=== PATIENT | male | born 2000 | race African-American/Black ===

== ENCOUNTER 2024-01-29 03:30 | Emergency (ER) | payer SELFPAY ==
[2024-01-29 03:33] VITALS: BP 151/92; PULSE 66; TEMP 36.8; O2SAT 98; BMI 27.0
--- NOTE | 2024-01-29 03:37 | XR_ITS ---
The [address] [address] Patient Name: TANA FIGUEROA MRN: [id number] date: 2000 Sex: M Assigned Patient Location: ER Current Patient Location: Accession/Order Number: [id number] Exam Date: 01/29/2024 03:45 Report Date: 01/29/2024 04:29 At the request of: JANAE SHELLEY Procedure: XR foot LT min 3V EXAM: XR ankle LT min 3V, XR foot LT min 3V HISTORY: twisted COMPARISON: None. TECHNIQUE: 3 views of the left ankle and 3 views of the left foot were obtained. FINDINGS: No acute fracture or dislocation is seen. The ankle mortise appears to be congruent. The joint spaces are preserved. There is no significant left ankle joint effusion. There is soft tissue edema about the ankle. There is a tiny radiopaque density between the fourth and fifth toes. XR/XR foot LT min 3V IMPRESSION: 1. Soft tissue edema about the left ankle with no acute fracture or dislocation of the ankle or foot seen. If pain persists, repeat radiographs are recommended in 7-10 days. 2. Tiny radiopaque density between the left fourth and fifth toes which could be external to the patient. Electronically authenticated by: Nikolay PEREA Date: 01/29/2024 04:29
--- NOTE | 2024-01-29 03:37 | XR_ITS ---
The [address] [address] Patient Name: TANA FIGUREOA MRN: [id number] date: 2000 Sex: M Assigned Patient Location: ER Current Patient Location: Accession/Order Number: [id number] Exam Date: 01/29/2024 03:45 Report Date: 01/29/2024 04:29 At the request of: JANAE SHELLEY Procedure: XR ankle LT min 3V EXAM: XR ankle LT min 3V, XR foot LT min 3V HISTORY: twisted COMPARISON: None. TECHNIQUE: 3 views of the left ankle and 3 views of the left foot were obtained. FINDINGS: No acute fracture or dislocation is seen. The ankle mortise appears to be congruent. The joint spaces are preserved. There is no significant left ankle joint effusion. There is soft tissue edema about the ankle. There is a tiny radiopaque density between the fourth and fifth toes. XR/XR ankle LT min 3V IMPRESSION: 1. Soft tissue edema about the left ankle with no acute fracture or dislocation of the ankle or foot seen. If pain persists, repeat radiographs are recommended in 7-10 days. 2. Tiny radiopaque density between the left fourth and fifth toes which could be external to the patient. Electronically authenticated by: Nikolay PEREA Date: 01/29/2024 04:29
--- NOTE | 2024-01-29 03:54 | ED.LOWEXI1 ---
HPI HPI - Extremity Injury (Lower) General Chief Complaint: Extremity Injury, Lower Stated Complaint: LE INJURY Time Seen by Provider: 01/29/24 03:52 Source: patient Mode of arrival: walk-in Limitations: no limitations History of Present Illness HPI Narrative: 23-year-old male presents for left foot and ankle pain. He twisted it on his dog yesterday morning. He points to the anterior portion of the ankle extending onto the anterior/proximal portion of the foot. He has been able to walk and he did not fall. Pain is moderate. Related Data Allergies Allergy/AdvReac Type Severity Reaction Status Date / Time No Known Drug Allergies Allergy Verified 01/29/24 03:33 Opioid HPI Opioid Management Most Recent Pain and Opioid Data: Last Pain Scale 9 01/29/24 03:42 Last ED Pain Assessment 01/29/24 03:42 Review of Systems ROS Narrative A ten point review of systems is negative except as noted above. Exam Narrative Exam Narrative: Nurses note and vital signs reviewed and patient is not hypoxic. General: The patient appears well and in no apparent distress. Patient is resting comfortably on cart. Skin: Warm, dry, no pallor noted. There is no rash noted. Head: Normocephalic, atraumatic Eye: Normal conjunctiva, no drainage Ears, Nose, Mouth, and Throat: oral mucosa is moist. Nares patent. Cardiovascular: Regular Rate and Rhythm Respiratory: Patient is in no distress, no accessory muscle use, lungs are clear to auscultation, no wheezing, rales or rhonchi GI: N soft and nontender Musculoskeletal: The left foot and ankle are examined. There is no obvious deformity. There is no apparent swelling. Skin intact. He has some tenderness anteriorly in the left ankle and proximal foot portion. Neurological: A&O, normal speech Psychiatric: Cooperative Constitutional Vital Signs, click to edit/add: Last Vital Signs Temp 98.3 F 01/29/24 03:33 Pulse 66 01/29/24 03:33 Resp 18 01/29/24 03:33 BP 151/92 H 01/29/24 03:33 Pulse Ox 98 01/29/24 03:33 O2 Del Method Room Air 01/29/24 03:33 Course Vital Signs Vital signs: Vital Signs Temperature 98.3 F 01/29/24 03:33 Pulse Rate 66 01/29/24 03:33 Respiratory Rate 18 01/29/24 03:33 Blood Pressure 151/92 H 01/29/24 03:33 Pulse Oximetry 98 01/29/24 03:33 Oxygen Delivery Method Room Air 01/29/24 03:33 Temperature 98.3 F 01/29/24 03:33 Pulse Rate 66 01/29/24 03:33 Respiratory Rate 18 01/29/24 03:33 Blood Pressure 151/92 H 01/29/24 03:33 Pulse Oximetry 98 01/29/24 03:33 Oxygen Delivery Method Room Air 01/29/24 03:33 MDM - Extremity Injury (Lower) MDM Narrative Medical decision making narrative: X-rays of his foot and ankle on my interpretation showed no acute findings. González wrap applied, application checked by me and found to be appropriate, he is neurovascularly intact. My clinical impression is that he has a sprained foot. Treatment diagnosis and follow-up were discussed with the patient. Differential Diagnosis Differential diagnosis: Likely other (Foot sprain, ankle sprain, foot fracture, ankle fracture) Imaging Data Left foot and ankle: My impression: No acute findings Discharge Plan Discharge Stand Alone Forms: Portal Instructions Chief Complaint: Extremity Injury, Lower Clinical Impression: Sprain of foot, left Patient Disposition: Home, Self-Care Time of Disposition Decision: 03:59 Condition: Good Mode of Transportation: Private Vehicle Print Language: Hungarian Instructions: Foot Sprain (ED) Referrals: Physician,Non-Staff, MD [Primary Care Provider] - 1 week
== END 2024-01-29 04:08 | disposition home or self-care (01) ==
PROVIDERS: Emergency Provider Emergency Medicine
DX: S93.602A Unspecified sprain of left foot, initial encounter (principal); X50.1XXA Overexertion from prolonged static or awkward postures, initial encounter
CPT/HCPCS: 73610; 73630; 99284

== ENCOUNTER 2024-02-05 17:52 | Emergency (ER) | payer OTHER, SELFPAY ==
[2024-02-05 17:59] VITALS: BP 171/87; PULSE 70; TEMP 36.7; O2SAT 100; BMI 35.9
--- NOTE | 2024-02-05 18:35 | CT_ITS ---
The [address] [address] Patient Name: TANA FIGUEROA MRN: [id number] date: 2000 Sex: M Assigned Patient Location: ER Current Patient Location: Accession/Order Number: [id number] Exam Date: 02/05/2024 19:58 Report Date: 02/05/2024 21:07 At the request of: NAEEM HERNANDEZ Procedure: CT abdomen pelvis w con EXAM: CT abdomen pelvis w con TECHNIQUE: Axial CT images were obtained of the abdomen and pelvis with intravenous contrast. Sagittal and coronal reformatted images were also obtained. Dose reduction techniques were achieved by using automated exposure control and/or adjustment of mA and/or kV according to patient size and/or use of iterative reconstruction technique. HISTORY: abdominal pain COMPARISON: None. FINDINGS: Lower chest: The lower lungs are clear. Liver: The liver is homogeneous with normal contours and normal size. Gallbladder: The gallbladder is unremarkable. There is no intra or extrahepatic biliary dilatation. Pancreas: The pancreas is homogeneous without evidence for mass lesion or inflammation. Spleen: The spleen is unremarkable without evidence for mass lesion. Adrenal glands: The adrenal glands are unremarkable Kidneys and bladder: The kidneys are unremarkable with no evidence for mass lesion, hydronephrosis or inflammation. The ureters demonstrate normal caliber. There are bladder is not well-distended but appears to be thickened wall. GI Tract: Stomach is unremarkable. Visualized small bowel is unremarkable without evidence for obstruction or active inflammation. The appendix is unremarkable.The visualized portion of the large bowel is unremarkable. Reproductive: Unremarkable Lymph nodes: No retroperitoneal or abdominal lymphadenopathy. Vascular: The aorta is not dilated. Mesenteric, renal and iliac arteries are patent. Peritoneum: No free intraperitoneal air or fluid. No acute inflammation. Abdominal wall: Unremarkable without acute abnormality. CT/CT abdomen pelvis w con IMPRESSION: Apparent thickened wall of the urinary bladder which may suggest cystitis. Evaluation is limited as the urinary bladder is not well distended. No additional acute abdominal pathology. No obstructing urinary tract stone. No evidence for bowel obstruction. Electronically authenticated by: TERESITA HUNTLEY Date: 02/05/2024 21:07
--- OUTSIDE RECORDS SUMMARY | 2024-02-05 18:50 | XMS_ITS | CCD ---
Author Organization [facility] Care Team Providers Care Wax Ball Knock Out Worker Name Role Phone Cheri Quinteros Unavailable Unavailable Rish, Román Unavailable Unavailable Rish, Román Unavailable Unavailable Rish, Román Unavailable Unavailable No Family Physician Unavailable Unavailable No Family Physician Unavailable Unavailable AldairCheri hall Unavailable Unavailable Rish, Román Unavailable Unavailable Rish, Román Unavailable Unavailable Hill, Tamanna Unavailable Unavailable Rish, Román Unavailable Unavailable Rish, Román Unavailable Unavailable Hill, Tamanna Unavailable Unavailable Rish, Román Unavailable Unavailable Rish, Román Unavailable Unavailable Hill, Tamanna Unavailable Unavailable No Family Physician Unavailable Unavailable No Family Physician Unavailable Unavailable Hill, Tamanna Unavailable Unavailable Rish, Román Unavailable Unavailable Rish, Román Unavailable Unavailable Rish, Román Unavailable Unavailable Rish, Román Unavailable Unavailable Bejko, Etleva Unavailable Unavailable Rish, Román Unavailable Unavailable Rish, Roámn Unavailable Unavailable Unavailable Rischristopher Mima Unavailable Chuck Chopra I Unavailable Unavailable Unavailable Unavailable Luz Beasley Unavailable Unavailable Mmia Rodriguez MD Primary Care Provider [phone] FARRUKH SCHULZ Attending Unavailable RISMIMA Garduno Primary Care Unavailable Jennifer, Dr. Mima Klein Primary Care Unavail able Jennifer, Dr. Mima Klein Attending Unavail able Jennifer, Dr. Mima Klein Referring Unavail able Jennifer, Dr. Mima Klein Primary Care Unavail able MD BRANDON BENITEZ Attending Unavailable Jennifer, Dr. Mima Klein Primary Care Unavail able DULCE MCHUGH Attending Stephy vailable DULCE MCHUGH Attending Stephy vailable Jennifer, Dr. Mima Klein Primary Care Unavail able MD BRANDON BENITEZ Referring Unavailable Min, Ms. Isaac Attending Unavailable Rish, Dr. Mima Klein Primary Care Unavail able Rish, Dr. Mima Klein Primary Care Unavail able Rish, Dr. Mima Klein Attending Unavail able Rish, Dr. Mima Klein Referring Unavail able Rish, Dr. Mima Klein Primary Care Unavail able Rish, Dr. Mima Klein Attending Unavail able Rish, Dr. Mima Klein Referring Unavail able Rish, Dr. Mima Klein Referring Unavail able Rish, Dr. Mima Klein Attending Unavail able Rish, Dr. Mima Klein Primary Care Unavail able Gianluca Rg Attending Unavailable Rish, Dr. Mima Klein Primary Care Unavail able Hud[place], Dr. Luz Fuller Attending Unavailabl e Rish, Dr. Mima Klein Primary Care Unavail able Brandon Benitez Attending Unavailable Rish, Dr. Mima Klein Primary Care Unavail able Brandon Benitez Attending Unavailable Brandon Benitez Referring Unavailable Rish, Dr. Mima Klein Primary Care Unavail able Lori Mchugh Attending Unavailable Lori Mchugh Referring Unavailable Jennifer, Dr. Mima Klein Primary Care Unavail able Mima Rodriguez MD Primary Care Provider Mima Rodriguez MD Unavailable Mima Rodriguez MD Unavailable [phone] MIMA RODRIGUEZ Primary Care Unavailable Linda Gaviria MD Unavailable MIMA RODRIGUEZ Attending Unavailable MIMA RODRIGUEZ Primary Care Unavailable LINDA GAVIRIA Attending Unavailable MIMA RODRIGUEZ Referring Unavailable MIMA RODRIGUEZ Primary Care Unavailable MIMA RODRIGUEZ Attending Unavailable MIMA RODRIGUEZ Primary Care Unavailable LORI MCHUGH Attending Unavailable MIMA RODRIGUEZ Primary Care Unavailable MIMA RODRIGUEZ Primary Care Unavailable MIMA RODRIGUEZ Referring Unavailable MIMA RODRIGUEZ Primary Care Unavailable Medications Current Medications Medication Drug Class(es) Dates Sig (Normalized) Sig (Original) acetaminophen 325 mg oral tablet (1 source) Start: 07-09-2022 take 2 tablets by mouth every four hours as needed acetaminophen 325 mg oral tablet ; 2 tab(s) orally every 4 hours, As needed, Pain - Mild (1-3) Quantity: 0 Refills: 0 Ordered: 09-Jul-2022 Dee Avitia Start: 09-Jul-2022 Generic Substitution Allowed acetaminophen 325 mg / traMADol hydrochloride 37.5 mg oral tablet (1 source) Opioid Agonist Start: 11-05-2022 take 1 tablet by mouth three times daily Ultracet 37.5 mg-325 mg oral tablet ; 1 tab(s) orally 3 times a day Quantity: 12 Refills: 0 Ordered: 04-Nov-2022 Luz Beasley Start: 04-Nov-2022 Generic Substitution Allowed Comments: May cause drowsiness. Alcohol may intensify this effect. Use care when operating dangerous machinery.Obtain medical advice before taking any non-prescription drugs as some may affect the action of this medication.This product contains acetaminophen. Do not use with any other product containing acetaminophen to prevent possible liver damage. Comment on above: May cause drowsiness . Alcohol may intensify this effect. Use care when operating dangerous machinery.Obtain medical advice before taking any non-prescription drugs as some may affect the action of this medication.This product contains acetaminophen. Do not use with any other product containing acetaminophen to prevent possible liver damage. ALPRAZolam 0.25 mg oral tablet (11 sources) Benzodiazepine Start: 11-27-2022 take 1 tablet by mouth every six hours as needed ALPRAZolam (Xanax) 0.25 mg tablet Take 1 tablet (0.25 mg) by mouth every 6 hours if needed. 0 11/27/2022 Active Comment on above: Take 0.25 mg by mout h every 6 hours as needed. amphetamine aspartate 2.5 mg / amphetamine sulfate 2.5 mg / dextroamphetamine saccharate 2.5 mg / dextroamphetamine sulfate 2.5 mg oral tablet (6 sources) Central Nervous System Stimulant Start: 11-15-2023 take 1 tablet by mouth once daily amphetamine-dextr oamphetamine (Adderall) 10 mg tablet Indications: Attention disturbance Take 1 tablet (10 mg) by mouth once daily. Do not start before November 15, 2023. 30 tablet 0 11/15/2023 Active Start: 11-15-2023 take 1 tablet by prakash th once daily amphetamine-dextroamphetamine (Adderall) 10 mg tablet Indications: Attention disturbance Take 1 tablet (10 mg) by mouth once daily. Do not start before November 15, 2023. 30 tablet 0 11/15/2023 Active Start: 09-16-2023 End: 11-15-2023 take 1 tablet by mouth twice daily amphetamine-dextroamphetamine (Adderall) 10 mg tablet Indications: Attention disturbance Take 1 tablet (10 mg) by mouth 2 times a day. Do not start before October 16, 2023. 60 tablet 0 10/16/2023 11/15/2023 Active multivitamin with iron (Daily Vites/Iron) tablet (3 sources) Start: 01-07-2016 multivitamin with iron (Daily Vites/Iron) tablet multivitamin with iron Multiple Vitamins with Iron oral tablet (1 source) take 1 tablet by mouth once daily multivitamin with iron Multiple Vitamins with Iron oral tablet ; 1 tab(s) oral once a day Quantity: 0 Refills: 0 Ordered: 07-May-2022 Teri Church Generic Substitution Allowed proparacaine hydrochloride 5 mg/ml ophthalmic solution (1 source) Local Anesthetic Start: 12-25-2022 End: 12-26-2022 proparacaine 0.5 % 1 Drop (ALCAINE) QUEtiapine 25 mg oral tablet (20 sources) Atypical Antipsychotic Start: 02-20-2022 QUEtiapine (SEROquel) 25 mg tablet Take by mouth. 0 02/20/2022 Active Start: 02-20-2022 QUEtiapine Fum arate 25 MG Oral Tablet Quantity: 30 Refills: 0 Ordered: 20-Feb-2022 DO Start : 20-Feb-2022 Active Comment on above: Take 25 mg by mouth daily at bedtime. tropicamide 10 mg/ml ophthalmic solution (1 source) Anticholinergic Start: 12-26-19 End: 12-27-19 tropicamide 1 % 1 Drop (MYDRIACYL) ursodiol 250 mg oral tablet (14 sources) Bile Acid Start: 11-17-19 End: 06-24-20 take 1 tablet by mouth twice daily ursodiol (Actigall) 250 mg tablet Take 1 tablet (250 mg) by mouth twice a day. 0 11/17/2022 06/24/2023 Discontinued (Therapy completed) Start: 08-05-2022 End: 07-26-2023 take 1 tablet by mouth once daily Ursodiol 250 MG Oral Tablet TAKE 1 TABLET DAILY. Quantity: 30 Refills: 5 Ordered: 27-Jan-2023 Lori Prasad Start : 27-Jan-2023 End : 26-Jul-2023 Active Start: 08-05-2022 take 1 tablet by prakash th twice daily Ursodiol 250 MG Oral Tablet TAKE 1 TABLET TWICE DAILY. Quantity: 60 Refills: 3 Ordered: 05-Aug-2022 Lori Prasad Start : 05-Aug-2022 Active Comment on above: Take 250 mg by mouth twice daily. vitamin b12 1 mg sublingual tablet (15 sources) Vitamin B12 Start: 06-17-2022 End: 06-24-2023 cyanocobalamin, vitamin B-12, 1,000 mcg tablet, sublingual Place under the tongue. 0 06/17/2022 06/24/2023 Discontinued (Therapy completed) Comment on above: Dissolve under the t ongue. Completed/Discontinued Medications Medication Drug Class(es) Dates Sig (Normalized) Sig (Original) acetaminophen 325 mg / HYDROcodone bitartrate 5 mg oral tablet (1 source) Opioid Agonist Start: 07-09-2022 End: 07-11-2022 take 1 tablet by mouth every six hours hydrocodone-acetam inophen 5 mg-325 mg oral tablet ; 1 tab(s) orally every 6 hours Quantity: 12 Refills: 0 Ordered: 09-Jul-2022 Dee Avitia Start: 09-Jul-2022 End: 11-Jul-2022 Generic Substitution Allowed Comments: Caution federal law prohibits the transfer of this drug to any person other than the person for whom it was prescribed.May cause drowsiness. Alcohol may intensify this effect. Use care when operating dangerous machinery.This product contains acetaminophen. Do not use with any other product containing acetaminophen to prevent possible liver damage.Using more of this medication than prescribed may cause serious breathing problems. Comment on above: Caution federal law prohibits the transfer of this drug to any person other than the person for whom it was prescribed.May cause drowsiness. Alcohol may intensify this effect. Use care when operating dangerous machinery.This product contains acetaminophen. Do not use with any other product containing acetaminophen to prevent possible liver damage.Using more of this medication than prescribed may cause serious breathing problems. Bariatric Multivitamins/Iron Oral Capsule (13 sources) Start: 06-17-2022 Bariatric Multivitamins/Iron Oral Capsule TAKE DIRECTED. Quantity: 0 Refills: 0 Ordered: 17-Jun-2022 DO Start : 17-Jun-2022 Active biotin 1 mg oral capsule (20 sources) Start: 02-18-2018 biotin 1 mg cap Take by mouth. 0 02/18/2018 Active biotin ; orally once a day Quantity: 0 Refills: 0 Ordered: 29-Jan-2022 Annel Guerin Generic Substitution Allowed Comment on above: Take by mouth. 24 hr buPROPion hydrochloride 150 mg extended release oral tablet (11 sources) Aminoketone Start: 10-07-2021 take 1 tablet by mouth once daily in the morning buPROPion HCl ER (XL) 150 MG Oral Tablet Extended Release 24 Hour TAKE 1 TABLET EVERY MORNING Quantity: 30 Refills: 2 Ordered: 07-Oct-2021 Gerry Blum Start : 07-Oct-2021 Active Calcium Citrate (13 sources) Start: 06-17-2022 take 1 tablet by mouth three times daily Calcium Citrate + Oral Tablet TAKE 1 TABLET 3 times daily Quantity: 0 Refills: 0 Ordered: 17-Jun-2022 DO Start : 17-Jun-2022 Active cholecalciferol 1.25 mg oral tablet (20 sources) Vitamin D Start: 11-10-2017 Dialyvite Vitamin D3 Max 1.25 MG (79435 UT) Oral Tablet TK 1 T PO WEEKLY Quantity: 4 Refills: 0 Ordered: 10-Nov-2017 DO Start : 10-Nov-2017 Active Start: 01-07-2016 cholecalcifero l, Vitamin D3, (VITAMIN D3) 1,250 mcg (50,000 unit) cap capsule DAILY VITES/IRON tab (1 source) Start: 01-07-2016 DAILY VITES/IR ON tab DULoxetine 60 mg delayed release oral capsule (20 sources) Serotonin and Norepinephrine Reuptake Inhibitor Start: 08-29-2021 take 1 capsule by mouth twice daily DULoxetine (CYMBALTA) 60 mg capsule Take 60 mg by mouth twice daily. 0 08/29/2021 Active Start: 12-12-2020 take 1 capsule by mo [facility] once daily DULoxetine HCl - 60 MG Oral Capsule Delayed Release Particles TAKE 1 CAPSULE Daily Quantity: 30 Refills: 6 Ordered: 27-Feb-2022 Mima Rodriguez MD Start : 12-Dec-2020 Active Start: 12-12-2020 take 1 capsule by mo [facility] twice daily DULoxetine HCl - 60 MG Oral Capsule Delayed Release Particles TAKE 1 CAPSULE TWICE DAILY. Quantity: 60 Refills: 2 Ordered: 27-Jun-2021 Mima Rodriguez MD Start : 12-Dec-2020 Active Comment on above: Take 60 mg by mouth twice daily. 0.6 ml enoxaparin sodium 100 mg/ml prefilled syringe (2 sources) Low Molecular Weight Heparin Start: 04-28-2022 End: 05-21-2022 Enoxaparin Sodium 60 MG/0.6ML Injection Solution Prefilled Syringe INJECT 0.6 ML Daily Inject one syringe subQ daily for 28 days post op. Rotate injection sites. Quantity: 28 Refills: 0 Ordered: 28-Apr-2022 Ami AVELAR, Brandon Start : 28-Apr-2022 End : 21-May-2022 Complete escitalopram 10 mg oral tablet (1 source) Serotonin Reuptake Inhibitor Start: 01-15-2016 End: 12-25-2022 escitalopram oxalate (LEXAPRO) 10 mg tablet ferrous sulfate 325 mg oral tablet (20 sources) Start: 02-18-2018 ferrous sulfate 325 mg (65 mg iron) tablet Take by mouth. 0 02/18/2018 Active Start: 02-18-2018 take 1 tablet by [facility] once daily Iron 325 (65 Fe) MG Oral Tablet TAKE 1 TABLET DAILY DIRECTED. Quantity: 0 Refills: 0 Ordered: 18-Feb-2018 DO Start : 18-Feb-2018 Active Comment on above: Take by mouth. loratadine 10 mg oral tablet (1 source) Start: 01-06-2016 loratadine (CLARITIN) 10 mg tablet magnesium gluconate 500 mg oral tablet (1 source) magnesium glucon ate (MAGONATE) 27 mg (500 mg) tab Take 500 mg by mouth. 0 Active Comment on above: Take 500 mg by mouth . melatonin 1 mg oral tablet (20 sources) Start: 02-18-2018 Melatonin 1 MG Oral Tablet TAKE DIRECTED. Quantity: 0 Refills: 0 Ordered: 27-Nov-2019 DO Start : 18-Feb-2018 Active Start: 02-18-2018 melatonin 1 mg tablet Take by mouth. 0 02/18/2018 Active Comment on above: Take by mouth. mv,Ca,min/iron/FA/guara na/caff (ONE-A-DAY WOMEN'S ACTIVE ORAL) (1 source) Start: 05-12-2022 mv,Ca,min/iron/FA/guar zoë/caff (ONE-A-DAY WOMEN'S ACTIVE ORAL) NAPHAZOLINE HCL/PHENIRAMINE (OPCON-A OPHTHALMIC) (1 source) NAPHAZOLINE HCL/PHENIRAMINE (OPCON-A OPHTHALMIC) Use in eyes. 0 Active Comment on above: Use in eyes. NIFEdipine (1 source) Dihydropyridine Calcium Channel Phil Start: 03-30-2023 NIFEdipine Powder Quantity: 1 Refills: 0 Ordered: 30-Mar-2023 DO Start : 30-Mar-2023 Complete NIFEdipine, bulk, powder (2 sources) Start: 03-30-2023 End: 10-27-2023 NIFEdipine, bulk, powder Start: 03-30-2023 NIFEdipine, bu lk, powder omeprazole 20 mg delayed release oral capsule (20 sources) Proton Pump Inhibitor Start: 06-12-2023 End: 10-27-2023 omeprazole (PriLOSEC) [address] capsule Start: 01-27-2023 Omeprazole 20 MG Oral Capsule Delayed Release Quantity: 0 Refills: 0 Ordered: 27-Jan-2023 Lolita OR[employer]LE APPLICATIONS ANALYST-STITCHER TAPE CONTROLLED MACHINE, Lori Start : 27-Jan-2023 Active Start: 04-28-2022 End: 05-03-2023 take 1 capsule by mouth once daily before breakfast Omeprazole 20 MG Oral Capsule Delayed Release TAKE 1 CAPSULE DAILY EVERY MORNING BEFORE BREAKFAST. Quantity: 30 Refills: 5 Ordered: 04-Nov-2022 Lolita ORACLE APPLICATIONS ANALYST-DULCE, Lori Start : 28-Apr-2022 End : 03-May-2023 Active Start: 04-28-2022 End: 10-27-2023 take 1 capsule by mouth once daily omeprazole (PriLOSEC) [address] capsule TAKE 1 CAPSULE BY MOUTH ONCE DAILY OPEN CAPSULE, SPRINKLE IN SUGAR FREE APPLESAUCE OR PUDDING AND SWALLOW DO NOT CHEW 0 04/28/2022 10/27/2023 Discontinued (Therapy completed) Start: 04-28-2022 Omeprazole 40 MG Oral Capsule Delayed Release Quantity: 30 Refills: 0 Ordered: 28-Apr-2022 DO Start : 28-Apr-2022 Complete Comment on above: TAKE 1 CAPSULE BY [facility] ONCE DAILY OPEN CAPSULE, SPRINKLE IN SUGAR FREE APPLESAUCE OR PUDDING AND SWALLOW DO NOT CHEW ondansetron 4 mg disintegrating oral tablet (9 sources) Serotonin-3 Receptor Antagonist Start: 04-21-2023 End: 10-27-2023 ondansetron ODT (Zofran-ODT) 4 mg disintegrating tablet Take by mouth. 0 04/21/2023 10/27/2023 Discontinued (Therapy completed) Start: 11-05-2022 take 1 tablet by prakash th three times daily ondansetron 4 mg oral tablet ; 1 tab(s) orally 3 times a day Quantity: 12 Refills: 0 Ordered: 04-Nov-2022 Luz Beasley Start: 04-Nov-2022 Generic Substitution Allowed Start: 07-09-2022 Ondansetron HC l - 4 MG Oral Tablet Quantity: 12 Refills: 0 Ordered: 09-Jul-2022 DO Start : 09-Jul-2022 Complete Start: 07-09-2022 End: 07-11-2022 take 1 tablet by mouth every six hours ondansetron 4 mg oral tablet ; 1 tab(s) orally every 6 hours Quantity: 12 Refills: 0 Ordered: 09-Jul-2022 Dee Avitia Start: 09-Jul-2022 End: 11-Jul-2022 Generic Substitution Allowed Start: 05-14-2022 take 1 tablet by prakash th every eight hours ondansetron 4 mg oral tablet ; 1 tab(s) orally every 8 hours Quantity: 0 Refills: 0 Ordered: 14-May-2022 Prince Bush Start: 14-May-2022 Generic Substitution Allowed Start: 04-28-2022 Ondansetron 4 MG Oral Tablet Disintegrating 1-2 tablets every 6-8 hours as needed for nausea Quantity: 60 Refills: 0 Ordered: 28-Apr-2022 Brandon Benitez MD Start : 28-Apr-2022 Active oxyCODONE hydrochloride 1 mg/ml oral solution (2 sources) Opioid Agonist Start: 05-07-2022 End: 05-21-2022 take 5 mL by mouth every four hours oxyCODONE HCl - 5 MG/5ML Oral Solution TAKE 5 ML Every 4 hours PRN pain alternate with tylenol and heating pad Quantity: 180 Refills: 0 Ordered: 07-May-2022 Brandon Benitez MD Start : 07-May-2022 End : 21-May-2022 Complete pantoprazole 40 mg delayed release oral tablet (1 source) Proton Pump Inhibitor Start: 01-15-2016 End: 12-25-[address] (PROTONIX) 40 mg tablet rivaroxaban 10 mg oral tablet (1 source) Factor Xa Inhibitor Start: 05-14-2022 Xarelto 10 MG Oral Tablet Quantity: 7 Refills: 0 Ordered: 14-May-2022 DO Start : 14-May-2022 Complete sod picosulf-mag ox-citric ac (Clenpiq) 10 mg-3.5 gram- 12 gram/175 mL solution (2 sources) Start: 04-26-2023 End: 10-27-2023 sod picosulf-mag ox-citric ac (Clenpiq) 10 mg-3.5 gram- 12 gram/175 mL solution Take by mouth. 0 04/26/2023 10/27/2023 Discontinued (Therapy completed) Start: 04-26-2023 sod picosulf-m ag ox-citric ac (Clenpiq) 10 mg-3.5 gram- 12 gram/175 mL solution Take by mouth. 0 04/26/2023 Active NEGATED: Highlighted row has not occurred!No Current Medications (1 source) No Current Medic ations Problems Active Problems Problem Classification Problem Date Documented Da te Episodic/Chronic Anxiety disorders (20 sources) Anxiety disorder; Translations: [Anxiety state, unspecified] Onset: 07-09-2022 06-23-2023 Chronic Comment on above: Manifesting with eas y anger and irritability. 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] Onset: 06-23-2023 06-23-2023 Chronic Endometriosis (2 sources) Endometriosis (clinical); Translations: [Endometriosis, unspecified] Onset: 12-16-2017 09-09-2023 Chronic Esophageal disorders (1 source) Gastro-esophageal reflux disease without esophagitis; Translations: [Gastro-esophageal reflux disease without esophagitis] Onset: 07-09-2022 Chronic Gastroduodenal ulcer (except hemorrhage) (20 sources) H/O: gastric ulcer; Translations: [Personal history of other diseases of digestive system] Episodic Immunizations and screening for infectious disease (20 sources) Patient encounter status; Translations: [Other specified vaccination] Onset: 07-09-2022 Resolved: 10-27-2023 10-27-2023 Episodic Mood disorders (20 sources) Depressive disorder; Translations: [Depressive disorder, not elsewhere classified] Onset: 06-23-2023 06-23-2023 Chronic Mood disorders (1 source) Mood disorders; Translations: [Depression, unspecified] Onset: 07-09-2022 Nonmalignant breast conditions (11 sources) Breast lump; Translations: [Lump or mass in breast] Onset: 10-27-2023 10-27-2023 Episodic Nonspecific chest pain (4 sources) Chest pain; Translations: [Chest wall pain] Onset: 10-27-2023 05-14-2021 Episodic Comment on above: CHEST PAIN Other and unspecified benign neoplasm (20 sources) Fibroadenoma of breast; Translations: [Benign neoplasm of breast] Episodic Other circulatory disease (20 sources) Raynaud's phenomenon ; Translations: [Raynaud's syndrome] Onset: 06-23-2023 06-23-2023 Chronic Other gastrointestinal disorders (20 sources) History of bariatric surgical procedure; Translations: [Bariatric surgery status] Onset: 06-23-2023 06-24-2023 Episodic Other lower respiratory disease (1 source) Chest wall pain; Translations: [Painful respiration] 05-14-2021 Episodic Other nervous system disorders (5 sources) Disturbance of attention; Translations: [Attention and concentration deficit] Onset: 06-24-2023 06-24-2023 Chronic Other nervous system disorders (2 sources) Disorder of brain; Translations: [Encephalopathy, unspecified] Onset: 10-27-2023 09-16-2023 Chronic Other nervous system disorders (2 sources) Attention and concentration deficit; Translations: [Attention and concentration deficit] Onset: 06-24-2023 Chronic Other nutritional; endocrine; and metabolic disorders (20 sources) Body mass index 40+ - severely obese; Translations: [Morbid obesity] Chronic Other nutritional; endocrine; and metabolic disorders (1 source) Morbid (severe) obesity due to excess calories; Translations: [Morbid (severe) obesity due to excess calories] Onset: 07-09-2022 Chronic Other nutritional; endocrine; and metabolic disorders (1 source) Body mass index (BMI) 40.0-44.9, adult; Translations: [Body mass index [BMI] 40.0-44.9, adult] Onset: 07-09-2022 Chronic Other screening for suspected conditions (not mental disorders or infectious disease) (4 sources) Encounter for screening mammogram for malignant neoplasm of breast; Translations: [Encounter for screening mammogram for malignant neoplasm of breast] Onset: 10-27-2023 Episodic Residual codes; unclassified (2 sources) Insomnia co-occurrent and due to medical condition; Translations: [Insomnia due to medical condition] Onset: 10-27-2023 09-16-2023 Chronic Residual codes; unclassified (2 sources) History of total hysterectomy with bilateral salpingo-oophorecto my; Translations: [Acquired absence of both cervix and uterus] Onset: 10-27-2023 10-27-2023 Episodic Unclassified (1 source) Unknown / UNK(Unknown) Onset: 07-08-2018 Unclassified (2 sources) LOWER ABD PAIN 11-04-2022 Comment on above: LOWER ABD PAIN Unclassified (1 source) Lower abdominal pain of unknown etiology 11-05-2022 Unclassified (1 source) Contact with and (suspected) exposure to COVID-19; Translations: [Contact with and (suspected) exposure to COVID-19] Onset: 07-09-2022 Past or Other Problems Problem Classification Problem Date Documented Da te Episodic/Chronic Abdominal pain (20 sources) Abdominal pain; Translations: [Abdominal pain, unspecified site] Onset: 07-09-2022 Resolved: 10-27-2023 11-05-2022 Episodic Allergic reactions (1 source) Allergy status to other drugs, medicaments and biological substances status; Translations: [Allergy status to other drug/meds/biol subst] Onset: 07-09-2022 Episodic Biliary tract disease (16 sources) Cholelithiasis without obstruction; Translations: [Calculus of gallbladder without mention of cholecystitis, without mention of obstruction] Onset: 07-09-2022 06-23-2023 Episodic Disorders of lipid metabolism (20 sources) Hyperlipidemia; Translations: [Other and unspecified hyperlipidemia] Onset: 02-06-2022 Resolved: 10-27-2023 06-23-2023 Chronic Nausea and vomiting (20 sources) Nausea and vomiting; Translations: [Nausea with vomiting] Onset: 11-05-2022 06-23-2023 Episodic Other and unspecified benign neoplasm (4 sources) Benign neoplasm of right breast; Translations: [Benign neoplasm of right breast] Onset: 10-30-2022 Episodic Other and unspecified benign neoplasm (3 sources) Fibroadenoma of right breast; Translations: [Benign neoplasm of right breast] Onset: 06-23-2023 06-23-2023 Episodic Other connective tissue disease (20 sources) Disease suspected; Translations: [Other symptoms involving nervous and musculoskeletal systems] Onset: 06-23-2023 Resolved: 06-24-2023 06-24-2023 Episodic Other gastrointestinal disorders (18 sources) History of sleeve gastrectomy; Translations: [Bariatric surgery status] Onset: 06-23-2023 06-23-2023 Episodic Comment on above: 05/13/2022 at ; Other gastrointestinal disorders (11 sources) Heartburn; Translations: [Heartburn] Onset: 06-23-2023 06-23-2023 Episodic Other gastrointestinal disorders (5 sources) Bariatric surgery status; Translations: [Bariatric surgery status] Onset: 02-06-2022 Episodic Other gastrointestinal disorders (1 source) Constipation, unspecified; Translations: [Constipation, unspecified] Onset: 07-09-2022 Episodic Other lower respiratory disease (20 sources) Snoring; Translations: [Other respiratory abnormalities] Onset: 06-23-2023 Resolved: 06-24-2023 06-24-2023 Episodic Other nervous system disorders (19 sources) Postoperative pain ; Translations: [Other acute postoperative pain] Onset: 06-23-2023 06-23-2023 Episodic Other nutritional; endocrine; and metabolic disorders (13 sources) Body mass index 30+ - obesity; Translations: [Obesity, unspecified] Onset: 06-23-2023 Resolved: 10-27-2023 06-23-2023 Chronic Other skin disorders (10 sources) Pilar cyst of scalp; Translations: [Pilar cyst] Onset: 06-23-2023 06-23-2023 Episodic Residual codes; unclassified (20 sources) Disturbance in sleep behavior; Translations: [Sleep disturbance, unspecified] Onset: 06-23-2023 Resolved: 06-24-2023 06-24-2023 Episodic Residual codes; unclassified (1 source) Acquired absence of both cervix and uterus; Translations: [Acquired absence of both cervix and uterus] Onset: 11-05-2022 Episodic Residual codes; unclassified (1 source) Insomnia, unspecified; Translations: [Insomnia, unspecified] Onset: 07-09-2022 Episodic Screening and history of mental health and substance abuse codes (1 source) Personal history of nicotine dependence; Translations: [Personal history of nicotine dependence] Onset: 11-05-2022 Episodic Unclassified (1 source) ABD PAIN/NAUSEA/VOMITING 66329 R10.9 R11.2 Onset: 07-08-2018 Unclassified (2 sources) Onset: 09-16-2023 09-16-2023 NEGATED: Highlighted row has not occurred!Residual codes; unclassified (6 sources) Disease Episodic Results Test Name Value Interpretation Reference Range Facility BI MAMMO BILATERAL SCREENING TOMOSYNTHESISon 11-12-2023 BI MAMMO BILATERAL SCREENING TOMOSYNTHESIS Interpreted By: Clemente Scherer, STUDY: BI MAMMO BILATERAL SCREENING TOMOSYNTHESIS; 11/12/2023 2:48 pm ACCESSION NUMBER(S): [id number] ORDERING CLINICIAN: MIMA RODRIGUEZ INDICATION: Screening. COMPARISON: Digital mammogram dated 10/30/2022 FINDINGS: CC and MLO 2D digital mammograms and digital breast tomosynthesis images were obtained of the bilateral breasts. 3-D volume images were reconstructed in 4 views at an independent workstation as 1 mm slices through the breasts in both the CC and MLO projections. Density: There are areas of scattered fibroglandular tissue. No discrete mass or focal asymmetry is identified. No suspicious microcalcifications or foci of architectural distortion are seen. There has been no significant change. This study was interpreted with CAD. IMPRESSION: No mammographic evidence of malignancy. BI-RADS CATEGORY: BI-RADS Category: 1 Negative. Recommendation: Routine Screening Mammogram in 1 Year. Recommended Date: 1 Year. Laterality: Bilateral. MACRO: None Signed by: Clemente Scherer 11/15/2023 9:47 AM Dictation workstation: [id number] [facility] Drugs of abuse screen W Refl ex confirm panel (U)on 09-16-2023 Amphetamines Screen Ql (U) Negative Normal Presumptive Negative [facility] Comment on above: Order Comment: Drug screen results are presumptive and should not be used to assess compliance with prescribed medication. Definitive confirmatory drug testing has been added to this sample for any positive screen result and will be reported separately. Toxicology screening results are reported qualitatively. The concentration must be greater than or equal to the cutoff to be reported as positive. The concentration at which the screening test can detect an individual drug or metabolite varies. The absence of expected drug(s) and/or drug metabolite(s) may indicate non-compliance, inappropriate timing of specimen collection relative to drug administration, poor drug absorption, diluted/adulterated urine, or limitations of testing. For medical purposes only; not valid for forensic use. Interpretive questions should be directed to the laboratory medical directors. Result Comment: CUTO FF LEVEL: 500 NG/ML Cross-reactivity has been reported with high concentrations of the following drugs: buproprion, chloroquine, chlorpromazine, ephedrine, mephentermine, fenfluramine, phentermine, phenylpropanolamine, pseudoephedrine, and propranolol. Performed By: #### 8 7428-9 #### RAJ TOVAR ([id number]) [facility] ([facility]) [address] [place] [phone] Barbiturates Screen Ql (U) Negative Normal Presumptive Negative [facility] Comment on above: Order Comment: Drug screen results are presumptive and should not be used to assess compliance with prescribed medication. Definitive confirmatory drug testing has been added to this sample for any positive screen result and will be reported separately. Toxicology screening results are reported qualitatively. The concentration must be greater than or equal to the cutoff to be reported as positive. The concentration at which the screening test can detect an individual drug or metabolite varies. The absence of expected drug(s) and/or drug metabolite(s) may indicate non-compliance, inappropriate timing of specimen collection relative to drug administration, poor drug absorption, diluted/adulterated urine, or limitations of testing. For medical purposes only; not valid for forensic use. Interpretive questions should be directed to the laboratory medical directors. Result Comment: CUTO FF LEVEL: 200 NG/ML Performed By: #### 8 7428-9 #### RAJ TOVAR ([id number]) [facility] ([facility]) [address] [place] [address] Benzodiazepines Ql (U) Negative Normal Presumptive Negative [facility] Comment on above: Order Comment: Drug screen results are presumptive and should not be used to assess compliance with prescribed medication. Definitive confirmatory drug testing has been added to this sample for any positive screen result and will be reported separately. Toxicology screening results are reported qualitatively. The concentration must be greater than or equal to the cutoff to be reported as positive. The concentration at which the screening test can detect an individual drug or metabolite varies. The absence of expected drug(s) and/or drug metabolite(s) may indicate non-compliance, inappropriate timing of specimen collection relative to drug administration, poor drug absorption, diluted/adulterated urine, or limitations of testing. For medical purposes only; not valid for forensic use. Interpretive questions should be directed to the laboratory medical directors. Result Comment: CUTO FF LEVEL: 200 NG/ML Performed By: #### 8 7428-9 #### RAJ TOVAR ([id number]) [facility] ([facility]) [address] [place] [phone] Benzoylecgonine Screen Ql (U) Negative Normal Presumptive Negative [facility] Comment on above: Order Comment: Drug screen results are presumptive and should not be used to assess compliance with prescribed medication. Definitive confirmatory drug testing has been added to this sample for any positive screen result and will be reported separately. Toxicology screening results are reported qualitatively. The concentration must be greater than or equal to the cutoff to be reported as positive. The concentration at which the screening test can detect an individual drug or metabolite varies. The absence of expected drug(s) and/or drug metabolite(s) may indicate non-compliance, inappropriate timing of specimen collection relative to drug administration, poor drug absorption, diluted/adulterated urine, or limitations of testing. For medical purposes only; not valid for forensic use. Interpretive questions should be directed to the laboratory medical directors. Result Comment: CUTO FF LEVEL: 150 NG/ML Performed By: #### 8 7428-9 #### RAJ TOVAR ([id number]) [facility] ([facility]) [address] [place] [phone] Cannabinoids Screen Ql (U) Negative Normal Presumptive Negative [facility] Comment on above: Order Comment: Drug screen results are presumptive and should not be used to assess compliance with prescribed medication. Definitive confirmatory drug testing has been added to this sample for any positive screen result and will be reported separately. Toxicology screening results are reported qualitatively. The concentration must be greater than or equal to the cutoff to be reported as positive. The concentration at which the screening test can detect an individual drug or metabolite varies. The absence of expected drug(s) and/or drug metabolite(s) may indicate non-compliance, inappropriate timing of specimen collection relative to drug administration, poor drug absorption, diluted/adulterated urine, or limitations of testing. For medical purposes only; not valid for forensic use. Interpretive questions should be directed to the laboratory medical directors. Result Comment: CUTO FF LEVEL: 50 NG/ML Performed By: #### 8 7428-9 #### RAJ TOVAR ([id number]) [facility] ([facility]) [address] [place] [address] fentaNYL+Norfentan yl Screen Ql (U) Negative Normal Presumptive Negative [facility] Comment on above: Order Comment: Drug screen results are presumptive and should not be used to assess compliance with prescribed medication. Definitive confirmatory drug testing has been added to this sample for any positive screen result and will be reported separately. Toxicology screening results are reported qualitatively. The concentration must be greater than or equal to the cutoff to be reported as positive. The concentration at which the screening test can detect an individual drug or metabolite varies. The absence of expected drug(s) and/or drug metabolite(s) may indicate non-compliance, inappropriate timing of specimen collection relative to drug administration, poor drug absorption, diluted/adulterated urine, or limitations of testing. For medical purposes only; not valid for forensic use. Interpretive questions should be directed to the laboratory medical directors. Result Comment: CUTO FF LEVEL: 5 NG/ML Performed By: #### 8 7428-9 #### RAJ TOVAR ([id number]) [facility] ([facility]) [address] [place] [address]50 Opiates Screen Ql (U) Negative Normal Presumptive Negative [facility] Comment on above: Order Comment: Drug screen results are presumptive and should not be used to assess compliance with prescribed medication. Definitive confirmatory drug testing has been added to this sample for any positive screen result and will be reported separately. Toxicology screening results are reported qualitatively. The concentration must be greater than or equal to the cutoff to be reported as positive. The concentration at which the screening test can detect an individual drug or metabolite varies. The absence of expected drug(s) and/or drug metabolite(s) may indicate non-compliance, inappropriate timing of specimen collection relative to drug administration, poor drug absorption, diluted/adulterated urine, or limitations of testing. For medical purposes only; not valid for forensic use. Interpretive questions should be directed to the laboratory medical directors. Result Comment: CUTO FF LEVEL: 300 NG/ML The opiate screen does not detect fentanyl, meperidine, or tramadol. Oxycodone is not consistently detected (refer to Oxycodone Screen, Urine result). Performed By: #### 8 7428-9 #### RAJ TOVAR ([id number]) [facility] ([facility]) [address] [place] [address]151 oxyCODONE+oxyMORph one Screen Ql (U) Negative Normal Presumptive Negative [facility] Comment on above: Order Comment: Drug screen results are presumptive and should not be used to assess compliance with prescribed medication. Definitive confirmatory drug testing has been added to this sample for any positive screen result and will be reported separately. Toxicology screening results are reported qualitatively. The concentration must be greater than or equal to the cutoff to be reported as positive. The concentration at which the screening test can detect an individual drug or metabolite varies. The absence of expected drug(s) and/or drug metabolite(s) may indicate non-compliance, inappropriate timing of specimen collection relative to drug administration, poor drug absorption, diluted/adulterated urine, or limitations of testing. For medical purposes only; not valid for forensic use. Interpretive questions should be directed to the laboratory medical directors. Result Comment: CUTO FF LEVEL: 100 NG/ML This test will accurately detect both oxycodone and oxymorphone. Performed By: #### 8 7428-9 #### RAJ TOVAR ([id number]) [facility] ([facility]) [address] [place] [address] 22383 Phencyclidine Ql (U) Negative Normal Presumptive Negative [facility] Comment on above: Order Comment: Drug screen results are presumptive and should not be used to assess compliance with prescribed medication. Definitive confirmatory drug testing has been added to this sample for any positive screen result and will be reported separately. Toxicology screening results are reported qualitatively. The concentration must be greater than or equal to the cutoff to be reported as positive. The concentration at which the screening test can detect an individual drug or metabolite varies. The absence of expected drug(s) and/or drug metabolite(s) may indicate non-compliance, inappropriate timing of specimen collection relative to drug administration, poor drug absorption, diluted/adulterated urine, or limitations of testing. For medical purposes only; not valid for forensic use. Interpretive questions should be directed to the laboratory medical directors. Result Comment: CUTO FF LEVEL: 25 NG/ML Cross-reactivity has been reported with dextromethorphan. Performed By: #### 8 7428-9 #### RAJ TOVAR ([id number]) [facility] ([facility]) [address] [place] [address] 62815 CBC W Auto Differential pane l (Bld)on 07-09-2023 Basophils (Bld) [#/Vol] 0.03 x10*3/uL Normal 0.00-0.10 [facility] Comment on above: Performed By: #### 5 7021-8 #### JEANE HOOVER ([id number]) [facility] ([facility]) [address] [place] [address]383 Basophils/100 WBC (Bld) 1.1 % Normal 0.0-2.0 [facility] Comment on above: Performed By: #### 5 7021-8 #### JEANE HOOVER ([id number]) [facility] ([facility]) [address] [place] [address] Eosinophils (Bld) [#/Vol] 0.06 x10*3/uL Normal 0.00-0.70 [facility] Comment on above: Performed By: #### 5 7021-8 #### JEANE HOOVER ([id number]) [facility] ([facility]) [address] [place] [address] Eosinophils/100 WBC (Bld) 2.1 % Normal 0.0-6.0 [facility] Comment on above: Performed By: #### 5 7021-8 #### JEANE HOOVER ([id number]) [facility] ([facility]) [address] [place] [address] Erythrocyte distribution width (RBC) [Ratio] 13.0 % Normal 11.5-14.5 [facility] Comment on above: Performed By: #### 5 7021-8 #### JEANE HOOVER ([id number]) [facility] ([facility]) [address] [place] [address] Hematocrit (Bld) [Volume fraction] 39.6 % Normal 36.0-46.0 [facility] Comment on above: Performed By: #### 5 7021-8 #### JEANE HOOVER ([id number]) [facility] ([facility]) [address] [place] [address] Hemoglobin (Bld) [Mass/Vol] 12.9 g/dL Normal 12.0-16.0 [facility] Comment on above: Performed By: #### 5 7021-8 #### JEANE HOOVER ([id number]) [facility] ([facility]) [address] [place] [address]150 Immature granulocytes (Bld) [#/Vol] 0.00 x10*3/uL Normal 0.00-0.70 [facility] Comment on above: Performed By: #### 5 7021-8 #### JEANE HOOVER ([id number]) [facility] ([facility]) [address] [place], [place] [id number] Immature granulocytes/100 WBC (Bld) 0.0 % Normal 0.0-0.9 [facility] Comment on above: Result Comment: Loree ture Granulocyte Count (IG) includes promyelocytes, myelocytes and metamyelocytes but does not include bands. Percent differential counts (%) should be interpreted in the context of the absolute cell counts (cells/UL). Performed By: #### 5 7021-8 #### JEANE HOOVER ([id number]) [facility] ([facility]) [address] [place] [address] 88983 Lymphocytes (Bld) [#/Vol] 1.40 x10*3/uL Normal 1.20-4.80 [facility] Comment on above: Performed By: #### 5 7021-8 #### JEANE HOOVER ([id number]) [facility] ([facility]) [address] [place] [address] 20417 Lymphocytes/100 WBC (Bld) 50.0 % Normal 13.0-44.0 [facility] Comment on above: Performed By: #### 5 70-8 #### JEANE HOOVER ([id number]) [facility] ([facility]) [address] [place] [address] 68869 MCH (RBC) [Entitic mass] 29.5 pg Normal 26.0-34.0 [facility] Comment on above: Performed By: #### 5 7021-8 #### JEANE HOOVER ([id number]) [facility] ([facility]) [address] [place] [address] 93013 MCHC (RBC) [Mass/Vol] 32.6 g/dL Normal 32.0-36.0 [facility] Comment on above: Performed By: #### 5 7021-8 #### JEANE HOOVER ([id number]) [facility] ([facility]) [address] [place] [address] 75842 MCV (RBC) [Entitic vol] 91 fL Normal 80-100 [facility] Comment on above: Performed By: #### 5 7021-8 #### JEANE HOOVER ([id number]) [facility] ([facility]) [address] [place] [address] 55465 Monocytes (Bld) [#/Vol] 0.23 x10*3/uL Normal 0.10-1.00 [facility] Comment on above: Performed By: #### 5 7021-8 #### JEANE HOOVER ([id number]) [facility] ([facility]) [address] [place] [address] 41404 Monocytes/100 WBC (Bld) 8.2 % Normal 2.0-10.0 [facility] Comment on above: Performed By: #### 7021-8 #### JEANE HOOVER ([id number]) [facility] ([facility]) [address] [place] [address] 25919 Neutrophils (Bld) [#/Vol] 1.08 x10*3/uL Low 1.20-7.70 [facility] Comment on above: Result Comment: Perc ent differential counts (%) should be interpreted in the context of the absolute cell counts (cells/uL). Performed By: #### 5 7021-8 #### JEANE HOOVER ([id number]) [facility] ([facility]) [address] [place] [address] 63606 Neutrophils/100 WBC (Bld) 38.6 % Normal 40.0-80.0 [facility] Comment on above: Performed By: #### 5 7021-8 #### JEANE HOOVER ([id number]) [facility] ([facility]) [address] [place] [address] 91560 Nucleated RBC/100 WBC (Bld) [Ratio] 0.0 /100 WBCs Normal 0.0-0.0 [facility] Comment on above: Performed By: #### 5 7021-8 #### JEANE HOOVER ([id number]) [facility] ([facility]) [address] [place] [address] 08404 Platelet mean volume (Bld) [Entitic vol] 12.4 fL High 7.5-11.5 [facility] Comment on above: Performed By: #### 5 7021-8 #### JEANE HOOVER ([id number]) [facility] ([facility]) [address] [place] [address] 62998 Platelets (Bld) [#/Vol] 161 x10*3/uL Normal 150-450 [facility] Comment on above: Performed By: #### 5 7021-8 #### JEANE HOOVER ([id number]) [facility] ([facility]) [address] [place] [address] 04787 RBC (Bld) [#/Vol] 4.37 x10*6/uL Normal 4.00-5.20 [facility] Comment on above: Performed By: #### 5 7021-8 #### JEANE HOOVER ([id number]) [facility] ([facility]) [address] [place] [address] 80393 WBC (Bld) [#/Vol] 2.8 x10*3/uL Low 4.4-11.3 [facility] Comment on above: Performed By: #### 5 7021-8 #### JEANE HOOVER ([id number]) [facility] ([facility]) [address] [place] [address] Calcidiolon 07-09-2023 25-hydroxyvitamin D3 [Mass/Vol] 98 ng/mL Normal 30-100 [facility] Comment on above: Order Comment: Defic iency: < 20 ng/ml Insufficiency: 20-29 ng/ml Sufficiency: 30-100 ng/ml This assay accurately quantifies the sum of Vitamin D3, 25-Hydroxy and Vitamin D2,25-Hydroxy. Performed By: #### 1 989-3 #### JEANE HOOVER ([id number]) [facility] ([facility]) [address] [place], [place] [phone] Cobalaminson 07-09-2023 Cobalamin (Vitamin B12) [Mass/Vol] 503 pg/mL Normal 211-911 [facility] Comment on above: Performed By: #### 2 132-9 #### JEANE HOOVER ([id number]) [facility] ([facility]) [address] [place], [place] [address] Comprehensive metabolic 2000 panelon 07-09-2023 Albumin BCP dye [Mass/Vol] 4.0 g/dL Normal 3.4-5.0 [facility] Comment on above: Performed By: #### 2 4323-8 #### JEANE HOOVER ([id number]) [facility] ([facility]) [address] [place] [address] 65764 ALP [Catalytic activity/Vol] 59 U/L Normal 33-110 [facility] Comment on above: Performed By: #### 2 4323-8 #### JEANE HOOVER ([id number]) [facility] ([facility]) [address] [place] [address] 33558 ALT With P-5'-P [Catalytic activity/Vol] 16 U/L Normal 7-45 [facility] Comment on above: Result Comment: Sayda ents treated with Sulfasalazine may generate falsely decreased results for ALT. Performed By: #### 2 4323-8 #### JEANE HOOVER ([id number]) [facility] ([facility]) [address] [place] [address] Anion gap [Moles/Vol] 12 mmol/L Normal 10-20 [facility] Comment on above: Performed By: #### 2 4323-8 #### JEANE HOOVER ([id number]) [facility] ([facility]) [address] [place] [address] AST With P-5'-P [Catalytic activity/Vol] 16 U/L Normal 9-39 [facility] Comment on above: Performed By: #### 2 4323-8 #### JEANE HOOVER ([id number]) [facility] ([facility]) [address] [place] [address] 18545 Bilirubin [Mass/Vol] 0.5 mg/dL Normal 0.0-1.2 [facility] Comment on above: Performed By: #### 2 4323-8 #### JEANE HOOVER ([id number]) [facility] ([facility]) [address] [place] [address] 27017 Calcium [Mass/Vol] 9.1 mg/dL Normal 8.6-10.3 [facility] Comment on above: Performed By: #### 2 4323-8 #### JEANE HOOVER ([id number]) [facility] ([facility]) [address] [place] [address] 27859 Chloride [Moles/Vol] 106 mmol/L Normal 98-107 [facility] Comment on above: Performed By: #### 2 4323-8 #### JEANE HOOVER ([id number]) [facility] ([facility]) [address] [place] [address] 98887 CO2 [Moles/Vol] 29 mmol/L Normal 21-32 [facility] Comment on above: Performed By: #### 2 4323-8 #### JEANE HOOVER ([id number]) [facility] ([facility]) [address] [place] [address] 99664 Creatinine [Mass/Vol] 0.61 mg/dL Normal 0.50-1.05 [facility] Comment on above: Performed By: #### 2 4323-8 #### JEANE HOOVER ([id number]) [facility] ([facility]) [address] [place] [address] 64339 GFR/1.73 sq M.predicted MDRD (S/P/Bld) [Vol rate/Area] mL/min/{1.73_m2} Normal >60 [facility] Comment on above: Result Comment: Calc ulations of estimated GFR are performed using the 2020 CKD-EPI Study Refit equation without the race variable for the IDMS-Traceable creatinine methods. https://jasn.asnjournals.org/content/early//ASN.747987582 8 Performed By: #### 2 4323-8 #### JEANE HOOVER ([id number]) [facility] ([facility]) [address] [place] [address] 60290 Glucose [Mass/Vol] 81 mg/dL Normal 74-99 [facility] Comment on above: Performed By: #### 2 4323-8 #### JEANE HOOVER ([id number]) [facility] ([facility]) [address] [place] [address] 12573 Potassium [Moles/Vol] 3.9 mmol/L Normal 3.5-5.3 [facility] Comment on above: Performed By: #### 2 4323-8 #### JEANE HOOVER ([id number]) [facility] ([facility]) [address] [place] [address] 98596 Protein [Mass/Vol] 6.0 g/dL Low 6.4-8.2 [facility] Comment on above: Performed By: #### 2 4323-8 #### JEANE HOOVER ([id number]) [facility] ([facility]) [address] [place] [address] 22832 Sodium [Moles/Vol] 143 mmol/L Normal 136-145 [facility] Comment on above: Performed By: #### 2 4323-8 #### JEANE HOOVER ([id number]) [facility] ([facility]) [address] [place] [address] Urea nitrogen [Mass/Vol] 16 mg/dL Normal 6-23 [facility] Comment on above: Performed By: #### 2 4323-8 #### JEANE HOOVER ([id number]) [facility] ([facility]) [address] [place] [address] 23786 Ferritinon 07-09-2023 Ferritin [Mass/Vol] 244 ng/mL High 8-150 [facility] Comment on above: Performed By: #### 2 276-4 #### JEANE HOOVER ([id number]) [facility] ([facility]) [address] [place] [address] Folateon 07-09-2023 Folate [Mass/Vol] ng/mL Normal >5.0 [facility] Comment on above: Order Comment: Low < 3.4 Borderline 3.4-5.0 Normal >5.0 Patients receiving more than 5 mg/day of biotin may have interference in test results. A sample should be taken no sooner than eight hours after previous dose. Contact the testing laboratory for additional information. Performed By: #### 2 284-8 #### JEANE HOOVER ([id number]) [facility] ([facility]) [address] [place] [address] HbA1c (Bld) [Mass fraction]o n 07-09-2023 Average glucose Estimated from glycated hemoglobin (Bld) [Mass/Vol] 100 mg/dL Normal Not Established [facility] Comment on above: Performed By: #### 4 548-4 #### JEANE HOOVER ([id number]) [facility] ([facility]) [address] [place], [place] [address] Hemoglobin A1c/Hemoglobin.to regina 07-09-2023 HbA1c (Bld) [Mass fraction] 5.1 % Normal see below [facility] Comment on above: Performed By: #### 4 548-4 #### JEANE HOOVER ([id number]) [facility] ([facility]) [address] [place] [address] Iron and Iron binding capaci ty panelon 07-09-2023 Iron [Mass/Vol] 45 ug/dL Normal 35-150 [facility] Comment on above: Performed By: #### 5 0190-8 #### JEANE HOOVER ([id number]) [facility] ([facility]) [facility] [place] [address] Iron binding capacity [Mass/Vol] 277 ug/dL Normal 240-445 [facility] Comment on above: Performed By: #### 5 0190-8 #### JEANE HOOVER ([id number]) [facility] ([facility]) [address] [place] [address] 38705 Iron binding capacity.unsaturat ed [Mass/Vol] 232 ug/dL Normal 110-370 [facility] Comment on above: Performed By: #### 5 0190-8 #### JEANE HOOVER ([id number]) [facility] ([facility]) [address] [place] [address] 16613 Iron saturation [Mass fraction] 16 % Low 25-45 [facility] Comment on above: Performed By: #### 5 0190-8 #### JEANE HOOVER ([id number]) [facility] ([facility]) [address] [place] [address] 22536 Parathyrin.intacton 07-09-20 Parathyrin.intact [Mass/Vol] 20.7 pg/mL Normal 18.5-88.0 [facility] Comment on above: Performed By: #### 2 731-8 #### CALVIN Rodney ([id number]) [facility] ([facility]) [id number] [place] [address] 11728 Pyridoxal phosphateon 2022 Pyridoxal phosphate [Moles/Vol] 54.3 nmol/L Normal 20.0-125.0 [facility] Comment on above: Result Comment: INTE RPRETIVE INFORMATION: Vitamin B6 (Pyridoxal 5-Phosphate) Pyridoxal 5'-phosphate measured in a specimen collected following an 8-hour or overnight fast accurately indicates vitamin B6 nutritional status. Non-fasting specimen concentration reflects recent vitamin intake. This test was developed and its performance characteristics determined by [employer]. It has not been cleared or approved by the US Food and Drug Administration. This test was performed in a CLIA certified laboratory and is intended for clinical purposes. Performed By: [employer] [address] [place] [address] Health Education Aide: Enrique Kline MD, PhD CLIA Number: [id number] Performed By: #### 2 4323-8 #### JEANE HOOVER ([id number]) [facility] ([facility]) [address] [place], [place] [address] TSH WITH REFLEX TO FREE T4 I F ABNORMALon 07-09-2023 TSH Qn 2.25 m[IU]/L Normal 0.44-3.98 [facility] Comment on above: Order Comment: TSH t esting is performed using different testing methodology at [facility] than at other [facility]. Direct result comparisons should only be made within the same method. Performed By: #### T HYDS #### JEANE HOOVER ([id number]) [facility] ([facility]) [address] [place], [place] [address] Thiamine pyrophosphateon Thiamine pyrophosphate (Bld) [Moles/Vol] 98 nmol/L Normal 70-180 [facility] Comment on above: Result Comment: INTE RPRETIVE INFORMATION: Vitamin B1, Whole Blood This assay measures the concentration of thiamine diphosphate (TDP), the primary active form of vitamin B1. Approximately 90 percent of vitamin B1 present in whole blood is TDP. Thiamine and thiamine monophosphate, which comprise the remaining 10 percent, are not measured. This test was developed and its performance characteristics determined by [employer]. It has not been cleared or approved by the US Food and Drug Administration. This test was performed in a CLIA certified laboratory and is intended for clinical purposes. 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) Orders Postoperative malabsorption, S/P laparoscopic sleeve gastrectomy Complete Blood Count + Differential; Status:Active; Requested for:[id number]; Comprehensive Metabolic Panel; Status:Active; Requested for:[id number]; Ferritin, Serum; Status:Active; Requested for:[id number]; Folate, Serum; Status:Active; Requested for:[id number]; Iron + TIBC, Serum; Status:Active; Requested for:[id number]; Parathormone Intact, Serum; Status:Active; Requested for:15Vyg0806; TSH WITH REFLEX TO FREE T4 IF ABNORMAL; Status:Active; Requested for:53Sbi5622; Vitamin B1 - Thiamine, Whole Blood; Status:Active; Requested for:[id number]; Vitamin B12, Serum; Status:Active; Requested for:[id number]; Vitamin B6, Serum; Status:Active; Requested for:[id number]; Vitamin D 25-Hydroxy; Status:Active; Requested for:[id number]; S/P laparoscopic sleeve gastrectomy Stop: Ursodiol 250 MG Oral Tablet Patient Discussion/Summary The following are the recommendations we discussed at your appointment today: 1. Nutrition - Please make sure you are seeing the bariatric dietitian regularly. * Dietitian Information: *Caitlin Sanches: [phone] [facility] - [place] [phone] Your Protein Goals will gradually increase as you get further out from surgery: 80-90 GRAMS PER DAY - Follow Pouch Rules;. Stop drinking 30 minutes before your meals, Take 30 minutes to eat your meal - NO DRINKING DURING MEALS, Wait for 30 minutes after your meal to drink - Eat 5 servings of fruits and veggies daily. A serving is 1 small (tennis ball size) piece of whole fruit, 1/2 cup fresh fruit, 1 cup vegetables - Eat 3 small meals and 1-2 healthy, protein rich, snacks per day. EAT PROTEIN FIRST AT MEALS, 2nd non starchy vegetable or fruit serving, consume starches last and aim for whole grains of moderate portion (1/2 CUP). This pattern of eating ensure you are getting full on high quality protein and higher fiber foods with many vitamins and minerals to support adequate nutrition first. 2. Exercise Recommendations: Regular physical activity is CRITICAL for [facility] successful weight management. Strive for a minimum weekly exercise goal of at least 200 minutes per week of aerobic exercise. 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 Having higher muscle mass is associated with better health outcomes and can help to maintain higher calorie expenditure. Designing a Strength Program: Select 3-4 exercises that target different major muscle groups. - Emphasize the following movements pull, push, squat, hip hinge Pull examples - pull up, bent over row or dumbbell row, pull down with weight bar or resistance band Push examples - push up, bench press, chest flys, dips, overhead press, dumbbell bench press Squat examples - air squat, chair squat, lunge steps, goblet squat, front squat, etc Hip hinge examples - kettle macdonald swing, good morning, glute bridge, deadlift, suitcase pick ups, hip thrust Perform two to three sets of eight to 15 repetitions of each exercise. Try to use a resistance that feels like an ?8 out of 10? effort, with 10 being the highest effort you can give. To get stronger, try increasing either the weight, number of repetitions, number of sets or number of exercises every 4-8 weeks as you feel more comfortable with your current program. Resources - HAS[employer] online workout videos on resistance training 3. Fluids - Drink at least 60 oz of water every day. - Wait 30 minutes before or after meals to drink fluids. - Avoid carbonated beverages. 4. Vitamins - Remember to take your multivitamins 2 times daily, once in the morning and once in the evening - Take your calcium 2-3 times daily, at least 2 hours apart from the multivitamin 5. Labs - We will check labs today and results will be communicated via the Portal - A copy of the results can be viewed on Portal. You can set up a Portal Follow My Health account here: [email or web address] Please be aware that Bariatric Surgery will be transition to [facility]/ My Chart in Fall 2022 (anticipated July 2023) Follow-up with Dietitian for bariatric diet optimization Follow-up with PCP for general health questions and ongoing management of routine health concerns Follow up 6 mo Provider Impressions Patient presenting for 1 year follow up s/p LSG 05/13/2022 Doing well Tolerating diet, meeting protein and fluid goals Taking supplements Taking PPI Occ mild heartburn. Did have gallstones noted in fall 2021, has been on ursodiol 250mg daily, tolerating well, no RUQ or abdominal pain Exercise: walking daily AND gym 2-3x/week Initial 295 --> 151 = 48.8% TBWL Plan: Continue diet, follow up with dietitian, encour (more content not included)... Normal [facility] Bariatric Surgery - Follow-U johnnie 01-27-2023 Bariatric Surgery - Follow-Up Diagnoses/Problems Assessed 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) 05/13/2022 at Orders Bariatric surgery status, Heartburn Stop: Omeprazole 20 MG Oral Capsule Delayed Release Calculus of gallbladder without cholecystitis without obstruction, S/P laparoscopic sleeve gastrectomy Stop: Ursodiol 250 MG Oral Tablet S/P laparoscopic sleeve gastrectomy Start: Ursodiol 250 MG Oral Tablet; TAKE 1 TABLET DAILY Provider Impressions Patient presenting for 9 mo follow up s/p LSG Doing well Tolerating diet, meeting protein and fluid goals Taking supplements Taking PPI Occ mild heartburn. Did have gallstones noted in fall 2021, has been on ursodiol 250mg daily, tolerating well, no RUQ or abdominal pain Exercise: walking daily AND gym 2-3x/week Initial 295 --> 173.5 = 41.2% TBWL Plan: Continue diet, follow up with dietitian, encourage lean protein, low fat diet, increase dietary fiber from fruit/veg Continue supplements Discontinued PPI daily AND can use PRN Given s/p LSG and gallstone hx, with continued weight loss, but no sx GB dx in last 3 mo will continue ursodiol 250mg daily for next 3 mo then plan to d/c. If developing RUQ pain, n/v, fever, chills to ER for evaluation or contact PCP/bariatrics if sx mildly progressing for evaluation. Join support groups Continue exercise Labs: annual reviewed, no concerns Follow up: 3-4m Chief Complaint The patient is being seen for follow up. The patient is having the following problems: 9 mo routine FUV. Type of surgery: Sleeve Gastrectomy . Surgery date: 05/13/2022. An interactive audio and video telecommunication system which permits real time communications between the patient (at the originating site) and provider (at the distant site) was utilized to provide this telehealth service. Verbal consent was requested and obtained from BELEM LAWLER on this date, 01/27/2023 01:00 PM , for a telehealth visit. History of Present Illness Type of Surgery: lap sleeve gastrectomy, surgery Date: 05/13/2022. Weight:. Initial weight: 295 lbs. Last visit weight: 201 lbs. Current weight: 173.5 lbs. Total weight lost: 45 lbs. Trinity weight 124 lbs. Target body weight 167 lbs. Severity of obesity is Class 1 which is a BMI of 30-34.9. 41y F for 9m FUV s/p LSG. Diet: on regular diet, meeting fluid AND protein goals. Cannot tolerate starches due to getting full very quickly Exercise - walking 45-60 min/day, 2-3x/week weights/cardio 60 min cardio AND 60 min weights Supplements - Belt 23 Bariatric MVI AND multimineral, 1000mcg B12, 1500mg calcium Any symptoms of reflux, nausea, vomiting, dysphagia - denies unless she eats something tomato based Any symptoms of bowel irregularity, diarrhea, constipation - denies No cp, palpitations, sob, LE edema All labs looked good on her annual Review of Systems Negative except for pertinent positives noted in HPI Active Problems Problems Abdominal pain (789.00) (R10.9) Anxiety (300.00) (F41.9) Manifesting with easy anger and irritability. Medications restarted 12/12/20 duloxetine. 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) Heartburn (787.1) (R12) HLD (hyperlipidemia) (272.4) (E78.5) Nausea and vomiting (787.01) (R11.2) Obesity (BMI 30-39.9) (278.00) (E66.9) Pilar cyst of scalp (704.41) (L72.11) Post-op pain (338.18) (G89.18) Post-operative nausea and vomiting (787.01) (R11.2,Z98.890) Pre-bariatric surgery nutrition evaluation (V65.3) (Z71.3) Preoperative clearance (V72.84) (Z01.818) Raynaud phenomenon (443.0) (I73.00) 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) 05/13/2022 at Sleep disturbances (780.50) (G47.9) Snoring (786.09) (R06.83) Suspected sleep apnea (781.99) (R29.818) Past Medical History Problems History of gastric ulcer (V12.79) (Z87.11) Surgical History Problems History of Ankle Surgery History of Colonoscopy History of Diagnostic Esophagogastroduodenoscopy History of Laparoscopic Excision Endometriotic Tissue [place] Family History Mother Family history of Family history of Endometrial carcinoma Father Family history of coronary artery disease (V17.3) (Z82.49) Social History Problems Never used tobacco (V49.89) (Z78.9) Allergies Medication No Known Drug Allergies Recorded By: Marcia Ahumada; 02/18/2018 3:05:11 PM Current Meds Medication NameInstruction ALPRAZolam 0.25 MG Oral TabletTAKE 1 TABLET EVERY 6 HOURS NEEDED FOR ANXIETY. B-12 1000 MCG Sublingual Tablet Sublingual Bariatric Multivitamins/Iron Oral CapsuleTAKE DIRECTED. Calcium Citrate + Oral Table (more content not included)... Normal [facility] CBCon 01-22-2023 Erythrocyte distribution width (RBC) [Ratio] 13.0 % Normal 11.5 - 14.5 [facility] Comment on above: Performed By: #### D RUGR #### [facility] [address] [place] [address] Hematocrit (Bld) [Volume fraction] 40.9 % Normal 36.0 - 46.0 [facility] Comment on above: Performed By: #### D RUGR #### [address] [address] Hemoglobin (Bld) [Mass/Vol] 13.1 g/dL Normal 12.0 - 16.0 [facility] Comment on above: Performed By: #### D RUGR #### [address] [address] MCHC (RBC) [Mass/Vol] 32.0 g/dL Normal 32.0 - 36.0 [facility] Comment on above: Performed By: #### D RUGR #### [address] [address] MCV (RBC) [Entitic vol] 90 fL Normal 80 - 100 [facility] Comment on above: Performed By: #### D RUGR #### [address] [address] Platelets (Bld) [#/Vol] 226 10*3/uL Normal 150 - 450 [facility] Comment on above: Performed By: #### D RUGR #### [address] [address] RBC 4.55 x10E12/L Normal 4.00 - 5.20 [facility] Comment on above: Performed By: #### D RUGR #### [address] [address] WBC (Bld) [#/Vol] 4.7 10*3/uL Normal 4.4 - 11.3 [facility] Comment on above: Performed By: #### D RUGR #### [address] [address] COMPREHENSIVE PANELon 2022 Albumin [Mass/Vol] 4.0 g/dL Normal 3.4 - 5.0 [facility] Comment on above: Performed By: #### P TH #### [facility] [address] [place] [address] ALP [Catalytic activity/Vol] 73 U/L Normal 33 - 110 [facility] Comment on above: Performed By: #### P TH #### [facility] [address] [place] [address] ALT [Catalytic activity/Vol] 16 U/L Normal 7 - 45 [facility] Comment on above: Result Comment: Sayda ents treated with Sulfasalazine may generate falsely decreased results for ALT. Performed By: #### P TH #### [facility] [address] [place] [address] Anion gap [Moles/Vol] 10 mmol/L Normal 10 - 20 [facility] Comment on above: Performed By: #### P TH #### [facility] [address] [place] [address] AST [Catalytic activity/Vol] 17 U/L Normal 9 - 39 [facility] Comment on above: Performed By: #### P TH #### [facility] [address] [place] [address] Bilirubin [Mass/Vol] 0.5 mg/dL Normal 0.0 - 1.2 [facility] Comment on above: Performed By: #### P TH #### [facility] [address] [place] [address] Calcium [Mass/Vol] 9.4 mg/dL Normal 8.6 - 10.3 [facility] Comment on above: Performed By: #### P TH #### [facility] [address] [place] [address] Chloride [Moles/Vol] 107 mmol/L Normal 98 - 107 [facility] Comment on above: Performed By: #### P TH #### [facility] [address] [place] [address] Creatinine [Mass/Vol] 0.64 mg/dL Normal 0.50 - 1.05 [facility] Comment on above: Performed By: #### P TH #### [facility] [address] [place] [address] eGFR FEMALE >90 Normal >90 [facility] Comment on above: Result Comment: CALC ULATIONS OF ESTIMATED GFR ARE PERFORMED USING THE 2020 CKD-EPI STUDY REFIT EQUATION WITHOUT THE RACE VARIABLE FOR THE IDMS-TRACEABLE CREATININE METHODS. https://jasn.asnjournals.org/content//ASN.588235610 8 Performed By: #### P TH #### [facility] [address] [place] [address] Glucose [Mass/Vol] 77 mg/dL Normal 74 - 99 [facility] Comment on above: Performed By: #### P TH #### [facility] [address] [place] [address] HCO3 (Bld) [Moles/Vol] 30 mmol/L Normal 21 - 32 [facility] Comment on above: Performed By: #### P TH #### [facility] [address] [place] [address] Potassium [Moles/Vol] 3.6 mmol/L Normal 3.5 - 5.3 [facility] Comment on above: Performed By: #### P TH #### [facility] [address] [place] [address] Protein [Mass/Vol] 6.4 g/dL Normal 6.4 - 8.2 [facility] Comment on above: Performed By: #### P TH #### [facility] [address] [place] [address] Sodium [Moles/Vol] 143 mmol/L Normal 136 - 145 [facility] Comment on above: Performed By: #### P TH #### [facility] [address] [place] [address] Urea nitrogen [Mass/Vol] 10 mg/dL Normal 6 - 23 [facility] Comment on above: Performed By: #### P TH #### [facility] [address] [place] [address] FERRITINon 01-22-2023 FERRITIN 157 ug/L High 8 - 150 [facility] Comment on above: Performed By: #### D RUGR #### [address] [place] [address] FOLATE, SERUMon 01-22-2023 Folate [Mass/Vol] 12.9 ng/mL Normal >5.0 [facility] Comment on above: Result Comment: Low <3.4 Borderline 3.4-5.0 Normal >5.0 . Patients receiving more than 5 mg/day of biotin may have interference in test results. A sample should be taken no sooner than eight hours after previous dose. Contact the testing laboratory for additional information. Performed By: #### F ERRI #### [address] [address] Ferritin, Serumon 01-22-2023 Ferritin [Mass/Vol] 157 ug/L above high threshold 8 - 150 [id number] Work Phone: Folate, Serumon 01-22-2023 Folate [Mass/Vol] 12.9 ng/mL >5.0 [facility]-Surg any-Pa rma [id number] Work Phone: Comment on above: Low <3.4Borderline 3 .4-5.0Normal >5.0. Patients receiving more than 5 mg/day of biotin may have interference in test results. A sample should be taken no sooner than eight hours after previous dose. Contact the testing laboratory for additional information. IRON + TIBCon 01-22-2023 % SATURATION 26 % Normal 25 - 45 [facility] Comment on above: Performed By: #### D RUGR #### [address] [address] Iron [Mass/Vol] 74 ug/dL Normal 35 - 150 [facility] Comment on above: Performed By: #### D RUGR #### [address] [address] TIBC 290 ug/dL Normal 240 - 445 [facility] Comment on above: Performed By: #### D RUGR #### [address] [address] LIPID PANEL (CORONARY RISK 2 )on 01-22-2023 Cholesterol [Mass/Vol] 163 mg/dL Normal 0 - 199 [facility] Comment on above: Result Comment: . AGE DESIRABLE BORDERLINE HIGH HIGH 0-19 Y 0 - 169 170 - 199 >/= 200 20-24 Y 0 - 189 190 - 224 >/= 225 >24 Y 0 - 199 200 - 239 >/= 240 All ranges are based on fasting samples. Specific therapeutic targets will vary based on patient-specific cardiac risk. . Pediatric guidelines reference:Pediatrics 2011, 128(S5). Adult guidelines reference: NCEP ATPIII Guidelines, FREDDIE 2001, 258:2486-97 . Venipuncture immediately after or during the administration of Metamizole may lead to falsely low results. Testing should be performed immediately prior to Metamizole dosing. Performed By: #### D RUGR #### [address] [address] Cholesterol in HDL [Mass/Vol] 40.0 mg/dL Normal [facility] Comment on above: Result Comment: . AGE VERY LOW LOW NORMAL HIGH 0-19 Y < 35 < 40 40-45 ---- 20-24 Y ---- < 40 >45 ---- >24 Y ---- < 40 40-60 >60 . Performed By: #### D RUGR #### [address] [address] Cholesterol in LDL [Mass/Vol] 104 mg/dL High 0 - 99 [facility] Comment on above: Result Comment: . NEAR BORD AGE DESIRABLE OPTIMAL HIGH HIGH VERY HIGH 0-19 Y 0 - 109 --- 110-129 >/= 130 ---- 20-24 Y 0 - 119 --- 120-159 >/= 160 ---- >24 Y 0 - 99 100-129 130-159 160-189 >/=190 . Performed By: #### D RUGR #### [address] [address] Cholesterol in VLDL [Mass/Vol] 19 mg/dL Normal 0 - 40 [facility] Comment on above: Performed By: #### D RUGR #### [address] [address] Cholesterol.total/ Cholesterol in HDL [Mass ratio] 4.1 {ratio} Normal [facility] Comment on above: Result Comment: REF VALUES DESIRABLE < 3.4 HIGH RISK > 5.0 Performed By: #### D RUGR #### [address] [address] Triglyceride [Mass/Vol] 95 mg/dL Normal 0 - 149 [facility] Comment on above: Result Comment: . AGE DESIRABLE BORDERLINE HIGH HIGH VERY HIGH 0 D-90 D 19 - 174 ---- ---- ---- 91 D- 9 Y 0 - 74 75 - 99 >/= 100 ---- 10-19 Y 0 - 89 90 - 129 >/= 130 ---- 20-24 Y 0 - 114 115 - 149 >/= 150 ---- >24 Y 0 - 149 150 - 199 200- 499 >/= 500 . Venipuncture immediately after or during the administration of Metamizole may lead to falsely low results. Testing should be performed immediately prior to Metamizole dosing. Performed By: #### D RUGR #### [address] [place] [address] Laboratory - Chemistry and C hemistry - challengeon 01-22-2023 Albumin BCP dye [Mass/Vol] 4.0 g/dL 3.4 - 5.0 SN-Czmsrmj-Cn rma MAC2 303 Work Phone: ALP [Catalytic activity/Vol] 73 U/L 33 - 110 JA-Fxvosre-Xy rma [facility]2 303 Work Phone: ALT With P-5'-P [Catalytic activity/Vol] 16 U/L 7 - 45 NT-Nqzobib-Uc rma [facility] [place]2 303 Work Phone: Comment on above: Patients treated wit h Sulfasalazine may generate falsely decreased results for ALT. Anion gap [Moles/Vol] 10 mmol/L 10 - 20 KK-Aemxjvg-Im rma MAC2 303 Work Phone: AST With P-5'-P [Catalytic activity/Vol] 17 U/L 9 - 39 MY-Yokpaau-Qq rma MAC2 303 Work Phone: Bilirubin [Mass/Vol] 0.5 mg/dL 0.0 - 1.2 EB-Ffmgrlt-It rma MAC2 303 Work Phone: Calcium [Mass/Vol] 9.4 mg/dL 8.6 - 10.3 MG-Kisha evon-Pa rma MAC2 303 Work Phone: Chloride [Moles/Vol] 107 mmol/L 98 - 107 PF-Bcxxxes-Nj rma MAC2 303 Work Phone: CO2 [Moles/Vol] 30 mmol/L 21 - 32 MG-Surger y-Pa rma MAC2 303 Work Phone: Creatinine [Mass/Vol] 0.64 mg/dL See Below AI-Mcnuwxm-Ba rma MAC2 303 Work Phone: Comment on above: Reference Range: 0.5 0 - 1.05 Glucose [Mass/Vol] 77 mg/dL 74 - 99 MG-Kisha evon-Pa rma MAC2 303 Work Phone: Iron [Mass/Vol] 74 ug/dL 35 - 150 MG-Surger y-Pa rma [facility] [place]2 303 Work Phone: Iron binding capacity [Mass/Vol] 290 ug/dL 240 - 445 BK-Uzcsyyy-Rw rma [facility] [place]2 303 Work Phone: Potassium [Moles/Vol] 3.6 mmol/L 3.5 - 5.3 KF-Rntdmnj-Mv rma [facility] [place]2 303 Work Phone: Protein [Mass/Vol] 6.4 g/dL 6.4 - 8.2 MG-Kisha evon-Pa rma [facility] [place]2 303 Work Phone: Sodium [Moles/Vol] 143 mmol/L 136 - 145 MG-Kisha evon-Pa rma [facility] [place]2 303 Work Phone: Thiamine (Bld) [Mass/Vol] 106 nmol/L 70-180 EO-Phoxuqw-Mt rma [facility] [place]2 303 Work Phone: Comment on above: INTERPRETIVE INFORMA TION: Vitamin B1, Whole BloodThis assay measures the concentration of thiamine diphosphate (TDP), the primary active form of vitamin B1. Approximately 90 percent of vitamin B1 present in whole blood is TDP. Thiamine and thiamine monophosphate, which comprise the remaining 10 percent, are not measured.This test was developed and its performance characteristics determined by [employer]. It has not been cleared or approved by the [place] Food and Drug Administration. This test was performed in a CLIA certified laboratory and is intended for clinical purposes.Performed By: [employer] [place] [id number] Director: Enrique Kline MD, PhD Urea nitrogen [Mass/Vol] 10 mg/dL 6 - 23 LN-Ynkniht-Mu rma MAC2 303 Work Phone: Laboratory - Hematology and Cell countson 01-22-2023 Erythrocyte distribution width (RBC) [Ratio] 13.0 % See Below OM-Morbmmt-Lc rma MAC2 303 Work Phone: Comment on above: Reference Range: 11. 5 - 14.5 Hematocrit (Bld) [Volume fraction] 40.9 % See Below CN-Cajqtod-Mu rma MAC2 303 Work Phone: Comment on above: Reference Range: 36. 0 - 46.0 Hemoglobin (Bld) [Mass/Vol] 13.1 g/dL See Below MF-Wftfcys-Tv rma MAC2 303 Work Phone: Comment on above: Reference Range: 12. 0 - 16.0 MCHC (RBC) [Mass/Vol] 32.0 g/dL See Below SU-Gvagdek-Ze rma MAC2 303 Work Phone: Comment on above: Reference Range: 32. 0 - 36.0 MCV (RBC) [Entitic vol] 90 fL 80 - 100 QV-Rliouho-Kw rma MAC2 303 Work Phone: Platelets (Bld) [#/Vol] 226 10*3/uL 150 - 450 GH-Jafygqa-Tf rma MAC2 303 Work Phone: RBC (Bld) [#/Vol] 4.55 {x10E12/L} See Below MG -Surgery-Pa rma MAC2 303 Work Phone: Comment on above: Reference Range: 4.0 0 - 5.20 WBC (Bld) [#/Vol] 4.7 10*3/uL 4.4 - 11.3 MG-Kisha evon-Pa rma MAC2 303 Work Phone: Lipid Panelon 01-22-2023 Cholesterol [Mass/Vol] 163 mg/dL 0 - 199 HA-Ejgufxu-Af rma MAC2 303 Work Phone: Comment on above: . AGE DESIRABLE BORD CRISS HIGH HIGH 0-19 Y 0 - 169 170 - 199 >/= 200 20-24 Y 0 - 189 190 - 224 >/= 225 >24 Y 0 - 199 200 - 239 >/= 240 All ranges are based on fasting samples. Specific therapeutic targets will vary based on patient-specific cardiac risk.. Pediatric guidelines reference:Pediatrics 2011, 128(S5). Adult guidelines reference: NCEP ATPIII Guidelines, FREDDIE 2001, 258:2486-97. Venipuncture immediately after or during the administration of Metamizole may lead to falsely low results. Testing should be performed immediately prior to Metamizole dosing. Cholesterol in HDL [Mass/Vol] 40.0 mg/dL QG-Ytgaghl-Wy rma MAC2 303 Work Phone: Comment on above: . AGE VERY LOW LOW N ORMAL HIGH 0-19 Y < 35 < 40 40-45 ---- 20- 24 Y ---- < 40 >45 ---- >24 Y ---- < 40 40-60 >60. Cholesterol in LDL [Mass/Vol] 104 mg/dL above high threshold 0 - 99 OS-Lfhppee-Sh rma MAC2 303 Work Phone: Comment on above: . NEAR BORD AGE DAWOOD RABLE OPTIMAL HIGH HIGH VERY HIGH 0-19 Y 0 - 109 --- 110-129 >/= 130 ---- 20-24 Y 0 - 119 --- 120-159 >/= 160 ---- >24 Y 0 - 99 100-129 130-159 160-189 >/=190. Cholesterol.total/ Cholesterol in HDL [Mass ratio] 4.1 {ratio} IU-Txcscpz-Ja rma MAC2 303 Work Phone: Comment on above: REF VALUESDESIRABLE < 3.4HIGH RISK > 5.0 Triglyceride [Mass/Vol] 95 mg/dL 0 - 149 EI-Xopqxpx-Go rma MAC2 303 Work Phone: Comment on above: . AGE DESIRABLE BORD CRISS HIGH HIGH VERY HIGH 0 D-90 D 19 - 174 ---- ---- ----91 D- 9 Y 0 - 74 75 - 99 >/= 100 ---- 10-19 Y 0 - 89 90 - 129 >/= 130 ---- 20-24 Y 0 - 114 115 - 149 >/= 150 ---- >24 Y 0 - 149 150 - 199 200- 499 >/= 500. Venipuncture immediately after or during the administration of Metamizole may lead to falsely low results. Testing should be performed immediately prior to Metamizole dosing. Lipid Panel 19 mg/dL 0 - 40 NV-Dcskeek-Tc rma MAC2 303 Work Phone: No Panel Informationon 01-22 26 % 25 - 45 SZ-Gbjvkvr-Is rma MAC2 303 Work Phone: >90 >90 UK-Stjexji-Qx rma MAC2 303 Work Phone: Comment on above: CALCULATIONS OF NICK MATED GFR ARE PERFORMED USING THE 2020 CKD-EPI STUDY REFIT EQUATION WITHOUT THE RACE VARIABLE FOR THE IDMS-TRACEABLE CREATININE METHODS.https://jasn.asnjournals.org/content//ASN.2 152847612 PARATHYROID HORMONE,INTACTon 01-22-2023 PARATHYROID HORMONE,INTACT 32.5 pg/mL Normal 18.5 - 88.0 [facility] Comment on above: Performed By: #### D RUGR #### [facility] [address] [place] [address] Parathormone Intact, Serumon 01-22-2023 Parathyrin.intact [Mass/Vol] 32.5 pg/mL See Below HK-Vanqlev-Mk rma MAC2 303 Work Phone: Comment on above: Reference Range: 18. 5 - 88.0 VITAMIN B12on 01-22-2023 Cobalamin (Vitamin B12) [Mass/Vol] 325 pg/mL Normal 211 - 911 [facility] Comment on above: Performed By: #### P TH #### [facility] [address] [place] [address] VITAMIN D, 25-HYDROXYon 04-2 1-2023 VITAMIN D, 25-HYDROXY 65 ng/mL Normal [facility] Comment on above: Result Comment: . DEFICIENCY: < 20 NG/ML INSUFFICIENCY: 20-29 NG/ML SUFFICIENCY: 30-100 NG/ML THIS ASSAY ACCURATELY QUANTIFIES THE SUM OF VITAMIN D3, 25-HYDROXY AND VIT D2,25-HYDROXY. Performed By: #### D RUGR #### [id number] Vitamin B12, Serumon 023 Cobalamin (Vitamin B12) [Mass/Vol] 325 pg/mL 211 - 911 VQ-Rvnglvg-Se rma MAC2 303 Work Phone: Vitamin D 25-Hydroxyon 01-22 25-hydroxyvitamin D3 [Mass/Vol] 65 ng/mL UM-Unkwexy-Bf rma MAC2 303 Work Phone: Comment on above: .DEFICIENCY: < 20 NG /MLINSUFFICIENCY: 20-29 NG/MLSUFFICIENCY: 30-100 NG/MLTHIS ASSAY ACCURATELY QUANTIFIES THE SUM OFVITAMIN D3, 25-HYDROXY AND VIT D2,25-HYDROXY. CBCon 01-16-2023 HCT Canceled Normal [facility] Comment on above: Order Comment: TEST FERRITIN WAS CANCELLED, 01/16/2023 10:00 UNABLE TO OBTAIN SPECIMEN. Performed By: #### F ERRI #### [place] [address] HGB Canceled Normal [facility] Comment on above: Order Comment: TEST FERRITIN WAS CANCELLED, 01/16/2023 10:00 UNABLE TO OBTAIN SPECIMEN. Performed By: #### F ERRI #### [place] [address] MCHC Canceled Normal [facility] Comment on above: Order Comment: TEST FERRITIN WAS CANCELLED, 01/16/2023 10:00 UNABLE TO OBTAIN SPECIMEN. Performed By: #### F ERRI #### [place] [address] MCV Canceled Normal [facility] Comment on above: Order Comment: TEST FERRITIN WAS CANCELLED, 01/16/2023 10:00 UNABLE TO OBTAIN SPECIMEN. Performed By: #### F ERRI #### [place] [address] PLT Canceled Normal [facility] Comment on above: Order Comment: TEST FERRITIN WAS CANCELLED, 01/16/2023 10:00 UNABLE TO OBTAIN SPECIMEN. Performed By: #### F ERRI #### [place] [address] RBC Canceled Normal [facility] Comment on above: Order Comment: TEST FERRITIN WAS CANCELLED, 01/16/2023 10:00 UNABLE TO OBTAIN SPECIMEN. Performed By: #### F ERRI #### [place] [address] RDW-CV Canceled Normal [facility] Comment on above: Order Comment: TEST FERRITIN WAS CANCELLED, 01/16/2023 10:00 UNABLE TO OBTAIN SPECIMEN. Performed By: #### F ERRI #### [place] [address] WBC Canceled Normal [facility] Comment on above: Order Comment: TEST FERRITIN WAS CANCELLED, 01/16/2023 10:00 UNABLE TO OBTAIN SPECIMEN. Performed By: #### F ERRI #### [place] [address] COMPREHENSIVE PANELon 2022 ALBUMIN Canceled Normal [facility] Comment on above: Order Comment: TEST COMPREHENSIVE PANEL WAS CANCELLED, 01/16/2023 10:00 UNABLE TO OBTAIN SPECIMEN. Performed By: #### C MP #### [place] [address] ALKALINE PHOSPHATASE Canceled Normal [facility] Comment on above: Order Comment: TEST COMPREHENSIVE PANEL WAS CANCELLED, 01/16/2023 10:00 UNABLE TO OBTAIN SPECIMEN. Performed By: #### C MP #### [place] [address] ALT Canceled Normal [facility] Comment on above: Order Comment: TEST COMPREHENSIVE PANEL WAS CANCELLED, 01/16/2023 10:00 UNABLE TO OBTAIN SPECIMEN. Result Comment: Sayda ents treated with Sulfasalazine may generate falsely decreased results for ALT. Performed By: #### C MP #### [address] [address] ANION GAP Canceled Normal [facility] Comment on above: Order Comment: TEST COMPREHENSIVE PANEL WAS CANCELLED, 01/16/2023 10:00 UNABLE TO OBTAIN SPECIMEN. Performed By: #### C MP #### [address] [address] AST Canceled Normal [facility] Comment on above: Order Comment: TEST COMPREHENSIVE PANEL WAS CANCELLED, 01/16/2023 10:00 UNABLE TO OBTAIN SPECIMEN. Performed By: #### C MP #### [address] [address] BICARBONATE Canceled Normal [facility] Comment on above: Order Comment: TEST COMPREHENSIVE PANEL WAS CANCELLED, 01/16/2023 10:00 UNABLE TO OBTAIN SPECIMEN. Performed By: #### C MP #### [address] [address] BILIRUBIN,TOTAL Canceled Normal [facility] Comment on above: Order Comment: TEST COMPREHENSIVE PANEL WAS CANCELLED, 01/16/2023 10:00 UNABLE TO OBTAIN SPECIMEN. Performed By: #### C MP #### [address] [address] CALCIUM Canceled Normal [facility] Comment on above: Order Comment: TEST COMPREHENSIVE PANEL WAS CANCELLED, 01/16/2023 10:00 UNABLE TO OBTAIN SPECIMEN. Performed By: #### C MP #### [address] [address] CHLORIDE Canceled Normal [facility] Comment on above: Order Comment: TEST COMPREHENSIVE PANEL WAS CANCELLED, 01/16/2023 10:00 UNABLE TO OBTAIN SPECIMEN. Performed By: #### C MP #### [address] [address] CREATININE Canceled Normal [facility] Comment on above: Order Comment: TEST COMPREHENSIVE PANEL WAS CANCELLED, 01/16/2023 10:00 UNABLE TO OBTAIN SPECIMEN. Performed By: #### C MP #### [address] [address] eGFR FEMALE Canceled Normal [facility] Comment on above: Order Comment: TEST COMPREHENSIVE PANEL WAS CANCELLED, 01/16/2023 10:00 UNABLE TO OBTAIN SPECIMEN. Result Comment: CALC ULATIONS OF ESTIMATED GFR ARE PERFORMED USING THE 2020 CKD-EPI STUDY REFIT EQUATION WITHOUT THE RACE VARIABLE FOR THE IDMS-TRACEABLE CREATININE METHODS. https://jasn.asnjournals.org/content/early/ASN.423744415 8 Performed By: #### C MP #### [address] [address] eGFR MALE Canceled Normal [facility] Comment on above: Order Comment: TEST COMPREHENSIVE PANEL WAS CANCELLED, 01/16/2023 10:00 UNABLE TO OBTAIN SPECIMEN. Result Comment: CALC ULATIONS OF ESTIMATED GFR ARE PERFORMED USING THE 2020 CKD-EPI STUDY REFIT EQUATION WITHOUT THE RACE VARIABLE FOR THE IDMS-TRACEABLE CREATININE METHODS. https://jasn.asnjournals.org/content/early/ASN.591772658 8 Performed By: #### C MP #### [address] [address] GLUCOSE Canceled Normal [facility] Comment on above: Order Comment: TEST COMPREHENSIVE PANEL WAS CANCELLED, 01/16/2023 10:00 UNABLE TO OBTAIN SPECIMEN. Performed By: #### C MP #### [address] [address] POTASSIUM Canceled Normal [facility] Comment on above: Order Comment: TEST COMPREHENSIVE PANEL WAS CANCELLED, 01/16/2023 10:00 UNABLE TO OBTAIN SPECIMEN. Performed By: #### C MP #### [address] [address] SODIUM Canceled Normal [facility] Comment on above: Order Comment: TEST COMPREHENSIVE PANEL WAS CANCELLED, 01/16/2023 10:00 UNABLE TO OBTAIN SPECIMEN. Performed By: #### C MP #### [address] [address] TOTAL PROTEIN Canceled Normal [facility] Comment on above: Order Comment: TEST COMPREHENSIVE PANEL WAS CANCELLED, 01/16/2023 10:00 UNABLE TO OBTAIN SPECIMEN. Performed By: #### C MP #### [address] [address] UREA NITROGEN Canceled Normal [facility] Comment on above: Order Comment: TEST COMPREHENSIVE PANEL WAS CANCELLED, 01/16/2023 10:00 UNABLE TO OBTAIN SPECIMEN. Performed By: #### C MP #### [id number] FERRITINon 01-16-2023 FERRITIN Canceled Normal [facility] Comment on above: Order Comment: TEST FERRITIN WAS CANCELLED, 01/16/2023 10:00 UNABLE TO OBTAIN SPECIMEN. Performed By: #### F ERRI #### [address] [address] FOLATE, SERUMon 01-16-2023 FOLATE, SERUM Canceled Normal [facility] Comment on above: Order Comment: TEST IRON + TIBC WAS CANCELLED, 01/16/2023 10:00 UNABLE TO OBTAIN SPECIMEN. Result Comment: Low <3.4 Borderline 3.4-5.0 Normal >5.0 . Patients receiving more than 5 mg/day of biotin may have interference in test results. A sample should be taken no sooner than eight hours after previous dose. Contact the testing laboratory for additional information. Performed By: #### I KELTON #### [address] [address] Ferritin, Serumon 01-16-2023 Ferritin [Mass/Vol] Canceled FM-Rvewdnz-Mj rma GrowYo2 303 Work Phone: Folate, Serumon 01-16-2023 Folate [Mass/Vol] Canceled MG-Surg any-Pa rma MAC2 303 Work Phone: Comment on above: Low <3.4Borderline 3 .4-5.0Normal >5.0. Patients receiving more than 5 mg/day of biotin may have interference in test results. A sample should be taken no sooner than eight hours after previous dose. Contact the testing laboratory for additional information. IRON + TIBCon 01-16-2023 % SATURATION Canceled Normal [facility] Comment on above: Order Comment: TEST IRON + TIBC WAS CANCELLED, 01/16/2023 10:00 UNABLE TO OBTAIN SPECIMEN. Performed By: #### I RONT #### [address] [address] IRON Canceled Normal [facility] Comment on above: Order Comment: TEST IRON + TIBC WAS CANCELLED, 01/16/2023 10:00 UNABLE TO OBTAIN SPECIMEN. Performed By: #### I RONT #### [address] [address] TIBC Canceled Normal [facility] Comment on above: Order Comment: TEST IRON + TIBC WAS CANCELLED, 01/16/2023 10:00 UNABLE TO OBTAIN SPECIMEN. Performed By: #### I RONT #### [address] [address] LIPID PANEL (CORONARY RISK 2 )on 01-16-2023 CHOLESTEROL Canceled Normal [facility] Comment on above: Order Comment: TEST LIPID PANEL (CORONARY RISK 2) WAS CANCELLED, 01/16/2023 10:00 UNABLE TOOBTAIN SPECIMEN. Result Comment: . AGE DESIRABLE BORDERLINE HIGH HIGH 0-19 Y 0 - 169 170 - 199 >/= 200 20-24 Y 0 - 189 190 - 224 >/= 225 >24 Y 0 - 199 200 - 239 >/= 240 All ranges are based on fasting samples. Specific therapeutic targets will vary based on patient-specific cardiac risk. . Pediatric guidelines reference:Pediatrics 2011, 128(S5). Adult guidelines reference: NCEP ATPIII Guidelines, FREDDIE 2001, 258:2486-97 . Venipuncture immediately after or during the administration of Metamizole may lead to falsely low results. Testing should be performed immediately prior to Metamizole dosing. Performed By: #### P TH #### [facility] [address] [place] [address] CHOLESTEROL/HDL RATIO Canceled Normal [facility] Comment on above: Order Comment: TEST LIPID PANEL (CORONARY RISK 2) WAS CANCELLED, 01/16/2023 10:00 UNABLE TOOBTAIN SPECIMEN. Performed By: #### P TH #### [facility] [address] [place] [address] HDL-CHOLESTEROL Canceled Normal [facility] Comment on above: Order Comment: TEST LIPID PANEL (CORONARY RISK 2) WAS CANCELLED, 01/16/2023 10:00 UNABLE TOOBTAIN SPECIMEN. Result Comment: . AGE VERY LOW LOW NORMAL HIGH 0-19 Y < 35 < 40 40-45 ---- 20-24 Y ---- < 40 >45 ---- >24 Y ---- < 40 40-60 >60 . Performed By: #### P TH #### [facility] [address] [place] [address] LDL Canceled Normal [facility] Comment on above: Order Comment: TEST LIPID PANEL (CORONARY RISK 2) WAS CANCELLED, 01/16/2023 10:00 UNABLE TOOBTAIN SPECIMEN. Result Comment: . NEAR BORD AGE DESIRABLE OPTIMAL HIGH HIGH VERY HIGH 0-19 Y 0 - 109 --- 110-129 >/= 130 ---- 20-24 Y 0 - 119 --- 120-159 >/= 160 ---- >24 Y 0 - 99 100-129 130-159 160-189 >/=190 . Performed By: #### P TH #### [facility] [address] [place] [address] NON-HDL CHOLESTEROL Canceled Normal [facility] Comment on above: Order Comment: TEST LIPID PANEL (CORONARY RISK 2) WAS CANCELLED, 01/16/2023 10:00 UNABLE TOOBTAIN SPECIMEN. Result Comment: AGE DESIRABLE BORDERLINE HIGH HIGH VERY HIGH 0-19 Y 0 - 119 120 - 144 >/= 145 >/= 160 20-24 Y 0 - 149 150 - 189 >/= 190 ---- >24 Y 30 MG/DL ABOVE LDL CHOLESTEROL GOAL . Performed By: #### P TH #### [facility] [address] [place] [address] TRIGLYCERIDES Canceled Normal [facility] Comment on above: Order Comment: TEST LIPID PANEL (CORONARY RISK 2) WAS CANCELLED, 01/16/2023 10:00 UNABLE TOOBTAIN SPECIMEN. Result Comment: . AGE DESIRABLE BORDERLINE HIGH HIGH VERY HIGH 0 D-90 D 19 - 174 ---- ---- ---- 91 D- 9 Y 0 - 74 75 - 99 >/= 100 ---- 10-19 Y 0 - 89 90 - 129 >/= 130 ---- 20-24 Y 0 - 114 115 - 149 >/= 150 ---- >24 Y 0 - 149 150 - 199 200- 499 >/= 500 . Venipuncture immediately after or during the administration of Metamizole may lead to falsely low results. Testing should be performed immediately prior to Metamizole dosing. Performed By: #### P TH #### [facility] [address] [place] [address] VLDL Canceled Normal [facility] Comment on above: Order Comment: TEST LIPID PANEL (CORONARY RISK 2) WAS CANCELLED, 01/16/2023 10:00 UNABLE TOOBTAIN SPECIMEN. Performed By: #### P TH #### [facility] [address] [place] [address] Laboratory - Chemistry and C hemistry - challengeon 01-16-2023 Albumin BCP dye [Mass/Vol] Canceled MH-Tscwqvg-Vq rma MAC2 303 Work Phone: ALP [Catalytic activity/Vol] Canceled EQ-Pxlnnym-Yf rma MAC2 303 Work Phone: ALT With P-5'-P [Catalytic activity/Vol] Canceled CM-Ihhnquq-Rt rma MAC2 303 Work Phone: Comment on above: Patients treated wit h Sulfasalazine may generate falsely decreased results for ALT. AST With P-5'-P [Catalytic activity/Vol] Canceled GF-Pawteoq-Ir rma MAC2 303 Work Phone: Bilirubin [Mass/Vol] Canceled KG-Cqrxfzh-Ur rma MAC2 303 Work Phone: Calcium [Mass/Vol] Canceled MG-Kisha evon-Pa rma MAC2 303 Work Phone: Chloride [Moles/Vol] Canceled LN-Aaihivc-Cf rma MAC2 303 Work Phone: CO2 [Moles/Vol] Canceled MG-Surger y-Pa rma MAC2 303 Work Phone: Creatinine [Mass/Vol] Canceled RZ-Jplcvvu-Ne rma MAC2 303 Work Phone: Glucose [Mass/Vol] Canceled MG-Kisha evon-Pa rma MAC2 303 Work Phone: Iron [Mass/Vol] Canceled MG-Surger y-Pa rma MAC2 303 Work Phone: Iron binding capacity [Mass/Vol] Canceled KL-Yhvuhzz-Wy rma MAC2 303 Work Phone: Potassium [Moles/Vol] Canceled QO-Auuwgiv-Hh rma MAC2 303 Work Phone: Protein [Mass/Vol] Canceled MG-Kisha evon-Pa rma MAC2 303 Work Phone: Sodium [Moles/Vol] Canceled MG-Kisha evon-Pa rma MAC2 303 Work Phone: Thiamine (Bld) [Mass/Vol] Canceled HI-Cifdobv-Fo rma MAC2 303 Work Phone: Urea nitrogen [Mass/Vol] Canceled CV-Ykqkbdg-Ul rma MAC2 303 Work Phone: Laboratory - Hematology and Cell countson 01-16-2023 Hematocrit (Bld) [Volume fraction] Canceled AX-Jvgalsu-Mx rma MAC2 303 Work Phone: Hemoglobin (Bld) [Mass/Vol] Canceled QE-Qtseerq-Fg rma MAC2 303 Work Phone: Platelets (Bld) [#/Vol] Canceled ZA-Ruvxsbr-Mk rma MAC2 303 Work Phone: RBC (Bld) [#/Vol] Canceled MG-Surg any-Pa rma MAC2 303 Work Phone: Lipid Panelon 01-16-2023 Cholesterol [Mass/Vol] Canceled CF-Rxjziam-Ys rma MAC2 303 Work Phone: Comment on above: . AGE DESIRABLE BORD CRISS HIGH HIGH 0-19 Y 0 - 169 170 - 199 >/= 200 20-24 Y 0 - 189 190 - 224 >/= 225 >24 Y 0 - 199 200 - 239 >/= 240 All ranges are based on fasting samples. Specific therapeutic targets will vary based on patient-specific cardiac risk.. Pediatric guidelines reference:Pediatrics 2011, 128(S5). Adult guidelines reference: NCEP ATPIII Guidelines, FREDDIE 2001, 258:2486-97. Venipuncture immediately after or during the administration of Metamizole may lead to falsely low results. Testing should be performed immediately prior to Metamizole dosing. Cholesterol in HDL [Mass/Vol] Canceled XY-Acpcyrn-Sj rma MAC2 303 Work Phone: Comment on above: . AGE VERY LOW LOW N ORMAL HIGH 0-19 Y < 35 < 40 40-45 ---- 20- 24 Y ---- < 40 >45 ---- >24 Y ---- < 40 40-60 >60. Cholesterol in LDL [Mass/Vol] Canceled JL-Ddpwpmr-Ww rma MAC2 303 Work Phone: Comment on above: . NEAR BORD AGE DAWOOD RABLE OPTIMAL HIGH HIGH VERY HIGH 0-19 Y 0 - 109 --- 110-129 >/= 130 ---- 20-24 Y 0 - 119 --- 120-159 >/= 160 ---- >24 Y 0 - 99 100-129 130-159 160-189 >/=190. Cholesterol non HDL [Mass/Vol] Canceled XV-Occobrk-Jo rma [id number] Work Phone: Comment on above: AGE DESIRABLE BORDER LINE HIGH HIGH VERY HIGH 0-19 Y 0 - 119 120 - 144 >/= 145 >/= 160 20-24 Y 0 - 149 150 - 189 >/= 190 ---- >24 Y 30 MG/DL ABOVE LDL CHOLESTEROL GOAL. Triglyceride [Mass/Vol] Canceled EF-Yetvfcc-Jv rma [id number] 303 Work Phone: Comment on above: . AGE DESIRABLE BORD CRISS HIGH HIGH VERY HIGH 0 D-90 D 19 - 174 ---- ---- ----91 D- 9 Y 0 - 74 75 - 99 >/= 100 ---- 10-19 Y 0 - 89 90 - 129 >/= 130 ---- 20-24 Y 0 - 114 115 - 149 >/= 150 ---- >24 Y 0 - 149 150 - 199 200- 499 >/= 500. Venipuncture immediately after or during the administration of Metamizole may lead to falsely low results. Testing should be performed immediately prior to Metamizole dosing. Lipid Panel Canceled IX-Vhfatzi-Hu rma [id number] Work Phone: Comment on above: CALCULATIONS OF NICK MATED GFR ARE PERFORMED USING THE 2020 CKD-EPI STUDY REFIT EQUATION WITHOUT THE RACE VARIABLE FOR THE IDMS-TRACEABLE CREATININE METHODS.https://jasn.asnjournals.org/content//ASN.[email or web address] PARATHYROID HORMONE,INTACTon 01-16-2023 PARATHYROID HORMONE,INTACT Canceled Normal [facility] Comment on above: Order Comment: TEST PARATHYROID HORMONE,INTACT WAS CANCELLED, 01/16/2023 10:00 UNABLE TO OBTAIN SPECIMEN. Performed By: #### P TH #### [facility] [address] [place] [address] Parathormone Intact, Serumon 01-16-2023 Parathyrin.intact [Mass/Vol] Canceled CT-Fyketwl-Yf rma [id number] Work Phone: VIT B1-THIAMINE WHOLE BLDon 01-16-2023 VIT B1-THIAMINE WHOLE BLD Canceled Normal [facility] Comment on above: Order Comment: TEST VIT B1-THIAMINE WHOLE BLD WAS CANCELLED, 01/16/2023 10:00 UNABLE TOOBTAIN SPECIMEN. Performed By: #### D RUGR #### [facility] [address] [place] [address] VITAMIN B12on 01-16-2023 VITAMIN B12 Canceled Normal [facility] Comment on above: Order Comment: TEST VITAMIN B12 WAS CANCELLED, 01/16/2023 10:00 UNABLE TO OBTAIN SPECIMEN. Performed By: #### V TB12 #### [address] [address] VITAMIN D, 25-HYDROXYon 01-02 VITAMIN D, 25-HYDROXY Canceled Normal [facility] Comment on above: Order Comment: TEST VITAMIN D, 25-HYDROXY WAS CANCELLED, 01/16/2023 10:00 UNABLE TO OBTAINSPECIMEN. 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 She knows that she cannot drive or operate machinery for 8 hours after taking this medication. 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 She will monitor and follow-up if it is getting bigger or tender. It may need surgical removal in the future. Orders Anxiety with flying Start: ALPRAZolam 0.25 MG Oral Tablet; TAKE 1 TABLET EVERY 6 HOURS NEEDED FOR ANXIETY Chief Complaint Chief Complaints Visit For: Other Pt is flying for the first time and wants to discuss anxiety medication for the flight. Flying to [place] because will be moving there. Very bad anxiety and panic attacks in these situations. She asked for medication to help her with anxiety during the flight. Pt c/o bump on scalp x 4 months - denies pain. It is a small subcutaneous lump at the vertex of the scalp. Scores and Scales FCO-7 [id number] FCO-7 Total Score16 Feeling nervous, anxious or on edgeOver half the days - 2 Not being able to stop or control worryingOver half the days - 2 Worrying too much about different thingsNearly every day - 3 Trouble relaxingOver half the days - 2 Being so restless that it's hard to sit stillSeveral days - 1 Becoming easily annoyed or irritableNearly every day - 3 Feeling afraid as if something awful might happenNearly every day - 3 Active Problems Problems Abdominal pain (789.00) (R10.9) Anxiety (300.00) (F41.9) Bariatric surgery status (V45.86) (Z98.84) Calculus of gallbladder without cholecystitis without obstruction (574.20) (K80.20) 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) Heartburn (787.1) (R12) HLD (hyperlipidemia) (272.4) (E78.5) Nausea and vomiting (787.01) (R11.2) Obesity (BMI 30-39.9) (278.00) (E66.9) Post-op pain (338.18) (G89.18) Post-operative nausea and vomiting (787.01) (R11.2,Z98.890) Pre-bariatric surgery nutrition evaluation (V65.3) (Z71.3) Preoperative clearance (V72.84) (Z01.818) Raynaud phenomenon (443.0) (I73.00) 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) Sleep disturbances (780.50) (G47.9) Snoring (786.09) (R06.83) Suspected sleep apnea (781.99) (R29.818) Past Medical History Problems History of gastric ulcer (V12.79) (Z87.11) Surgical History Problems History of Ankle Surgery History of Colonoscopy History of Diagnostic Esophagogastroduodenoscopy History of Laparoscopic Excision Endometriotic Tissue [place] Family History Mother Family history of Family history of Endometrial carcinoma Father Family history of coronary artery disease (V17.3) (Z82.49) Social History Problems Never used tobacco (V49.89) (Z78.9) Current Meds Medication NameInstruction B-12 1000 MCG Sublingual Tablet Sublingual Bariatric Multivitamins/Iron Oral CapsuleTAKE DIRECTED. Calcium Citrate + Oral TabletTAKE 1 TABLET 3 times daily Melatonin 1 MG Oral TabletTAKE DIRECTED. Omeprazole 20 MG Oral Capsule Delayed ReleaseTAKE 1 CAPSULE DAILY EVERY MORNING BEFORE BREAKFAST. QUEtiapine Fumarate 25 MG Oral Tablet Ursodiol 250 MG Oral TabletTAKE 1 TABLET DAILY. Allergies Medication No Known Drug Allergies Vitals Vital Signs Recorded: [id number] 02:01PM Temperature: 98.4 F Heart Rate: 78 Respiration: 16 Systolic: 124 Diastolic: 72 Height: 5 ft Weight: 195 lb BMI Calculated: 38.08 kg/m2 BSA Calculated: 1.85 Physical Exam General - Not in acute distress and cooperative. Build AND Nutrition - Well developed Posture - Normal Gait - Normal Mental Status - alert and oriented x 3 Head - Normocephalic Eyes - Bilateral - Sclera clear and lids pink without edema or mass. Skin - Warm and dry with no rashes on visible skin Neuropsychiatric - normal mood and affect, well groomed and good eye contact. Able to articulate well with normal speech/language, rate and coherence. Associations are intact. No evidence of hallucinations, delusions, obsessions or homicidal/suicidal ideation. Attention span and ability to concentrate are normal. Scalp?at the vertex of her scalp is a 1 cm probable sebaceous cyst with no tenderness or erythema. There are no openings for drainage. Signatures Electronically signed by : Mima Rodriguez MD; Nov 27 2022 3:34PM EST (Author) Normal Touchworks CBC AND DIFFERENTIALon 11-05 % AUTOMATED IMMATURE GRAN 0.2 % Normal 0.0 - 0.9 [facility] Comment on above: Result Comment: Loree ture Granulocyte Count (IG) includes promyelocytes, myelocytes and metamyelocytes but does not include bands. Percent differential counts (%) should be interpreted in the context of the absolute cell counts (cells/L). Performed By: #### C BCDF #### [facility] [address] [place] [address] Basophils (Bld) [#/Vol] 0.03 10*3/uL Normal 0.00 - 0.10 [facility] Comment on above: Performed By: #### C BCDF #### [address] [address] Basophils/100 WBC (Bld) 0.6 % Normal 0.0 - 2.0 [facility] Comment on above: Performed By: #### C BCDF #### [address] [address] Eosinophils (Bld) [#/Vol] 0.10 10*3/uL Normal 0.00 - 0.70 [facility] Comment on above: Performed By: #### C BCDF #### [address] [address] Eosinophils/100 WBC (Bld) 1.9 % Normal 0.0 - 6.0 [facility] Comment on above: Performed By: #### C BCDF #### [address] [address] Erythrocyte distribution width (RBC) [Ratio] 13.2 % Normal 11.5 - 14.5 [facility] Comment on above: Performed By: #### C BCDF #### [address] [address] Hematocrit (Bld) [Volume fraction] 42.0 % Normal 36.0 - 46.0 [facility] Comment on above: Performed By: #### C BCDF #### [address] [address] Hemoglobin (Bld) [Mass/Vol] 13.6 g/dL Normal 12.0 - 16.0 [facility] Comment on above: Performed By: #### C BCDF #### [address] [address] Lymphocytes (Bld) [#/Vol] 2.06 10*3/uL Normal 1.20 - 4.80 [facility] Comment on above: Performed By: #### C BCDF #### [address] [address] Lymphocytes/100 WBC (Bld) 38.8 % Normal 13.0 - 44.0 [facility] Comment on above: Performed By: #### C BCDF #### [address] [address] MCHC (RBC) [Mass/Vol] 32.4 g/dL Normal 32.0 - 36.0 [facility] Comment on above: Performed By: #### C BCDF #### [address] [address] MCV (RBC) [Entitic vol] 89 fL Normal 80 - 100 [facility] Comment on above: Performed By: #### C BCDF #### [address] [address] Monocytes (Bld) [#/Vol] 0.25 10*3/uL Normal 0.10 - 1.00 [facility] Comment on above: Performed By: #### C BCDF #### [address] [address] Monocytes/100 WBC (Bld) 4.7 % Normal 2.0 - 10.0 [facility] Comment on above: Performed By: #### C BCDF #### [address] [address] Neutrophils (Bld) [#/Vol] 2.86 10*3/uL Normal 1.20 - 7.70 [facility] Comment on above: Result Comment: Perc ent differential counts (%) should be interpreted in the context of the absolute cell counts (cells/L). Performed By: #### C BCDF #### [address] [address] Neutrophils/100 WBC (Bld) 53.8 % Normal 40.0 - 80.0 [facility] Comment on above: Performed By: #### C BCDF #### [address] [address] Platelets (Bld) [#/Vol] 214 10*3/uL Normal 150 - 450 [facility] Comment on above: Performed By: #### C BCDF #### [address] [address] RBC 4.74 x10E12/L Normal 4.00 - 5.20 [facility] Comment on above: Performed By: #### C BCDF #### [address] [address] WBC (Bld) [#/Vol] 5.3 10*3/uL Normal 4.4 - 11.3 [facility] Comment on above: Performed By: #### C BCDF #### [place] [id number] COMPREHENSIVE PANELon 2022 Albumin [Mass/Vol] 4.4 g/dL Normal 3.4 - 5.0 [facility] Comment on above: Performed By: #### H CGQU #### [place] [id number] ALP [Catalytic activity/Vol] 94 U/L Normal 33 - 110 [facility] Comment on above: Performed By: #### H CGQU #### [address] [address] ALT [Catalytic activity/Vol] 27 U/L Normal 7 - 45 [facility] Comment on above: Result Comment: Sayda ents treated with Sulfasalazine may generate falsely decreased results for ALT. Performed By: #### H CGQU #### [address] [address] Anion gap [Moles/Vol] 12 mmol/L Normal 10 - 20 [facility] Comment on above: Performed By: #### H CGQU #### [address] [address] AST [Catalytic activity/Vol] 22 U/L Normal 9 - 39 [facility] Comment on above: Performed By: #### H CGQU #### [address] [address] Bilirubin [Mass/Vol] 0.4 mg/dL Normal 0.0 - 1.2 [facility] Comment on above: Performed By: #### H CGQU #### [address] [address] Calcium [Mass/Vol] 9.5 mg/dL Normal 8.6 - 10.3 [facility] Comment on above: Performed By: #### H CGQU #### [address] [address] Chloride [Moles/Vol] 105 mmol/L Normal 98 - 107 [facility] Comment on above: Performed By: #### H CGQU #### [address] [address] Creatinine [Mass/Vol] 0.62 mg/dL Normal 0.50 - 1.05 [facility] Comment on above: Performed By: #### H CGQU #### [address] [address] eGFR FEMALE >90 Normal >90 [facility] Comment on above: Result Comment: CALC ULATIONS OF ESTIMATED GFR ARE PERFORMED USING THE 2020 CKD-EPI STUDY REFIT EQUATION WITHOUT THE RACE VARIABLE FOR THE IDMS-TRACEABLE CREATININE METHODS. https://jasn.asnjournals.org/content/early/ASN.567867617 8 Performed By: #### H CGQU #### [address] [address] Glucose [Mass/Vol] 93 mg/dL Normal 74 - 99 [facility] Comment on above: Performed By: #### H CGQU #### [address] [address] HCO3 (Bld) [Moles/Vol] 28 mmol/L Normal 21 - 32 [facility] Comment on above: Performed By: #### H CGQU #### [address] [address] Potassium [Moles/Vol] 3.6 mmol/L Normal 3.5 - 5.3 [facility] Comment on above: Performed By: #### H CGQU #### [address] [address] Protein [Mass/Vol] 6.9 g/dL Normal 6.4 - 8.2 [facility] Comment on above: Performed By: #### H CGQU #### [address] [place] [address] Sodium [Moles/Vol] 141 mmol/L Normal 136 - 145 [facility] Comment on above: Performed By: #### H CGQU #### [address] [address] Urea nitrogen [Mass/Vol] 16 mg/dL Normal 6 - 23 [facility] Comment on above: Performed By: #### H CGQU #### [address] [address] [address] ABDOMEN AND PELVIS W IV C ONTRASTon 11-05-2022 CT ABDOMEN AND PELVIS W IV CONTRAST STUDY: CT Abdomen and Pelvis with IV Contrast; 11/04/2022 11:15 PM. INDICATION: Right lower quadrant abdominal pain. Nausea. COMPARISON: CT AP 07/08/2022. ACCESSION NUMBER(S): [id number] ORDERING CLINICIAN: LUZ BEASLEY MD TECHNIQUE: CT of the abdomen and pelvis was performed. Contiguous axial images were obtained at 3 mm slice thickness through the abdomen and pelvis. Coronal and sagittal reconstructions at 3 mm slice thickness were performed. Omnipaque 350 90 mL was administered intravenously. FINDINGS: LOWER CHEST: Cardiac size is normal. No pericardial effusion. Lung bases are clear. ABDOMEN: LIVER: No hepatomegaly. Focal fat is seen in the left hepatic lobe along the falciform ligament. Normal attenuation. BILE DUCTS: No intrahepatic or extrahepatic biliary ductal dilatation. GALLBLADDER: Gallbladder is unremarkable. STOMACH: Postoperative changes of gastric sleeve procedure are noted. PANCREAS: No masses or ductal dilatation. SPLEEN: No splenomegaly or focal splenic lesion. ADRENAL GLANDS: No thickening or nodules. KIDNEYS AND URETERS: Kidneys are normal in size and location. No renal or ureteral calculi. PELVIS: BLADDER: No abnormalities identified. REPRODUCTIVE ORGANS: The patient is status post hysterectomy. BOWEL: No abnormalities identified. Appendix appears normal. Terminal ileum is unremarkable. VESSELS: No abnormalities identified. Abdominal aorta is normal in caliber. PERITONEUM/RETROPERITONEUM/ LYMPH NODES: No free fluid. No pneumoperitoneum. No lymphadenopathy. ABDOMINAL WALL: No abnormalities identified. SOFT TISSUES: No abnormalities identified. BONES: No acute fracture or aggressive osseous lesion. IMPRESSION: No definite acute intra-abdominal pathology identified. Signed by Misha Heck Electronically signed by: MISHA HECK MD Normal [facility] LIPASEon 11-05-2022 Lipase [Catalytic activity/Vol] 31 U/L Normal 9 - 82 [facility] Comment on above: Result Comment: Moon puncture immediately after or during the administration of Metamizole may lead to falsely low results. Testing should be performed immediately prior to Metamizole dosing. U-waogrr-v-benzoquinone imine (metabolite of Acetaminophen) will generate erroneously low results in samples for patients that have taken toxic doses of acetaminophen. Performed By: #### L IPAS #### [place] [address] URINALYSIS WITH CULTURE IF I NDICATEDon 11-05-2022 Appearance (U) HAZY Normal CLEAR [facility] Comment on above: Performed By: #### L IPAS #### [address] [address] Bilirubin Ql (U) Negative Normal NEGATIVE [facility] Comment on above: Performed By: #### L IPAS #### [place] [id number] Color (U) Yellow Normal STRAW,YELLOW [facility] Comment on above: Performed By: #### L IPAS #### [address] [address] Glucose Ql (U) Negative Normal NEGATIVE [facility] Comment on above: Performed By: #### L IPAS #### [address] [address] Hemoglobin Ql (U) Negative Normal NEGATIVE [facility] Comment on above: Performed By: #### L IPAS #### [address] [address] Ketones Ql (U) 80(2+) Abnormal NEGATIVE [facility] Comment on above: Performed By: #### L IPAS #### [address] [address] Leukocyte esterase Test strip Ql (U) Negative Normal NEGATIVE [facility] Comment on above: Performed By: #### L IPAS #### [address] [address] Nitrite Ql (U) Negative Normal NEGATIVE [facility] Comment on above: Performed By: #### L IPAS #### [address] [address] pH (U) 5.0 [pH] Normal 5.0 - 8.0 [facility] Comment on above: Performed By: #### L IPAS #### [address] [address] Protein Ql (U) Negative Normal NEGATIVE [facility] Comment on above: Performed By: #### L IPAS #### [address] [address] Specific gravity (U) [Rel density] 1.046 High 1.005 - 1.035 [facility] Comment on above: Performed By: #### L IPAS #### [address] [address] Urobilinogen (U) [Mass/Vol] 2.0 mg/dL High 0.0 - 1.9 [facility] Comment on above: Result Comment: Due to a manufacturing issue, low positive urobilinogen results may be falsely positive. Correlate with urine bilirubin and additional clinical/laboratory findings to assess the risk of hemolytic anemia or liver disease. If clinically indicated, repeat testing with an alternate method is available by contacting the laboratory within 24 hours. . Some pigments and medications may cause a false positive urobilinogen. 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 DO NOT CHEW To Omeprazole 20 MG Oral Capsule Delayed Release TAKE 1 CAPSULE DAILY EVERY MORNING BEFORE BREAKFAST Calculus of gallbladder without cholecystitis without obstruction, S/P laparoscopic sleeve gastrectomy Changed: From Ursodiol 250 MG Oral Tablet TAKE 1 TABLET TWICE DAILY To Ursodiol 250 MG Oral Tablet TAKE 1 TABLET DAILY S/P laparoscopic sleeve gastrectomy Complete Blood Count; Status:Active; Requested for:04Nov2022; Comprehensive Metabolic Panel; Status:Active; Requested for:04Nov2022; Ferritin, Serum; Status:Active; Requested for:04Nov2022; Folate, Serum; Status:Active; Requested for:04Nov2022; Iron + TIBC, Serum; Status:Active; Requested for:04Nov2022; Parathormone Intact, Serum; Status:Active; Requested for:04Nov2022; Vitamin B1 - Thiamine, Whole Blood; Status:Active; Requested for:04Nov2022; Vitamin B12, Serum; Status:Active; Requested for:04Nov2022; Vitamin D 25-Hydroxy; Status:Active; Requested for:04Nov2022; Patient Discussion/Summary You are doing well 6* months post bariatric AND metabolic surgery. Be sure you are following the 30-30-30 rule Remember to get at least 60gm of protein in each day Remember to get at least 64oz of fluid in each day, varying the types of liquids you are taking in Exercise is a hermosillo piece to success post bariatric surgery, start to incorporate more active movement into your day Goal for exercise is 300 minutes/week or 60 minutes 5 days per week Please have your 6 month labs drawn. Our office will call you with any abnormal results. Continue to follow up with the dieticians and consider joining our support groups that meet virtually. Please call [phone] to schedule your annual follow up with the bariatrics provider AND RD For any concerns reach out to Dr. Benitez' nurse at [phone]. Provider Impressions Patient presenting for 6 mo follow up s/p LSG Doing well Tolerating diet, meeting protein and fluid goals Taking supplements Taking PPI Occ mild heartburn. Did have gallstones noted in fall 2021, has been on ursodiol 250mg BID, tolerating well, no RUQ or abdominal pain Exercise: walking daily AND gym 2-3x/week Plan: Continue diet, follow up with dietitian, encourage lean protein, low fat diet, increase dietary fiber from fruit/veg Continue supplements Continue PPI at 20mg daily given still occ heartburn, avoid diet triggers Given s/p LSG and gallstone hx, but not sx in last 3 mo will reduce ursodiol to 250mg daily for next 3 mo then plan to d/c. If developing RUQ pain, n/v, fever, chills to ER for evaluation or contact PCP/bariatrics if sx mildly progressing for evaluation. Join support groups Continue exercise Labs: 6m ordered Follow up: 3m as she is planning move to [place] this summer, will plan for FUV prior to move Chief Complaint The patient is being seen for follow up. The patient is being seen today for a 6 month follow up visit. Type of surgery: Sleeve Gastrectomy . Surgery date: 05/13/2022. An interactive audio and video telecommunication system which permits real time communications between the patient (at the originating site) and provider (at the distant site) was utilized to provide this telehealth service. Verbal consent was requested and obtained from BELEM LAWLER on this date, 11/04/2022 01:00 PM , for a telehealth visit. History of Present Illness Type of Surgery: lap sleeve gastrectomy, surgery Date: 05/13/2022. Weight:. Initial weight: 295 lbs. Last visit weight: 231 lbs. Current weight: 201 lbs. Total weight lost: 45 lbs. Trinity weight 124 lbs. Target body weight 167 lbs. Severity of obesity is Class 3 which is a BMI of greater than or equal to 40. 41y F for 6m FUV s/p LSG Diet: on regular diet, tolerating well, met with RD this AM, meeting protein AND fluid goals. Exercise - walking 10 minutes every hour on work days for a total of 45-60 min/day, 2x/week weights/cardio 60 min cardio AND 60 min weights Supplements - Bariatric pal 1 a day with 1000mcg B12, 1500mg calcium - sometimes forgets to take them, spoke with RD this AM about setting up reminders Any symptoms of reflux, nausea, vomiting, dysphagia - rare heartburn, triggered by red sauces denies Any symptoms of bowel irregularity, diarrhea, constipation - denies She had 1 episode of dumping over christopher No cp, palpitations, sob, LE edema Review of Systems Negative except for pertinent positives noted in HPI Active Problems Problems Abdominal pain (789.00) (R10.9) Anxiety (300.00) (F41.9) Manifesting with easy anger and irritability. Medications restarted 3/11/21 duloxetine. Bariatric surgery status (V45.8 (more content not included)... Normal [facility] CT Abdomen and Pelvis with I V Contraston 11-04-2022 CT Abdomen and Pelvis W contrast IV Normal [email or web address] Work Phone: Complete Blood Count + Diffe rentialon 11-04-2022 Basophils/100 WBC (Bld) 0.6 % 0.0 - 2.0 [email or web address] Work Phone: Erythrocyte distribution width (RBC) [Ratio] 13.2 % See Below [email or web address] Work Phone: Comment on above: Reference Range: 11. 5 - 14.5 Hematocrit (Bld) [Volume fraction] 42.0 % See Below [email or web address] Work Phone: Comment on above: Reference Range: 36. 0 - 46.0 Hemoglobin (Bld) [Mass/Vol] 13.6 g/dL See Below [email or web address] Work Phone: Comment on above: Reference Range: 12. 0 - 16.0 Lymphocytes/100 WBC (Bld) 38.8 % See Below [email or web address] Work Phone: Comment on above: Reference Range: 13. 0 - 44.0 MCHC (RBC) [Mass/Vol] 32.4 g/dL See Below [email or web address] Work Phone: Comment on above: Reference Range: 32. 0 - 36.0 MCV (RBC) [Entitic vol] 89 fL 80 - 100 [email or web address] Work Phone: Monocytes/100 WBC (Bld) 4.7 % 2.0 - 10.0 [email or web address] Work Phone: Neutrophils/100 WBC (Bld) 53.8 % See Below [email or web address] Work Phone: Comment on above: Reference Range: 40. 0 - 80.0 Platelets (Bld) [#/Vol] 214 10*3/uL 150 - 450 VF-GFVM-[place] Work Phone: RBC (Bld) [#/Vol] 4.74 {x10E12/L} See Below [facility]: Comment on above: Reference Range: 4.0 0 - 5.20 WBC (Bld) [#/Vol] 5.3 10*3/uL 4.4 - 11.3 [facility] Work Phone: Complete Blood Count + Differential 0.03 {x10E9/L} See Below WQ-DFWD-Zefl [place] Work Phone: Comment on above: Reference Range: 0.0 0 - 0.10 Complete Blood Count + Differential 0.10 {x10E9/L} See Below MB-LGFI-Gmwv [place] Work Phone: Comment on above: Reference Range: 0.0 0 - 0.70 Complete Blood Count + Differential 0.25 {x10E9/L} See Below XL-ORAL-Clhr [place] Work Phone: Comment on above: Reference Range: 0.1 0 - 1.00 Complete Blood Count + Differential 2.06 {x10E9/L} See Below QA-PTQP-Qvrz [place] Work Phone: Comment on above: Reference Range: 1.2 0 - 4.80 Complete Blood Count + Differential 2.86 {x10E9/L} See Below ZO-UMNK-Szxm [place] Work Phone: Comment on above: Reference Range: 1.2 0 - 7.70 Percent differential counts (%) should be interpreted in the context of the absolute cell counts (cells/L). Complete Blood Count + Differential 1.9 % 0.0 - 6.0 YE-EHEF-Pnsk [place] Work Phone: Complete Blood Count + Differential 0.2 % 0.0 - 0.9 HC-FXYZ-Read [place] Work Phone: Comment on above: Immature Granulocyte Count (IG) includes promyelocytes, myelocytes and metamyelocytes but does not include bands. Percent differential counts (%) should be interpreted in the context of the absolute cell counts (cells/L). Laboratory - Chemistry and C hemistry - challengeon 11-04-2022 Albumin BCP dye [Mass/Vol] 4.4 g/dL 3.4 - 5.0 [facility] [place] Work Phone: ALP [Catalytic activity/Vol] 94 U/L 33 - 110 [facility] [place] Work Phone: ALT With P-5'-P [Catalytic activity/Vol] 27 U/L 7 - 45 XT-YOEA-Uejk [place] Work Phone: Comment on above: Patients treated wit h Sulfasalazine may generate falsely decreased results for ALT. Anion gap [Moles/Vol] 12 mmol/L 10 - 20 LB-JMQJ-Mirg [place] Work Phone: AST With P-5'-P [Catalytic activity/Vol] 22 U/L 9 - 39 HG-ELIB-Rdus [place] Work Phone: Bilirubin [Mass/Vol] 0.4 mg/dL 0.0 - 1.2 [facility] Work Phone: Calcium [Mass/Vol] 9.5 mg/dL 8.6 - 10.3 [facility] [place] Work Phone: Chloride [Moles/Vol] 105 mmol/L 98 - 107 [facility] Work Phone: CO2 [Moles/Vol] 28 mmol/L 21 - 32 PPTVAR[facility]ITALPPTV[facility] [employer] Work Phone: Creatinine [Mass/Vol] 0.62 mg/dL See Below PX-AOAY-Negr [place] Work Phone: Comment on above: Reference Range: 0.5 0 - 1.05 Glucose [Mass/Vol] 93 mg/dL 74 - 99 PPTVPEN[facility]TV[facility] Work Phone: Potassium [Moles/Vol] 3.6 mmol/L 3.5 - 5.3 [email or web address] Work Phone: Protein [Mass/Vol] 6.9 g/dL 6.4 - 8.2 [facility] Work Phone: Sodium [Moles/Vol] 141 mmol/L 136 - 145 [employer] Work Phone: Urea nitrogen [Mass/Vol] 16 mg/dL 6 - 23 [email or web address] Work Phone: Lipase, Serumon 11-04-2022 Lipase [Catalytic activity/Vol] 31 U/L 9 - 82 ZZ-RSTK-Ziaw[place] Work Phone: Comment on above: Venipuncture immedia tely after or during the administration of Metamizole may lead to falsely low results. Testing should be performed immediately prior to Metamizole dosing. E-slarlw-n-benzoquinone imine (metabolite of Acetaminophen) will generate erroneously low results in samples for patients that have taken toxic doses of acetaminophen. No Panel Informationon 11-04 >90 >90 [email or web address] Work Phone: Comment on above: CALCULATIONS OF NICK MATED GFR ARE PERFORMED USING THE 2020 CKD-EPI STUDY REFIT EQUATION WITHOUT THE RACE VARIABLE FOR THE IDMS-TRACEABLE CREATININE METHODS.https://jasn.asnjournals.org/content//ASN.2 348402155 Provider Note - ED v3on 02 Provider Note - ED v3 Provider Note: Chart Review: ED NOTES ED NOTES: HPI: Patient is a 41-year-old female presenting with 1 day of right lower quadrant pain. She states that she has had pain in her right lower side. She admits to nausea, but denies vomiting. She states her last bowel movement was yesterday and was normal. Patient states she is status post total hysterectomy and gastric sleeve. Patient denies any other complaints at this time. Limitations to history: none identified Independent Historians: patient External Records Reviewed: EMR ---- ROS: a ten point review of systems was performed and was negative except as per HPI. ---- PMH / PSH: as per HPI, otherwise reviewed in EMR and significant for: gastric sleeve, hysterectomy MEDS: as per HPI, otherwise reviewed in EMR and significant for: duloxetine , biotin, MVI, seroquel ALLERGIES: as per HPI, otherwise reviewed in EMR and significant for: aspartame SocH: as per HPI, otherwise reviewed in EMR and significant for: denies EtOH or drug use FH: as per HPI, otherwise reviewed in EMR and significant for: non contributory ---- Physical Exam: VS: As documented in the triage note and EMR flowsheet from this visit was reviewed General: Well appearing. No acute distress. Eyes: Extraocular movements grossly intact. No scleral icterus. HEENT: Atraumatic. Normocephalic. Neck: No meningismus. No gross masses CV: Regular rhythm. No murmurs, rubs, gallops appreciated. Resp: Clear to auscultation bilaterally. No respiratory distress. GI: Soft, no masses. tenderness to palpation RLQ without guarding MSK: Symmetric muscle bulk. No gross step offs or deformities. Skin: Warm, dry, intact. Neuro: Speech fluent. Alert. Psych: Appropriate mood and affect for situation - HISTORY OF PRESENTING ILLNESS BELEM is a 41 year old Female and was seen by me at 04-Nov-2022 21:50. Triage Information: Most recent Vital Sign Value Date Temp (F): 97.5 11-04-2022 21:56 Temp (C): 36.3 11-04-2022 21:56 Heart Rate (beats/min): 73 11-04-2022 21:56 Respirations (breaths/min): 18 11-04-2022 21:56 SpO2 (%): 98 11-04-2022 21:56 BP Systolic (mm Hg): 122 11-04-2022 21:56 BP Diastolic (mm Hg): 74 11-04-2022 21:56 PAST MEDICAL HISTORY ALLERGIES/INTOLERANCES: Intolerance Allergen: Aspartame Type: Food Reaction: Headaches HEALTH HISTORY: No documented data. OUTPATIENT MEDICATIONS: Home Medications Review Status for Reconciliation: Incomplete Med Status: Patient Currently Takes Medications Drug Name: biotin Instructions: orally once a day Drug Name: DULoxetine 60 mg oral delayed release capsule Instructions: 1 cap(s) orally once a day Drug Name: multivitamin with iron Multiple Vitamins with Iron oral tablet Instructions: 1 tab(s) oral once a day Drug Name: SEROquel 25 mg oral tablet Instructions: 1 tab(s) oral once a day Drug Name: melatonin 1 mg oral tablet Instructions: 1 tab(s) oral prn as needed Drug Name: ondansetron 4 mg oral tablet Instructions: 1 tab(s) orally every 8 hours Drug Name: omeprazole 40 mg oral delayed release capsule Instructions: 1 cap(s) orally once a day Drug Name: acetaminophen 325 mg oral tablet Instructions: 2 tab(s) orally every 4 hours, As needed, Pain - Mild (1-3) Drug Name: hydrocodone-acetaminophen 5 mg-325 mg oral tablet Instructions: 1 tab(s) orally every 6 hours Drug Name: ondansetron 4 mg oral tablet Instructions: 1 tab(s) orally every 6 hours Drug Name: ursodiol Instructions: 250 milligram(s) orally once a day Drug Name: ondansetron 4 mg oral tablet Instructions: 1 tab(s) orally 3 times a day Drug Name: Ultracet 37.5 mg-325 mg oral tablet Instructions: 1 tab(s) orally 3 times a day SIGNIFICANT EVENTS: Clinical Events Description:Surgical Procedure Additional Notes:Laparoscopic sleeve gastrectomy, TAP block, and upper endoscopy Other Description:FORMER SMOKER Additional Notes:QUIT 6 YEARS AGO Past Medical History Description:NO CHRONIC HEATLH ISSUES Additional Notes:08/2020 Description:gallstones Past Surgical History Description:NO SURGIAL HISTORY THIS YEAR Additional Notes:08/2020 Description:gastric sleeve Description:hysterectomy CRITICAL CARE RESULTS: Recent Lab Results: I have reviewed these laboratory results: Urinalysis with Culture if Indicated 04-Nov-2022 23:20:00 ResultValue Color, Urine Yellow Reference Range: STRAW,YELLOW Appearance, Urine HAZY Specific [place], Urine (more content not included)... Normal [facility] Risk Screen - Adult Emergenc yon 11-04-2022 Risk Screen - Adult Emergency Preferred Language: Preferred Language: Preferred Language for Discussing Health Care (patient/designee)Citizen Of [place] Patient Preferred Pharmacy: Patient Preferred Pharmacy Statement: I have reviewed and updated the patient's preferred pharmacy selection for today's visit. Advanced Directives: Advance Directive/DNRno Family Violence Adult: Abuse Screen: Are you or have you been threatened or abused physically, emotionally, or sexually by anyoneno Learning Assessment (Patient): Learning Assessment (Patient): Patient is Able to be Assessed for Learningyes Factors Influencing Readiness to Learnpain Factors that Impact Ability to Learnnone Devices/Methods Used to Communicatenone Learning Preferenceswritten material; verbal instruction Cultural Considerationsnone Developmental Considerationsnone Voodoo Considerationsnone Other Learnersfamily Learning Assessment (Other Learner): Learning Assessment (Other Learner): Other learner availableyes... Learnerfamily Factors Influencing Readiness to Learnna Factors that Impact Ability to Learnnone Devices/Methods Used to Communicatenone Learning Preferencesverbal instruction, written material Cultural Considerationsnone Developmental Considerationsnone Voodoo Considerationsnone Pressure Injury/TB/Substance: Pressure Injury: Pressure Injury Present on Admissionno Do you have a coughno Smoking Statusformer smoker Alcohol Usedenies Drug Usedenies Admission Risk Screen: Significant IndicatorsComplete CAGE: CAGE: Is this an injured patient at a Trauma Center ([facility]/[place]): no Electronic Signatures: Gia Boateng ([employer] PRN) (Signed 04-Nov-2022 22:00) Authored: Preferred Language, Patient Preferred Pharmacy, Advanced Directives, Family Violence Adult, Learning Assessment (Patient), Learning Assessment (Other Learner), Pressure Injury/TB/Substance, Pressure Injury, CAGE Last Updated: 04-Nov-2022 22:00 by Gia Boateng (YUNIEL PRN) [facility] Triage - EDon 11-04-2022 Triage - ED Quick Triage: Are You no Have You Given In The Last 6 Weeksno Are You Currently Breastfeedingno Chart Review: ARRIVAL INFORMATION Mode of Arrival: private vehicle CHIEF COMPLAINT BELEM LAWLER is a Female patient with a chief complaint of abdominal pain (Pt complains of right lower abd pain and nausea since this evening. No urinary symptoms.). Triage Date/Time: 04-Nov-2022 21:56 HILDA: 3 Pain Rating (0-10): 7 = Severe Vital Signs: Temperature: 97.5F ( 36.3C) Blood Pressure: 122/74 Mean: Heart Rate: 73 Respiratory Rate: 18 Pulse Oximetry: 98% on room air, no respiratory support. Height: 5 feet 2.00 inches. 157.4 CM Weight: 200.6 pounds. Calculated 91.0 kg. 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 Risk Screens Suicide Risk Screen In the Past Month: Have you wished you were or wished you could go to sleep and not wake up no In the Past Month: Have you had any actual thoughts of killing yourself no In Your Lifetime: Have you ever done anything, started to do anything, or prepared to do anything to end your life no Morrissey Fall Scale Screening Has the patient fallen before (or is the patient in the ED as a result of a fall) has not had a fall Does the patient have an impaired gait does not have impaired gait Is the patient cognitively impaired not cognitively impaired Interventions: Morrissey Fall Interventions: LOW INTERVENTIONS: *patient oriented to surroundings and call system, * patient/family falls education completed and documented, *patients fall status communicated during bedside handoff, *whiteboard updated, *mode of toileting discussed with patient, *bed in low position with brakes locked, *call light in reach, * non-skid footwear TRAVEL HISTORY Travel History Coronavirus Screening: no exposure or symptoms Travel Exposure History: NO travel to International locations in the past 30 days PAIN Pain Scale Used: IGGY Pain Rating (0-10): 7 = Severe Past Medical History: Past Medical History Reviewedyes hysterectomy: Past Surgical History, Active gastric sleeve: Past Surgical History, Active gallstones: Past Medical History, Active Electronic Signatures: Gia Boateng (YUNIEL PRN) (Signed 04-Nov-2022 21:59) Entered: Risk Screens, Pain, Travel History, Chart Review, Scores, Past Medical History Authored: Quick Triage, Risk Screens, Pain, Travel History, Chart Review, Scores, Past Medical History Last Updated: 04-Nov-2022 21:59 by Gia Boateng (YUNIEL PRN) Normal [facility] URINALYSIS WITH CULTURE IF I NDICATEDon 11-04-2022 Color (U) Yellow See Below JL-XLSC-Txaz [place] Work Phone: Comment on above: Reference Range: STR AW,YELLOW Glucose Ql (U) Negative NEGATIVE MP-WSPC-Av on [employer] Work Phone: Ketones Ql (U) 80(2+) Abnormal NEGATIVE MP-WSPC-Av on [employer] Work Phone: Leukocyte esterase Test strip Ql (U) Negative NEGATIVE HF-FQVV-Wjci [place] Work Phone: pH (U) 5.0 [pH] 5.0 - 8.0 HQ-PSFT-Wupj [place] Work Phone: Protein (U) [Mass/Vol] Negative NEGATIVE US-TONU-Vmup [place] Work Phone: RBC (U) [#/Vol] Negative NEGATIVE [employer] Work Phone: Specific gravity (U) [Rel density] 1.046 1 above high threshold See Below QM-UBRI-Ywpu [facility] HQ Phone: Comment on above: Reference Range: 1.0 05 - 1.035 URINALYSIS WITH CULTURE IF INDICATED Negative NEGATIVE KE-NODC-Shve [place] Work Phone: URINALYSIS WITH CULTURE IF INDICATED 2.0 mg/dL above high threshold 0.0 - 1.9 GG-VFNZ-Dzgi [place] Work Phone: Comment on above: Due to a manufacturi ng issue, low positive urobilinogen results may be falsely positive. Correlate with urine bilirubin and additional clinical/laboratory findings to assess the risk of hemolytic anemia or liver disease. If clinically indicated, repeat testing with an alternate method is available by contacting the laboratory within 24 hours..Some pigments and medications may cause a false positive urobilinogen. URINALYSIS WITH CULTURE IF INDICATED HAZY CLEAR WE-LRZK-Fnnx [place] Work Phone: DIGITAL DIAG MAMM BILAT WITH TOMOon 10-30-2022 DIGITAL DIAG MAMM BILAT WITH BIA Patient Name: BELEM LAWLER STUDY: Digital diagnostic mammogram bilateral with bia; 10/30/2022 8:55 am ACCESSION NUMBER(S): [id number] ORDERING CLINICIAN: MIMA RODRIGUEZ INDICATION: Diagnostic mammogram. Six-month follow-up abnormal ultrasound COMPARISON: Comparison is made to prior ultrasound dated 02/13/2022 and digital mammograms dated 10/10/2021 FINDINGS: CC and MLO 2D digital mammograms and digital breast tomosynthesis images were obtained of the bilateral breasts. 3-D volume images were reconstructed in 4 views at an independent workstation as 1 mm slices through the breasts in both the CC and MLO projections. There are areas of scattered fibroglandular tissue. There has been significant interval increase in breast density from the prior examination, secondary to interval weight loss. 2 well-defined ovoid masses are seen in the 10 o'clock position of the right breast at medium depth and in the 2 o'clock position of the right breast at anterior to medium depth, similar to prior studies. No new or enlarging mass or focal asymmetry is identified. No suspicious microcalcifications or foci of architectural distortion are seen. There has been no significant change. This study was interpreted with CAD. IMPRESSION: No mammographic evidence of malignancy, with findings as above. Recommendation is for follow-up examination in 1 year with bilateral screening mammograms. BI-RADS CATEGORY: Category: 2 - Benign. Recommendation: 1 Year Screening. Electronically signed by: CLEMENTE SCHERER MD [facility] MG Breast Diagnostic Normal SQ-FOSO-[employer] Phone: Office Visit (Primary Care T xt/Forms)on 10-26-2022 Follow-up visit Diagnoses/Problems Assessed Bariatric surgery status (V45.86) (Z98.84) Patient has done very well after gastric sleeve surgery and she has lost over 100 pounds. She will continue to follow-up with the bariatric surgery team for monitoring. HLD (hyperlipidemia) (272.4) (E78.5) Appropriate labs ordered or reviewed. 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 Depression (311) (F32.A) She reports this has been stable and is being managed by her psychiatrist. 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 Orders HLD (hyperlipidemia) Lipid Panel; Status:Active; Requested for:[id number]; Chief Complaint Chief Complaints Visit For: Other F/U 6 months for Anxiety - pt sees Psych that prescribes her medication. Is on Seroquel and well controlled now. Managed by [employer] in [place]. Had bariatric gastric sleeve surgery 05/2022 and has lost 100 lbs since then. She is doing very well and has recovered well. She is very happy with her progress. She is being monitored closely by the bariatric surgery team and has labs coming up. She has a history of hyperlipidemia in the past we will recheck this lab. Had abnormal mammogram in October 2021 and US in February 2022 showed probable benign cysts - needs repeat B diagnostic mammogram now. She has not noticed any lumps or masses on self-exam. History of Present Illness The patient is being seen for follow-up of anxiety. The patient reports doing well. She has no comorbid illnesses. Scores and Scales FCO-7 [id number] FCO-7 Total Score16 Feeling nervous, anxious or on edgeOver half the days - 2 Not being able to stop or control worryingOver half the days - 2 Worrying too much about different thingsNearly every day - 3 Trouble relaxingOver half the days - 2 Being so restless that it's hard to sit stillSeveral days - 1 Becoming easily annoyed or irritableNearly every day - 3 Feeling afraid as if something awful might happenNearly every day - 3 Active Problems Problems Abdominal pain (789.00) (R10.9) Anxiety (300.00) (F41.9) Bariatric surgery status (V45.86) (Z98.84) Calculus of gallbladder without cholecystitis without obstruction (574.20) (K80.20) 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) HLD (hyperlipidemia) (272.4) (E78.5) Nausea and vomiting (787.01) (R11.2) Obesity (BMI 30-39.9) (278.00) (E66.9) Post-op pain (338.18) (G89.18) Post-operative nausea and vomiting (787.01) (R11.2,Z98.890) Pre-bariatric surgery nutrition evaluation (V65.3) (Z71.3) Preoperative clearance (V72.84) (Z01.818) Raynaud phenomenon (443.0) (I73.00) 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) Sleep disturbances (780.50) (G47.9) Snoring (786.09) (R06.83) Suspected sleep apnea (781.99) (R29.818) Past Medical History Problems History of gastric ulcer (V12.79) (Z87.11) Surgical History Problems History of Ankle Surgery History of Colonoscopy History of Diagnostic Esophagogastroduodenoscopy History of Laparoscopic Excision Endometriotic Tissue [place] Family History Mother Family history of Family history of Endometrial carcinoma Father Family history of coronary artery disease (V17.3) (Z82.49) Social History Problems Never used tobacco (V49.89) (Z78.9) Current Meds Medication NameInstruction B-12 1000 MCG Sublingual Tablet Sublingual Bariatric Multivitamins/Iron Oral CapsuleTAKE DIRECTED. Calcium Citrate + Oral TabletTAKE 1 TABLET 3 times daily Melatonin 1 MG Oral TabletTAKE DIRECTED. Omeprazole 40 MG Oral Capsule Delayed ReleaseTAKE 1 CAPSULE Daily Open capsule, sprinkle in SF applesauce or pudding, swallow. DO NOT CHEW QUEtiapine Fumarate 25 MG Oral Tablet Ursodiol 250 MG Oral TabletTAKE 1 TABLET TWICE DAILY. Allergies Medication No Known Drug Allergies Vitals Vital Signs Recorded: [id number] 03:13PM Temperature: 98 F Heart Rate: 82 Respiration: 18 Systolic: 106 Diastolic: 64 Height: 5 ft Weight: 204 lb BMI Calculated: 39.84 kg/m2 BSA Calculated: 1.88 Physical Exam General - Not in acute distress and cooperative. Build AND Nutrition - Well developed Posture - Normal Gait - Normal Mental Status - alert and oriented x 3 Head - Normocephalic Neck - Thyroid normal size Eyes - Bilateral - Sclera clear and lids pink without edema or mass. Skin - Warm and dry with no rashes on visible skin Lungs - Clear to auscultation and normal breathing effort Cardiovascular - RRR and no murmurs, rubs or thrill. Peripheral Vascular - Bilateral (more content not included)... Normal [facility] Bariatric Surgery - Follow-U johnnie 08-05-2022 Bariatric Surgery - Follow-Up Diagnoses/Problems Assessed 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) 05/13/2022 at Calculus of gallbladder without cholecystitis without obstruction (574.20) (K80.20) Orders Calculus of gallbladder without cholecystitis without obstruction, S/P laparoscopic sleeve gastrectomy Start: Ursodiol 250 MG Oral Tablet; TAKE 1 TABLET TWICE DAILY S/P laparoscopic sleeve gastrectomy Comprehensive Metabolic Panel; Status:Active; Requested for:05Aug2022; Ferritin, Serum; Status:Active; Requested for:05Aug2022; Folate, Serum; Status:Active; Requested for:05Aug2022; Iron + TIBC, Serum; Status:Active; Requested for:05Aug2022; Parathormone Intact, Serum; Status:Active; Requested for:05Aug2022; Vitamin B1 - Thiamine, Whole Blood; Status:Active; Requested for:05Aug2022; Vitamin B12, Serum; Status:Active; Requested for:05Aug2022; Vitamin D 25-Hydroxy; Status:Active; Requested for:05Aug2022; Patient Discussion/Summary You are doing well 3 months post bariatric AND metabolic surgery. Be sure you are following the 30-30-30 rule Remember to get at least 60gm of protein in each day Remember to get at least 64oz of fluid in each day, varying the types of liquids you are taking in Exercise is a hermosillo piece to success post bariatric surgery, start to incorporate more active movement into your day Goal for exercise is 300 minutes/week or 60 minutes 5 days per week Please have your 3* month labs drawn. Our office will call you with any abnormal results. Continue to follow up with the dieticians and consider joining our support groups that meet virtually. Please call [phone] to schedule your 6 month follow up with the bariatrics provider AND RD For any concerns reach out to Dr. Benitez' nurse at [phone]. Provider Impressions Patient presenting for 3m follow up s/p LSG Doing well Tolerating diet, meeting protein and fluid goals, working to transition to more regular diet protein sources off shakes Taking supplements Taking PPI No GERD or acute issues Had overnight ER/obs admission for RUQ, had gallstones with acute cholecystitis Exercise: walking daily AND gym 3x/week Plan: Continue diet, follow up with dietitian, encourage lean protein, low fat diet, increase dietary fiber from fruit/veg Continue supplements Continue PPI Given s/p LSG and gallstone present will start ursodiol 250mg BID, if developing RUQ pain, n/v, fever, chills to ER for evaluation or contact PCP/bariatrics if sx mildly progressing for evaluation. Join support groups Continue exercise Labs: 3m ordered Follow up: 3m Chief Complaint The patient is being seen for post operative visit. The patient is being seen today for a 3 month post-op visit. Type of surgery: Sleeve Gastrectomy . Surgery date: 05/13/2022. An interactive audio and video telecommunication system which permits real time communications between the patient (at the originating site) and provider (at the distant site) was utilized to provide this telehealth service. Verbal consent was requested and obtained from BELEM LAWLER on this date, 08/05/2022 02:15 PM , for a telehealth visit. History of Present Illness Type of Surgery: lap sleeve gastrectomy, surgery Date: 05/13/2022. Weight:. Initial weight: 295 lbs. Last visit weight: 286 lbs. Current weight: 231.8 lbs. Total weight lost: 45 lbs. Trinity weight 124 lbs. Target body weight 167 lbs. Severity of obesity is Class 3 which is a BMI of greater than or equal to 40. 41y F for3 m POV She was admitted overnight earlier this month for RUQ pain, concern for gallbladder, CT and HIDA scan completed, showed cholelithiasis without acute cholecystitis Has not had any symptoms of pain or nausea since this hospitalization, tolerating regular diet without issue. Diet: on regular diet, tolerating well, met with RD this AM, she is working on transitioning off protein shakes and implement more protein from foods. Exercise - walking 1.5miles daily, 3x/week gym with weights AND cardio Supplements - Bariatric pal 1 a day with 1000mcg B12, 1500mg calcium Any symptoms of reflux, nausea, vomiting, dysphagia - denies Any symptoms of bowel irregularity, diarrhea, constipation - denies No cp, palpitations, sob, LE edema Review of Systems Negative except for pertinent positives noted in HPI Active Problems Problems Abdominal pain (789.00) (R10.9) Anxiety (300.00) (F41.9) Manifesting with easy anger and irritability. Medications restarted 12/12/20 duloxetine. 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 Normal [facility] Bariatric Surgery - Follow-Up No report was sent Normal [facility] Dietition Noteon 08-05-2022 Dietition Note Chief Complaint obesity 3 month postop follow up Active Problems Abdominal pain (789.00) (R10.9) Anxiety (300.00) (F41.9) Manifesting with easy anger and irritability. Medications restarted 12/12/20 duloxetine. 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) HLD (hyperlipidemia) (272.4) (E78.5) Morbid obesity with BMI of 50.0-59.9, adult (278.01,V85.43) (E66.01,Z68.43) Nausea and vomiting (787.01) (R11.2) Post-op pain (338.18) (G89.18) Post-operative nausea and vomiting (787.01) (R11.2,Z98.890) Pre-bariatric surgery nutrition evaluation (V65.3) (Z71.3) Preoperative clearance (V72.84) (Z01.818) Raynaud phenomenon (443.0) (I73.00) 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) 05/13/2022 at Sleep disturbances (780.50) (G47.9) Snoring (786.09) (R06.83) Suspected sleep apnea (781.99) (R29.818) Past Medical History History of gastric ulcer (V12.79) (Z87.11) Surgical History History of Ankle Surgery History of Colonoscopy History of Diagnostic Esophagogastroduodenoscopy History of Laparoscopic Excision Endometriotic Tissue [place] Family History Family history of Family history of Endometrial carcinoma Family history of coronary artery disease (V17.3) (Z82.49) Social History Never used tobacco (V49.89) (Z78.9) Allergies No Known Drug Allergies Recorded By: Marcia Ahumada; 02/18/2018 3:05:11 PM Current Meds DULoxetine HCl - 60 MG Oral Capsule Delayed Release Particles; TAKE 1 CAPSULE Daily; Therapy: 12Dec2020 to (Evaluate:[id number]) Requested for: [id number]; Last Rx:[id number] Ordered Rx By: Mima Rodriguez; Dispense: 30 Days ; #:30 Capsule; Refill: 6;For: Anxiety; NEGIN = N; Verified Transmission to [facility]; Last Updated By: Ruddy Lamas; 02/27/2022 2:16:01 PM B-12 1000 MCG Sublingual Tablet Sublingual; Therapy: [id number] to Recorded Dispense: 0 Days ; #: Sufficient Tablet; Refill: 0;For: Bariatric surgery status; NEGIN = N; Record; Last Updated By: Aide Mojica; 06/17/2022 3:00:25 PM Bariatric Multivitamins/Iron Oral Capsule; TAKE DIRECTED; Therapy: 74Awc9255 to Recorded Dispense: 0 Days ; #: Sufficient Capsule; Refill: 0;For: Bariatric surgery status; NEGIN = N; Record; Last Updated By: Aide Mojica; 06/17/2022 3:00:25 PM Calcium Citrate + Oral Tablet; TAKE 1 TABLET 3 times daily; Therapy: 25Wnu1958 to Recorded Dispense: 0 Days ; #: Sufficient Tablet; Refill: 0;For: Bariatric surgery status; NEGIN = N; Record; Last Updated By: Aide Mojica; 06/17/2022 3:00:25 PM Omeprazole 40 MG Oral Capsule Delayed Release; TAKE 1 CAPSULE Daily Open capsule, sprinkle in SF applesauce or pudding, swallow. DO NOT CHEW; Therapy: 62Ima3697 to (Last Rx:[id number]) Requested for: [id number] Ordered Rx By: Brandon Benitez; Dispense: 0 Days ; #:30 Capsule; Refill: 5;For: Bariatric surgery status; NEGIN = N; Verified Transmission to [facility] 1448 Melatonin 1 MG Oral Tablet; TAKE DIRECTED; Therapy: [id number] to Recorded Dispense: 0 Days ; #: Sufficient Tablet; Refill: 0;For: Health Maintenance; NEGIN = N; Record; Last Updated By: Sonia Crockett; 11/27/2019 10:26:08 AM QUEtiapine Fumarate 25 MG Oral Tablet; Therapy: 14Akj1506 to Recorded Dispense: 30 Days ; #:30; Refill: 0; NEGIN = N; Record; Last Updated By: Rosa Winston; 02/27/2022 1:45:32 PM Provider Impressions Surgery Date: 05/13/22 Surgeon: Ami Procedure: sleeve gastrectomy ASSESSMENT: Current weight pounds: 231.3 Ht: 61.8 in BMI: 42.6 Previous weight pounds: 250.0 06.17.22 Initial start weight pounds: 309.0 09/25/21 EBW pounds: 177.0 Total weight change pounds: 77.7 %EBW Lost: 44.0% PROGRESS: Nutrition Interventions for last encounter (date): 1.Continue to eat 60-70 g of protein per day 2.Continue to drink 64 oz. of zero calorie beverages per day 3.Continue no drinking 30 min before, during the meal and for 30 minutes after the meal 4.Start strength training when restrictions are lifted. 5.Advance to transition diet in 1 week. Try raw veggies, fresh fruit and lean ground beef. 6.Eat slowly, chew thoroughly 7.Try one new food at a time. 8.Continue current vit/min regimen CHANGES IN TREATMENT: Patient met goals: Yes 24 hour food recall: Breakfast: banana, protein shake 30 g Snack: none Lunch: frozen meal; 3 stuffed chicken nuggets 21 g pro Snack: none Dinner: frozen meal; 3 chicken tenders, broccoli, cauliflower tater tots Snack: 1/3 c handful almond Beverages: 64 oz water daily. Gatorade Alcohol: none Vitamins: Bariatric Pal 1 a day w/1000 mcg B12, 1500 mg Calcium Medications: see list Physical Activity: walking 1.5 miles daily, goes to the gym 3x/week and does 20 min on treadmill, 20 min on bike, added weights at home. READINESS TO LEARN: Mo (more content not included)... Normal [facility] BILIARY WITH EF W OR W/O CCK on 07-09-2022 BILIARY WITH EF W OR W/O CCK Patient Name: BELEM LAWLER STUDY: BILIARY WITH EF W OR W/O CCK; 07/09/2022 9:33 am INDICATION: Right upper quadrant abdominal pain . COMPARISON: CT abdomen and pelvis on 07/08/2022 ACCESSION NUMBER(S): [id number] ORDERING CLINICIAN: SYDNEY SRIVASTAAV TECHNIQUE: DIVISION OF NUCLEAR MEDICINE HEPATOBILIARY SCAN (HIDA), QUANTITATIVE The patient received an intravenous dose of 6.0 mCi of Tc-99m mebrofenin (Choletec). Sequential images of the upper abdomen were then acquired over the next 60 minutes. An intravenous infusion of the cholecystokinin (CCK) analogue, Sincalide, was then administered followed by an additional period of imaging. Computer quantification of gallbladder emptying was also performed FINDINGS: There is prompt accumulation of activity within the liver and normal subsequent excretion via the biliary ductal system into the small bowel. The gallbladder first visualizes at about 15 minutes after radiopharmaceutical injection and progressively fills. After Sincalide administration, there is prompt contraction of the gallbladder with further anterograde transit of activity into the small bowel. The gallbladder ejection fraction is calculated to be 10 % (normal above 38%). IMPRESSION: 1. This study demonstrates patency of the cystic duct and common bile duct without evidence of acute cholecystitis. 2. Significantly reduced gallbladder ejection fraction of 10%, suggestive of chronic cholecystitis. I personally reviewed the images/study and I agree with the findings as stated. This study was interpreted at [facility], [place], [place]. Electronically signed by: RODDY WAGNER MD Normal [facility] CBC AND DIFFERENTIALon 07-09 Basophils (Bld) [#/Vol] 0.00 10*3/uL Normal 0.00 - 0.10 [facility] Comment on above: Performed By: #### C BCDF #### [address] [address] Basophils/100 WBC (Bld) 0.6 % Normal 0.0 - 2.0 [facility] Comment on above: Performed By: #### C BCDF #### [address] [address] Eosinophils (Bld) [#/Vol] 0.20 10*3/uL Normal 0.00 - 0.70 [facility] Comment on above: Performed By: #### C BCDF #### [address] [address] Eosinophils/100 WBC (Bld) 4.3 % Normal 0.0 - 6.0 [facility] Comment on above: Performed By: #### C BCDF #### [address] [address] Erythrocyte distribution width (RBC) [Ratio] 15.6 % High 11.5 - 14.5 [facility] Comment on above: Performed By: #### C BCDF #### [address] [address] Hematocrit (Bld) [Volume fraction] 38.3 % Normal 36.0 - 46.0 [facility] Comment on above: Performed By: #### C BCDF #### [address] [address] Hemoglobin (Bld) [Mass/Vol] 12.4 g/dL Normal 12.0 - 16.0 [facility] Comment on above: Performed By: #### C BCDF #### [address] [address] Lymphocytes (Bld) [#/Vol] 1.40 10*3/uL Normal 1.20 - 4.80 [facility] Comment on above: Performed By: #### C BCDF #### [address] [address] Lymphocytes/100 WBC (Bld) 38.5 % Normal 13.0 - 44.0 [facility] Comment on above: Performed By: #### C BCDF #### [address] [address] MCHC (RBC) [Mass/Vol] 32.3 g/dL Normal 32.0 - 36.0 [facility] Comment on above: Performed By: #### C BCDF #### [address] [address] MCV (RBC) [Entitic vol] 85 fL Normal 80 - 100 [facility] Comment on above: Performed By: #### C BCDF #### [address] [address] Monocytes (Bld) [#/Vol] 0.20 10*3/uL Normal 0.10 - 1.00 [facility] Comment on above: Performed By: #### C BCDF #### [address] [address] Monocytes/100 WBC (Bld) 4.8 % Normal 2.0 - 10.0 [facility] Comment on above: Performed By: #### C BCDF #### [address] [address] Neutrophils (Bld) [#/Vol] 1.90 10*3/uL Normal 1.20 - 7.70 [facility] Comment on above: Result Comment: Perc ent differential counts (%) should be interpreted in the context of the absolute cell counts (cells/L). Performed By: #### C BCDF #### [address] [address] Neutrophils/100 WBC (Bld) 51.8 % Normal 40.0 - 80.0 [facility] Comment on above: Performed By: #### C BCDF #### [address] [address] NUCLEATED RBC 0.1 /100 WBC Normal [facility] Comment on above: Performed By: #### C BCDF #### [place] [id number] Platelets (Bld) [#/Vol] 185 10*3/uL Normal 150 - 450 [facility] Comment on above: Performed By: #### C BCDF #### [place] [id number] RBC 4.52 x10E12/L Normal 4.00 - 5.20 [facility] Comment on above: Performed By: #### C BCDF #### [place] [id number] WBC (Bld) [#/Vol] 3.7 10*3/uL Low 4.4 - 11.3 [facility] Comment on above: Performed By: #### C BCDF #### [place] [address] COMPREHENSIVE PANELon 2021 Albumin [Mass/Vol] 3.3 g/dL Low 3.4 - 5.0 [facility] Comment on above: Performed By: #### C MP #### [place] [address] ALP [Catalytic activity/Vol] 63 U/L Normal 33 - 110 [facility] Comment on above: Performed By: #### C MP #### [place] [id number] ALT [Catalytic activity/Vol] 12 U/L Normal 7 - 45 [facility] Comment on above: Result Comment: Sayda ents treated with Sulfasalazine may generate falsely decreased results for ALT. Performed By: #### C MP #### [place] [id number] Anion gap [Moles/Vol] 11 mmol/L Normal 10 - 20 [facility] Comment on above: Performed By: #### C MP #### [place] [id number] AST [Catalytic activity/Vol] 12 U/L Normal 9 - 39 [facility] Comment on above: Performed By: #### C MP #### [address] [address] Bilirubin [Mass/Vol] 0.4 mg/dL Normal 0.0 - 1.2 [facility] Comment on above: Performed By: #### C MP #### [address] [address] Calcium [Mass/Vol] 8.3 mg/dL Low 8.6 - 10.3 [facility] Comment on above: Performed By: #### C MP #### [place] [id number] Chloride [Moles/Vol] 111 mmol/L High 98 - 107 [facility] Comment on above: Performed By: #### C MP #### [place] [id number] Creatinine [Mass/Vol] 0.50 mg/dL Normal 0.50 - 1.05 [facility] Comment on above: Performed By: #### C MP #### [place] [id number] eGFR FEMALE >90 Normal >90 [facility] Comment on above: Result Comment: CALC ULATIONS OF ESTIMATED GFR ARE PERFORMED USING THE 2020 CKD-EPI STUDY REFIT EQUATION WITHOUT THE RACE VARIABLE FOR THE IDMS-TRACEABLE CREATININE METHODS. https://jasn.asnjournals.org/content//ASN.242869805 8 Performed By: #### C MP #### [address] [address] Glucose [Mass/Vol] 74 mg/dL Normal 74 - 99 [facility] Comment on above: Performed By: #### C MP #### [address] [address] HCO3 (Bld) [Moles/Vol] 24 mmol/L Normal 21 - 32 [facility] Comment on above: Performed By: #### C MP #### [address] [address] Potassium [Moles/Vol] 3.9 mmol/L Normal 3.5 - 5.3 [facility] Comment on above: Performed By: #### C MP #### [address] [address] Protein [Mass/Vol] 5.4 g/dL Low 6.4 - 8.2 [facility] Comment on above: Performed By: #### C MP #### [address] [address] Sodium [Moles/Vol] 142 mmol/L Normal 136 - 145 [facility] Comment on above: Performed By: #### C MP #### [address] [address] Urea nitrogen [Mass/Vol] 6 mg/dL Normal 6 - 23 [facility] Comment on above: Performed By: #### C MP #### [address] [address] Clinical Event Note-HIDAon 1 Clinical Event Note-HIDA Clinical Event: Clinical Event Note: TopicHIDA Details I have reviewed the HIDA scan images. The final read is not in yet. By my review, the gallbladder was readily visualized. Therefore the patient does not have acute cholecystitis. I will be in later to see the patient and explained this to her and get outpatient follow-up set for her to discuss possible elective cholecystectomy if she is having biliary symptoms. If she still is having discomfort today, she will need further work-up although CAT scan showed no evidence of any surgical disease. Electronic Signatures: Libby Mar) (Signed 09-Jul-2022 08:01) Authored: Clinical Event Note Last Updated: 09-Jul-2022 08:01 by Libby Mar) [facility] Clinical Note - Pharmacy v2- Medication Educationon 07-09-2022 Clinical Note - Pharmacy v2-Medication Education Clinical Note - Pharmacy v2: Discharge Meds: Document TopicDischarge Med Counseling Time [id number] minutes Prescription [place] Medications Home Medications Review Status for Reconciliation: Complete Med Status: Patient Currently Takes Medications Drug Name: biotin Instructions: orally once a day Drug Name: DULoxetine 60 mg oral delayed release capsule Instructions: 1 cap(s) orally once a day Drug Name: multivitamin with iron Multiple Vitamins with Iron oral tablet Instructions: 1 tab(s) oral once a day Drug Name: SEROquel 25 mg oral tablet Instructions: 1 tab(s) oral once a day Drug Name: melatonin 1 mg oral tablet Instructions: 1 tab(s) oral prn as needed Drug Name: ondansetron 4 mg oral tablet Instructions: 1 tab(s) orally every 8 hours Drug Name: omeprazole 40 mg oral delayed release capsule Instructions: 1 cap(s) orally once a day Drug Name: acetaminophen 325 mg oral tablet Instructions: 2 tab(s) orally every 4 hours, As needed, Pain - Mild (1-3) Drug Name: hydrocodone-acetaminophen 5 mg-325 mg oral tablet Instructions: 1 tab(s) orally every 6 hours Drug Name: ondansetron 4 mg oral tablet Instructions: 1 tab(s) orally every 6 hours Medications DeliveredNorco, Zofran Medications Delivered Topatient Delivery Date/[id number] 13:45 Controlled Medications Given Topatient Education: Document TopicMedication Education Medication- all medications including Paxton & Zofran Is This Intervention Medication Reconciliation Relatedno Time [id number] minutes TopicADR counseling; alternative drug; alternative method of administration; dosage, frequency, storage; medication indication; medication information about proper dosage, indications, possible ADRs; medication interactions; missed dose explanation; patient counseling-medications Learnerpatient Barriersnone Methodverbal; written Outcome2=meets goals/outcomes Additional NotesI spoke over the phone with and discussed all home-going medications with the patient. We discussed the following brand/generic name, reason for use, last dose taken, when to take next dose and any potential side effects. Written literature was provided for each medication and sent home with the patient. She has had Zofran in the past. Acetaminophen / Hydrocodone (Paxton, Vicodin) is a Pain Medication used to treat and prevent pain. You may become dizzy, confused, or tired. Let your nurse know if you are constipated. She was advised to use docusate or Miralax because she takes concomitant medications that cause constipation. Patient had opportunity to ask questions. Left contact information for patient follow up if needed. New medications filled by [facility] retail pharmacy and delivered to patient / family / caregiver. Allergy: Allergies Summary Intolerance Allergen: Aspartame Type: Food Reaction: Headaches Electronic Signatures: Prudencio George ([facility]) (Signed 09-Jul-2022 13:47) Authored: Discharge Meds, Education, Allergy Last Updated: 09-Jul-2022 13:47 by Prudencio George ([facility]) [facility] Complete Blood Count + Diffe mellisa 07-09-2022 Basophils/100 WBC (Bld) 0.6 % 0.0 - 2.0 BJ-Gpxbcin-Jt rma MAC2 303 Work Phone: Erythrocyte distribution width (RBC) [Ratio] 15.6 % above high threshold See Below II-Epffhby-Wo rma MAC2 303 Work Phone: Comment on above: Reference Range: 11. 5 - 14.5 Hematocrit (Bld) [Volume fraction] 38.3 % See Below FV-Wkaksvc-Vi rma MAC2 303 Work Phone: Comment on above: Reference Range: 36. 0 - 46.0 Hemoglobin (Bld) [Mass/Vol] 12.4 g/dL See Below MY-Xatzguq-Qo rma MAC2 303 Work Phone: Comment on above: Reference Range: 12. 0 - 16.0 Lymphocytes/100 WBC (Bld) 38.5 % See Below SK-Ahvceoa-Af rma MAC2 303 Work Phone: Comment on above: Reference Range: 13. 0 - 44.0 MCHC (RBC) [Mass/Vol] 32.3 g/dL See Below MF-Wodqfgj-Is rma MAC2 303 Work Phone: Comment on above: Reference Range: 32. 0 - 36.0 MCV (RBC) [Entitic vol] 85 fL 80 - 100 EC-Trfozxf-Sz rma MAC2 303 Work Phone: Monocytes/100 WBC (Bld) 4.8 % 2.0 - 10.0 LJ-Jrqnjyh-Pv rma MAC2 303 Work Phone: Neutrophils/100 WBC (Bld) 51.8 % See Below AH-Mbrfqzf-Lq rma MAC2 303 Work Phone: Comment on above: Reference Range: 40. 0 - 80.0 Platelets (Bld) [#/Vol] 185 10*3/uL 150 - 450 XA-Sakpnss-Ei rma MAC2 303 Work Phone: RBC (Bld) [#/Vol] 4.52 {x10E12/L} See Below MG -Surgery-Pa rma MAC2 303 Work Phone: Comment on above: Reference Range: 4.0 0 - 5.20 WBC (Bld) [#/Vol] 3.7 10*3/uL below low threshold 4.4 - 11.3 VS-Imspvav-Pq rma MAC2 303 Work Phone: Complete Blood Count + Differential 0.00 {x10E9/L} See Below TC-Yxmnntk-Dz rma MAC2 303 Work Phone: Comment on above: Reference Range: 0.0 0 - 0.10 Complete Blood Count + Differential 0.20 {x10E9/L} See Below SC-Walivhs-Oz rma MAC2 303 Work Phone: Comment on above: Reference Range: 0.0 0 - 0.70 Reference Range: 0.1 0 - 1.00 Complete Blood Count + Differential 1.40 {x10E9/L} See Below QU-Qqrauuq-Mv rma MAC2 303 Work Phone: Comment on above: Reference Range: 1.2 0 - 4.80 Complete Blood Count + Differential 1.90 {x10E9/L} See Below BA-Uubhsoz-Wp rma MAC2 303 Work Phone: Comment on above: Reference Range: 1.2 0 - 7.70 Percent differential counts (%) should be interpreted in the context of the absolute cell counts (cells/L). Complete Blood Count + Differential 4.3 % 0.0 - 6.0 TN-Dtvsbqp-Rn rma MAC2 303 Work Phone: Complete Blood Count + Differential 0.1 {/100_WBC} DL-Tfvqarj-Lz rma MAC2 303 Work Phone: Consult-Surgeryon 07-09-2022 Consult-Surgery Service: Service: Surgery Consult: Consult requested by (Attending Name): Slade Chavo Denis Reason: cholelithiasis History of Present Illness: HPI: BELEM LAWLER is a 41 year old Female seen in the ER yesterday for a multi day progressive history of right flank pain which radiated to her right upper quadrant. She states that she had slept with her dogs and thought she had initially pulled a muscle but it just got progressively worse. She presented to the emergency room where she underwent CT scan of her abdomen and pelvis as well as ultrasound of her right upper quadrant. Neither was suspicious for acute cholecystitis. The ER physician was concerned as her pain was not controlled and she was dehydrated and admitted her to the hospital service. He was still concerned about acute cholecystitis I told him he could get a HIDA scan. This could not be done that day and it could only be completed this morning. Patient underwent a gastric sleeve 2 months ago and has been on a weight reduction diet for multiple months and has lost 80 pounds so she is unsure if she has any right upper quadrant discomfort with fatty food intolerance. This pain seems to be worse with motion. She states she is still having discomfort in her right flank area. She is hungry. Past surgical history laparoscopy for endometriosis, ANA PAULA with BSO as well as recent gastric sleeve. Past medical history GE reflux disease and anxiety and endometriosis. Social history she quit smoking 8 years ago she does not drink and does not use drugs. 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 Medications and allergies were reviewed. Review Family/Social History and ROS: Social History: Smoking Status: never smoker (1) Alcohol Use: denies(1) Drug Use: denies (1) Constitutional: NEGATIVE: Fever Eyes: NEGATIVE: Vision Loss/ Change Respiratory: NEGATIVE: Productive Cough Cardiac: NEGATIVE: Chest Pain Gastrointestinal: NEGATIVE: Nausea, Vomiting Genitourinary: POSITIVE: Flank Pain Musculoskeletal: NEGATIVE: Weakness Neurological: NEGATIVE: Seizures Intolerances: Aspartame: Headaches Objective: Objective Information: T PRBPMAPSpO2 [id number]/7297% Date/Time07/09 9: 9: 9: 9: 9:22 Range(35.8C - 36.6C ) (65 - 95 ) (16 - 18 ) (97 - 137 )/ (57 - 80 ) (95% - 100% ) Weights 07/08 14:50: Weight in kg (Weight (kg)) 108 07/08 14:50: Weight in lbs ((lbs)) 238 07/08 14:50: BMI (kg/m2) (BMI (kg/m2)) 43.592 Physical Exam by System: Constitutional: No acute distress Eyes: Anicteric Respiratory/Thorax: Clear Cardiovascular: Regular rate Gastrointestinal: Soft with mild right flank radicular type discomfort Musculoskeletal: No edema Neurological: Nonfocal Psychological: Appropriate Medications: Medications: Continuous Medications ----- 1. Sodium Chloride 0.9% Infusion: 1000 mL IntraVenous Scheduled Medications ----- 1. DULoxetine: 60 mg Oral Daily 2. Heparin SubCutaneous: 7500 unit(s) SubCutaneous Every 8 Hours 3. Pantoprazole Injectable: 40 mg IntraVenous Push Every 24 Hours 4. QUEtiapine: 25 mg Oral Every Night 5. Technetium Tc 99m Mebrofenin (HIDA - Radiology Contrast): 5 milliCurie IntraVenous Push Once PRN Medications ----- 1. Acetaminophen: 650 mg Oral Every 4 Hours 2. Acetaminophen: 650 mg Oral Every 4 Hours 3. Docusate: 100 mg Oral 2 Times a Day 4. Ketorolac Injectable: 15 mg IntraVenous Push Every 6 Hours 5. Magnesium Hydroxide -Al Hydrox -Simethicone Oral Liquid: 30 mL Oral Every 6 Hours 6. Magnesium Hydroxide Oral Liquid CONCENTRATE: 10 mL Oral Every 24 Hours 7. Melatonin: 1.5 mg Oral At Bedtime 8. Morphine Injectable: 2 mg IntraVenous Push Every 4 Hours 9. Ondansetron Injectable: 4 mg IntraVenous Push Every 4 Hours 10. Sodium Chloride 0.9% Injectable Flush: 10 mL IntraVenous Flush Every 8 Hours and as Needed 11. Sodium Chloride 0.9% Injectable Flush: 10 mL IntraVenous Flush Every 8 Hours and as Needed Recent Lab Results: Results: I have reviewed these laboratory results: Complete Blood Count + Differential 09-Jul-2022 05:36:00 ResultValue White Blood Cell Count 3.7 L Nucleated Erythrocyte Count 0.1 Red Blood Cell Count 4.52 HGB 12.4 HCT 38.3 MCV 85 MCHC 32.3 PLT 185 RDW-CV 15.6 H Neutrophil % 51.8 Lymphocyte % 38.5 Monocyte % 4.8 Eosinophil % 4.3 Basophil % 0.6 Neutrophil Count 1.90 Lymphocyte Count 1.40 Monocyte Count 0.20 Eosinophil Count 0.20 Basophil Count 0.00 Comprehensive Metabolic Panel 09-Jul-2022 05:36:00 ResultValue Glucose, Serum 74 NA 142 K 3.9 CL 111 H Bicarbonate, Serum 24 Anion Gap, Serum 11 BUN 6 CREAT 0.50 GFR Female >90 Calcium, Serum 8.3 L ALB 3.3 L ALKP 63 T Pro 5.4 L T Bili 0.4 Alanine Aminotransferase, (more content not included)... Normal [facility] Discharge [id number] Discharge Profile2 Discharge Orders: Anticipated Discharge Date: Anticipated Discharge [id number] Anticipated Discharge Time11:56 DNAR: Code Status at Discharge: Full Code Activity: activity as tolerated. May shower. May not return to school/work Instructions: May drive. Diet: Dietresume normal diet Diet Consistency/Textureregular / thin Additional Orders: Additional Instructions discharge plan FU with primary care physician within two weeks post hospitalization resume home medications start norco every six hours as needed for pain x 3 days start zofran every six hours as needed for nausea x 3 days call 911 or go to nearest ED if symptoms worsen/persist Call Provider If (Homegoing Patients): Breathing faster than normal. Breathing harder than normal or having retractions. Fever of 100.4 F (38 C) or higher. Temperature is greater than 102 degrees. Chills. Drinking less than normal. Not being able to go 4-6 hours between albuterol treatments. Urinating less than normal, over 1 day. Urinating less than 4 times per day. Acting very sleepy and difficult to awaken. Vomiting (throwing up) and not able to eat or drink for 12 hours. 3 or more loose, watery bowel movements in 24 hours (diarrhea). Any new concerning symptoms. Provider FINAL REVIEW of Orders: Final Review: Final Review of Medication Reconciliation and Orders Completedby ORACLE APPLICATIONS ANALYST Reviewing ALLEN Abreu at 09-Jul-2022 12:00:33 Appointments: Follow-Up Appointment 01: Physician/Dept/ServiceDr. Caldwell Reason for Referralcholelithiasis Call to Schedule in4 weeks [id number] [place] [address] CommentsPatient will make her own follow up appointment Electronic Signatures: Dee Avitia (JB-STITCHER TAPE CONTROLLED MACHINE) (Signed 09-Jul-2022 12:00) Authored: Discharge Orders, Provider FINAL REVIEW of Orders Libby Mar) (Signed 09-Jul-2022 10:15) Authored: Discharge Orders, Appointments, Gold Form - Vp & General Counsel Summary Louise Ruiz (PCNA) (Signed 09-Jul-2022 12:37) Authored: Appointments Last Updated: 09-Jul-2022 12:37 by Louise Ruiz (PCNA) [facility] - Chemistry and C hemistry - challengeon 07-09-2022 Albumin BCP dye [Mass/Vol] 3.3 g/dL below low threshold 3.4 - 5.0 MD-Ccuncxz-Jx rma [id number] Work Phone: ALP [Catalytic activity/Vol] 63 U/L 33 - 110 IC-Hkeuuaa-Gi rma [id number] 303 Work Phone: ALT With P-5'-P [Catalytic activity/Vol] 12 U/L 7 - 45 WL-Gwafdgc-Du rma MAC[facility] [address] Work Phone: Comment on above: Patients treated wit h Sulfasalazine may generate falsely decreased results for ALT. Anion gap [Moles/Vol] 11 mmol/L 10 - 20 ST-Lsrffxu-Wh rma MAC[facility] 303 Work Phone: AST With P-5'-P [Catalytic activity/Vol] 12 U/L 9 - 39 KS-Cfuhtbs-Pl rma MAC2 303 Work Phone: Bilirubin [Mass/Vol] 0.4 mg/dL 0.0 - 1.2 CG-Dmmxxui-Az rma MAC[facility] [address] Work Phone: Calcium [Mass/Vol] 8.3 mg/dL below low threshold 8.6 - 10.3 VW-Tdppzlf-Zl rma MAC[facility] [address] Work Phone: Chloride [Moles/Vol] 111 mmol/L above high threshold 98 - 107 CV-Fmokuwt-Jq rma MAC[facility] [address] Work Phone: CO2 [Moles/Vol] 24 mmol/L 21 - 32 MG-Surger y-Pa rma MAC[facility] 303 Work Phone: Creatinine [Mass/Vol] 0.50 mg/dL See Below RO-Mpsnncl-Il rma MAC2 [address] Work Phone: Comment on above: Reference Range: 0.5 0 - 1.05 Glucose [Mass/Vol] 74 mg/dL 74 - 99 MG-Kisha evon-Pa rma [facility] [place]2 303 Work Phone: Potassium [Moles/Vol] 3.9 mmol/L 3.5 - 5.3 ZW-Rkyijfv-Ya rma [facility] [place]2 303 Work Phone: Protein [Mass/Vol] 5.4 g/dL below low threshold 6.4 - 8.2 XK-Qfiunrt-Ku rma [facility] [place]2 303 Work Phone: Sodium [Moles/Vol] 142 mmol/L 136 - 145 MG-Kisha evon-Pa rma [facility] [place]2 303 Work Phone: Urea nitrogen [Mass/Vol] 6 mg/dL 6 - 23 XI-Pbgdjuy-Xy rma [facility] [address] Work Phone: NM Biliary with EF w/wo CCKo n 07-09-2022 NM Biliary with EF w/wo CCK Normal MV-Rqmqthx-Pi rma MAC[facility] [address] Work Phone: No Panel Informationon 07-09 >90 >90 BR-Smvxcky-En rma MAC2 [address] Work Phone: Comment on above: CALCULATIONS OF NICK MATED GFR ARE PERFORMED USING THE 2020 CKD-EPI STUDY REFIT EQUATION WITHOUT THE RACE VARIABLE FOR THE IDMS-TRACEABLE CREATININE METHODS.https://jasn.asnjournals.org/content//ASN.2 852770678 Order Reconciliationon 07-09 Order Reconciliation Page 1 Discharge Reconciliation Document Reconciliation Type: Discharge requested on behalf of Dee Avitia (Advanced Practice Nurse) done by Dee Avitia ([facility]) Discharge - Reconciliation: 09-Jul-2022 11:55 by: Dee Avitia ([employer] APPLICATIONS ANALYST-[facility]) Home Medications EnteredHOME MEDICATIONS AT DISCHARGE DateReconciliation Comment/ Additional Information biotin orally once a day 29-Jan-2022 13:34 biotin orally once a day 29-Jan-2022 13:34 biotin is continued as biotin DULoxetine 60 mg oral delayed release capsule 1 cap(s) orally once a day 29-Jan-2022 13:35 DULoxetine 60 mg oral delayed release capsule 1 cap(s) orally once a day 29-Jan-2022 13:35 DULoxetine 60 mg oral delayed release capsule is continued as DULoxetine 60 mg oral delayed release capsule melatonin 1 mg oral tablet 1 tab(s) oral prn as needed 07-May-2022 12:59 melatonin 1 mg oral tablet 1 tab(s) oral prn as needed 07-May-2022 12:59 melatonin 1 mg oral tablet is continued as melatonin 1 mg oral tablet multivitamin with iron Multiple Vitamins with Iron oral tablet 1 tab(s) oral once a day 07-May-2022 12:57 multivitamin with iron Multiple Vitamins with Iron oral tablet 1 tab(s) oral once a day 07-May-2022 12:57 multivitamin with iron Multiple Vitamins with Iron oral tablet is continued as multivitamin with iron Multiple Vitamins with Iron oral tablet omeprazole 40 mg oral delayed release capsule 1 cap(s) orally once a day 08-Jul-2022 11:40 omeprazole 40 mg oral delayed release capsule 1 cap(s) orally once a day 08-Jul-2022 11:40 omeprazole 40 mg oral delayed release capsule is continued as omeprazole 40 mg oral delayed release capsule ondansetron 4 mg oral tablet 1 tab(s) orally every 8 hours 14-May-2022 08:43 ondansetron 4 mg oral tablet 1 tab(s) orally every 8 hours 14-May-2022 08:43 ondansetron 4 mg oral tablet is continued as ondansetron 4 mg oral tablet SEROquel 25 mg oral tablet 1 tab(s) oral once a day 07-May-2022 12:57 SEROquel 25 mg oral tablet 1 tab(s) oral once a day 07-May-2022 12:57 SEROquel 25 mg oral tablet is continued as SEROquel 25 mg oral tablet Current OrdersDateHOME MEDICATIONS AT DISCHARGE DateReconciliation Comment/ Additional Information Acetaminophen Tablet (TYLENOL)DOSE = 650 mg Oral Every 4 Hours, PRN Pain - Mild (1-3) 08-Jul-2022 15:16 acetaminophen 325 mg oral tablet 2 tab(s) orally every 4 hours, As needed, Pain - Mild (1-3) 09-Jul-2022 11:49 Acetaminophen is continued as acetaminophen 325 mg oral tablet Acetaminophen Tablet (TYLENOL)DOSE = 650 mg Oral Every 4 Hours, PRN Temp Greater Than or Equal to 38.0 C 08-Jul-2022 15:16 Acetaminophen is not required Docusate Capsule (COLACE)DOSE = 100 mg Oral 2 Times a Day, PRN Constipation 08-Jul-2022 15:16 Docusate is not required DULoxetine Delayed Release Capsule (CYMBALTA)DOSE = 60 mg Oral Daily 08-Jul-2022 14:58 DULoxetine is not required Heparin SubCutaneous DOSE = 7,500 unit(s) SubCutaneous Every 8 HoursNotes from Pharmacy: Note Concentration Prior to Administration 08-Jul-2022 15:16 Heparin SubCutaneous is not required Ketorolac Injectable (TORADOL)DOSE = 15 mg IntraVenous Push Every 6 Hours, PRN Pain - Mod (4-6) 08-Jul-2022 15:41 Ketorolac Injectable is not required Magnesium Hydroxide -Al Hydrox -Simethicone Oral Liquid (MAALOX)DOSE = 30 mL Oral Every 6 Hours, PRN Dyspepsia 08-Jul-2022 15:16 Magnesium Hydroxide -Al Hydrox -Simethicone Oral Liquid is not required Magnesium Hydroxide Oral Liquid CONCENTRATE (MILK OF MAGNESIA)DOSE = 10 mL Oral Every 24 Hours, PRN Constipations 08-Jul-2022 15:16 Magnesium Hydroxide Oral Liquid CONCENTRATE is not required Melatonin TabletDOSE = 1.5 mg Oral At Bedtime, PRN Insomnia 08-Jul-2022 16:49 Melatonin is not required Morphine Injectable DOSE = 2 mg IntraVenous Push Every 4 Hours, PRN Pain - Severe (7-10) 08-Jul-2022 15:41 Morphine Injectable is not required Ondansetron Injectable (ZOFRAN)DOSE = 4 mg IntraVenous Push Every 4 Hours, PRN Nausea and/or Vomiting 08-Jul-2022 15:16 Ondansetron Injectable is not required Pantoprazole Injectable (PROTONIX)DOSE = 40 mg IntraVenous Push Every 24 Hours 08-Jul-2022 15:26 Pantoprazole Injectable is not required QUEtiapine Tablet (SEROQUEL)DOSE = 25 mg Oral Every Night 08-Jul-2022 14:58 QUEtiapine is not required Sodium Chloride 0.9% Injectable Flush via Peripheral LineVolume = 10 mL IntraVenous Flush Every 8 Hours and as Needed 08-Jul-2022 09:35 Sodium Chloride 0.9% Injectable Flush is not required Sodium Chloride 0.9% Injectable Flush via Peripheral LineVolume = 10 mL IntraVenous Flush Every 8 Hours and as Needed 08-Jul-2022 15:16 Sodium Chloride 0.9% Injectable Flush is not required Technetium Tc 99m Mebrofenin (HIDA - Radiology Contrast) DOSE = 5 milliCurie IntraVenous Push Once 08-Jul-2022 13:10 Technetium Tc 99m Mebrofenin (HIDA - Radiology Contrast) is not required Home Medications Added During Discharge Reconciliation h (more content not included)... Normal [facility] Admission Risk Screen - Adul ton 07-08-2022 Admission Risk Screen - Adult Allergies: Intolerances: Aspartame: Headaches Patient Verification: New W ID Band Applied in my Departmentyes Patient Identity Verified Bypatient ID Band FULL Name, include Middle, spelling matches patient's ID used for verificationyes ID Band Matches Patient ID used for Verficationyes ID Band MRN Matches EMR MRNyes Visitor Restriction: Coronavirus Visitor Restriction: Reasonable restrictions to in-person visitors will be observed due to current coronavirus pandemic. Travel History: COVID-19 Screening Completedno exposure or symptoms(1) Travel or Exposure Past 30 DaysNO travel to International locations in the past 30 days Ebola AlertFor Ebola-like Symptoms: Isolate Patient and Notify Provider/Digital Librarian For Contact: Notify Provider/Digital Librarian Advance Directive: Advance Directive/DNRno (2) Advance Directive Information Givenpatient/family declined [place]sey Fall Screen: History of falling (immediate or previous)no (0) Secondary Diagnosisno (0) Intravenous Therapy/ Heparin/Saline Lockyes (20) Gait/Transferringnormal/bed rest/wheelchair (0) Ambulatory Aidsnone/bedrest/nurse assist (0) Mental Statusoriented to own ability (0) Score: Low risk (<25). Moderate risk (25-44). High risk (>44).20 Morrissey InterventionsLOW INTERVENTIONS: *patient oriented to surroundings and call system, * patient/family falls education completed and documented, *patients fall status communicated during bedside handoff, *whiteboard updated, *mode of toileting discussed with patient, *bed in low position with brakes locked, *call light in reach, * non-skid footwear Family Violence Screen: Are you or have you been threatened or abused physically, emotionally, or sexually by anyoneno Has anyone ever threatened to hurt your family or your petsno Does anyone try to keep you from having/contacting other friends or doing things outside your homeno Do you feel UNSAFE going back to the place where you are livingno Do you feel anyone has exploited or taken advantage of you financially or of your personal propertyno Clinical assessment: Are there any apparent signs of injuries/behaviors that could be related to abuse/neglectno Social Service Consult for abuse/neglect needed this visitno Functional Screen: Functional Screen: In the recent/past 2-4 weeks, patient or family have noticedno issues that require a speech/language consult at this time AM-PAC- Basic Mobility/Daily Activity: Patient baseline bedboundno Turning from your back to your side while in a flat bed without using bedrailsnone Moving from lying on your back to sitting on the side of a flat bed without using bedrailsnone Moving to and from bed to chair (including a wheelchair)none Standing up from a chair using your arms (e.g. wheelchair or bedside chair) none To walk in hospital roomnone Climbing 3-5 steps with railingnone Basic Mobility - Total Score24 Putting on and taking off regular lower body clothingnone Bathing (including washing, rinsing, drying)none Putting on and taking off regular upper body clothingnone Toileting, which includes using toilet, bedpan or urinalnone Taking care of personal grooming such as brushing teethnone Eating Mealsnone Daily Activity - Total Score24 Learning Assessment (Patient): Patient is Able to be Assessed for Learningyes Factors Influencing Readiness to Learnpain Factors that Impact Ability to Learnnone Devices/Methods Used to Communicatenone Learning Preferencesverbal instruction Cultural Considerationsnone Developmental Considerationsnone Voodoo Considerationsnone Learning Assessment (Other Learner): Other learner availableno Depression Screen: During the past month, have you often been bothered by feeling down, depressed or hopelessno During the past month, have you often had little interest or pleasure in doing thingsno Have you had any thoughts of harming anyone elseno (1) [place] Suicide: Risk Screen Not Applicable/Able to Answerable to be screened In the Past Month: Have you wished you were or could go to sleep and not wake upno(1) In the Past Month: Have you had any actual thoughts of killing yourself no(1) Lifetime: Have you ever done, started to do, or prepared to do anything to end your lifeno [place] Suicide Risknegative Adult Nutrition Screen: Have you recently lost weight without tryingno Have you been eating poorly because of a decreased appetiteno Malnutrition Screening Tool Score0 Malnutrition Screening Tool RiskMST = 0 or 1 Not at risk. Eating well with little or no weight loss Nutrition Consult needed this visitno Can Patient Participate in Room Serviceno Patient requires Paper Dishes/Plastic Utensilsno Pain Screen: Pain Scalenumerical 0-10 Pain Scale Educationteaching provided Current Pain Level3 = Mild Acceptable Pain Level7 = Severe (more content not included)... Normal [facility] CBC AND DIFFERENTIALon 07-08 Basophils (Bld) [#/Vol] 0.00 10*3/uL Normal 0.00 - 0.10 [facility] Comment on above: Performed By: #### C BCDF #### [address] [address] Basophils/100 WBC (Bld) 0.8 % Normal 0.0 - 2.0 [facility] Comment on above: Performed By: #### C BCDF #### [address] [address] Eosinophils (Bld) [#/Vol] 0.10 10*3/uL Normal 0.00 - 0.70 [facility] Comment on above: Performed By: #### C BCDF #### [address] [address] Eosinophils/100 WBC (Bld) 2.5 % Normal 0.0 - 6.0 [facility] Comment on above: Performed By: #### C BCDF #### [address] [address] Erythrocyte distribution width (RBC) [Ratio] 15.1 % High 11.5 - 14.5 [facility] Comment on above: Performed By: #### C BCDF #### [address] [address] Hematocrit (Bld) [Volume fraction] 40.9 % Normal 36.0 - 46.0 [facility] Comment on above: Performed By: #### C BCDF #### [address] [address] Hemoglobin (Bld) [Mass/Vol] 13.2 g/dL Normal 12.0 - 16.0 [facility] Comment on above: Performed By: #### C BCDF #### [address] [address] Lymphocytes (Bld) [#/Vol] 1.40 10*3/uL Normal 1.20 - 4.80 [facility] Comment on above: Performed By: #### C BCDF #### [address] [address] Lymphocytes/100 WBC (Bld) 29.4 % Normal 13.0 - 44.0 [facility] Comment on above: Performed By: #### C BCDF #### [address] [address] MCHC (RBC) [Mass/Vol] 32.2 g/dL Normal 32.0 - 36.0 [facility] Comment on above: Performed By: #### C BCDF #### [address] [address] MCV (RBC) [Entitic vol] 85 fL Normal 80 - 100 [facility] Comment on above: Performed By: #### C BCDF #### [address] [address] Monocytes (Bld) [#/Vol] 0.30 10*3/uL Normal 0.10 - 1.00 [facility] Comment on above: Performed By: #### C BCDF #### [address] [address] Monocytes/100 WBC (Bld) 5.8 % Normal 2.0 - 10.0 [facility] Comment on above: Performed By: #### C BCDF #### [address] [address] Neutrophils (Bld) [#/Vol] 2.90 10*3/uL Normal 1.20 - 7.70 [facility] Comment on above: Result Comment: Perc ent differential counts (%) should be interpreted in the context of the absolute cell counts (cells/L). Performed By: #### C BCDF #### [address] [address] Neutrophils/100 WBC (Bld) 61.5 % Normal 40.0 - 80.0 [facility] Comment on above: Performed By: #### C BCDF #### [address] [address] NUCLEATED RBC 0.1 /100 WBC Normal [facility] Comment on above: Performed By: #### C BCDF #### [address] [address] Platelets (Bld) [#/Vol] 210 10*3/uL Normal 150 - 450 [facility] Comment on above: Performed By: #### C BCDF #### [address] [address] RBC 4.84 x10E12/L Normal 4.00 - 5.20 [facility] Comment on above: Performed By: #### C BCDF #### [address] [address] WBC (Bld) [#/Vol] 4.7 10*3/uL Normal 4.4 - 11.3 [facility] Comment on above: Performed By: #### C BCDF #### [address] [address] COMPREHENSIVE PANELon 2021 Albumin [Mass/Vol] 3.9 g/dL Normal 3.4 - 5.0 [facility] Comment on above: Performed By: #### C MP #### [address] [address] ALP [Catalytic activity/Vol] 76 U/L Normal 33 - 110 [facility] Comment on above: Performed By: #### C MP #### [address] [address] ALT [Catalytic activity/Vol] 14 U/L Normal 7 - 45 [facility] Comment on above: Result Comment: Sayda ents treated with Sulfasalazine may generate falsely decreased results for ALT. Performed By: #### C MP #### [address] [address] Anion gap [Moles/Vol] 15 mmol/L Normal 10 - 20 [facility] Comment on above: Performed By: #### C MP #### [address] [address] AST [Catalytic activity/Vol] 11 U/L Normal 9 - 39 [facility] Comment on above: Performed By: #### C MP #### [address] [address] Bilirubin [Mass/Vol] 0.5 mg/dL Normal 0.0 - 1.2 [facility] Comment on above: Performed By: #### C MP #### [address] [address] Calcium [Mass/Vol] 9.2 mg/dL Normal 8.6 - 10.3 [facility] Comment on above: Performed By: #### C MP #### [address] [address] Chloride [Moles/Vol] 107 mmol/L Normal 98 - 107 [facility] Comment on above: Performed By: #### C MP #### [address] [address] Creatinine [Mass/Vol] 0.51 mg/dL Normal 0.50 - 1.05 [facility] Comment on above: Performed By: #### C MP #### [address] [address] eGFR FEMALE >90 Normal >90 [facility] Comment on above: Result Comment: CALC ULATIONS OF ESTIMATED GFR ARE PERFORMED USING THE 2020 CKD-EPI STUDY REFIT EQUATION WITHOUT THE RACE VARIABLE FOR THE IDMS-TRACEABLE CREATININE METHODS. https://jasn.asnjournals.org/content//ASN.140384649 8 Performed By: #### C MP #### [address] [address] Glucose [Mass/Vol] 83 mg/dL Normal 74 - 99 [facility] Comment on above: Performed By: #### C MP #### [address] [address] HCO3 (Bld) [Moles/Vol] 24 mmol/L Normal 21 - 32 [facility] Comment on above: Performed By: #### C MP #### [address] [address] Potassium [Moles/Vol] 3.5 mmol/L Normal 3.5 - 5.3 [facility] Comment on above: Performed By: #### C MP #### [address] [address] Protein [Mass/Vol] 6.5 g/dL Normal 6.4 - 8.2 [facility] Comment on above: Performed By: #### C MP #### [address] [address] Sodium [Moles/Vol] 142 mmol/L Normal 136 - 145 [facility] Comment on above: Performed By: #### C MP #### [address] [address] Urea nitrogen [Mass/Vol] 10 mg/dL Normal 6 - 23 [facility] Comment on above: Performed By: #### C MP #### [place] [address] CORONAVIRUS 2019, SCREEN ASY MPTOMATICon 07-08-2022 Lab Specimen Source Nasal, Nasopharyngeal Normal [facility] Comment on above: Performed By: #### H CGQU #### [place] [address] SARS-CoV-2 (COVID-19) RNA KAYLIN+probe Ql (Unsp spec) Not detected Normal Not Detected [facility] Comment on above: Result Comment: . This test has received FDA Emergency Use Authorization (EUA) and has been verified by [facility]. This test is only authorized for the duration of time that circumstances exist to justify the authorization of the emergency use of in vitro diagnostic tests for the detection of SARS-CoV-2 virus and/or diagnosis of COVID-19 infection under section 564(b)(1) of the Act, 21 U.S.C. 360bbb-3(b)(1), unless the authorization is terminated or revoked sooner. [facility] is certified under CLIA-88 as qualified to perform high complexity testing. Testing is performed in the [facility] laboratory located at [address] [place] [address]. SARS-CoV-2/Flu/RSV Multiplex Test: Fact sheet for providers: https://www.fda.gov/media/913559/download Fact sheet for patients: https://www.fda.gov/media/195851/download Performed By: #### H CGQU #### [place] [address] CT [facility] [place] [facility] ABDOMEN AND PELVIS W IV CONTRAST Patient Name: BELEM LAWLER STUDY: CT ABDOMEN AND PELVIS W IV CONTRAST; 07/08/2022 11:23 am INDICATION: RUQ abdominal pain . COMPARISON: 11/05/2014 ACCESSION NUMBER(S): [id number] ORDERING CLINICIAN: SYDNEY SRIVASTAVA TECHNIQUE: Contiguous axial images were obtained through the abdomen and pelvis after the administration of 90 mL Omnipaque 350 intravenous contrast. Coronal and sagittal reformations were made. FINDINGS: LOWER CHEST: Lung bases are clear. ABDOMEN: LIVER: Within normal limits. BILE DUCTS: Nondilated. GALLBLADDER: The gallbladder is not distended and without calcified stones. PANCREAS: Within normal limits. SPLEEN: Within normal limits. ADRENAL GLANDS: Within normal limits. KIDNEYS, URETERS, and BLADDER: The kidneys enhance symmetrically without focal lesion. No hydroureteronephrosis bilaterally.Bladder unremarkable. VESSELS: There is no aneurysmal dilatation of the abdominal aorta. The IVC is within normal limits. BOWEL: Postsurgical changes about the stomach. There is no bowel obstruction or appreciable bowel wall thickening. Appendix is normal. No focal diverticular disease. PERITONEUM/RETROPERITONEUM/ LYMPH NODES: No ascites or free air, no fluid collection. No retroperitoneal fluid collection or lymphadenopathy. Shotty mesenteric lymph nodes remain which have been seen on multiple remote priors. REPRODUCTIVE ORGANS: Status post hysterectomy. ABDOMINAL WALL: Unremarkable. BONE AND SOFT TISSUE: Bones are intact. IMPRESSION: No acute intra-abdominal process. Electronically signed by: OSCAR GARCIA MD [facility] CT Abdomen and Pelvis with I V Contraston 07-08-2022 CT Abdomen and Pelvis W contrast IV Normal NK-Ydazfcl-Il rma MAC2 303 Work Phone: Clinical Event Note-Cholelit hiasison 07-08-2022 Clinical Event Note-Cholelithiasi s Clinical Event: Clinical Event Note: TopicCholelithiasis Details I was called for some advice by Sydney Art the ER physician regarding a patient who was seen for right upper quadrant pain. 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 She had gallstones but no direct evidence of acute cholecystitis on the CT or the ultrasound. There were some diagnoses that he was unsure of and stated she was still having pain. I suggested a HIDA scan to help rule out acute cholecystitis and then proceed with further work-up or treatment pending that. Apparently the HIDA cannot be done or read this evening so the patient was admitted to the hospitalist service for pain control and to await the test and other testing needed. I will see the patient tomorrow after the HIDA scan to discuss where to proceed from there. If the HIDA scan shows acute cholecystitis consideration could be given to cholecystectomy on Wednesday. If there is no evidence of acute cholecystitis patient can be discharged home from the cholelithiasis standpoint, as long as her pain has resolved for outpatient scheduling of cholecystectomy. If there is no evidence of acute cholecystitis, further work-up would need to be done as to diagnosis if the pain is still present. Electronic Signatures: Libby Mar) (Signed 08-Jul-2022 18:15) Authored: Clinical Event Note Last Updated: 08-Jul-2022 18:15 by Libby Mar) [facility] Complete Blood Count + Diffe mellisa 07-08-2022 Basophils/100 WBC (Bld) 0.8 % 0.0 - 2.0 XQ-Osiusjg-Ds rma MAC2 303 Work Phone: Erythrocyte distribution width (RBC) [Ratio] 15.1 % above high threshold See Below UL-Gviyjoe-Yx rma MAC2 303 Work Phone: Comment on above: Reference Range: 11. 5 - 14.5 Hematocrit (Bld) [Volume fraction] 40.9 % See Below UZ-Ycrksqa-Ar rma MAC2 303 Work Phone: Comment on above: Reference Range: 36. 0 - 46.0 Hemoglobin (Bld) [Mass/Vol] 13.2 g/dL See Below IC-Fejhhys-Zd rma MAC2 303 Work Phone: Comment on above: Reference Range: 12. 0 - 16.0 Lymphocytes/100 WBC (Bld) 29.4 % See Below QK-Gntdfyu-Ow rma MAC2 303 Work Phone: Comment on above: Reference Range: 13. 0 - 44.0 MCHC (RBC) [Mass/Vol] 32.2 g/dL See Below FW-Khbczdi-Cb rma MAC2 303 Work Phone: Comment on above: Reference Range: 32. 0 - 36.0 MCV (RBC) [Entitic vol] 85 fL 80 - 100 GE-Eylaxwu-Jt rma MAC2 303 Work Phone: Monocytes/100 WBC (Bld) 5.8 % 2.0 - 10.0 WW-Lhhnica-Mi rma MAC2 303 Work Phone: Neutrophils/100 WBC (Bld) 61.5 % See Below US-Hjmltyb-Ac rma MAC2 303 Work Phone: Comment on above: Reference Range: 40. 0 - 80.0 Platelets (Bld) [#/Vol] 210 10*3/uL 150 - 450 CM-Eufnkhf-Md rma MAC2 303 Work Phone: RBC (Bld) [#/Vol] 4.84 {x10E12/L} See Below MG -Surgery-Pa rma MAC2 303 Work Phone: Comment on above: Reference Range: 4.0 0 - 5.20 WBC (Bld) [#/Vol] 4.7 10*3/uL 4.4 - 11.3 MG-Kisha evon-Pa rma MAC2 303 Work Phone: Complete Blood Count + Differential 0.00 {x10E9/L} See Below RW-Tyxswbc-Lp rma MAC2 303 Work Phone: Comment on above: Reference Range: 0.0 0 - 0.10 Complete Blood Count + Differential 0.10 {x10E9/L} See Below KD-Sltsrqt-Gd rma MAC2 303 Work Phone: Comment on above: Reference Range: 0.0 0 - 0.70 Complete Blood Count + Differential 0.30 {x10E9/L} See Below US-Pvzonxm-Zp rma MAC2 303 Work Phone: Comment on above: Reference Range: 0.1 0 - 1.00 Complete Blood Count + Differential 1.40 {x10E9/L} See Below GE-Qfwiqsw-Zf rma MAC2 303 Work Phone: Comment on above: Reference Range: 1.2 0 - 4.80 Complete Blood Count + Differential 2.90 {x10E9/L} See Below HF-Hypgklb-Xm rma MAC2 303 Work Phone: Comment on above: Reference Range: 1.2 0 - 7.70 Percent differential counts (%) should be interpreted in the context of the absolute cell counts (cells/L). Complete Blood Count + Differential 2.5 % 0.0 - 6.0 QB-Iwqbole-Ja rma MAC2 303 Work Phone: Complete Blood Count + Differential 0.1 {/100_WBC} HS-Qhkaqyi-Yx rma MAC2 303 Work Phone: Coronavirus 2019 RNA by PCR, Screening Asymptomticon 07-08-2022 Coronavirus 2019 RNA by PCR, Screening Asymptomtic Not detected Normal See Below DY-Ysdayhr-La rma MAC2 303 Work Phone: Comment on above: SOURCE: Nasal, Nasop haryngealReference Range: Not Detected.This test has received [facility] Emergency Use Authorization (EUA) and has been verified by [facility]. This test is only authorized for the duration of time that circumstances exist to justify the authorization of the emergency use of in vitro diagnostic tests for the detection of SARS-CoV-2 virus and/or diagnosis of COVID-19 infection under section 564(b)(1) of the Act, 21 U.S.C. 360bbb-3(b)(1), unless the authorization is terminated or revoked sooner. [facility] is certified under CLIA-88 as qualified to perform high complexity testing. Testing is performed in the [facility] laboratory located at [address] [place] [address].SARS-CoV-2/Flu/RSV Multiplex Test: Fact sheet for providers: https://www.fda.gov/media/539056/downloadFact sheet for patients: https://www.fda.gov/media/665680/download Covid 19 Resultson 2 SARS-CoV-2 (COVID-19) RNA KAYLIN+probe Ql (Unsp spec) NEGATIVE COVID-19 Test Coronaviruses are common world-wide and are the cause of many common colds. SARS-COV2 is a new coronavirus that began circulating worldwide in 2019 so we are calling it COVID-19. It has been estimated that four out of five patients with COVID-19 will recover at home without the need for medical attention. Symptoms of COVID-19 may include cough, fever, shortness of breath, loss of taste or smell and other flu-like symptoms including chills, sore muscles, sore throat, and headache. Severe illness is more common in older people and people with other health problems such as high blood pressure, obesity, and immune system problems. If the test is positive, you have COVID-19. You will be contacted by the ordering physicians office and instructed to remain on home isolation, in accordance with CDC guidelines. You may also be contacted by the [facility] to see if any of your close contacts may have been exposed to the virus and need to quarantine. If the test is negative, you likely do not have COVID-19 at this time, but you still may have a different illness that can spread to other people (like Influenza, or the Flu) and could still be at risk for getting COVID-19. We recommend that you stay away from other people to limit the spread of illness until your symptoms are improving and you are fever-free for 24 hours without the use of fever lowering medications such as acetaminophen or ibuprofen. No test is 100% accurate so if you are still concerned you may have COVID-19, talk to your doctor about the need to continue to stay away from others. Medicines Unless your provider told you not to use the following: Acetaminophen (Tylenol and others) is generally safe. Anti-inflammatory medications, such as Ibuprofen (Advil or Motrin) or Naproxen (Aleve) can also be used. Qmjj-nlj-leowscs cough and cold medicines can be used according to the instructions on the package. Some adbh-rac-llfrqnx medicines also contain acetaminophen. Make sure you are not taking more than your recommended dose. For those not hospitalized, there is no specific treatment available for this illness. Antibiotics do not treat Coronaviruses. Follow-Up Follow up with your doctor by scheduling a virtual visit or consider follow-up at one of our urgent care fever clinics. If you are having difficulty breathing, or are very weak and having difficulty standing, this is a medical emergency. Call 911 or have someone take you to the nearest emergency room immediately. If possible, wear a facemask. Additional guidance from the CDC for patients who tested POSITIVE for COVID-19 How to isolate: Isolate yourself in a specific room at home and limit your contact with others. Use a separate bathroom from other members of the household, when possible. Leave home only to get essential medical care. Do not go to work, school or public areas. Avoid using public transportation, ride-sharing, or taxis. Restrict contact with pets and other animals. If you must care for your pet or be around animals while you are sick, wash your hands before and after your interaction and wear a facemask. Make sure that shared spaces in the home have good airflow, such as by an air conditioner or an opened window, weather permitting. Personal Hygiene Procedures: Wear a face mask when in the same room as other people or pets. If a face mask interferes with your breathing, others should wear a mask when sharing space with you. Frequent hand-washing: wash your hands with soap and water for at least 20 seconds. If soap and water are not available, use alcohol-based hand bronze plater. Avoid touching your eyes, nose, and mouth with unwashed hands. Household Hygiene Procedures: Avoid sharing personal household items such as dishes, glassware, cups, eating utensils, towels or bedding with other people or pets in your home. After use, these items should be washed with soap and hot water. Disinfect all high-touch surfaces every day with antibacterial cleaning solutions such as Lysol wipes, bleach, cleansers, etc. High-touch surfaces include tabletops, doorknobs, bathroom fixtures, toilets, phones, keyboards, tablets and bedside tables. Immediately clean any surfaces that may have blood, poop or body fluids on them, using antibacterial cleaning solutions such as Lysol wipes, bleach, cleansers, etc. If clothing or bedding come into contact with blood, poop or body fluids, they should be washed immediately. Follow the directions on the laundry detergent and clothing labels but hot water is recommended when possible. Stopping home isolation precautions: If possible, consult your doctor before stopping home isolation precautions. According to the CDC, you can discontinue home isolation precautions when you have met both of these criteria: Your fever and respiratory symptoms have been gone for 24 chase (more content not included)... Normal [facility] HCG, Beta Quantitativeon HCG.beta subunit Qn 5 m[IU]/mL IN-Dsstkos-Dq rma MAC2 303 Work Phone: Comment on above: Low-level positive H CG results can be seen in early , in [place]- or post-menopausal females due to normal pituitary HCG production, or with analytic interference. Repeat testing in 48-72 hours can aid in assessing for as results should double in this time period. FSH measurement is recommended in [place]- or post-menopausal females as concurrent elevation of FSH can support pituitary production as the source of the HCG elevation.. Total HCG measurement is performed using the Myron Johan Access Immunoassay which detects intact HCG and free beta HCG subunit. This test is not indicated for use as a tumor marker. HCG testing is performed using a different test methodology at [facility] than other [facility]. Direct result comparison should only be made within the same method. REF VALUESNON FEMALE <5MALES <5 HCG,BETA-QUANTITATIVEon 10 HCG,BETA-QUANTITAT MAAME 5 mIU/mL Normal [facility] Comment on above: Result Comment: Low- level positive HCG results can be seen in early , in [place]- or post-menopausal females due to normal pituitary HCG production, or with analytic interference. Repeat testing in 48-72 hours can aid in assessing for as results should double in this time period. FSH measurement is recommended in [place]- or post-menopausal females as concurrent elevation of FSH can support pituitary production as the source of the HCG elevation. . Total HCG measurement is performed using the Myron Silverwood Access Immunoassay which detects intact HCG and free beta HCG subunit. This test is not indicated for use as a tumor marker. HCG testing is performed using a different test methodology at [facility] than other [facility]. Direct result comparison should only be made within the same method. REF VALUES NON FEMALE <5 MALES <5 Performed By: #### H CGQU #### [address] [address] LACTATEon 07-08-2022 Lactate [Moles/Vol] 0.6 mmol/L Normal 0.4 - 2.0 [facility] Comment on above: Result Comment: Moon puncture immediately after or during the administration of Metamizole may lead to falsely low results. Testing should be performed immediately prior to Metamizole dosing. Performed By: #### L ACT #### [address] [address] LIPASEon 07-08-2022 Lipase [Catalytic activity/Vol] 15 U/L Normal 9 - 82 [facility] Comment on above: Result Comment: Moon puncture immediately after or during the administration of Metamizole may lead to falsely low results. Testing should be performed immediately prior to Metamizole dosing. P-talzxa-d-benzoquinone imine (metabolite of Acetaminophen) will generate erroneously low results in samples for patients that have taken toxic doses of acetaminophen. Performed By: #### L IPAS #### [facility] [address] [place] [address] Laboratory - Chemistry and C hemistry - challengeon 07-08-2022 Albumin BCP dye [Mass/Vol] 3.9 g/dL 3.4 - 5.0 OG-Fjefjrn-Rf rma MAC2 303 Work Phone: ALP [Catalytic activity/Vol] 76 U/L 33 - 110 JZ-Cfrwcaf-Ht rma MAC2 303 Work Phone: ALT With P-5'-P [Catalytic activity/Vol] 14 U/L 7 - 45 KH-Dlvituk-Fg rma MAC2 303 Work Phone: Comment on above: Patients treated wit h Sulfasalazine may generate falsely decreased results for ALT. Anion gap [Moles/Vol] 15 mmol/L 10 - 20 VI-Pcboytw-Sb rma MAC2 303 Work Phone: AST With P-5'-P [Catalytic activity/Vol] 11 U/L 9 - 39 MZ-Kgyqryr-Uu rma MAC2 303 Work Phone: Bilirubin [Mass/Vol] 0.5 mg/dL 0.0 - 1.2 LB-Aiuefmw-Rq rma MAC2 303 Work Phone: Calcium [Mass/Vol] 9.2 mg/dL 8.6 - 10.3 MG-Kisha evon-Pa rma MAC2 303 Work Phone: Chloride [Moles/Vol] 107 mmol/L 98 - 107 AT-Muvjtjy-Ya rma MAC2 303 Work Phone: CO2 [Moles/Vol] 24 mmol/L 21 - 32 MG-Surger y-Pa rma MAC2 303 Work Phone: Creatinine [Mass/Vol] 0.51 mg/dL See Below UO-Pjubkwd-Bj rma MAC2 303 Work Phone: Comment on above: Reference Range: 0.5 0 - 1.05 Glucose [Mass/Vol] 83 mg/dL 74 - 99 MG-Kisha evon-Pa rma MAC2 303 Work Phone: Potassium [Moles/Vol] 3.5 mmol/L 3.5 - 5.3 TI-Sprfehj-Eq rma MAC2 303 Work Phone: Protein [Mass/Vol] 6.5 g/dL 6.4 - 8.2 MG-Kisha evon-Pa rma MAC2 303 Work Phone: Sodium [Moles/Vol] 142 mmol/L 136 - 145 MG-Kisha evon-Pa rma MAC2 303 Work Phone: Urea nitrogen [Mass/Vol] 10 mg/dL 6 - 23 FE-Kjxxfwn-Jk rma MAC2 303 Work Phone: Lactate, Levelon 07-08-2022 Lactate [Moles/Vol] 0.6 mmol/L 0.4 - 2.0 BY-Pohzouv-Gm rma MAC2 303 Work Phone: Comment on above: Venipuncture immedia tely after or during the administration of Metamizole may lead to falsely low results. Testing should be performed immediately prior to Metamizole dosing. Lipase, Serumon 07-08-2022 Lipase [Catalytic activity/Vol] 15 U/L 9 - 82 QD-Knuzhsi-Dl rma MAC2 303 Work Phone: Comment on above: Venipuncture immedia tely after or during the administration of Metamizole may lead to falsely low results. Testing should be performed immediately prior to Metamizole dosing. G-dcvvme-g-benzoquinone imine (metabolite of Acetaminophen) will generate erroneously low results in samples for patients that have taken toxic doses of acetaminophen. No Panel Informationon 07-08 >90 >90 ZI-Ovnjugo-Dk rma MAC2 303 Work Phone: Comment on above: CALCULATIONS OF NICK MATED GFR ARE PERFORMED USING THE 2020 CKD-EPI STUDY REFIT EQUATION WITHOUT THE RACE VARIABLE FOR THE IDMS-TRACEABLE CREATININE METHODS.https://jasn.asnjournals.org/content//ASN.2 602278791 Order Reconciliationon 07-08 Order Reconciliation Page 1 Admission Reconciliation Document Reconciliation Type: ED to Observation requested on behalf of Dee Avitia (Advanced Practice Nurse) done by Dee Avitia ([facility]) ED to Observation - Reconciliation: 08-Jul-2022 14:58 by: Dee Avitia ([facility]) ED to Observation - AutoLinked: 08-Jul-2022 14:58 by: Dee Avitia ([facility]) Home MedicationsEnteredLast Dose TakenReconciled with current Order Reconciliation Comment/ Additional Information biotin orally once a [id number] Reviewed and Held DULoxetine 60 mg oral delayed release capsule 1 cap(s) orally once a day 08-Jul-2022 DULoxetine Delayed Release Capsule (CYMBALTA)DOSE = 60 mg Oral DailyDULoxetine 60 mg oral delayed release capsule continued as the inpatient order DULoxetine melatonin 1 mg oral tablet 1 tab(s) oral prn as [id number] Melatonin TabletDOSE = 1 mg Oral Daily, PRN Insomniamelatonin 1 mg oral tablet continued as the inpatient order Melatonin multivitamin with iron Multiple Vitamins with Iron oral tablet 1 tab(s) oral once a [id number] Reviewed and Held omeprazole 40 mg oral delayed release capsule 1 cap(s) orally once a day 08-Jul-2022 Reviewed and Held ondansetron 4 mg oral tablet 1 tab(s) orally every 8 [id number] Reviewed and Held SEROquel 25 mg oral tablet 1 tab(s) oral once a [id number] QUEtiapine Tablet (SEROQUEL)DOSE = 25 mg Oral DailySEROquel 25 mg oral tablet continued as the inpatient order QUEtiapine Additional Current Orders Sodium Chloride 0.9% Infusion IV Bag Volume = 1,000 mL Run at: 150 mL/hr IntraVenous Sodium Chloride 0.9% Injectable Flush via Peripheral LineVolume = 10 mL IntraVenous Flush Every 8 Hours and as Needed Technetium Tc 99m Mebrofenin (HIDA - Radiology Contrast) DOSE = 5 milliCurie IntraVenous Push Once Normal [facility] Patient Profile - Adult v2on 07-08-2022 Patient Profile - Adult v2 Profile: Initial Info: How to be AddressedANNA(1) Spoken Language PreferredEnglish (1) Source of Informationpatient Stated Reason for AdmissionPain in RUQ Wants Family/Rep Notified of Admissionno Notify PCPnotify PCP Informed of Patient Visiting Rightsyes [place] Patient Belongingsremains with patient Patient Belongings Remaining with Patientpurse/wallet; cell phone/electronics; clothing Medications Brought to Hospitalno General Health: Blood Avoidance/Restrictionsnone( 1) Previous Transfusion Reactionno(1) Weight in kg108 kilogram(s)(2) Weight in axi374 pound(s) Weight Methodstated Scale Typebed Height in cm157.4 centimeter(s)(2) Height in feet5 feet Height in inches1.97 inch(es) Height Methodstated BMI (kg/m2)43.592 square meter RSP Based Care: How would you like to participate in your careas much as possible What is the number one concern for you during this hospitalization That I get results What is the most important thing we can do to support you during this hospitalizationBe honest, maintain bariatric diet Is there anything we need to know to best care for youno aspartame Substance: Smoking Statusnever smoker (3) Alcohol Usedenies(3) Drug Usedenies (3) Health Mgmt: Symptoms/Conditions Managed at Homegastrointestinal; behavioral health Are You no (4) Are You Currently Breastfeedingno (4) Behavioral Health Symptoms/Conditionsanxiety; depression Behavioral Management Strategiesmedication therapy Behavioral Health Managementmanaged Gastrointestinal Managementmanaged Relationship/Environ: Resource/Environmental Concernsnone Primary Source of Support/Comfortspouse Lives Withspouse; dependent child(mary) Living Arrangementshouse Services Anticipated at Transitionnone Anticipated Transition Tohome Significant IndicatorsComplete Information Review: Allergies, Home Meds and Significant Events have been Reviewed and Verified with Patient/Familyyes ALLERGY, INTOLERANCE, ADVERSE EVENT: Intolerances: Aspartame: Food, Headaches, Active Significant Events: 19-Nov-2020 NO SURGIAL HISTORY THIS YEAR: Past Surgical History, Active, 22-Aug-2020 NO CHRONIC HEATLH ISSUES: Past Medical History, Active, 22-Aug-2020 FORMER SMOKER: Other, Active, QUIT 6 YEARS AGO Electronic Signatures: Karen Morton (YUNIEL) (Signed 08-Jul-2022 14:59) Authored: Initial Info, General Health, [facility] Based Care, Substance, Health Mgmt, Relationship/Environ, Additional Information Last Updated: 08-Jul-2022 14:59 by Karen Morton (YUNIEL) References: 1. Data Referenced From Patient Profile - Adult v2 13-May-2022 18:37 2. Data Referenced From 1. Vital Signs 08-Jul-2022 09:11 3. Data Referenced From Provider Note - ED v3 08-Jul-2022 09:36 4. Data Referenced From Triage - ED 08-Jul-2022 09:11 [facility] Provider Note - ED v3on 10-0 Provider Note - ED v3 Provider Note: Chart Review: ED NOTES ED NOTES: Source of Information: Patient. EMR was reviewed for previous records. ------- HPI: Right upper quadrant abdominal pain. This 41-year-old white female presents to the ED with complaint of right upper quadrant abdominal pain she states the symptoms initially began over the weekend on Wednesday and described as a dull pain she states that the pain progressively worsened to the point where she can barely take it today she states that she does have some associated nausea she denies any change in the discomfort with eating or drinking food. She is noted pain in this area in the past with bending over. She does admit to recent gastric sleeve surgery 2 months ago at [facility]. Denies any history of vomiting, fever, chills, urinary symptoms or back pain. ------- PMH: Morbid obesity, anxiety, depression, GERD PSH: Gastric sleeve surgery 2 months ago, hysterectomy Social Hx: The patient denies any use of tobacco, alcohol or illicit drugs. Fam: MEDS: Seroquel, duloxetine, omeprazole ALLERGIES: NKDA ------- PHYSICAL EXAM: General: Patient alert, awake, oriented X3, appears to be in no obvious distress, nontoxic, cooperative Skin: Warm. Dry. Intact. No rash. Eyes: PEARTLA, EOMIs intact, sclera white, conjunctiva clear HEENT: Atraumatic. Normo-cephalic. Oral and nasal mucosa pink and moist. Neck: Supple without meningismus, no lymphadenopathy. CV: Regular rate and rhythm without murmurs, heaves, lifts or thrills. Respiratory: Nonlabored breathing. There are no retractions or tachypnea. Lungs are clear to auscultation bilaterally. GI: Abdomen is soft with focal tenderness to right upper quadrant with voluntary guarding. Positive Saldana sign. Bowel sounds are present all 4 quadrants. There is no rebound rigidity. There is no CVA tenderness. There is no pulsatile masses. MUSC: There is no joint swelling or bony tenderness on exam. Neuro: Cranial nerves II - XII grossly intact. No focal neurologic deficits are noted on exam. Lower extremities: There is no peripheral edema bilaterally, negative Homans sign. No palpable cords. Distal pulses are +2/4 and present in both lower extremities. Psych: Maintains eye contact. Cooperative. ------- ED course: At 13:[address] Mar - general surgeon about the patient's abnormal ultrasound findings and she recommended evaluation with a HIDA scan. The specific gravity of the patient's urinalysis is very concentrated and she was ordered a liter wide open I did have a discussion with the patient concerning plan of care including the HIDA scan. I am unable to get a HIDA scan timely manner so the patient was admitted to the hospital for pain control and HIDA scan with possible surgical intervention if required. This chart was dictated with the use of Zü[employer] XR software within the framework of the current electronic medical records software. Attempts were made to edit in real time, given time constraints there is the potential for inaccuracies in my dictation. Sydney Srivastava, HISTORY OF PRESENTING ILLNESS BELEM is a 41 year old Female and was seen by me at 08-Jul-2022 09:11 for a chief complaint of flank pain (Patient to ED reference right side pain that travels upwards towards shoulder. She had gastric sleeve x 2 months prior and started having dull pain on Wednesday and awoke this am to increased pain. She is nauseated but negative emesis.)(1). Triage Information: Most recent Vital Sign Value Date Temp (F): 97.2 07-08-2022 09:11 Temp (C): 36.2 07-08-2022 09:11 Heart Rate (beats/min): 95 07-08-2022 09:11 Respirations (breaths/min): 18 07-08-2022 09:11 SpO2 (%): 97 07-08-2022 09:11 BP Systolic (mm Hg): 137 07-08-2022 09:11 BP Diastolic (mm Hg): 77 07-08-2022 09:11 PAST MEDICAL HISTORY CURRENT OR FORMER SUBSTANCE USE: Tobacco/Nicotine Use: never smoker Alcohol Use: denies Drug Use: denies,ALLERGIES/INTOLERANC ES: Intolerance Allergen: Aspartame Type: Food Reaction: Headaches HEALTH HISTORY: No documented data. OUTPATIENT MEDICATIONS: Home Medications Review Status for Reconciliation: Complete Med Status: Patient Currently Takes Medications Drug Name: biotin Instructions: orally once a day Drug Name: DULoxetine 60 mg oral delayed release capsule Instructions: 1 cap(s) orally once a day Drug Name (more content not included)... Normal [facility] Radiologyon 07-08-2022 US Gallbladder Normal MG-Surgery -Pa rma MAC2 [id number] Work Phone: Risk Screen - Adult Emergenc yon 07-08-2022 Risk Screen - Adult Emergency Preferred Language: Preferred Language: Preferred Language for Discussing Health Care (patient/designee)Citizen Of [place] Patient Preferred Pharmacy: Patient Preferred Pharmacy Statement: I have reviewed and updated the patient's preferred pharmacy selection for today's visit. Advanced Directives: Advance Directive/DNRno Family Violence Adult: Abuse Screen: Are you or have you been threatened or abused physically, emotionally, or sexually by anyoneno Learning Assessment (Patient): Learning Assessment (Patient): Patient is Able to be Assessed for Learningyes Factors Influencing Readiness to Learnn/a Factors that Impact Ability to Learnnone Devices/Methods Used to Communicatenone Learning Preferencesverbal instruction; written material Cultural Considerationsnone Developmental Considerationsnone Voodoo Considerationsnone Learning Assessment (Other Learner): Learning Assessment (Other Learner): Other learner availableno Pressure Injury/TB/Substance: Pressure Injury: Do you have a coughno Smoking Statusmoderate user (uses 11-30 cig/day, OR 0.5-1.5 ppd, OR 2-3 cans/pouches loose leaf tobacco per week, OR 0.5-1.5 vape pods per day) Tobacco Cessation Education (provide if tobacco use within the last 12 mos) patient declined Alcohol Usedenies Drug Usedenies Admission Risk Screen: Significant IndicatorsComplete CAGE: CAGE: Is this an injured patient at a Trauma Center ([facility]/[place]): no Electronic Signatures: Sagrario Petersen (RN) (Signed 08-Jul-2022 09:18) Authored: Preferred Language, Patient Preferred Pharmacy, Advanced Directives, Family Violence Adult, Learning Assessment (Patient), Learning Assessment (Other Learner), Pressure Injury/TB/Substance, Pressure Injury, CAGE Last Updated: 08-Jul-2022 09:18 by Sagrario Petersen (RN) Normal [facility] URINALYSIS WITH CULTURE IF I NDICATEDon 07-08-2022 Appearance (U) CLEAR Normal CLEAR [facility] Comment on above: Performed By: #### U ARFX #### [place] [address] Bilirubin Ql (U) Negative Normal NEGATIVE [facility] Comment on above: Performed By: #### U ARFX #### [address] [address] Color (U) Yellow Normal STRAW,YELLOW [facility] Comment on above: Performed By: #### U ARFX #### [address] [address] Glucose Ql (U) Negative Normal NEGATIVE [facility] Comment on above: Performed By: #### U ARFX #### [address] [address] Hemoglobin Ql (U) Negative Normal NEGATIVE [facility] Comment on above: Performed By: #### U ARFX #### [place] [id number] Ketones Ql (U) 80(2+) Abnormal NEGATIVE [facility] Comment on above: Performed By: #### U ARFX #### [address] [address] Leukocyte esterase Test strip Ql (U) Negative Normal NEGATIVE [facility] Comment on above: Performed By: #### U ARFX #### [address] [address] Nitrite Ql (U) Negative Normal NEGATIVE [facility] Comment on above: Performed By: #### U ARFX #### [address] [address] pH (U) 6.0 [pH] Normal 5.0 - 8.0 [facility] Comment on above: Performed By: #### U ARFX #### [address] [address] Protein Ql (U) Negative Normal NEGATIVE [facility] Comment on above: Performed By: #### U ARFX #### [address] [address] Specific gravity (U) [Rel density] >1.060 Abnormal 1.005 - 1.035 [facility] Comment on above: Result Comment: Spec [facility] gravity of >1.060 may be falsely elevated due to interferences with measurement. If clinically indicated, repeat testing with an alternative method is available by contacting the laboratory within 24 hours. Performed By: #### U ARFX #### [address] [address] Urobilinogen (U) [Mass/Vol] mg/dL Normal 0.0 - 1.9 [facility] Comment on above: Performed By: #### U ARFX #### [address] [address] Color (U) Yellow See Below DN-Ylnoqba-Od rma MAC2 303 Work Phone: Comment on above: Reference Range: STR AW,YELLOW Glucose Ql (U) Negative NEGATIVE MG-Surgery -Pa rma MAC2 303 Work Phone: Ketones Ql (U) 80(2+) Abnormal NEGATIVE MG-Surgery -Pa rma MAC2 303 Work Phone: Leukocyte esterase Test strip Ql (U) Negative NEGATIVE KN-Kiqjorm-Pt rma [facility] 303 Work Phone: pH (U) 6.0 [pH] 5.0 - 8.0 PO-Gjtcsmz-Fn rma [facility] 303 Work Phone: Protein (U) [Mass/Vol] Negative NEGATIVE NK-Hkqxfsr-Dv rma [facility] 303 Work Phone: RBC (U) [#/Vol] Negative NEGATIVE MG-Surger y-Pa rma [facility] 303 Work Phone: Specific gravity (U) [Rel density] >1.060 Abnormal See Below PS-Zsygeor-Ye rma [facility]2 303 Work Phone: Comment on above: Reference Range: 1.0 05 - 1.035 Specific gravity of >1.060 may be falsely elevated due to interferences with measurement. If clinically indicated, repeat testing with an alternative method is available by contacting the laboratory within 24 hours. URINALYSIS WITH CULTURE IF INDICATED Negative NEGATIVE JK-Hzohthc-Zu rma [place] [address] Work Phone: URINALYSIS WITH CULTURE IF INDICATED <2.0 0.0 - 1.9 AV-Whgiydw-Wz rma [place] [address] Work Phone: URINALYSIS WITH CULTURE IF INDICATED CLEAR CLEAR XD-Noetsjj-An rma [place] [address] Work Phone: US GALLBLADDERon 07-08-2022 US GALLBLADDER Patient Name: BELEM LAWLER STUDY: US GALLBLADDER; 07/08/2022 10:10 am INDICATION: RUQ abdominal pain . COMPARISON: 02/15/2018 ACCESSION NUMBER(S): [id number] ORDERING CLINICIAN: SYDNEY SRIVASTAVA TECHNIQUE: Multiple images of the right upper quadrant were obtained. FINDINGS: LIVER: Parenchyma is homogeneous with no focal mass noted. GALLBLADDER: Gallbladder is normally distended and contains multiple echogenic foci floating within the bile consistent with multiple stones. Gallbladder wall is mildly thickened at 4 mm. There is no pericholecystic fluid. Science Manager indicates that the patient was not tender on scanning over the gallbladder. BILIARY TREE: There is no biliary ductal dilatation. Common duct measures 4 mm in diameter. PANCREAS: The visualized pancreas is unremarkable in appearance. RIGHT KIDNEY: Right kidney is 11.1 cm in length. Parenchymal echogenicity is normal and there is no hydronephrosis. IMPRESSION: Multiple small stones in the gallbladder Gallbladder wall is mildly thickened diffusely but there is no pericholecystic fluid and the patient did not indicate tenderness when scanning was performed over the gallbladder. Findings are less likely to represent acute cholecystitis but could be related to chronic cholecystitis or hyperplastic cholecystosis Electronically signed by: JUAN J GUTIERREZ MD, TONJA [facility] Bariatric Surgery - Follow-U [facility] 06-19-2022 Bariatric Surgery - Follow-Up Diagnoses/Problems Assessed Bariatric surgery status (V45.86) (Z98.84) 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) Patient Discussion/Summary Plan: Instructions / Recommendations: You should be drinking at least 60 oz of noncaffeinated fluid daily. Avoid carbonated beverages and those with sugar such as juices. You should be getting around 60 g of protein daily. Try to get as much of this through solid food as possible. Avoid shakes and use them when you are in a iqbal only. You should plan your meals for the week. You should make grocery lists and pack your lunches. Avoid fast food and picking convenience foods. Try to only eat what you have planned or packed. Do not skip meals. You will not be able to eat a large volume at any one meal. Therefore you will need to eat your protein and vegetables through the day. Aim for 3 meals and 2 snacks daily. Do not eat and drink at the same time. Eat 3 meals and 2 snacks daily. Eat your protein first, vegetables second and starch last. Set alarms to remind you to eat and drink throughout the day. After this surgery many patients do not feel hungry. By setting alarms you will remember it is time to eat or drink. Try to eat on this schedule to avoid weakness and malnutrition. Remember to take your vitamin supplements as directed. If you have any questions or concerns regarding your vitamins, please contact the conductor freight. Remember to take your multivitamins 2 times daily, once in the morning and once in the evening. Take your calcium 2-3 times daily, at least 2 hours apart from the multivitamin. You need to increase your daily exercise. Your goal is 60 minutes/day. This is part of a healthy lifestyle. You can try walking, swimming, going to a local gym, or even chair dancing! The more movement you have in your day, the healthier you will feel. Once you reach 60 minutes then increase the intensity of your exercise. Come to support groups. The schedule is online. Instructed to call the office at [phone] for concerns, questions, or problems. The patient was instructed to follow up in 6 weeks. You are doing great six weeks s/p VSG Remember the Rules of 30 and 60. Remember to increase your fluids and protein to goals Do not eat and drink at the same time. Advance your diet according to the diet guidelines to regular food. See the conductor freight as scheduled regularly. Slowly increase your exercise and activity, as you get all your protein you will be able to have more energy. Take your omeprazole, open the capsule and sprinkle onto applesauce. Do not swallow whole. Take your Multivitamin, B12 and calcium tablets. Follow-up in 6 weeks for your 3 month visit, we will draw labs at that time. Provider Impressions Patient is doing well six weeks s/p SG no acute issues takes supplements does regular exercise no pain or GERD on PPI Recs: doing well No acute issues advised to continue Diet, increase exercise, FU with dietitian continue vitamin supplementation, PPI support groups FU 6 weeks Chief Complaint The patient is being seen for post operative visit. The patient is being seen today for a 6 week post-op visit. Type of surgery: Sleeve Gastrectomy . Surgery date: 05/13/2022. An interactive audio and video telecommunication system which permits real time communications between the patient (at the originating site) and provider (at the distant site) was utilized to provide this telehealth service. Verbal consent was requested and obtained from BELEM LAWLER on this date, 06/17/2022 04:22 PM , for a telehealth visit. 6 week post op visit. Sleeve Gastrectomy 05/13/22 Adult Risk Screening Tobacco Screening: Has not used tobacco in the past 6 months. History of Present Illness Type of Surgery: lap sleeve gastrectomy, surgery Date: 05/13/2022. Weight:. Initial weight: 295 lbs. Last visit weight: 286 lbs. Current weight: 250 lbs. Total weight lost: 45 lbs. Trinity weight 124 lbs. Target body weight 167 lbs. Severity of obesity is Class 3 which is a BMI of greater than or equal to 40. Food: Breakfast: 1 egg with sauteed veggies, turkey sausage crumble, Snack: 1/2 cup SF pudding, Lunch: veggie chicken bits (3), veggie tots (3), Snack: premier protein, Dinner: veggie chicken bits (3), veggie tots (3), does not drink carbonated beverage Time to eat meals: 15-20 minutes Fluid intake: 64 oz. Diet Stage: soft food. Exercise frequency: patient exercises daily . 3 x week at gym, daily walking. Exercise includes walking . 1-2 mile walks daily, 20 min treadmil, 20 min bike. The patient exercises for 40 minutes per day. Symptoms: The patient reports no loss of appetite, no hunger, no nausea, no vomiting, no food intolerance, no constipation, no diarrhea, no dumping syndrome and no abdominal pain. Supplements: taking multivitamins, taking B-12, taking calcium and taking Omeprazole . iron is included in mvi. Comorbidities: anxiety, depres (more content not included)... Normal [facility] Dietition Noteon 06-17-2022 Dietition Note Chief Complaint obesity 6 week postop follow up *Active Problems Abdominal pain (789.00) (R10.9) Anxiety (300.00) (F41.9) Manifesting with easy anger and irritability. Medications restarted 12/12/20 duloxetine. 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) HLD (hyperlipidemia) (272.4) (E78.5) Morbid obesity with BMI of 50.0-59.9, adult (278.01,V85.43) (E66.01,Z68.43) Nausea and vomiting (787.01) (R11.2) Post-op pain (338.18) (G89.18) Post-operative nausea and vomiting (787.01) (R11.2,Z98.890) Pre-bariatric surgery nutrition evaluation (V65.3) (Z71.3) Preoperative clearance (V72.84) (Z01.818) Raynaud phenomenon (443.0) (I73.00) 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) Sleep disturbances (780.50) (G47.9) Snoring (786.09) (R06.83) Suspected sleep apnea (781.99) (R29.818) Bariatric surgery status (V45.86) (Z98.84) Past Medical History History of gastric ulcer (V12.79) (Z87.11) Surgical History History of Ankle Surgery History of Colonoscopy History of Diagnostic Esophagogastroduodenoscopy History of Laparoscopic Excision Endometriotic Tissue [place] Family History Family history of Family history of Endometrial carcinoma Family history of coronary artery disease (V17.3) (Z82.49) Social History Never used tobacco (V49.89) (Z78.9) Allergies No Known Drug Allergies Recorded By: Marcia Ahumada; 02/18/2018 3:05:11 PM Current Meds DULoxetine HCl - 60 MG Oral Capsule Delayed Release Particles; TAKE 1 CAPSULE Daily; Therapy: 12Dec2020 to (Evaluate:70Vxb8306) Requested for: 26Wjz1486; Last Rx:[id number] Ordered Rx By: Mima Rodriguez; Dispense: 30 Days ; #:30 Capsule; Refill: 6;For: Anxiety; NEGIN = N; Verified Transmission to [place] [address]; Last Updated By: Cydney IngenicQuentin; 02/27/2022 2:16:01 PM Omeprazole 40 MG Oral Capsule Delayed Release; TAKE 1 CAPSULE Daily Open capsule, sprinkle in SF applesauce or pudding, swallow. DO NOT CHEW; Therapy: 96Xbq9856 to (Last Rx:[id number]) Requested for: 11Nio2695 Ordered Rx By: Brandon Benitez; Dispense: 0 Days ; #:30 Capsule; Refill: 5;For: Bariatric surgery status; NEGIN = N; Verified Transmission to [facility] Melatonin 1 MG Oral Tablet; TAKE DIRECTED; Therapy: 99Pxo8191 to Recorded Dispense: 0 Days ; #: Sufficient Tablet; Refill: 0;For: Health Maintenance; NEGIN = N; Record; Last Updated By: Sonia Crockett; 11/27/2019 10:26:08 AM Ondansetron 4 MG Oral Tablet Disintegrating; 1-2 tablets every 6-8 hours as needed for nausea; Therapy: 70Xzo7229 to (Evaluate:32Csq9957) Requested for: 44Pvp8076; Last Rx:[id number] Ordered Rx By: Brandon Benitez; Dispense: 30 Days ; #:60 Tablet; Refill: 0;For: Post-operative nausea and vomiting; NEGIN = N; Verified Transmission to [place] [id number] Biotin 1 MG Oral Capsule; Take one capsule daily; Therapy: 48Pty2263 to Recorded Dispense: 0 Days ; #: Sufficient Capsule; Refill: 0; NEGIN = N; Record; Last Updated By: Sonia Crockett; 11/27/2019 10:26:08 AM Dialyvite Vitamin D3 Max 1.25 MG (74392 UT) Oral Tablet; TK 1 T PO WEEKLY; Therapy: [id number] to Recorded Rx By: JENNIFER; Dispense: 28 Days ; #:4; Refill: 0; NEGIN = N; Record; Last Updated By: Alivia Hager; 03/03/2018 3:02:45 PM Iron 325 (65 Fe) MG Oral Tablet; TAKE 1 TABLET DAILY DIRECTED; Therapy: [id number] to Recorded Dispense: 0 Days ; #: Sufficient Tablet; Refill: 0; NEGIN = N; Record; Last Updated By: Sonia Crockett; 11/27/2019 10:17:05 AM QUEtiapine Fumarate 25 MG Oral Tablet; Therapy: 36Rhc2142 to Recorded Dispense: 30 Days ; #:30; Refill: 0; NEGIN = N; Record; Last Updated By: Rosa Winston; 02/27/2022 1:45:32 PM Provider Impressions Surgery Date: 05/13/22 Surgeon: Ami Procedure: sleeve gastrectomy ASSESSMENT: Current weight pounds: 250.0 Ht: 61.8 in. BMI: 46.0 Previous weight pounds: 262.0 8.18. Initial start weight pounds: 309.0 09/25/21 EBW pounds: 177.0 Total weight change pounds: 59.0 %EBW Lost: 33.3% PROGRESS: Nutrition Interventions for last encounter (date): 1.continue to work on increasing your protein intake to reach your goal. Continue to drink your protein shakes to meet your goal of 60-70 g of protein per day. Begin measuring how much protein you can eat on the soft diet so that you know when to start weaning off of your protein shakes. 2.Continue to work on increasing your fluid intake to reach your goal of 64 oz daily, 3.Begin no drinking 30 min before, during the meal and for 30 minutes after the meal when you start purees. 4.Continue to exercise 5.Advance to the puree diet on May 27 for 2 weeks, then soft food on Jun 10 for 2 weeks. i will furnace combination analyst you 06/09 to review the soft food phase. 6.Remember to eat slowly and chew thoroughly 7.Try one new food at a time to test for any intolerances. 8.Continue to (more content not included)... Normal [facility] Tobacco Screening.on 022 Fall risk assessment a) No falls within the last year IT-Mredrib-Fv rma MAC2 303 Work Phone: Tobacco use status [facility] b) No XQ-Uvptcko-Vo rma MAC2 303 Work Phone: Bariatric Surgery - Follow-U [facility] 05-21-2022 Bariatric Surgery - Follow-Up Diagnoses/Problems Assessed Bariatric surgery status (V45.86) (Z98.84) DVT prophylaxis (V07.9) (Z29.9) 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) Patient Discussion/Summary Plan: Instructions / Recommendations: You should be drinking at least 60 oz of noncaffeinated fluid daily. Avoid carbonated beverages and those with sugar such as juices. You should be getting around 60 g of protein daily. Try to get as much of this through solid food as possible. Avoid shakes and use them when you are in a iqbal only. You should plan your meals for the week. You should make grocery lists and pack your lunches. Avoid fast food and picking convenience foods. Try to only eat what you have planned or packed. Do not skip meals. You will not be able to eat a large volume at any one meal. Therefore you will need to eat your protein and vegetables through the day. Aim for 3 meals and 2 snacks daily. Do not eat and drink at the same time. Eat 3 meals and 2 snacks daily. Eat your protein first, vegetables second and starch last. Set alarms to remind you to eat and drink throughout the day. After this surgery many patients do not feel hungry. By setting alarms you will remember it is time to eat or drink. Try to eat on this schedule to avoid weakness and malnutrition. Remember to take your vitamin supplements as directed. If you have any questions or concerns regarding your vitamins, please contact the conductor freight. Remember to take your multivitamins 2 times daily, once in the morning and once in the evening. Take your calcium 2-3 times daily, at least 2 hours apart from the multivitamin. You need to increase your daily exercise. Your goal is 60 minutes/day. This is part of a healthy lifestyle. You can try walking, swimming, going to a local gym, or even chair dancing! The more movement you have in your day, the healthier you will feel. Once you reach 60 minutes then increase the intensity of your exercise. Come to support groups. The schedule is online. Instructed to call the office at [phone] for concerns, questions, or problems. The patient was instructed to follow up in 5 weeks. You are doing great! You may shower, let soap and water run over incisions, pat dry. Things will get easier over time. Remember to increase your fluids and protein to goals Do not eat and drink at the same time. Advance your diet to full liquids/pureed foods according to the diet guidelines. See the conductor freight as must as you need too. Slowly increase your exercise and activity, as you get all your protein you will be able to have more energy. Take your omeprazole, open the capsule and sprinkle onto applesauce. Do not swallow whole. Take your Multivitamin, B12 and calcium tablets. Follow-up in 5 weeks for your 6 week post op visit. Provider Impressions Patient denies any N,V,F,D,CP or SOB. Tolerating liquid diet ambulating and eliminating well pain under control incisions healing well no sign of infection taking Vitamins and PPI completed one week course of xarelto imp: doing well recs: advance diet as advised advance activity as advised cont Vitamin supplementation, PPI FU with dietitian RTC 5 weeks. Chief Complaint The patient is being seen for post operative visit. The patient is being seen today for a 1 week post-op visit. Type of surgery: Sleeve Gastrectomy . Surgery date: 05/13/2022. An interactive audio and video telecommunication system which permits real time communications between the patient (at the originating site) and provider (at the distant site) was utilized to provide this telehealth service. Verbal consent was requested and obtained from BELEM LAWLER on this date, 05/21/2022 08:30 AM , for a telehealth visit. 1 week post op visit. Sleeve Gastrectomy 05/13/22 History of Present Illness Type of Surgery: lap sleeve gastrectomy, surgery Date: 05/13/2022. Weight:. Initial weight: 295 lbs. Last visit weight: 286 lbs. Trinity weight 124 lbs. Target body weight 167 lbs. Severity of obesity is Class 3 which is a BMI of greater than or equal to 40. Food: does not drink carbonated beverage Fluid intake: 48-52 oz. Diet Stage: liquid. Symptoms: The patient reports loss of appetite, nausea and abdominal pain, but no hunger, no vomiting and no food intolerance. Supplements: taking Omeprazole. Comorbidities: anxiety, depressed mood and high cholesterol. 40 year old female presenting today for routine 1 week post operative visit. Patient is s/p sleeve gastrectomy 05/13/2022. Patient has approximate BMI of 53 with related comorbidities of Obesity, Anxiety/Depression (managed by Dr. Gerry Steward), Hyperlipidemia. Patient unable to tolerate self injection of Lovenox. Was prescribed 1 week OAC upon discharge. Review of Systems Constitutional: no chills and no fever. Eyes: no blurred vision and no eyesight problems. ENT: no hearing loss, no nasal congestion, no nasal discharge, no hoarseness (more content not included)... Normal [facility] Dietition Noteon 05-21-2022 Dietition Note Chief Complaint obesity 1 week postop follow up *Active Problems Abdominal pain (789.00) (R10.9) Anxiety (300.00) (F41.9) Manifesting with easy anger and irritability. Medications restarted 12/12/20 duloxetine. 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) HLD (hyperlipidemia) (272.4) (E78.5) Nausea and vomiting (787.01) (R11.2) Pre-bariatric surgery nutrition evaluation (V65.3) (Z71.3) Preoperative clearance (V72.84) (Z01.818) Raynaud phenomenon (443.0) (I73.00) Sleep disturbances (780.50) (G47.9) Snoring (786.09) (R06.83) Suspected sleep apnea (781.99) (R29.818) Morbid obesity with BMI of 50.0-59.9, adult (278.01) (E66.01) Post-operative nausea and vomiting (787.01) (R11.2) Post-op pain (338.18) (G89.18) Past Medical History History of gastric ulcer (V12.79) (Z87.11) Surgical History History of Ankle Surgery History of Colonoscopy History of Diagnostic Esophagogastroduodenoscopy History of Laparoscopic Excision Endometriotic Tissue [place] Family History Family history of Family history of Endometrial carcinoma Family history of coronary artery disease (V17.3) (Z82.49) Social History Never used tobacco (V49.89) (Z78.9) Allergies No Known Drug Allergies Recorded By: Marcia Ahumada; 02/18/2018 3:05:11 PM Current Meds DULoxetine HCl - 60 MG Oral Capsule Delayed Release Particles; TAKE 1 CAPSULE Daily; Therapy: 12Dec2020 to (Evaluate:78Qgi1649) Requested for: 68Njh2849; Last Rx:[id number] Ordered Rx By: Mima Rodriguez; Dispense: 30 Days ; #:30 Capsule; Refill: 6;For: Anxiety; NEGIN = N; Verified Transmission to [place] [address]; Last Updated By: Re5ult; 02/27/2022 2:16:01 PM Omeprazole 40 MG Oral Capsule Delayed Release; TAKE 1 CAPSULE Daily Open capsule, sprinkle in SF applesauce or pudding, swallow. DO NOT CHEW; Therapy: 77Fjt2637 to (Last Rx:98Pkh1392) Requested for: 15Bah7080 Ordered Rx By: Brandon Benitez; Dispense: 0 Days ; #:30 Capsule; Refill: 5;For: Bariatric surgery status; NEGIN = N; Verified Transmission to [place] [address] oxyCODONE HCl - 5 MG/5ML Oral Solution; TAKE 5 ML Every 4 hours PRN pain alternate with tylenol and heating pad; Therapy: 39Hbd9948 to (Evaluate:13May2022) Requested for: 95Dlv6264; Last Rx:[id number] Ordered Rx By: Brandon Benitez; Dispense: 6 Days ; #:180 Milliliter; Refill: 0;For: Bariatric surgery status; NEGIN = N; Verified Transmission to [place] [address]; Last Updated By: Re5ult; 05/21/2022 8:57:29 AM Alcohol Pads 70 % Pad; Wipe area for 15 seconds and allow to dry priot to injecting Enoxaparin; Therapy: 75Ida2788 to (Evaluate:26May2022) Requested for: 22Zdv1064; Last Rx:[id number] Ordered Rx By: Brandon Benitez; Dispense: 28 Days ; #:50 Pad; Refill: 0;For: DVT prophylaxis; NEGIN = N; Verified Transmission to [place] [address] Enoxaparin Sodium 60 MG/0.6ML Injection Solution Prefilled Syringe; INJECT 0.6 ML Daily Inject one syringe subQ daily for 28 days post op. Rotate injection sites; Therapy: 86Tks2542 to (Evaluate:06Btp9808) Requested for: 15May2022; Last Rx:[id number] Ordered Rx By: Brandon Benitez; Dispense: 28 Days ; #:28 X 0.6 ML Syringe; Refill: 0;For: DVT prophylaxis; NEGIN = N; Verified Transmission to [facility] Sharps Container; please give patient a sharps container with her Lovenox; Therapy: 78Irm2380 to (Last Rx:32Tek7942) Requested for: 94Mox5694 Ordered Rx By: Brandon Benitez; Dispense: 0 Days ; #:1 Each; Refill: 1;For: DVT prophylaxis; NEGIN = N; Verified Transmission to [facility] Melatonin 1 MG Oral Tablet; TAKE DIRECTED; Therapy: 98Kqh8675 to Recorded Dispense: 0 Days ; #: Sufficient Tablet; Refill: 0;For: Health Maintenance; NEGIN = N; Record; Last Updated By: Sonia Crockett; 11/27/2019 10:26:08 AM Ondansetron 4 MG Oral Tablet Disintegrating; 1-2 tablets every 6-8 hours as needed for nausea; Therapy: 18Lys4989 to (Evaluate:00Kcu3077) Requested for: 21Kvj1520; Last Rx:[id number] Ordered Rx By: Brandon Benitez; Dispense: 30 Days ; #:60 Tablet; Refill: 0;For: Post-operative nausea and vomiting; NEGIN = N; Verified Transmission to [facility] 1448 Biotin 1 MG Oral Capsule; Take one capsule daily; Therapy: 02Jjp2994 to Recorded Dispense: 0 Days ; #: Sufficient Capsule; Refill: 0; NEGIN = N; Record; Last Updated By: Sonia Crockett; 11/27/2019 10:26:08 AM Dialyvite Vitamin D3 Max 1.25 MG (53505 UT) Oral Tablet; TK 1 T PO WEEKLY; Therapy: 32Bsv3536 to Recorded Rx By: JENNIFER; Dispense: 28 Days ; #:4; Refill: 0; NEGIN = N; Record; Last Updated By: Alivia Hager; 03/03/2018 3:02:45 PM Iron 325 (65 Fe) MG Oral Tablet; TAKE 1 TABLET DAILY DIRECTED; Therapy: 53Apc7388 to Recorded Dispense: 0 Days ; #: Sufficient Tablet; Refill: 0; (more content not included)... Normal [facility]works Complete Blood Count + Diffe rentialon 05-14-2022 Basophils/100 WBC (Bld) 0.1 % 0.0 - 2.0 GZ-Kcwovip-Ol rma [facility] 303 Work Phone: Erythrocyte distribution width (RBC) [Ratio] 13.4 % See Below QZ-Okipgfl-Wx rma [facility] Work Phone: Comment on above: Reference Range: 11. 5 - 14.5 Hematocrit (Bld) [Volume fraction] 39.1 % See Below VZ-Bhlikvu-Sp rma [facility] Work Phone: Comment on above: Reference Range: 36. 0 - 46.0 Hemoglobin (Bld) [Mass/Vol] 12.1 g/dL See Below EX-Ekskctf-Rr rma [facility] 303 Work Phone: Comment on above: Reference Range: 12. 0 - 16.0 Lymphocytes/100 WBC (Bld) 12.1 % See Below JX-Prmzcsx-Sb rma [facility] 303 Work Phone: Comment on above: Reference Range: 13. 0 - 44.0 MCHC (RBC) [Mass/Vol] 30.9 g/dL below low threshold See Below VT-Dtbwaue-Nf rma [facility] Work Phone: Comment on above: Reference Range: 32. 0 - 36.0 MCV (RBC) [Entitic vol] 88 fL 80 - 100 NT-Lhdlaxy-Wo rma [facility] 303 Work Phone: Monocytes/100 WBC (Bld) 2.7 % 2.0 - 10.0 JM-Gmbnskc-Pq rma [facility] 303 Work Phone: Neutrophils/100 WBC (Bld) 84.7 % See Below WT-Uuqafwv-Fh rma [facility] 303 Work Phone: Comment on above: Reference Range: 40. 0 - 80.0 Platelets (Bld) [#/Vol] 257 10*3/uL 150 - 450 IC-Kcixtyp-Ku rma [facility] 303 Work Phone: RBC (Bld) [#/Vol] 4.44 {x10E12/L} See Below MG -Surgery-Pa rma [facility] Work Phone: Comment on above: Reference Range: 4.0 0 - 5.20 WBC (Bld) [#/Vol] 8.0 10*3/uL 4.4 - 11.3 MG-Kisha evon-Pa rma [facility] 303 Work Phone: Complete Blood Count + Differential 0.01 {x10E9/L} See Below XS-Pyjmvib-Bb rma [facility] Work Phone: Comment on above: Reference Range: 0.0 0 - 0.10 Complete Blood Count + Differential 0.00 {x10E9/L} See Below PM-Uhbqzke-Ta rma [facility] 303 Work Phone: Comment on above: Reference Range: 0.0 0 - 0.70 Complete Blood Count + Differential 0.22 {x10E9/L} See Below JP-Sdalwyw-Ux rma [facility] 303 Work Phone: Comment on above: Reference Range: 0.1 0 - 1.00 Complete Blood Count + Differential 0.97 {x10E9/L} below low threshold See Below QZ-Uaszakn-Vy rma [facility] Work Phone: Comment on above: Reference Range: 1.2 0 - 4.80 Complete Blood Count + Differential 6.81 {x10E9/L} See Below WC-Efdqdni-Fd rma [facility] Work Phone: Comment on above: Reference Range: 1.2 0 - 7.70 Complete Blood Count + Differential 0.0 % 0.0 - 6.0 YX-Pcyqcuo-Vf rma [facility] 303 Work Phone: Complete Blood Count + Differential 0.4 % 0.0 - 0.9 AC-Wuadcvv-Iy rma [facility] Work Phone: Comment on above: Immature Granulocyte Count (IG) includes promyelocytes, myelocytes and metamyelocytes but does not include bands. Percent differential counts (%) should be interpreted in the context of the absolute cell counts (cells/L). Complete Blood Count + Differential 0.0 {/100_WBC} 0.0 - 0.0 AN-Chjiqkw-Oa rma [facility] 303 Work Phone: HCG, Beta Quantitativeon HCG.beta subunit Qn 4 m[IU]/mL RT-Fdmndej-Nv rma [place] [address] Work Phone: Comment on above: Low-level positive H CG results can be seen in early , in [place]- or post-menopausal females due to normal pituitary HCG production, or with analytic interference. Repeat testing in 48-72 hours can aid in assessing for as results should double in this time period. FSH measurement is recommended in [place]- or post-menopausal females as concurrent elevation of FSH can support pituitary production as the source of the HCG elevation.. Total HCG measurement is performed using the Myr[employer] [place] Access Immunoassay which detects intact HCG and free beta HCG subunit. This test is not indicated for use as a tumor marker. HCG testing is performed using a different test methodology at [facility] than other [facility]. Direct result comparison should only be made within the same method. REF VALUESNON FEMALE <5MALES <5 Laboratory - Chemistry and C hemistry - challengeon 05-14-2022 Albumin BCP dye [Mass/Vol] 3.9 g/dL 3.4 - 5.0 HE-Jhiipmj-Kd rma [place] [address] Work Phone: ALP [Catalytic activity/Vol] 69 U/L 33 - 110 IO-Gimfnie-Fn rma [place] [address] Work Phone: ALT With P-5'-P [Catalytic activity/Vol] 20 U/L 7 - 45 AC-Lxvhjov-Ue rma [place] [address] Work Phone: Comment on above: Patients treated wit h Sulfasalazine may generate falsely decreased results for ALT. Anion gap [Moles/Vol] 16 mmol/L 10 - 20 HU-Fwchgpx-Bp rma [facility] 303 Work Phone: AST With P-5'-P [Catalytic activity/Vol] 17 U/L 9 - 39 ED-Rhqxizf-Vn rma [place] [address] Work Phone: Bilirubin [Mass/Vol] 0.3 mg/dL 0.0 - 1.2 PA-Mwmdajs-Dx rma [place] [address] Work Phone: Calcium [Mass/Vol] 9.2 mg/dL 8.6 - 10.3 MG-Kisha evon-Pa rma [facility] Work Phone: Chloride [Moles/Vol] 105 mmol/L 98 - 107 OT-Qpywljq-Ht rma [facility] 303 Work Phone: CO2 [Moles/Vol] 20 mmol/L below low threshold 21 - 32 TA-Mtpcblo-Tr rma [facility] 303 Work Phone: Creatinine [Mass/Vol] 0.59 mg/dL See Below IM-Midsjsq-Gz rma [facility] Work Phone: Comment on above: Reference Range: 0.5 0 - 1.05 Glucose [Mass/Vol] 115 mg/dL above high threshold 74 - 99 KO-Wzwjawz-Gf rma [facility] 303 Work Phone: Potassium [Moles/Vol] 4.3 mmol/L 3.5 - 5.3 CH-Kmtvket-Jl rma [facility] 303 Work Phone: Protein [Mass/Vol] 6.5 g/dL 6.4 - 8.2 MG-Kisha evon-Pa rma [facility] 303 Work Phone: Sodium [Moles/Vol] 137 mmol/L 136 - 145 MG-Kisha evon-Pa rma [facility] 303 Work Phone: Urea nitrogen [Mass/Vol] 8 mg/dL 6 - 23 GI-Lcbuklh-Ph rma [facility] Work Phone: No Panel Informationon 05-14 Normal XR-Ojotjyl-Jv rma [facility] Work Phone: >90 >90 NY-Rvxwqyz-Bd rma [facility] Work Phone: Comment on above: CALCULATIONS OF NICK MATED GFR ARE PERFORMED USING THE 2020 CKD-EPI STUDY REFIT EQUATION WITHOUT THE RACE VARIABLE FOR THE IDMS-TRACEABLE CREATININE METHODS.https://jasn.asnjournals.org/content//ASN.2 748355093 No Panel Informationon 05-13 QE-Soqfiiy-Ko rma [facility] Work Phone: [facility] Surgical Pathology Depar tmenton 05-13-2022 [facility] Surgical Pathology Department Name BELEM LAWLER Pathologist: ERIN SHIPMAN M.D. Date of Procedure: 05/13/2022 Date Received: 05/13/2022 Date Reported 05/20/2022 Submitting Physician: BRANDON BENITEZ MD Location: [facility] Other External # FINAL DIAGNOSIS PORTION OF STOMACH, SLEEVE GASTRECTOMY: -- SEGMENT OF STOMACH LINED BY OXYNTIC MUCOSA WITH NO SIGNIFICANT ABNORMALITY. -- NEGATIVE FOR HELICOBACTER. Electronically Signed Out By ERIN SHIPMAN M.D./ZACHARIAH By the signature on this report, the individual or group listed as making the Final Interpretation/Diagnosis certifies that they have reviewed this case. Diagnostic interpretation performed at [place] [address] Clinical History: Morbid obesity. Specimens Submitted As: A: PORTION OF STOMACH Gross Description: Received in formalin, labeled with the patient's name and hospital number and portion of stomach , is an un-oriented portion of stomach with a minimal amount of attached fibroadipose tissue measuring 20 x 3.5 x 3.0 cm. The stomach contains blood. Along one edge are multiple staple lines. The serosal aspect is predominantly smooth, and glistening. The wall measures 1.0 cm in thickness. There is a 5.0 x 4.5 x 3.5 cm denuded area filled with blood clot. The remaining mucosa demonstrates normal rugal folds. Upon palpation of the attached fibroadipose tissue, lymph nodes are not identified. [employer]cob Pipe Supervisor sections are submitted in 3 cassettes. YUDELKAG keg/05/15/2022 [facility] Department of Pathology [id number] [place] [address] Normal [facility] Comment on above: Performed By: #### I KELTON #### [place] [id number] CORONAVIRUS 2019, SCREEN ASY MPTOMATICon 05-12-2022 SARS-CoV-2 (COVID-19) RNA KAYLIN+probe Ql (Unsp spec) Not detected Normal Not Detected [facility] Comment on above: Result Comment: . This assay is designed to detect the N, ORF1ab and/or S genes of SARS-CoV-2 via nucleic acid amplification. A Negative (NOT DETECTED) result does not preclude 2019-nCoV infection since the adequacy of sample collection and/or low viral burden may result in presence of viral nucleic acids below the clinical sensitivity of this test method. Negative (NOT DETECTED) result should not be used as the sole basis for treatment or other patient management decisions. Rather negative results should be combined with clinical observations, patient history, and epidemiological information to make patient management decisions. Fact sheet for providers: https://www.fda.gov/media/845074/download Fact sheet for patients: https://www.fda.gov/media/836939/download This test has received FDA Emergency Use Authorization (EUA) and has been verified by [facility] ([facility]). This test is only authorized for the duration of time that circumstances exist to justify the authorization of the emergency use of in vitro diagnostic tests for the detection of SARS-CoV-2 virus and/or diagnosis of COVID-19 infection under section 564(b)(1) of the Act, 21 U.S.C. 360bbb-3(b)(1), unless the authorization is terminated or revoked sooner. [facility] is certified under CLIA-88 as qualified to perform high complexity testing. Testing is performed in the [facility] laboratories located at [address] [place] [address]. Performed By: #### I KELTON #### [place] [address] Covid 19 Resultson 2 SARS-CoV-2 (COVID-19) RNA KAYLIN+probe Ql (Unsp spec) NEGATIVE COVID-19 Test Coronaviruses are common world-wide and are the cause of many common colds. SARS-COV2 is a new coronavirus that began circulating worldwide in 2019 so we are calling it COVID-19. It has been estimated that four out of five patients with COVID-19 will recover at home without the need for medical attention. Symptoms of COVID-19 may include cough, fever, shortness of breath, loss of taste or smell and other flu-like symptoms including chills, sore muscles, sore throat, and headache. Severe illness is more common in older people and people with other health problems such as high blood pressure, obesity, and immune system problems. If the test is positive, you have COVID-19. You will be contacted by the ordering physicians office and instructed to remain on home isolation, in accordance with CDC guidelines. You may also be contacted by the [facility] to see if any of your close contacts may have been exposed to the virus and need to quarantine. If the test is negative, you likely do not have COVID-19 at this time, but you still may have a different illness that can spread to other people (like Influenza, or the Flu) and could still be at risk for getting COVID-19. We recommend that you stay away from other people to limit the spread of illness until your symptoms are improving and you are fever-free for 24 hours without the use of fever lowering medications such as acetaminophen or ibuprofen. No test is 100% accurate so if you are still concerned you may have COVID-19, talk to your doctor about the need to continue to stay away from others. Medicines Unless your provider told you not to use the following: Acetaminophen (Tylenol and others) is generally safe. Anti-inflammatory medications, such as Ibuprofen (Advil or Motrin) or Naproxen (Aleve) can also be used. Xoli-ekr-cxaynsa cough and cold medicines can be used according to the instructions on the package. Some wsjr-qga-rurbola medicines also contain acetaminophen. Make sure you are not taking more than your recommended dose. For those not hospitalized, there is no specific treatment available for this illness. Antibiotics do not treat Coronaviruses. Follow-Up Follow up with your doctor by scheduling a virtual visit or consider follow-up at one of our urgent care fever clinics. If you are having difficulty breathing, or are very weak and having difficulty standing, this is a medical emergency. Call 911 or have someone take you to the nearest emergency room immediately. If possible, wear a facemask. Additional guidance from the CDC for patients who tested POSITIVE for COVID-19 How to isolate: Isolate yourself in a specific room at home and limit your contact with others. Use a separate bathroom from other members of the household, when possible. Leave home only to get essential medical care. Do not go to work, school or public areas. Avoid using public transportation, ride-sharing, or taxis. Restrict contact with pets and other animals. If you must care for your pet or be around animals while you are sick, wash your hands before and after your interaction and wear a facemask. Make sure that shared spaces in the home have good airflow, such as by an air conditioner or an opened window, weather permitting. Personal Hygiene Procedures: Wear a face mask when in the same room as other people or pets. If a face mask interferes with your breathing, others should wear a mask when sharing space with you. Frequent hand-washing: wash your hands with soap and water for at least 20 seconds. If soap and water are not available, use alcohol-based hand bronze plater. Avoid touching your eyes, nose, and mouth with unwashed hands. Household Hygiene Procedures: Avoid sharing personal household items such as dishes, glassware, cups, eating utensils, towels or bedding with other people or pets in your home. After use, these items should be washed with soap and hot water. Disinfect all high-touch surfaces every day with antibacterial cleaning solutions such as Lysol wipes, bleach, cleansers, etc. High-touch surfaces include tabletops, doorknobs, bathroom fixtures, toilets, phones, keyboards, tablets and bedside tables. Immediately clean any surfaces that may have blood, poop or body fluids on them, using antibacterial cleaning solutions such as Lysol wipes, bleach, cleansers, etc. If clothing or bedding come into contact with blood, poop or body fluids, they should be washed immediately. Follow the directions on the laundry detergent and clothing labels but hot water is recommended when possible. Stopping home isolation precautions: If possible, consult your doctor before stopping home isolation precautions. According to the CDC, you can discontinue home isolation precautions when you have met both of these criteria: Your fever and respiratory symptoms have been gone for 24 chase (more content not included)... Normal [facility] CORONAVIRUS 2019, SCREEN ASY MPTOMATICon 05-11-2022 Lab Specimen Source Nasal, Nasopharyngeal Normal [facility] Comment on above: Performed By: #### I KELTON #### [place] [address] Coronavirus 2019 RNA by PCR, Screening Asymptomticon 05-11-2022 Coronavirus 2019 RNA by PCR, Screening Asymptomtic Not detected Normal See Below WI-Ghokxfi-Kl rma [facility] Work Phone: Comment on above: SOURCE: Nasal, Nasop haryngealReference Range: Not Detected.This assay is designed to detect the N, ORF1ab and/or S genes of SARS-CoV-2 via nucleic acid amplification. A Negative (NOT DETECTED) result does not preclude 2019-nCoV infection since the adequacy of sample collection and/or low viral burden may result in presence of viral nucleic acids below the clinical sensitivity of this test method. Negative (NOT DETECTED) result should not be used as the sole basis for treatment or other patient management decisions. Rather negative results should be combined with clinical observations, patient history, and epidemiological information to make patient management decisions.Fact sheet for providers: https://www.fda.gov/media/009227/downloadFact sheet for patients: https://www.fda.gov/media/700360/downloadThis test has received FDA Emergency Use Authorization (EUA) and has been verified by [facility] ([facility]). This test is only authorized for the duration of time that circumstances exist to justify the authorization of the emergency use of in vitro diagnostic tests for the detection of SARS-CoV-2 virus and/or diagnosis of COVID-19 infection under section 564(b)(1) of the Act, 21 U.S.C. 360bbb-3(b)(1), unless the authorization is terminated or revoked sooner. [facility] is certified under CLIA-88 as qualified to perform high complexity testing. Testing is performed in the [facility] laboratories located at [address] [place] [address]. Complete Blood Count + Diffe rentialon 05-07-2022 Basophils/100 WBC (Bld) 0.7 % 0.0 - 2.0 YN-Dfvxwsy-Eo rma [facility] 303 Work Phone: Erythrocyte distribution width (RBC) [Ratio] 13.4 % See Below IN-Scuuyre-Ks rma [facility] 303 Work Phone: Comment on above: Reference Range: 11. 5 - 14.5 Hematocrit (Bld) [Volume fraction] 39.3 % See Below BX-Umlzqbd-Ro rma [facility] 303 Work Phone: Comment on above: Reference Range: 36. 0 - 46.0 Hemoglobin (Bld) [Mass/Vol] 12.7 g/dL See Below QG-Evyiapo-Ky rma [facility] 303 Work Phone: Comment on above: Reference Range: 12. 0 - 16.0 Lymphocytes/100 WBC (Bld) 34.7 % See Below BK-Cibcmvb-Fp rma [facility] 303 Work Phone: Comment on above: Reference Range: 13. 0 - 44.0 MCHC (RBC) [Mass/Vol] 32.3 g/dL See Below UG-Ezzhncu-Qo rma [facility] 303 Work Phone: Comment on above: Reference Range: 32. 0 - 36.0 MCV (RBC) [Entitic vol] 87 fL 80 - 100 JH-Nvjhedm-Wn rma [facility] 303 Work Phone: Monocytes/100 WBC (Bld) 4.5 % 2.0 - 10.0 SB-Eewnoha-Uk rma [facility] 303 Work Phone: Neutrophils/100 WBC (Bld) 58.3 % See Below SP-Jwtemfk-Fk rma [facility] 303 Work Phone: Comment on above: Reference Range: 40. 0 - 80.0 Platelets (Bld) [#/Vol] 284 10*3/uL 150 - 450 VX-Zyhainy-Oy rma [facility] 303 Work Phone: RBC (Bld) [#/Vol] 4.52 {x10E12/L} See Below MG -Surgery-Pa rma [facility] 303 Work Phone: Comment on above: Reference Range: 4.0 0 - 5.20 WBC (Bld) [#/Vol] 6.0 10*3/uL 4.4 - 11.3 MG-Kisha evon-Pa rma [facility] 303 Work Phone: Complete Blood Count + Differential 0.04 {x10E9/L} See Below QG-Awqsazw-Jr rma [facility] 303 Work Phone: Comment on above: Reference Range: 0.0 0 - 0.10 Complete Blood Count + Differential 0.09 {x10E9/L} See Below OB-Lopjiiw-Kj rma [facility] 303 Work Phone: Comment on above: Reference Range: 0.0 0 - 0.70 Complete Blood Count + Differential 0.27 {x10E9/L} See Below HW-Kubymsr-Sm rma [facility] 303 Work Phone: Comment on above: Reference Range: 0.1 0 - 1.00 Complete Blood Count + Differential 2.09 {x10E9/L} See Below AX-Kdpdprw-Fy rma [facility] 303 Work Phone: Comment on above: Reference Range: 1.2 0 - 4.80 Complete Blood Count + Differential 3.51 {x10E9/L} See Below LG-Siltqcs-Pl rma [facility] 303 Work Phone: Comment on above: Reference Range: 1.2 0 - 7.70 Complete Blood Count + Differential 1.5 % 0.0 - 6.0 IL-Dwgrnsi-Uc rma [facility] 303 Work Phone: Complete Blood Count + Differential 0.3 % 0.0 - 0.9 PI-Nhdbxix-Cv rma [facility] 303 Work Phone: Comment on above: Immature Granulocyte Count (IG) includes promyelocytes, myelocytes and metamyelocytes but does not include bands. Percent differential counts (%) should be interpreted in the context of the absolute cell counts (cells/L). Complete Blood Count + Differential 0.0 {/100_WBC} 0.0 - 0.0 YN-Smnxagz-Pv rma [facility] 303 Work Phone: Laboratory - Blood bankon ABO group Nom (Bld) A DM-Wozujrh-Tc rma [facility] 303 Work Phone: Blood group antibody screen Ql Negative BZ-Dzqtwau-Mx rma [facility] 303 Work Phone: Rh immune globulin screen (Bld) [Interp] Positive BW-Lepddqy-Xf rma [facility] 303 Work Phone: Laboratory - Chemistry and C hemistry - challengeon 05-07-2022 Albumin BCP dye [Mass/Vol] 4.2 g/dL 3.4 - 5.0 TO-Oeljgbm-Ex rma [facility] 303 Work Phone: ALP [Catalytic activity/Vol] 88 U/L 33 - 110 ZR-Iqbfywf-Bp rma MAC[facility] 303 Work Phone: ALT With P-5'-P [Catalytic activity/Vol] 26 U/L 7 - 45 BJ-Ahxuvta-Bw rma MAC[facility] 303 Work Phone: Comment on above: Patients treated wit h Sulfasalazine may generate falsely decreased results for ALT. Anion gap [Moles/Vol] 11 mmol/L 10 - 20 SU-Zqiowwc-Oe rma MAC2 303 Work Phone: AST With P-5'-P [Catalytic activity/Vol] 18 U/L 9 - 39 PL-Cfxocoo-Nx rma MAC2 303 Work Phone: Bilirubin [Mass/Vol] 0.4 mg/dL 0.0 - 1.2 WW-Jmwbdon-Vf rma MAC2 303 Work Phone: Calcium [Mass/Vol] 9.1 mg/dL 8.6 - 10.3 MG-Kisha evon-Pa rma MAC2 303 Work Phone: Chloride [Moles/Vol] 104 mmol/L 98 - 107 QD-Phacyvr-Dv rma MAC2 303 Work Phone: CO2 [Moles/Vol] 27 mmol/L 21 - 32 MG-Surger y-Pa rma MAC2 303 Work Phone: Creatinine [Mass/Vol] 0.70 mg/dL See Below XL-Mmtylnh-Gt rma MAC2 303 Work Phone: Comment on above: Reference Range: 0.5 0 - 1.05 Glucose [Mass/Vol] 106 mg/dL above high threshold 74 - 99 QV-Pilzzby-Pi rma MAC2 303 Work Phone: Potassium [Moles/Vol] 4.1 mmol/L 3.5 - 5.3 RC-Wqfccup-Ba rma MAC2 303 Work Phone: Protein [Mass/Vol] 7.1 g/dL 6.4 - 8.2 MG-Kisha evon-Pa rma MAC2 303 Work Phone: Sodium [Moles/Vol] 138 mmol/L 136 - 145 MG-Kisha evon-Pa rma MAC2 303 Work Phone: Urea nitrogen [Mass/Vol] 16 mg/dL 6 - 23 AK-Crcqbcq-Dt rma [facility] 303 Work Phone: No Panel Informationon 05-07 >90 >90 QR-Ikdvtni-Rm rma [facility] [place]2 303 Work Phone: Comment on above: CALCULATIONS OF NICK MATED GFR ARE PERFORMED USING THE 2020 CKD-EPI STUDY REFIT EQUATION WITHOUT THE RACE VARIABLE FOR THE IDMS-TRACEABLE CREATININE METHODS.https://jasn.asnjournals.org/content//ASN.2 853574827 URINALYSIS WITH CULTURE IF I NDICATEDon 05-07-2022 Color (U) STRAW See Below NK-Lkxcaoz-Fs rma [facility] [place] [place]2 303 Work Phone: Comment on above: Reference Range: STR AW,YELLOW Glucose Ql (U) Negative NEGATIVE MG-Surgery -Pa rma [facility] [place]2 303 Work Phone: Ketones Ql (U) 5 (TRACE) Abnormal NEGATIVE MG-Surgery -Pa rma MAC2 303 Work Phone: Leukocyte esterase Test strip Ql (U) Negative NEGATIVE QI-Bfishkc-Qw rma MAC2 303 Work Phone: pH (U) 6.0 [pH] 5.0 - 8.0 UG-Lgsdvtu-Fh rma [facility] [place]2 303 Work Phone: Protein (U) [Mass/Vol] Negative NEGATIVE YZ-Xtadgtl-Wn rma MAC2 303 Work Phone: RBC (U) [#/Vol] Negative NEGATIVE MG-Surger y-Pa rma MAC2 303 Work Phone: Specific gravity (U) [Rel density] 1.002 1 below low threshold See Below CZ-Svdmzdi-Ls rma MAC2 303 Work Phone: Comment on above: Reference Range: 1.0 05 - 1.035 URINALYSIS WITH CULTURE IF INDICATED Negative NEGATIVE KS-Cjwmvhi-Nx rma MAC2 303 Work Phone: URINALYSIS WITH CULTURE IF INDICATED <2.0 0.0 - 1.9 AW-Wymiutb-Ch rma MAC2 303 Work Phone: URINALYSIS WITH CULTURE IF INDICATED CLEAR CLEAR LP-Ywzdowp-Tc rma [facility] [place]2 303 Work Phone: VITAMIN Aon 03-30-2022 VITAMIN A 26.6 ug/dL Normal 20.1-62.0 [facility] Comment on above: Result Comment: Refe rence intervals for vitamin A determined from [facility] internal studies. Individuals with vitamin A less than 20 ug/dL are considered vitamin A deficient and those with serum concentrations less than 10 ug/dL are considered severely deficient. This test was developed and its performance characteristics determined by [employer]. It has not been cleared or approved by the Food and Drug Administration. Performed By: #### F ERRI #### [place] [address] VIT B1-THIAMINE WHOLE BLDon 03-27-2022 VIT B1-THIAMINE WHOLE BLD 93 nmol/L Normal 70-180 [facility] Comment on above: Result Comment: INTE RPRETIVE INFORMATION: Vitamin B1, Whole Blood This assay measures the concentration of thiamine diphosphate (TDP), the primary active form of vitamin B1. Approximately 90 percent of vitamin B1 present in whole blood is TDP. Thiamine and thiamine monophosphate, which comprise the remaining 10 percent, are not measured. This test was developed and its performance characteristics determined by [employer]. It has not been cleared or approved by the US Food and Drug Administration. This test was performed in a CLIA certified laboratory and is intended for clinical purposes. Performed By: [facility] [address] [place] [address] Health Education Aide: Loida Rouse MD Performed By: #### I BRYSONT #### [address] [address] COPPERon 03-26-2022 COPPER 174 ug/dL High 80-158 [facility] Comment on above: Result Comment: Dete ction Limit = 5 Test(s) 349775-Qnmelq, Serum or Plasma; 792374-Ybqp, Plasma or Serum was developed and its performance characteristics determined by [employer]. It has not been cleared or approved by the Food and Drug Administration. Performed By: #### C OPPR #### [facility] [place], [place] [id number] NICOTINE+METABOLITES,Son 1-FS-NBOAWCAM <2 Normal [facility] Comment on above: Performed By: #### I BRYSONT #### [address] [address] COTININE <2 Normal [facility] Comment on above: Performed By: #### I RONT #### [address] [address] NICOTINE <2 Normal [facility] Comment on above: Result Comment: Cons istent with abstinence from nicotine- containing products for at least 1 week. INTERPRETIVE INFORMATION: Nicotine and Metabolites, Serum or Plasma, Quantitative Methodology: Quantitative Liquid Chromatography-Tandem Mass Spectrometry Positive cutoff: 2 ng/mL For medical purposes only; not valid for forensic use. This test is designed to evaluate recent use of nicotine-containing products. Passive and active exposure cannot be discriminated definitively, although a cutoff of 10 ng/mL cotinine is frequently used for surgery qualification purposes. For smoking cessation programs or compliance testing, the absence of expected drug(s) and/or drug metabolite(s) may indicate non-compliance, inappropriate timing of specimen collection relative to drug administration, poor drug absorption, or limitations of testing. This test cannot distinguish between use of tobacco and purified nicotine products. The concentration value must be greater than or equal to the cutoff to be reported as positive. This test was developed and its performance characteristics determined by [employer]. It has not been cleared or approved by the US Food and Drug Administration. This test was performed in a CLIA certified laboratory and is intended for clinical purposes. Performed By: [facility] [address] [place] [address] Health Education Aide: Loida Rouse MD Performed By: #### I KELTON #### [address] [address] ZINCon 03-26-2022 ZINC 82 ug/dL Normal 44-115 [facility] Comment on above: Result Comment: Dete ction Limit = 5 Test(s) 342428-Qtunnc, Serum or Plasma; 137245-Lqwg, Plasma or Serum was developed and its performance characteristics determined by [facility]. It has not been cleared or approved by the Food and Drug Administration. Performed By: #### Z INC #### [facility] [place], [place] [id number] FENTANYL CONFIRM, URINEon FENTANYL CONFIRM,U <2.5 Normal Cutoff<2.5 [facility] Comment on above: Performed By: #### D RUGR #### [address] [address] NORFENTANYL CONFIRM,U <2.5 Normal Cutoff<2.5 [facility] Comment on above: Result Comment: The performance characteristics of the Fentanyl Confirmation, Urine has been validated by the individual laboratory site where testing is performed. It has not been cleared or approved by the FDA. However the FDA has determined that such clearance or approval is not necessary. Our Laboratory is certified under the Clinical Laboratory Improvement Amendments of 1988 (CLIA) as qualified to perform high complexity clinical laboratory testing. Performed By: #### D RUGR #### [address] [address] FREE T4 INDEXon 03-24-2022 FREE T4 INDEX 2.7 Normal 1.6 - 4.7 [facility] Comment on above: Performed By: #### P TH #### [facility] [address] [place] [address] T3 UPTAKE 37 % Normal 24 - 41 [facility] Comment on above: Performed By: #### P TH #### [facility] [address] [place] [address] T4 [Mass/Vol] 7.2 ug/dL Normal 4.5 - 11.1 [facility] Comment on above: Performed By: #### P TH #### [facility] [address] [place] [address] H. PYLORI BREATH TESTon 03-05 H. PYLORI BREATH TEST Negative Normal NEGATIVE [facility] Comment on above: Result Comment: ANTI MICROBIALS, PROTON PUMP INHIBITORS AND BISMUTH PREPARATIONS ARE KNOWN TO SUPPRESS H. PYLORI AND INGESTION OF THESE WITHIN 2 WEEKS PRIOR TO PERFORMING THE BREATHTEK BUT MAY GIVE FALSE NEGATIVES. THE BREATHTEK UBT SHOULD NOT BE USED UNTIL 4 WEEKS OR MORE AFTER THE END OF TREATMENT FOR THE ERADICATION OF H. PYLORI, EARLIER POST-TREATMENT ASSESSMENT MAY GIVE FALSE NEGATIVES. Performed By: #### B REAT #### [facility] [address] [place] [address] C Reactive Protein, Serumon 03-23-2022 CRP [Mass/Vol] 1.35 mg/dL Abnormal MG-Surgery -Pa rma MAC2 303 Work Phone: Comment on above: REF VALUE< 1.00 C-REACTIVE PROTEINon 022 C-REACTIVE PROTEIN 1.35 mg/dL Abnormal [facility] Comment on above: Result Comment: REF VALUE < 1.00 Performed By: #### F ERRI #### [address] [place] [address] CBC AND DIFFERENTIALon 03-23 Basophils (Bld) [#/Vol] 0.00 10*3/uL Normal 0.00 - 0.10 [facility] Comment on above: Performed By: #### P TH #### [facility] [address] [place] [address] Basophils/100 WBC (Bld) 0.6 % Normal 0.0 - 2.0 [facility] Comment on above: Performed By: #### P TH #### [facility] [address] [place] [address] Eosinophils (Bld) [#/Vol] 0.10 10*3/uL Normal 0.00 - 0.70 [facility] Comment on above: Performed By: #### P TH #### [facility] [address] [place] [address] Eosinophils/100 WBC (Bld) 1.7 % Normal 0.0 - 6.0 [facility] Comment on above: Performed By: #### P TH #### [facility] [address] [place] [address] Erythrocyte distribution width (RBC) [Ratio] 14.1 % Normal 11.5 - 14.5 [facility] Comment on above: Performed By: #### P TH #### [facility] [address] [place] [address] Hematocrit (Bld) [Volume fraction] 38.5 % Normal 36.0 - 46.0 [facility] Comment on above: Performed By: #### P TH #### [facility] [address] [place] [address] Hemoglobin (Bld) [Mass/Vol] 13.1 g/dL Normal 12.0 - 16.0 [facility] Comment on above: Performed By: #### P TH #### [facility] [address] [place] [address] Lymphocytes (Bld) [#/Vol] 1.50 10*3/uL Normal 1.20 - 4.80 [facility] Comment on above: Performed By: #### P TH #### [facility] [address] [place] [address] Lymphocytes/100 WBC (Bld) 27.2 % Normal 13.0 - 44.0 [facility] Comment on above: Performed By: #### P TH #### [facility] [address] [place] [address] MCHC (RBC) [Mass/Vol] 34.0 g/dL Normal 32.0 - 36.0 [facility] Comment on above: Performed By: #### P TH #### [facility] [address] [place] [address] MCV (RBC) [Entitic vol] 83 fL Normal 80 - 100 [facility] Comment on above: Performed By: #### P TH #### [facility] [address] [place] [address] Monocytes (Bld) [#/Vol] 0.20 10*3/uL Normal 0.10 - 1.00 [facility] Comment on above: Performed By: #### P TH #### [facility] [address] [place] [address] Monocytes/100 WBC (Bld) 3.6 % Normal 2.0 - 10.0 [facility] Comment on above: Performed By: #### P TH #### [facility] [address] [place] [address] Neutrophils (Bld) [#/Vol] 3.70 10*3/uL Normal 1.20 - 7.70 [facility] Comment on above: Result Comment: Perc ent differential counts (%) should be interpreted in the context of the absolute cell counts (cells/L). Performed By: #### P TH #### [facility] [address] [place] [address] Neutrophils/100 WBC (Bld) 66.9 % Normal 40.0 - 80.0 [facility] Comment on above: Performed By: #### P TH #### [facility] [address] [place] [address] Platelets (Bld) [#/Vol] 254 10*3/uL Normal 150 - 450 [facility] Comment on above: Performed By: #### P TH #### [facility] [address] [place] [address] RBC 4.67 x10E12/L Normal 4.00 - 5.20 [facility] Comment on above: Performed By: #### P TH #### [facility] [address] [place] [address] WBC (Bld) [#/Vol] 5.5 10*3/uL Normal 4.4 - 11.3 [facility] Comment on above: Performed By: #### P TH #### [facility] [address] [place] [address] COAGULATION SCREENon 06-20-2 022 aPTT Coag (Bld) [Time] 35 s Normal 26 - 39 [facility] Comment on above: Result Comment: THE APTT IS NO LONGER USED FOR MONITORING UNFRACTIONATED HEPARIN THERAPY. FOR MONITORING HEPARIN THERAPY, USE THE HEPARIN ASSAY. Performed By: #### F ERRI #### [address] [address] PT Coag (PPP) [Time] 13.3 s Normal 9.8 - 13.4 [facility] Comment on above: Performed By: #### F ERRI #### [address] [address] PT, INR 1.1 Normal 0.9 - 1.1 [facility] Comment on above: Performed By: #### F ERRI #### [address] [address] COMPREHENSIVE PANELon 03-23- 2021 Albumin [Mass/Vol] 4.1 g/dL Normal 3.4 - 5.0 [facility] Comment on above: Performed By: #### D RUGR #### [address] [address] ALP [Catalytic activity/Vol] 84 U/L Normal 33 - 110 [facility] Comment on above: Performed By: #### D RUGR #### [address] [address] ALT [Catalytic activity/Vol] 13 U/L Normal 7 - 45 [facility] Comment on above: Result Comment: Sayda ents treated with Sulfasalazine may generate falsely decreased results for ALT. Performed By: #### D RUGR #### [address] [address] Anion gap [Moles/Vol] 11 mmol/L Normal 10 - 20 [facility] Comment on above: Performed By: #### D RUGR #### [address] [address] AST [Catalytic activity/Vol] 12 U/L Normal 9 - 39 [facility] Comment on above: Performed By: #### D RUGR #### [address] [address] Bilirubin [Mass/Vol] 0.4 mg/dL Normal 0.0 - 1.2 [facility] Comment on above: Performed By: #### D RUGR #### [address] [address] Calcium [Mass/Vol] 9.0 mg/dL Normal 8.6 - 10.3 [facility] Comment on above: Performed By: #### D RUGR #### [address] [address] Chloride [Moles/Vol] 106 mmol/L Normal 98 - 107 [facility] Comment on above: Performed By: #### D RUGR #### [address] [address] Creatinine [Mass/Vol] 0.68 mg/dL Normal 0.50 - 1.05 [facility] Comment on above: Performed By: #### D RUGR #### [address] [address] eGFR FEMALE >90 Normal >90 [facility] Comment on above: Result Comment: CALC ULATIONS OF ESTIMATED GFR ARE PERFORMED USING THE 2020 CKD-EPI STUDY REFIT EQUATION WITHOUT THE RACE VARIABLE FOR THE IDMS-TRACEABLE CREATININE METHODS. https://jasn.asnjournals.org/content/early//ASN.657256093 8 Performed By: #### D RUGR #### [address] [address] Glucose [Mass/Vol] 93 mg/dL Normal 74 - 99 [facility] Comment on above: Performed By: #### D RUGR #### [address] [address] HCO3 (Bld) [Moles/Vol] 26 mmol/L Normal 21 - 32 [facility] Comment on above: Performed By: #### D RUGR #### [address] [address] Potassium [Moles/Vol] 3.7 mmol/L Normal 3.5 - 5.3 [facility] Comment on above: Performed By: #### D RUGR #### [address] [place] [address] Protein [Mass/Vol] 6.9 g/dL Normal 6.4 - 8.2 [facility] Comment on above: Performed By: #### D RUGR #### [address] [address] Sodium [Moles/Vol] 139 mmol/L Normal 136 - 145 [facility] Comment on above: Performed By: #### D RUGR #### [address] [address] Urea nitrogen [Mass/Vol] 13 mg/dL Normal 6 - 23 [facility] Comment on above: Performed By: #### D RUGR #### [address] [address] Complete Blood Count + Diffe rentialon --2021 Basophils/100 WBC (Bld) 0.6 % 0.0 - 2.0 UT-Pgqpiby-Dy rma MAC2 303 Work Phone: Erythrocyte distribution width (RBC) [Ratio] 14.1 % See Below KM-Otsymyk-Jy rma MAC2 303 Work Phone: Comment on above: Reference Range: 11. 5 - 14.5 Hematocrit (Bld) [Volume fraction] 38.5 % See Below FE-Umokeka-Wb rma MAC2 303 Work Phone: Comment on above: Reference Range: 36. 0 - 46.0 Hemoglobin (Bld) [Mass/Vol] 13.1 g/dL See Below FE-Wpdyolt-Wt rma MAC2 303 Work Phone: Comment on above: Reference Range: 12. 0 - 16.0 Lymphocytes/100 WBC (Bld) 27.2 % See Below UA-Mvhnzzl-Mt rma MAC2 303 Work Phone: Comment on above: Reference Range: 13. 0 - 44.0 MCHC (RBC) [Mass/Vol] 34.0 g/dL See Below GV-Bwjznui-Sa rma MAC2 303 Work Phone: Comment on above: Reference Range: 32. 0 - 36.0 MCV (RBC) [Entitic vol] 83 fL 80 - 100 JT-Wfqeewl-Uc rma MAC2 303 Work Phone: Monocytes/100 WBC (Bld) 3.6 % 2.0 - 10.0 DJ-Vkizdxy-Qw rma MAC2 303 Work Phone: Neutrophils/100 WBC (Bld) 66.9 % See Below QY-Akjefhm-Ud rma MAC2 303 Work Phone: Comment on above: Reference Range: 40. 0 - 80.0 Platelets (Bld) [#/Vol] 254 10*3/uL 150 - 450 PP-Oyqwojo-Vb rma MAC2 303 Work Phone: RBC (Bld) [#/Vol] 4.67 {x10E12/L} See Below MG -Surgery-Pa rma MAC2 303 Work Phone: Comment on above: Reference Range: 4.0 0 - 5.20 WBC (Bld) [#/Vol] 5.5 10*3/uL 4.4 - 11.3 MG-Kisha evon-Pa rma MAC2 303 Work Phone: Complete Blood Count + Differential 0.00 {x10E9/L} See Below JO-Vrotarc-Fb rma MAC2 303 Work Phone: Comment on above: Reference Range: 0.0 0 - 0.10 Complete Blood Count + Differential 0.10 {x10E9/L} See Below WF-Vdvdbyl-Cq rma MAC2 303 Work Phone: Comment on above: Reference Range: 0.0 0 - 0.70 Complete Blood Count + Differential 0.20 {x10E9/L} See Below BK-Mjhvsdc-Oz rma MAC2 303 Work Phone: Comment on above: Reference Range: 0.1 0 - 1.00 Complete Blood Count + Differential 1.50 {x10E9/L} See Below UW-Atirzhf-Pc rma MAC2 303 Work Phone: Comment on above: Reference Range: 1.2 0 - 4.80 Complete Blood Count + Differential 3.70 {x10E9/L} See Below AU-Tlitncj-Vi rma MAC2 303 Work Phone: Comment on above: Reference Range: 1.2 0 - 7.70 Percent differential counts (%) should be interpreted in the context of the absolute cell counts (cells/L). Complete Blood Count + Differential 1.7 % 0.0 - 6.0 XJ-Frqtcqn-Ce rma MAC2 303 Work Phone: Copper, Serumon 03-23-2022 Copper [Mass/Vol] 174 ug/dL above high threshold 80-158 RH-Ixdtovq-Yf rma MAC2 303 Work Phone: Comment on above: Detection Limit = 5T est(s) 321257-Qkyece, Serum or Plasma; 403073-Xzvc, Plasma or Serumwas developed and its performance characteristics determinedby [employer]. It has not been cleared or approved by the Foodand Drug Administration. DRUG SCREEN,URINE WITH REFLE X TO CONFIRMATIONon 03-23-2022 AMPHETAMINE SCREEN,U Negative Normal NEGATIVE [facility] Comment on above: Result Comment: CUTO FF LEVEL: 500 NG/ML Cross-reactivity has been reported with high concentrations of the following drugs: buproprion, chloroquine, chlorpromazine, ephedrine, mephentermine, fenfluramine, phentermine, phenylpropanolamine, pseudoephedrine, and propranolol. Performed By: #### D RUGR #### [place] [address] BARBITURATES SCREEN,U Negative Normal NEGATIVE [facility] Comment on above: Result Comment: CUTO FF LEVEL: 200 NG/ML Performed By: #### D RUGR #### [address] [address] BENZODIAZEPINES SCREEN,U Negative Normal NEGATIVE [facility] Comment on above: Result Comment: CUTO FF LEVEL: 200 NG/ML Performed By: #### D RUGR #### [place] [id number] CANNABINOIDS SCREEN,U Negative Normal NEGATIVE [facility] Comment on above: Result Comment: CUTO FF LEVEL: 50 NG/ML Performed By: #### D RUGR #### [place] [address] COCAINE METABOLITE SCREEN,U Negative Normal NEGATIVE [facility] Comment on above: Result Comment: CUTO FF LEVEL: 150 NG/ML Performed By: #### D RUGR #### [place] [id number] DRUG SCREEN COMMENT SEE BELOW Normal [facility] Comment on above: Result Comment: Drug screen results are presumptive and should not be used to assess compliance with prescribed medication. Definitive confirmatory drug testing has been added to this sample for any positive screen result and will be reported separately. . Toxicology screening results are reported qualitatively. The concentration must be greater than or equal to the cutoff to be reported as positive. The concentration at which the screening test can detect an individual drug or metabolite varies. The absence of expected drug(s) and/or drug metabolite(s) may indicate non-compliance, inappropriate timing of specimen collection relative to drug administration, poor drug absorption, diluted/adulterated urine, or limitations of testing. For medical purposes only; not valid for forensic use. . Interpretive questions should be directed to the laboratory medical directors. Performed By: #### D RUGR #### [place] [address] FENTANYL SCREEN,URINE Positive Abnormal NEGATIVE [facility] Comment on above: Result Comment: CUTO FF LEVEL: 1 NG/ML The performance characteristics of this test have been determined by the individual laboratory site where testing is performed. This test has not been cleared or approved by the FDA; however, the FDA has determined that such clearance is not necessary. Performed By: #### D RUGR #### [place] [id number] METHADONE SCREEN,U Negative Normal NEGATIVE [facility] Comment on above: Result Comment: CUTO FF LEVEL: 150 NG/ML The metabolite H-jjrpl-kwxowcxsbksimv (LAAM) is not detected by this method in concentrations that would be found in the urine of patients on LAAM therapy. Performed By: #### D RUGR #### [place] [address] OPIATES SCREEN,U Negative Normal NEGATIVE [facility] [place] Comment on above: Result Comment: CUTO FF LEVEL: 300 NG/ML The opiate screen does not detect fentanyl, meperidine, or tramadol. Oxycodone is not consistently detected (refer to Oxycodone Screen, Urine result). Performed By: #### D RUGR #### [address] [address] OXYCODONE SCREEN,U Negative Normal NEGATIVE [facility] Comment on above: Result Comment: CUTO FF LEVEL: 100 NG/ML This test will accurately detect both oxycodone and oxymorphone. Performed By: #### D RUGR #### [place] [address] PCP SCREEN,U Negative Normal NEGATIVE [facility] Comment on above: Result Comment: CUTO FF LEVEL: 25 NG/ML Cross-reactivity has been reported with dextromethorphan. Performed By: #### D RUGR #### [address] [address] FERRITINon 03-23-2022 FERRITIN 86 ug/L Normal 8 - 150 [facility] Comment on above: Performed By: #### F ERRI #### [address] [address] FOLATE, SERUMon 03-23-2022 Folate [Mass/Vol] 8.7 ng/mL Normal >5.0 [facility] Comment on above: Result Comment: Low <3.4 Borderline 3.4-5.0 Normal >5.0 . Patients receiving more than 5 mg/day of biotin may have interference in test results. A sample should be taken no sooner than eight hours after previous dose. Contact the testing laboratory for additional information. Performed By: #### F ERRI #### [address] [address] Ferritin, Serumon 03-23-2022 Ferritin [Mass/Vol] 86 ug/L 8 - 150 VP-Hlaqnuy-Gp rma MAC2 303 Work Phone: Folate, Serumon 03-23-2022 Folate [Mass/Vol] 8.7 ng/mL >5.0 MG-Surg any-Pa rma MAC2 303 Work Phone: Comment on above: Low <3.4Borderline 3 .4-5.0Normal >5.0. Patients receiving more than 5 mg/day of biotin may have interference in test results. A sample should be taken no sooner than eight hours after previous dose. Contact the testing laboratory for additional information. HELICOBACTER PYLORI BREATH T ESTon 03-23-2022 CO2 post dose urea Ql (Exhl gas) Negative NEGATIVE VX-Wjswlbr-Iw rma MAC2 303 Work Phone: Comment on above: ANTIMICROBIALS, PROT ON PUMP INHIBITORS ANDBISMUTH PREPARATIONS ARE KNOWN TO SUPPRESSH. PYLORI AND INGESTION OF THESE WITHIN 2WEEKS PRIOR TO PERFORMING THE BREATHTEK BUTMAY GIVE FALSE NEGATIVES.THE BREATHTEK UBT SHOULD NOT BE USED UNTIL4 WEEKS OR MORE AFTER THE END OF TREATMENTFOR THE ERADICATION OF H. PYLORI, ASEARLIER POST-TREATMENT ASSESSMENT MAY GIVEFALSE NEGATIVES. HEMOGLOBIN A1Con 03-23-2022 Glucose [Mass/Vol] 105 mg/dL Normal [facility] Comment on above: Performed By: #### P TH #### [facility] [address] [place] [address] HbA1c (Bld) [Mass fraction] 5.3 % Normal [facility] Comment on above: Result Comment: Diag nosis of Diabetes-Adults Non-Diabetic: < or = 5.6% Increased risk for developing diabetes: 5.7-6.4% Diagnostic of diabetes: > or = 6.5% . Monitoring of Diabetes Age (y) Therapeutic Goal (%) Adults: >18 <7.0 Pediatrics: 13-18 <7.5 7-12 <8.0 0- 6 7.5-8.5 [employer]. Diabetes Care 33(S1), Oct 2009. Performed By: #### P TH #### [facility] [address] [place] [address] Hemoglobin A1Con 03-23-2022 Glucose [Mass/Vol] 105 mg/dL MG-Kisha evon-Pa rma MAC2 303 Work Phone: HbA1c (Bld) [Mass fraction] 5.3 % FV-Vlyxygf-Wg rma MAC2 303 Work Phone: Comment on above: Diagnosis of Diabete s-Adults Non-Diabetic: < or = 5.6% Increased risk for developing diabetes: 5.7-6.4% Diagnostic of diabetes: > or = 6.5%. Monitoring of Diabetes Age (y) Therapeutic Goal (%) Adults: >18 <7.0 Pediatrics: 13-18 <7.5 7-12 <8.0 0- 6 7.5-8.5 [employer]. Diabetes Care 33(S1), Oct 2009. IRON + TIBCon 03-23-2022 % SATURATION 14 % Low 25 - 45 [facility] Comment on above: Performed By: #### F ERRI #### [address] [address] Iron [Mass/Vol] 46 ug/dL Normal 35 - 150 [facility] Comment on above: Performed By: #### F ERRI #### [address] [address] TIBC 339 ug/dL Normal 240 - 445 [facility] Comment on above: Performed By: #### F ERRI #### [address] [address] LIPID PANEL (CORONARY RISK 2 )on 03-23-2022 Cholesterol [Mass/Vol] 172 mg/dL Normal 0 - 199 [facility] Comment on above: Result Comment: . AGE DESIRABLE BORDERLINE HIGH HIGH 0-19 Y 0 - 169 170 - 199 >/= 200 20-24 Y 0 - 189 190 - 224 >/= 225 >24 Y 0 - 199 200 - 239 >/= 240 All ranges are based on fasting samples. Specific therapeutic targets will vary based on patient-specific cardiac risk. . Pediatric guidelines reference:Pediatrics 2011, 128(S5). Adult guidelines reference: NCEP ATPIII Guidelines, FREDDIE 2001, 258:2486-97 . Venipuncture immediately after or during the administration of Metamizole may lead to falsely low results. Testing should be performed immediately prior to Metamizole dosing. Performed By: #### I RONT #### [address] [address] Cholesterol in HDL [Mass/Vol] 43.0 mg/dL Normal [facility] Comment on above: Result Comment: . AGE VERY LOW LOW NORMAL HIGH 0-19 Y < 35 < 40 40-45 ---- 20-24 Y ---- < 40 >45 ---- >24 Y ---- < 40 40-60 >60 . Performed By: #### I KELTON #### [address] [address] Cholesterol in LDL [Mass/Vol] 111 mg/dL High 0 - 99 [facility] Comment on above: Result Comment: . NEAR BORD AGE DESIRABLE OPTIMAL HIGH HIGH VERY HIGH 0-19 Y 0 - 109 --- 110-129 >/= 130 ---- 20-24 Y 0 - 119 --- 120-159 >/= 160 ---- >24 Y 0 - 99 100-129 130-159 160-189 >/=190 . Performed By: #### I KELTON #### [address] [address] Cholesterol in VLDL [Mass/Vol] 18 mg/dL Normal 0 - 40 [facility] Comment on above: Performed By: #### I BRYSONT #### [address] [address] Cholesterol.total/ Cholesterol in HDL [Mass ratio] 4.0 {ratio} Normal [facility] Comment on above: Result Comment: REF VALUES DESIRABLE < 3.4 HIGH RISK > 5.0 Performed By: #### Siobhan MASSEYT #### [address] [address] Triglyceride [Mass/Vol] 88 mg/dL Normal 0 - 149 [facility] Comment on above: Result Comment: . AGE DESIRABLE BORDERLINE HIGH HIGH VERY HIGH 0 D-90 D 19 - 174 ---- ---- ---- 91 D- 9 Y 0 - 74 75 - 99 >/= 100 ---- 10-19 Y 0 - 89 90 - 129 >/= 130 ---- 20-24 Y 0 - 114 115 - 149 >/= 150 ---- >24 Y 0 - 149 150 - 199 200- 499 >/= 500 . Venipuncture immediately after or during the administration of Metamizole may lead to falsely low results. Testing should be performed immediately prior to Metamizole dosing. Performed By: #### I KELTON #### [facility] [address] [place] [address] Laboratory - Chemistry and C hemistry - challengeon 03-23-2022 Albumin BCP dye [Mass/Vol] 4.1 g/dL 3.4 - 5.0 NF-Rqbuzgo-Hr rma MAC2 303 Work Phone: ALP [Catalytic activity/Vol] 84 U/L 33 - 110 TH-Alqawyr-Di rma MAC2 303 Work Phone: ALT With P-5'-P [Catalytic activity/Vol] 13 U/L 7 - 45 YG-Bwwlafu-Ed rma MAC2 303 Work Phone: Comment on above: Patients treated wit h Sulfasalazine may generate falsely decreased results for ALT. Anion gap [Moles/Vol] 11 mmol/L 10 - 20 VE-Lbslkin-Iu rma MAC2 303 Work Phone: AST With P-5'-P [Catalytic activity/Vol] 12 U/L 9 - 39 TP-Jmpymsb-Nr rma MAC2 303 Work Phone: Bilirubin [Mass/Vol] 0.4 mg/dL 0.0 - 1.2 PZ-Yobtfgt-Gl rma MAC2 303 Work Phone: Calcium [Mass/Vol] 9.0 mg/dL 8.6 - 10.3 MG-Kisha evon-Pa rma MAC2 303 Work Phone: Chloride [Moles/Vol] 106 mmol/L 98 - 107 QR-Neowmap-Mx rma MAC2 303 Work Phone: CO2 [Moles/Vol] 26 mmol/L 21 - 32 MG-Surger y-Pa rma MAC2 303 Work Phone: Creatinine [Mass/Vol] 0.68 mg/dL See Below MP-Qpyxfyc-Jx rma MAC2 303 Work Phone: Comment on above: Reference Range: 0.5 0 - 1.05 Glucose [Mass/Vol] 93 mg/dL 74 - 99 MG-Kisha evon-Pa rma MAC2 303 Work Phone: Iron [Mass/Vol] 46 ug/dL 35 - 150 MG-Surger y-Pa rma MAC2 303 Work Phone: Iron binding capacity [Mass/Vol] 339 ug/dL 240 - 445 DH-Uwjqpmx-Yv rma MAC2 303 Work Phone: Potassium [Moles/Vol] 3.7 mmol/L 3.5 - 5.3 YD-Rwbprwj-Pb rma MAC2 303 Work Phone: Protein [Mass/Vol] 6.9 g/dL 6.4 - 8.2 MG-Kisha evon-Pa rma MAC2 303 Work Phone: Sodium [Moles/Vol] 139 mmol/L 136 - 145 MG-Kisha evon-Pa rma MAC2 303 Work Phone: T3RU 37 % 24 - 41 MN-Hxzegpz-La rma MAC2 303 Work Phone: T4 [Mass/Vol] 7.2 ug/dL 4.5 - 11.1 MG-Surgery- Pa rma MAC2 303 Work Phone: Thiamine (Bld) [Mass/Vol] 93 nmol/L 70-180 EG-Bjqoppf-Cp rma MAC2 303 Work Phone: Comment on above: INTERPRETIVE INFORMA TION: Vitamin B1, Whole BloodThis assay measures the concentration of thiamine diphosphate (TDP), the primary active form of vitamin B1. Approximately 90 percent of vitamin B1 present in whole blood is TDP. Thiamine and thiamine monophosphate, which comprise the remaining 10 percent, are not measured.This test was developed and its performance characteristics determined by [employer]. It has not been cleared or approved by the US Food and Drug Administration. This test was performed in a CLIA certified laboratory and is intended for clinical purposes.Performed By: [employer] [place] [address] [id number] Director: Loida Rouse MD Urea nitrogen [Mass/Vol] 13 mg/dL 6 - 23 CO-Ieeyfrf-Qs rma MAC2 303 Work Phone: Laboratory - Coagulationon 0 03-23-2022 aPTT Coag (PPP) [Time] 35 s 26 - 39 KV-Wkxxrap-Mb rma MAC2 303 Work Phone: Comment on above: THE APTT IS NO LONGE R USED FOR MONITORING UNFRACTIONATED HEPARIN THERAPY. FOR MONITORING HEPARIN THERAPY, USE THE HEPARIN ASSAY. INR Coag (PPP) [Relative time] 1.1 {INR} 0.9 - 1.1 RY-Vnpbxhb-Ig rma MAC2 303 Work Phone: PT Coag (PPP) [Time] 13.3 s 9.8 - 13.4 VP-Bcuxjfp-Jt rma MAC2 303 Work Phone: Laboratory - Drug toxicology on 03-23-2022 Amphetamines Screen Ql (U) Negative NEGATIVE JX-Hppogsq-Ee rma [facility]2 303 Work Phone: Comment on above: CUTOFF LEVEL: 500 NG /ML Cross-reactivity has been reported with high concentrations of the following drugs: buproprion, chloroquine, chlorpromazine, ephedrine, mephentermine, fenfluramine, phentermine, phenylpropanolamine, pseudoephedrine, and propranolol. Barbiturates Screen Ql (U) Negative NEGATIVE EF-Mkdigdu-Dq rma [facility]2 303 Work Phone: Comment on above: CUTOFF LEVEL: 200 NG /ML Benzodiazepines Ql (U) Negative NEGATIVE CT-Scetsld-Qg rma MAC2 303 Work Phone: Comment on above: CUTOFF LEVEL: 200 NG /ML Benzoylecgonine Screen Ql (U) Negative NEGATIVE MB-Dvfxcfm-Ni rma MAC2 303 Work Phone: Comment on above: CUTOFF LEVEL: 150 NG /ML Cannabinoids Screen Ql (U) Negative NEGATIVE KH-Lghalax-Bl rma MAC2 303 Work Phone: Comment on above: CUTOFF LEVEL: 50 NG/ ML fentaNYL Confirm (U) [Mass/Vol] <2.5 Cutoff<2.5 UZ-Hflxcie-Dg rma MAC2 303 Work Phone: Methadone Screen Ql (U) Negative NEGATIVE XY-Zdvexgw-Vt rma MAC2 303 Work Phone: Comment on above: CUTOFF LEVEL: 150 NG /ML The metabolite U-hwcbr-gwibjfxmtenvzv (LAAM) is not detected by this method in concentrations that would be found in the urine of patients on LAAM therapy. Norfentanyl Confirm (U) [Mass/Vol] <2.5 Cutoff<2.5 ZO-Mmkteip-Lo rma MAC2 303 Work Phone: Comment on above: The performance jennifer acteristics of the Fentanyl Confirmation, Urine has been validated by the individual laboratory site where testing is performed. It has not been cleared or approved by the FDA. However the FDA has determined that such clearance or approval is not necessary. Our Laboratory is certified under the Clinical Laboratory Improvement Amendments of 1988 (CLIA) as qualified to perform high complexity clinical laboratory testing. Opiates Screen Ql (U) Negative NEGATIVE HK-Bxtgauq-Od rma MAC2 303 Work Phone: Comment on above: CUTOFF LEVEL: 300 NG /ML The opiate screen does not detect fentanyl, meperidine, or tramadol. Oxycodone is not consistently detected (refer to Oxycodone Screen, Urine result). oxyCODONE+oxyMORph one Screen Ql (U) Negative NEGATIVE BS-Jlnnijy-Ya rma MAC2 303 Work Phone: Comment on above: CUTOFF LEVEL: 100 NG /ML This test will accurately detect both oxycodone and oxymorphone. Phencyclidine Ql (U) Negative NEGATIVE HX-Kuqpcww-Si rma MAC2 303 Work Phone: Comment on above: CUTOFF LEVEL: 25 NG/ ML Cross-reactivity has been reported with dextromethorphan. Lipid Panelon 03-23-2022 Cholesterol [Mass/Vol] 172 mg/dL 0 - 199 ZS-Igsvegk-Ro rma MAC2 303 Work Phone: Comment on above: . AGE DESIRABLE BORD CRISS HIGH HIGH 0-19 Y 0 - 169 170 - 199 >/= 200 20-24 Y 0 - 189 190 - 224 >/= 225 >24 Y 0 - 199 200 - 239 >/= 240 All ranges are based on fasting samples. Specific therapeutic targets will vary based on patient-specific cardiac risk.. Pediatric guidelines reference:Pediatrics 2011, 128(S5). Adult guidelines reference: NCEP ATPIII Guidelines, FREDDIE 2001, 258:2486-97. Venipuncture immediately after or during the administration of Metamizole may lead to falsely low results. Testing should be performed immediately prior to Metamizole dosing. Cholesterol in HDL [Mass/Vol] 43.0 mg/dL KS-Gpjwija-Vc rma MAC2 303 Work Phone: Comment on above: . AGE VERY LOW LOW N ORMAL HIGH 0-19 Y < 35 < 40 40-45 ---- 20- 24 Y ---- < 40 >45 ---- >24 Y ---- < 40 40-60 >60. Cholesterol in LDL [Mass/Vol] 111 mg/dL above high threshold 0 - 99 CF-Qzoplop-Rj rma MAC2 303 Work Phone: Comment on above: . NEAR BORD AGE DAWOOD RABLE OPTIMAL HIGH HIGH VERY HIGH 0-19 Y 0 - 109 --- 110-129 >/= 130 ---- 20-24 Y 0 - 119 --- 120-159 >/= 160 ---- >24 Y 0 - 99 100-129 130-159 160-189 >/=190. Cholesterol.total/ Cholesterol in HDL [Mass ratio] 4.0 {ratio} MX-Bzcuvjw-Gg rma MAC2 303 Work Phone: Comment on above: REF VALUESDESIRABLE < 3.4HIGH RISK > 5.0 Triglyceride [Mass/Vol] 88 mg/dL 0 - 149 FE-Scmjewo-Jk rma MAC2 303 Work Phone: Comment on above: . AGE DESIRABLE BORD CRISS HIGH HIGH VERY HIGH 0 D-90 D 19 - 174 ---- ---- ----91 D- 9 Y 0 - 74 75 - 99 >/= 100 ---- 10-19 Y 0 - 89 90 - 129 >/= 130 ---- 20-24 Y 0 - 114 115 - 149 >/= 150 ---- >24 Y 0 - 149 150 - 199 200- 499 >/= 500. Venipuncture immediately after or during the administration of Metamizole may lead to falsely low results. Testing should be performed immediately prior to Metamizole dosing. Lipid Panel 18 mg/dL 0 - 40 MU-Kveafbf-Wo rma MAC2 303 Work Phone: Nicotine+Metabolites, Serumo n 03-23-2022 Cotinine [Mass/Vol] <2 FW-Meiznjz-Sz rma MAC2 303 Work Phone: Nicotine [Mass/Vol] <2 FR-Hhjdkdl-Fi rma MAC2 303 Work Phone: Comment on above: Consistent with abst inence from nicotine-containingproducts for at least 1 week.INTERPRETIVE INFORMATION: Nicotine and Metabolites, Serum or Plasma, QuantitativeMethodology: Quantitative Liquid Chromatography-Tandem Mass SpectrometryPositive cutoff: 2 ng/mLFor medical purposes only; not valid for forensic use. This test is designed to evaluate recent use of nicotine-containing products. Passive and active exposure cannot be discriminated definitively, although a cutoff of 10 ng/mL cotinine is frequently used for surgery qualification purposes. For smoking cessation programs or compliance testing, the absence of expected drug(s) and/or drug metabolite(s) may indicate non-compliance, inappropriate timing of specimen collection relative to drug administration, poor drug absorption, or limitations of testing. This test cannot distinguish between use of tobacco and purified nicotine products. The concentration value must be greater than or equal to the cutoff to be reported as positive. This test was developed and its performance characteristics determined by [employer]. It has not been cleared or approved by the US Food and Drug Administration. This test was performed in a CLIA certified laboratory and is intended for clinical purposes.Performed By: [employer] [place] [id number] Director: Loida Rouse MD Cwemm-9-Iwvlffckyd inine [Mass/Vol] <2 PC-Rlldyty-Ld rma MAC2 303 Work Phone: No Panel Informationon 03-23 >90 >90 HL-Vjqhdfg-Hh rma MAC2 303 Work Phone: Comment on above: CALCULATIONS OF NICK MATED GFR ARE PERFORMED USING THE 2021 CKD-EPI STUDY REFIT EQUATION WITHOUT THE RACE VARIABLE FOR THE IDMS-TRACEABLE CREATININE METHODS.https://jasn.asnjournals.org/content//ASN.2 729506605 Positive Abnormal NEGATIVE MY-Oyqhihi-Le rma MAC2 303 Work Phone: Comment on above: CUTOFF LEVEL: 1 NG/M L The performance characteristics of this test have been determined by the individual laboratory site where testing is performed. This test has not been cleared or approved by the FDA; however, the FDA has determined that such clearance is not necessary. SEE BELOW KU-Ncjdcme-Wx rma MAC2 303 Work Phone: Comment on above: Drug screen results are presumptive and should not be used to assess compliance with prescribed medication. Definitive confirmatory drug testing has been added to this sample for any positive screen result and will be reported separately. .Toxicology screening results are reported qualitatively. The concentration must be greater than or equal to the cutoff to be reported as positive. The concentration at which the screening test can detect an individual drug or metabolite varies. The absence of expected drug(s) and/or drug metabolite(s) may indicate non-compliance, inappropriate timing of specimen collection relative to drug administration, poor drug absorption, diluted/adulterated urine, or limitations of testing. For medical purposes only; not valid for forensic use. .Interpretive questions should be directed to the laboratory medical directors. 2.7 1 1.6 - 4.7 AI-Zcgxyet-Sn rma MAC2 303 Work Phone: 14 % below low threshold 25 - 45 UN-Tzxoscb-Xt rma MAC2 303 Work Phone: PARATHYROID HORMONE,INTACTon 03-23-2022 PARATHYROID HORMONE,INTACT 53.4 pg/mL Normal 18.5 - 88.0 [facility] Comment on above: Performed By: #### P #### [facility] [address] [place] [address] Parathormone Intact, Serumon 03-23-2022 Parathyrin.intact [Mass/Vol] 53.4 pg/mL See Below AL-Llveeko-Bs rma MAC2 303 Work Phone: Comment on above: Reference Range: 18. 5 - 88.0 TSHon 03-23-2022 TSH Qn 1.95 m[IU]/L Normal 0.44 - 3.98 [facility] Comment on above: Result Comment: TSH testing is performed using different testing methodology at [facility] than at other [facility]. Direct result comparisons should only be made within the same method. Performed By: #### P TH #### [facility] [address] [place] [address] TSH - Thyroid Stimulating Ho rmone, Serumon 03-23-2022 TSH Qn 1.95 m[IU]/L See Below SO-Dmohrgq-E a rma MAC2 303 Work Phone: Comment on above: Reference Range: 0.4 4 - 3.98 TSH testing is performed using different testing methodology at [facility] than at [facility]. Direct result comparisons should only be made within the same method. VITAMIN B12on 03-23-2022 Cobalamin (Vitamin B12) [Mass/Vol] 379 pg/mL Normal 211 - 911 [facility] Comment on above: Performed By: #### P TH #### [facility] [address] [place] [address] VITAMIN D, 25-HYDROXYon 03-05 VITAMIN D, 25-HYDROXY 35 ng/mL Normal [facility] Comment on above: Result Comment: . DEFICIENCY: < 20 NG/ML INSUFFICIENCY: 20-29 NG/ML SUFFICIENCY: 30-100 NG/ML THIS ASSAY ACCURATELY QUANTIFIES THE SUM OF VITAMIN D3, 25-HYDROXY AND VIT D2,25-HYDROXY. Performed By: #### F ERRI #### [facility] [address] [place] [address] Vitamin A, Serumon 2 Retinol [Mass/Vol] 26.6 ug/dL 20.1-62.0 MG-Kisha evon-Pa rma MAC2 303 Work Phone: Comment on above: Reference intervals for vitamin A determined from [facility]. Individuals with vitamin A less than 20 ug/dL are consideredvitamin A deficient and those with serum concentrations less than10 ug/dL are considered severely deficient.This test was developed and its performance characteristicsdetermined by [employer]. It has not been cleared or approvedby the Food and Drug Administration. Vitamin B12, Serumon 022 Cobalamin (Vitamin B12) [Mass/Vol] 379 pg/mL 211 - 911 VD-Zcjennv-Nt rma MAC2 303 Work Phone: Vitamin D 25-Hydroxyon 03-23 25-hydroxyvitamin D3 [Mass/Vol] 35 ng/mL GX-Icccnhs-Qm rma MAC2 303 Work Phone: Comment on above: .DEFICIENCY: < 20 NG /MLINSUFFICIENCY: 20-29 NG/MLSUFFICIENCY: 30-100 NG/MLTHIS ASSAY ACCURATELY QUANTIFIES THE SUM OFVITAMIN D3, 25-HYDROXY AND VIT D2,25-HYDROXY. Zinc, Serumon 03-23-2022 Zinc [Mass/Vol] 82 ug/dL 44-115 MG-Surger y-Pa rma MAC2 303 Work Phone: Comment on above: Detection Limit = 5T est(s) 722109-Mwmclw, Serum or Plasma; 154922-Vzkd, Plasma or Serumwas developed and its performance characteristics determinedby [employer]. It has not been cleared or approved by the Foodand Drug Administration. CORONAVIRUS 2019, SCREEN ASY MPTOMATICon 03-10-2022 SARS-CoV-2 (COVID-19) RNA KAYLIN+probe Ql (Unsp spec) Canceled Normal [facility] Comment on above: Order Comment: TEST FERRITIN WAS CANCELLED, 01/16/2023 10:00 UNABLE TO OBTAIN SPECIMEN. Result Comment: . This assay is designed to detect the N, ORF1ab and/or S genes of SARS-CoV-2 via nucleic acid amplification. A Negative (NOT DETECTED) result does not preclude 2019-nCoV infection since the adequacy of sample collection and/or low viral burden may result in presence of viral nucleic acids below the clinical sensitivity of this test method. Negative (NOT DETECTED) result should not be used as the sole basis for treatment or other patient management decisions. Rather negative results should be combined with clinical observations, patient history, and epidemiological information to make patient management decisions. Fact sheet for providers: https://www.fda.gov/media/412343/download Fact sheet for patients: https://www.fda.gov/media/594607/download This test has received FDA Emergency Use Authorization (EUA) and has been verified by [facility] ([facility]). This test is only authorized for the duration of time that circumstances exist to justify the authorization of the emergency use of in vitro diagnostic tests for the detection of SARS-CoV-2 virus and/or diagnosis of COVID-19 infection under section 564(b)(1) of the Act, 21 U.S.C. 360bbb-3(b)(1), unless the authorization is terminated or revoked sooner. [facility] is certified under CLIA-88 as qualified to perform high complexity testing. Testing is performed in the [facility] laboratories located at [address] [place] [address]. Performed By: #### F ERRI #### [place] [address] Ultrasound Limited [place] 02-13-2022 MG Breast Screening Please click on the link to view the study images Normal CP-CBUT-[place] Work Phone: MG Breast Screening Normal NH-NBRG-[place] Work Phone: No Panel Informationon 02-11 CQ-Wosvnec-Et rma MAC2 303 Work Phone: [email or web address] } ZG-YPTH-[place] Work Phone: MX-JUNS-[place] Work Phone: [facility] Surgical Pathology Depar tmenton 02-11-2022 [facility] Surgical Pathology Department Name BELEM LAWLER Pathologist: ALISA INIGUEZ MD Date of Procedure: 02/11/2022 Date Received: 02/11/2022 Date Reported 02/13/2022 Submitting Physician: BRANDON BENITEZ MD Location: [facility] Copy To/Referring/Attending: MIMA RODRIGUEZ MD Other External # FINAL DIAGNOSIS A. ESOPHAGUS, Z-LINE POLYP, COLD SNARE: -- FRAGMENTS OF HYPERPLASTIC GLANDULAR MUCOSA; NEGATIVE FOR INTESTINAL METAPLASIA AND DYSPLASIA. -- FRAGMENT OF SQUAMOUS MUCOSA WITH NO SIGNIFICANT PATHOLOGIC FINDINGS. B. STOMACH, PRE-PYLORIC BIOPSY: -- ANTRAL AND OXYNTIC TYPE GASTRIC MUCOSA WITH REACTIVE GASTROPATHY. -- NEGATIVE FOR HELICOBACTER PYLORI ORGANISMS ON H AND E STAINED SECTIONS. -- SEPARATE FRAGMENTS OF SQUAMOUS MUCOSA WITH NO SIGNIFICANT PATHOLOGIC FINDINGS. Electronically Signed Out By ALISA INIGUEZ MD/HMA By the signature on this report, the individual or group listed as making the Final Interpretation/Diagnosis certifies that they have reviewed this case. Clinical History: GERD B) rule out H.pylori Specimens Submitted As: A: Z-LINE POLYP, COLD SNARE B: PRE-PYLORIC BIOPSY Gross Description: A: Received in formalin, labeled with the patient's name and hospital number and A, Z-line polyp , are multiple fragments of paulino, soft tissue aggregating to 1.2 x 0.7 x 0.3 cm. The specimen is submitted in toto in 2 cassettes. DJO B: Received in formalin, labeled with the patient's name and hospital number and B, prepyloric biopsies , are multiple fragments of paulino, soft tissue aggregating to 0.7 x 0.5 x 0.3 cm. The specimen is submitted in toto in one cassette. DJO djo/02/12/2022 [facility] Department of Pathology [address] [place] [address] Comment on above: Performed By: #### I KELTON #### [place] [address] Upper GI endoscopy 022 Upper GI endoscopy PATIENTNAME Patient Name: Belem Lawler EXAMDATE Procedure Date: 02/11/2022 7:19 AM PATIENTID PATIENTACCOUNTNUM PATIENTDOB Date of : 04/30/1981 ADMITTYPE Admit Type: Outpatient PATIENTROOM Site: [facility] Endoscopy Room 1 ETHNICITY Ethnicity: Not or RACE Race: White PROVDR Attending MD: Brandon Benitez MD ENDOPROCEDURENAME Procedure: Upper GI endoscopy INDICATION Indications: Gastro-esophageal reflux disease, Preoperative assessment for bariatric surgery to treat morbid obesity, obesity PRIMARYPROVIDER Providers: Brandon Benitez MD (Doctor), Susan Chi RN (Nurse) , Heather Larsen, Primary Teaching Assistant EDREFPROVIDER Referring: Mima Rodriguez MD CURRENT_MEDS Medicines: Monitored Anesthesia Care COMPLIC Complications: No immediate complications. ENDOPROCEDURETEXT Procedure: Pre-Anesthesia Assessment: - Prior to the procedure, a History and Physical was performed, and patient medications and allergies were reviewed. The patient's tolerance of previous anesthesia was also reviewed. The risks and benefits of the procedure and the sedation options and risks were discussed with the patient. All questions were answered, and informed consent was obtained. Prior Anticoagulants: The patient has taken no anticoagulant or antiplatelet agents. ASA Grade Assessment: III - A patient with severe systemic disease. After reviewing the risks and benefits, the patient was deemed in satisfactory condition to undergo the procedure. After obtaining informed consent, the endoscope was passed under direct vision. Throughout the procedure, the patient's blood pressure, pulse, and oxygen saturations were monitored continuously. The endoscope was introduced through the mouth, and advanced to the second part of duodenum. The upper GI endoscopy was accomplished without difficulty. The patient tolerated the procedure well. FINDING Findings: The Z-line was irregular and was found 36 cm from the incisors. LA Grade A (one or more mucosal breaks less than 5 mm, not extending between tops of 2 mucosal folds) esophagitis with no bleeding was found 36 cm from the incisors. One 3 mm polyp with no bleeding was found 36 cm from the incisors. Biopsies were taken with a cold forceps for histology. Estimated blood loss was minimal. The gastroesophageal flap valve was visualized endoscopically and classified as Hill Grade II (fold present, opens with respiration). Striped mildly erythematous mucosa without bleeding was found in the gastric antrum. Biopsies were taken with a cold forceps for Helicobacter pylori testing. The ampulla, duodenal bulb, first portion of the duodenum and second portion of the duodenum were normal. EBL Estimated Blood Loss: Estimated blood loss was minimal. IMPRESS Impression: - Z-line irregular, 36 cm from the incisors. - LA Grade A reflux esophagitis with no bleeding. - Esophageal polyp(s) were found. Biopsied. - Gastroesophageal flap valve classified as Hill Grade II (fold present, opens with respiration). - Erythematous mucosa in the antrum. Biopsied. - Normal ampulla, duodenal bulb, first portion of the duodenum and second portion of the duodenum. ENDORECOMMENDATION Recommendation: - Resume previous diet. - Continue present medications. - Await pathology results. CPT_CODES Procedure Code(s): --- Professional --- 85703, Esophagogastroduodenoscopy, flexible, transoral; with biopsy, single or multiple --- Technical --- 75008, Esophagogastroduodenoscopy, flexible, transoral; with biopsy, single or multiple ICD_CODES Diagnosis Code(s): --- Professional --- K22.89, Other specified disease of esophagus K21.00, Gastro-esophageal reflux disease with esophagitis, without bleeding K22.81, Esophageal polyp K31.89, Other diseases of stomach and duodenum Z01.818, Encounter for other preprocedural examination E66.01, Morbid (severe) obesity due to excess calories --- Technical --- K22.89, Other specified disease of esophagus K21.00, Gastro-esophageal reflux disease with esophagitis, without bleeding K22.81, Esophageal polyp K31.89, Other diseases of stomach and duodenum Z01.818, Encounter for other preprocedural examination E66.01, Morbid (severe) obesity due to excess calories CODINGSTMT CPT copyright 2020 [employer]. All rights reserved. The codes documented in this report are preliminary and upon dining server review may be revised to meet current compliance requirements. ATTDRPART Attending Participation: I was present and participated during the entire procedure, including non-hermosillo portions. SIGNATURENAME Brandon Benitez MD SIGNATUREDATE 02/11/2022 8:02:28 AM SIGNATUREONFILEIND This report has been signed electronically. NUMADDENDA Number of Addenda: 0 INITIATEDON Note Initiated On: 02/11/2022 7:19 AM TOTPROCTIME Total (more content not included)... Normal [facility] Blood Pressure Cuff Sizeon 0 02-06-2022 Fall risk assessment a) No falls within the last year [place]-AZPX[facility] Work Phone: Tobacco use status CPHS b) No QQ-KPAU-[place] Work Phone: Blood Pressure Cuff Size Adult HI-DKBX-[place] Work Phone: Electrocardiogram 12 Leadon 02-06-2022 Electrocardiogram 12 Lead Ventricular Rate 70 Atrial Rate 70 P-R Interval 154 QRS Duration 80 Q-T Interval 398 QTC Calculation(Bazett) 429 P Kincheloe 48 R Kincheloe 63 T Kincheloe 41 QRS Count 12 Q Onset 217 P Onset 140 P Offset 198 T Offset 416 QTC Fredericia 419 Diagnosis Class Borderline Abnormal Diagnosis Normal sinus rhythm with sinus arrhythmia Normal ECG No previous ECGs available Confirmed by ROLANDA GASTON MD ([id number]) on 02/11/2022 7:24:06 AM Normal [facility] No Panel Informationon 02-06 [email or web address]?Ret [email or web address]?Patient CG=[id number]&Date= 2&Time=13%3a33%3a52%3a00&Te stType=ECG&Site=1&OutputTyp e=PDF&Ext=PDF FB-BHMX-[place] Work Phone: Normal sinus rhythm with sinus arrhythmia IV-KYPQ-X[place]fq [place] Work Phone: Borderline Abnormal siXisWS [employer] Work Phone: [phone] YE-BSXU-Hwls [place] Work Phone: [phone] OB-PRRK-[place] Work Phone: [phone] RH-OXDS-Em[place]v [place] Work Phone: [phone] IK-NBOX-[place] Work Phone: [phone] BI-PSDK-[place]n [place] Work Phone: 12 1 TP-LSOA-Rjss [place] Work Phone: 41 [phone] PL-SHNG-P[place]gt [place] Work Phone: 63 1 TO-UPHG-[place] Work Phone: 48 1 ZA-ZIBF-Rnqf [place] Work Phone: [phone] SY-QJZU-[place]bl [place] Work Phone: [phone] GB-UACY-Dqlp [place] Work Phone: 80 1 AX-ZBPZ-Qqvx [place] Work Phone: [phone] TG-TGME-[place]h [place] Work Phone: 70 [phone] AZ-WELS-[place]wt [place] Work Phone: CORONAVIRUS 2019, SCREEN ASY MPTOMATICon 02-02-2022 Lab Specimen Source Nasal, Nasopharyngeal Normal [facility] Comment on above: Order Comment: TEST FERRITIN WAS CANCELLED, 01/16/2023 10:00 UNABLE TO OBTAIN SPECIMEN. Performed By: #### F ERRI #### [facility] [address] [place] [address] Mamm - Screening Mammogram w / Tomosynthesison 10-10-2021 MG Breast Screening Normal YF-XRNG-[place] Work Phone: No Panel Informationon 06-27 Nearly every day - 3 MP-W [employer] Work Phone: Several days - 1 MP-WSPC- [place] Work Phone: Over half the days - 2 MP PPTVWSPCDg [employer] Work Phone: Severe Anxiety siXisWSPC-Av on [employer] Work Phone: Extremely difficult siXisWS PC[facility] Work Phone: Comment on above: How difficult have t hose problems made it for you to do your work, take care of things at home, or get along with other people? 16 1 LA-CHOH-Cmvr [place] Work Phone: Comment on above: Over the last two we eks, how often have you been bothered by the following problems? Feeling nervous, anxious, or on edge: Over half the days - 2Not being able to stop or control worrying: Over half the days - 2Worrying too much about different things: Nearly every day - 3Trouble relaxing: Over half the days - 2Being so restless that it's hard to sit still: Several days - 1Becoming easily annoyed or irritable: Nearly every day - 3Feeling afraid as if something awful might happen: Nearly every day - 3 ZOË TITER/CHARLINE PANELon 2019 ANTI-CENTROMERE <0.2 [facility] Comment on above: Result Comment: REF VALUES < 1.0 = NEGATIVE >=1.0 = POSITIVE Performed By: #### E NAP2 #### [facility] [address] [place] [address] ANTI-CHROMATIN <0.2 [facility] Comment on above: Result Comment: REF VALUES < 1.0 = NEGATIVE >=1.0 = POSITIVE Performed By: #### E NAP2 #### [facility] [address] [place] [address] ANTI-DNA [DS] <1.0 [facility] Comment on above: Result Comment: REF VALUES NEGATIVE: <= 4 IU/ML EQUIVOCAL: 5- 9 IU/ML POSITIVE: >=10 IU/ML Performed By: #### E NAP2 #### [facility] [address] [place] [address] ANTI-CHRISTIN-1 <0.2 [facility] Comment on above: Result Comment: REF VALUES < 1.0 = NEGATIVE >=1.0 = POSITIVE Performed By: #### E NAP2 #### [facility] [address] [place] [address] ANTI-RIBOSOMAL P <0.2 [facility] Comment on above: Result Comment: REF VALUES < 1.0 = NEGATIVE >=1.0 = POSITIVE Performed By: #### E NAP2 #### [facility] [address] [place] [address] ANTI-FIELD SALES ENGINEER 0.2 AI [facility] Comment on above: Result Comment: REF VALUES < 1.0 = NEGATIVE >=1.0 = POSITIVE Performed By: #### E NAP2 #### [facility] [address] [place] [address] ANTI-SCL-70 <0.2 Normal [facility] [place] [place] Comment on above: Result Comment: REF VALUES < 1.0 = NEGATIVE >=1.0 = POSITIVE Performed By: #### E NAP2 #### [facility] [address] [place] [address] ANTI-SM <0.2 Normal [facility] [place] [place] Comment on above: Result Comment: REF VALUES < 1.0 = NEGATIVE >=1.0 = POSITIVE Performed By: #### E NAP2 #### [facility] [address] [place] [address] ANTI-SM/FIELD SALES ENGINEER <0.2 Normal [facility] [place] [place] Comment on above: Result Comment: REF VALUES < 1.0 = NEGATIVE >=1.0 = POSITIVE Performed By: #### E NAP2 #### [facility] [address] [place] [address] ANTI-SSA 0.2 AI Normal [facility] [place] [place] Comment on above: Result Comment: REF VALUES < 1.0 = NEGATIVE >=1.0 = POSITIVE Performed By: #### E NAP2 #### [facility] [address] [place] [address] ANTI-SSB <0.2 Normal [facility] [place] [place] Comment on above: Result Comment: REF VALUES < 1.0 = NEGATIVE >=1.0 = POSITIVE Performed By: #### E NAP2 #### [facility] [address] [place] [address] ZOË TITER/CHARLINE PANELon 2019 ZOË PATTERN HOMOGENEOUS Normal [facility] [place] [place] Comment on above: Performed By: #### E NAP2 #### [facility] [address] [place] [address] ZOË TITER 1:80 Normal [facility] [place] [place] Comment on above: Performed By: #### E NAP2 #### [facility] [address] [place] [address] ZOË WITH REFLEX TO ENAon ZOË WITH REFLEX TO CHARLINE Positive Abnormal NEGATIVE [facility] [place] [place] Comment on above: Performed By: #### A NA #### [facility] [address] [place] [address] C Reactive Protein, Serumon 11-27-2019 CRP [Mass/Vol] 1.32 mg/dL Abnormal [facility]-Rheumat olo [facility] [address] Work Phone: Comment on above: REF VALUE< 1.00 C-REACTIVE PROTEINon 020 CRP [Mass/Vol] 1.32 mg/dL Abnormal [facility] [place] [place] Comment on above: Result Comment: REF VALUE < 1.00 Performed By: #### C RP #### [address] [address] CBC AND DIFFERENTIALon 11-27 % AUTOMATED IMMATURE GRAN 0.4 % Normal 0.0 - 0.9 [facility] [place] [place] Comment on above: Result Comment: Loree ture Granulocyte Count (IG) includes promyelocytes, myelocytes and metamyelocytes but does not include bands. Percent differential counts (%) should be interpreted in the context of the absolute cell counts (cells/L). Performed By: #### C BCDF #### [address] [address] Basophils (Bld) [#/Vol] 0.03 10*3/uL Normal 0.00 - 0.10 [facility] [place] [place] Comment on above: Performed By: #### C BCDF #### [address] [address] Basophils/100 WBC (Bld) 0.6 % Normal 0.0 - 2.0 [facility] [place] [place] Comment on above: Performed By: #### C BCDF #### [address] [address] Eosinophils (Bld) [#/Vol] 0.13 10*3/uL Normal 0.00 - 0.70 [facility] [place] [place] Comment on above: Performed By: #### C BCDF #### [address] [address] Eosinophils/100 WBC (Bld) 2.4 % Normal 0.0 - 6.0 [facility] [place] [place] Comment on above: Performed By: #### C BCDF #### [address] [address] Erythrocyte distribution width (RBC) [Ratio] 12.8 % Normal 11.5 - 14.5 [facility] [place] [place] Comment on above: Performed By: #### C BCDF #### [address] [address] Hematocrit (Bld) [Volume fraction] 39.0 % Normal 36.0 - 46.0 [facility] [place] [place] Comment on above: Performed By: #### C BCDF #### [address] [address] Hemoglobin (Bld) [Mass/Vol] 12.7 g/dL Normal 12.0 - 16.0 [facility] [place] [place] Comment on above: Performed By: #### C BCDF #### [address] [address] Lymphocytes (Bld) [#/Vol] 2.08 10*3/uL Normal 1.20 - 4.80 [facility] [place] [place] Comment on above: Performed By: #### C BCDF #### [address] [address] Lymphocytes/100 WBC (Bld) 38.5 % Normal 13.0 - 44.0 [facility] [place] [place] Comment on above: Performed By: #### C BCDF #### [address] [address] MCHC (RBC) [Mass/Vol] 32.6 g/dL Normal 32.0 - 36.0 [facility] [place] [place] Comment on above: Performed By: #### C BCDF #### [address] [address] MCV (RBC) [Entitic vol] 86 fL Normal 80 - 100 [facility] [place] [place] Comment on above: Performed By: #### C BCDF #### [address] [address] Monocytes (Bld) [#/Vol] 0.20 10*3/uL Normal 0.10 - 1.00 [facility] [place] [place] Comment on above: Performed By: #### C BCDF #### [address] [address] Monocytes/100 WBC (Bld) 3.7 % Normal 2.0 - 10.0 [facility] [place] [place] Comment on above: Performed By: #### C BCDF #### [address] [address] Neutrophils (Bld) [#/Vol] 2.94 10*3/uL Normal 1.20 - 7.70 [facility] [place] [place] Comment on above: Performed By: #### C BCDF #### [address] [address] Neutrophils/100 WBC (Bld) 54.4 % Normal 40.0 - 80.0 [facility] [place] [place] Comment on above: Performed By: #### C BCDF #### [address] [address] Nucleated RBC/100 WBC (Bld) [Ratio] 0.0 /100 WBC Normal 0.0 - 0.0 [facility] [place] [place] Comment on above: Performed By: #### C BCDF #### [address] [address] Platelets (Bld) [#/Vol] 236 10*3/uL Normal 150 - 450 [facility] [place] [place] Comment on above: Performed By: #### C BCDF #### [address] [address] RBC (Bld) [#/Vol] 4.52 x10E12/L Normal 4.00 - 5.20 [facility] [place] [place] Comment on above: Performed By: #### C BCDF #### [address] [address] WBC (Bld) [#/Vol] 5.4 10*3/uL Normal 4.4 - 11.3 [facility] [place] Comment on above: Performed By: #### C BCDF #### [address] [address] COMPREHENSIVE PANELon 2019 Albumin [Mass/Vol] 4.4 g/dL Normal 3.4 - 5.0 [facility] [place] Comment on above: Performed By: #### C MP #### [address] [address] ALP [Catalytic activity/Vol] 83 U/L Normal 33 - 110 [facility] [place] [place] Comment on above: Performed By: #### C MP #### [address] [address] ALT [Catalytic activity/Vol] 19 U/L Normal 7 - 45 [facility] [place] [place] Comment on above: Result Comment: Sayda ents treated with Sulfasalazine may generate falsely decreased results for ALT. Performed By: #### C MP #### [address] [address] Anion gap [Moles/Vol] 11 mmol/L Normal 10 - 20 [facility] [place] [place] Comment on above: Performed By: #### C MP #### [address] [address] AST [Catalytic activity/Vol] 14 U/L Normal 9 - 39 [facility] [place] [place] Comment on above: Performed By: #### C MP #### [address] [address] Bilirubin [Mass/Vol] 0.5 mg/dL Normal 0.0 - 1.2 [facility] [place] [place] Comment on above: Performed By: #### C MP #### [address] [address] Calcium [Mass/Vol] 9.2 mg/dL Normal 8.6 - 10.3 [facility] [place] Comment on above: Performed By: #### C MP #### [address] [address] Chloride [Moles/Vol] 103 mmol/L Normal 98 - 107 [facility] [place] [place] Comment on above: Performed By: #### C MP #### [address] [address] Creatinine [Mass/Vol] 0.68 mg/dL Normal 0.50 - 1.05 [facility] [place] [place] Comment on above: Performed By: #### C MP #### [address] [address] GFR- AM. >60 Normal >60 [facility] [place] [place] Comment on above: Result Comment: CALC ULATIONS OF ESTIMATED GFR ARE PERFORMED USING THE MDRD STUDY EQUATION FOR THE IDMS-TRACEABLE CREATININE METHODS. CLIN CHEM 2007;53:766-72 Performed By: #### C MP #### [address] [address] GFR-NON AM. >60 Normal >60 [facility] [place] [place] Comment on above: Performed By: #### C MP #### [address] [address] Glucose [Mass/Vol] 83 mg/dL Normal 74 - 99 [facility] [place] Comment on above: Performed By: #### C MP #### [address] [address] HCO3 (Bld) [Moles/Vol] 28 mmol/L Normal 21 - 32 [facility] [place] [place] Comment on above: Performed By: #### C MP #### [address] [address] Potassium [Moles/Vol] 3.8 mmol/L Normal 3.5 - 5.3 [facility] [place] [place] Comment on above: Performed By: #### C MP #### [address] [address] Protein [Mass/Vol] 7.2 g/dL Normal 6.4 - 8.2 [facility] [place] Comment on above: Performed By: #### C MP #### [address] [address] Sodium [Moles/Vol] 138 mmol/L Normal 136 - 145 [facility] [place] Comment on above: Performed By: #### C MP #### [address] [address] Urea nitrogen [Mass/Vol] 12 mg/dL Normal 6 - 23 [facility] [place] [place] Comment on above: Performed By: #### C MP #### [address] [address] Complete Blood Count + Diffe rentialon 11-27-2019 Basophils (Bld) [#/Vol] 0.03 {x10E9/L} See Below [facility] [address] Work Phone: Comment on above: Reference Range: 0.0 0 - 0.10 Basophils/100 WBC (Bld) 0.6 % 0.0 - 2.0 [facility] Work Phone: Eosinophils (Bld) [#/Vol] 0.13 {x10E9/L} See Below [facility] Work Phone: Comment on above: Reference Range: 0.0 0 - 0.70 Eosinophils/100 WBC (Bld) 2.4 % 0.0 - 6.0 [facility] Work Phone: Erythrocyte distribution width (RBC) [Ratio] 12.8 % See Below [facility] Work Phone: Comment on above: Reference Range: 11. 5 - 14.5 Hematocrit (Bld) [Volume fraction] 39.0 % See Below [facility] Work Phone: Comment on above: Reference Range: 36. 0 - 46.0 Hemoglobin (Bld) [Mass/Vol] 12.7 g/dL See Below [facility] Work Phone: Comment on above: Reference Range: 12. 0 - 16.0 Lymphocytes (Bld) [#/Vol] 2.08 {x10E9/L} See Below [facility] Work Phone: Comment on above: Reference Range: 1.2 0 - 4.80 Lymphocytes/100 WBC (Bld) 38.5 % See Below [facility] Work Phone: Comment on above: Reference Range: 13. 0 - 44.0 MCHC (RBC) [Mass/Vol] 32.6 g/dL See Below [facility] Work Phone: Comment on above: Reference Range: 32. 0 - 36.0 MCV (RBC) [Entitic vol] 86 fL 80 - 100 [facility] Work Phone: Monocytes (Bld) [#/Vol] 0.20 {x10E9/L} See Below [facility] Work Phone: Comment on above: Reference Range: 0.1 0 - 1.00 Monocytes/100 WBC (Bld) 3.7 % 2.0 - 10.0 [facility] Work Phone: Neutrophils (Bld) [#/Vol] 2.94 {x10E9/L} See Below [facility] Work Phone: Comment on above: Reference Range: 1.2 0 - 7.70 Neutrophils/100 WBC (Bld) 54.4 % See Below [facility] Work Phone: Comment on above: Reference Range: 40. 0 - 80.0 Platelets (Bld) [#/Vol] 236 {x10E9/L} 150 - 450 [facility] Work Phone: RBC (Bld) [#/Vol] 4.52 {x10E12/L} See Below [facility] Work Phone: Comment on above: Reference Range: 4.0 0 - 5.20 WBC (Bld) [#/Vol] 0.0 {/100_WBC} 0.0 - 0.0 [facility] Work Phone: WBC (Bld) [#/Vol] 5.4 {x10E9/L} 4.4 - 11.3 [facility] Work Phone: Complete Blood Count + Differential 0.4 % 0.0 - 0.9 [facility] Work Phone: [phone] Comment on above: Immature Granulocyte Count (IG) includes promyelocytes, myelocytes and metamyelocytes but does not include bands. Percent differential counts (%) should be interpreted in the context of the absolute cell counts (cells/L). Metabolic Panelon 11-27-2019 ALP [Catalytic activity/Vol] 83 U/L 33 - 110 [facility] Work Phone: [phone] Anion gap [Moles/Vol] 11 mmol/L 10 - 20 [facility] Work Phone: [phone] Bilirubin [Mass/Vol] 0.5 mg/dL 0.0 - 1.2 [facility] Work Phone: [phone] Calcium [Mass/Vol] 9.2 mg/dL 8.6 - 10.3 [facility] Work Phone: [phone] Chloride [Moles/Vol] 103 mmol/L 98 - 107 [facility] Work Phone: [phone] CO2 [Moles/Vol] 28 mmol/L 21 - 32 [facility] Work Phone: [phone] Creatinine [Mass/Vol] 0.68 mg/dL See Below [facility] Work Phone: [phone] Comment on above: Reference Range: 0.5 0 - 1.05 Glucose [Mass/Vol] 83 mg/dL 74 - 99 [facility] Work Phone: [phone] Potassium [Moles/Vol] 3.8 mmol/L 3.5 - 5.3 [facility] Work Phone: [phone] Protein [Mass/Vol] 7.2 g/dL 6.4 - 8.2 [facility] Work Phone: [phone] Sodium [Moles/Vol] 138 mmol/L 136 - 145 [facility] Work Phone: [phone] Urea nitrogen [Mass/Vol] 12 mg/dL 6 - 23 [facility] Work Phone: Otheron 11-27-2019 Albumin BCP dye [Mass/Vol] 4.4 g/dL 3.4 - 5.0 [facility] Work Phone: [phone] ALT With P-5'-P [Catalytic activity/Vol] 19 U/L 7 - 45 [facility] Work Phone: [phone] Comment on above: Patients treated wit h Sulfasalazine may generate falsely decreased results for ALT. AST With P-5'-P [Catalytic activity/Vol] 14 U/L 9 - 39 [facility] Work Phone: [phone] >60 >60 [facility] Work Phone: [phone] Comment on above: CALCULATIONS OF NICK MATED GFR ARE PERFORMED USING THE MDRD STUDY EQUATION FOR THE IDMS-TRACEABLE CREATININE METHODS. CLIN CHEM 2007;53:766-72 High Severity (HS) [facility] Work Phone: [phone] 6.5 1 [facility] Work Phone: [phone] 15.83 1 [facility] Work Phone: [phone] 6 1 [facility] Work Phone: [phone] 3.33 1 [facility] Work Phone: [phone] SEDIMENTATION RATE, ERYTHROC YTEon 11-27-2019 SEDIMENTATION RATE, ERYTHROCYTE 10 mm/h Normal 0 - 20 [facility] [place] [place] Comment on above: Performed By: #### E SRWS #### [facility] [address] [place] [address] Sedimentation Rate, Erythroc yteon 11-27-2019 ESR (Bld) [Velocity] 10 mm/h 0 - 20 [facility] Work Phone: TOTAL PROTEIN, URINE SPOTon 11-27-2019 CREATININE,URINE 57.0 mg/dL Normal 20.0 - 320.0 [facility] Comment on above: Performed By: #### T PS2 #### [address] [place] [address] T. PROTEIN/CREAT RATIO SEE COMMENT Normal 0.00 - 0.17 [facility] [place] [place] Comment on above: Result Comment: One or more analytes used in this calculation is outside of the analytical measurement range. Calculation cannot be performed. Performed By: #### T PS2 #### [address] [place] [address] TOTAL PROT,URINE SPOT <4 Low 5 - 24 [facility] [place] [place] Comment on above: Performed By: #### T PS2 #### [address] [address] Total Protein, Urine Spoton 11-27-2019 Creatinine (U) [Mass/Vol] 57.0 mg/dL See Below [facility] Work Phone: Comment on above: Reference Range: 20. 0 - 320.0 Protein (U) [Mass/Vol] mg/dL below low threshold 5 - 24 [facility] Work Phone: Protein/Creatinine (U) [Ratio] SEE COMMENT See Below [facility] Work Phone: Comment on above: Reference Range: 0.0 0 - 0.17One or more analytes used in this calculation is outside of the analytical measurement range.Calculation cannot be performed. URINALYSISon 11-27-2019 Appearance (U) HAZY Normal CLEAR [facility] [place], [place] Comment on above: Performed By: #### U A #### [address] [place] [address] Bilirubin (U) [Mass/Vol] Negative Normal NEGATIVE [facility] [place], [place] Comment on above: Performed By: #### U A #### [address] [address] BLOOD Negative Normal NEGATIVE [facility] [place] [place] Comment on above: Performed By: #### U A #### [address] [address] Color (U) YELLOW Normal STRAW,YELLOW [facility] [place], [place] Comment on above: Performed By: #### U A #### [address] [address] Glucose [Mass/Vol] Negative Normal NEGATIVE [facility] [place] Comment on above: Performed By: #### U A #### [address] [address] Ketones Ql (U) Negative Normal NEGATIVE [facility] [place], [place] Comment on above: Performed By: #### U A #### [address] [address] Leukocyte esterase Test strip Ql (U) Negative Normal NEGATIVE [facility] [place] [place] Comment on above: Performed By: #### U A #### [address] [address] Nitrite Ql (U) Negative Normal NEGATIVE [facility] [place] [place] Comment on above: Performed By: #### U A #### [address] [address] pH (Bld) 5.0 Normal 5.0 - 8.0 [facility] [place], [place] Comment on above: Performed By: #### U A #### [address] [address] Protein (U) [Mass/Vol] Negative Normal NEGATIVE [facility] [place] [place] Comment on above: Performed By: #### U A #### [address] [address] Specific gravity (U) [Rel density] 1.010 Normal 1.005 - 1.035 [facility] [place], [place] Comment on above: Performed By: #### U A #### [address] [address] Urobilinogen Qn (U) <2.0 Normal 0.0 - 1.9 [facility] [place], [place] Comment on above: Performed By: #### U A #### [facility] [address] [place] [address] Urinalysison 11-27-2019 Appearance (U) HAZY CLEAR [facility] Work Phone: [phone] Color (U) YELLOW See Below [facility] Work Phone: [phone] Comment on above: Reference Range: STR AW,YELLOW Glucose Ql (U) Negative NEGATIVE [facility] Work Phone: [phone] Ketones Ql (U) Negative NEGATIVE [facility] Work Phone: [phone] Leukocyte esterase Test strip Ql (U) Negative NEGATIVE [facility] Work Phone: [phone] pH (U) 5.0 [pH] 5.0 - 8.0 [facility] Work Phone: [phone] Protein (U) [Mass/Vol] Negative NEGATIVE [facility] Work Phone: [phone] RBC (U) [#/Vol] Negative NEGATIVE [facility] Work Phone: [phone] Specific gravity (U) [Rel density] 1.010 See Below [facility] Work Phone: [phone] Comment on above: Reference Range: 1.0 05 - 1.035 Urinalysis Negative NEGATIVE [facility] Work Phone: [phone] Urinalysis <2.0 0.0 - 1.9 [facility] Work Phone: [phone] PATHOLOGY SPECIMENon 018 PATHOLOGY SPEC Normal [facility] Comment on above: Order Comment: Comme nt: UTERUS AND BILATERAL FALLOPIAN TUBES AND OVARIES Result Comment: Note : Specimens received on or after June:* Reports will be faxed to all physician's office.If you are a physician or have access to [facility]:* Pathology and Cytology reports are located in [facility] in the folder labeled Medical Record Forms.* Reports are also in the Physician Portal.* For assistance locating reports call: (LAB) [phone] Performed By: #### L CBCD ####[facility] [address] [place] [address] CULTURE URINE W CCon 018 CULTURE URINE W CC CBN: YES Specimen Comment: URINE FROM TEAGUE CATHETER INSERTION [place]: MAIN URINE CULTURE NO GROWTH 2 DAYS Normal [facility] Comment on above: Performed By: #### L CBCD ####[facility] [address] [place] [address] OPERATIVE REPORTon 8 OPERATIVE REPORT Name: BELEM LAWLER MMR: [id number]: Tamanna Vargas M.D.DATE OF SURGERY: 04/18/2018ANESTHESIA: She had general endotracheal anesthesia.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 Pneumaticcompression hose were placed prior to start of the procedure. She was takento the OR suite. General anesthesia was administered. She was draped andprepped in normal sterile manner. A time-out was taken confirming the correctpatient, correct procedure, all known medical allergies. Following time-out,a weighted speculum was placed in posterior vagina, a Davenport retractoranteriorly. A single-tooth tenaculum was placed on the anterior lip of thecervix. A [employer] uterine manipulator was placed. My gloves were changed.0.5% Marcaine was injected infraumbilically. A 5 mm incision was made andoptical trocar was introduced. Pneumoperitoneum was infused. Two additionalports were placed at the midaxillary line. The entire pelvis was visualized.She had endometriosis over the posterior peritoneum as well as ovarian cul-de-sac. Pathology was essentially normal. The round ligament was ligated withLigaSure. The anterior leaf of the broad ligament was opened as was theposterior leaf. The infundibulopelvic ligament was ligated with LigaSure.The ascending branch of the uterine artery was ligated as was the transverseportion. All this was accomplished bilaterally. The specimen was removed intoto through the vagina. The vaginal cuff was closed vaginally. We performedcystoscopy with sterile water. Urine was noted to efflux through both theureteral orifices. We changed the gloves again, re-insufflated. The pelvis __[facility] BELEM LAWLER [id number] [place] [address] [id number] 04/30/[address]DICTATING DR: Tamanna Vargas MDOPERATIVE REPORTwas hemostatic. Asad was placed across the entire cuff. The pressure wasdropped down to 3 and there was no evidence of any bleeding. We thereforecompletely removed all of the pneumoperitoneum andclosed the trocar sites. The patient tolerated the procedure and went to PACUin stable condition. Tamanna VARGAS M.D./[facility]/[id number]: 04/18/2018 10:43:27 E/S: Tamanna Vargas MD04/21/18 1021Electronically Signed __[facility] BELEM LAWLER [id number] [place] [address] [id number] 04/30/[address]ATING DR: Tamanna Vargas MDOPERATIVE REPORT Normal [facility] PREG URINE QUALon 04-18-2018 UR HCG QUAL Negative Normal [facility] Comment on above: Order Comment: Naomi oboker: MAIN Performed By: #### L UPREG ####[facility] R[address] [place] [id number] Post Anesthesia Evaluationon 04-18-2018 Post Anesthesia Evaluation [facility] BELEM LAWLER [id number] [facility] [id number] [place] [address] : [birth year]POST ANESTHESIA EVALUATION NOTEService Date: 04/18/18 1532Post Anesthesia Eval NoteProcedure Date04/18/18Post Anesthesia EvalYES: VS in Normal Range, Respiratory Stable, Airway Patent, Cardiovascular Stable,Hydration Status Stable, Mental Status Recovered, Pt Participate in Eval, Pain Controlled,NANDV Controlled.Long Acting Regional AnesthesiaNoAnesthestic ComplicationsNoReport Date 04/18/18Electronically Signed Esig Date Esig Katie Navarrete MD 04/18/18 1533 Normal [facility] CBC AUTOon 04-08-2018 Erythrocyte distribution width Auto Ratio (RBC) 13.8 % Normal 11.5-14.5 [facility] Comment on above: Order Comment: Naomi booker: MAIN Performed By: #### L CBC ####[facility] [address]hc[address] [place] [address] Hematocrit Auto Volume Fraction (Bld) 39.5 % Normal 36.0-48.0 [facility] Comment on above: Order Comment: Naomi s: MAIN Performed By: #### L CBC ####[facility] [address]prq[address]k14[address] [place] [address] Hemoglobin mass conc (Bld) 12.6 g/dL Normal 12.0-15.0 [facility] Comment on above: Order Comment: Naomi booker: MAIN Performed By: #### L CBC ####[facility] [address] [place] [address] MCH Auto Entitic mass (RBC) 27.5 pg Normal 25.4-34.6 [facility] Comment on above: Order Comment: Naomi s: MAIN Performed By: #### L CBC ####[facility] [place] [address] MCHC Auto mass conc (RBC) 31.9 g/dL Normal 30.0-36.0 [facility] Comment on above: Order Comment: Naomi s: MAIN Performed By: #### L CBC ####[facility] [place] [address] MCV Auto Entitic volume (RBC) 86.1 fL Normal 79.0-98.0 [facility] Comment on above: Order Comment: Naomi s: MAIN Performed By: #### L CBC ####[address] [address] Platelet mean volume Auto Entitic volume (Bld) 10.8 fL Normal 8.4-11.9 [facility] Comment on above: Order Comment: Naomi s: MAIN Performed By: #### L CBC ####[address] [address] Platelets Auto #/vol (Bld) 265 10*3/uL Normal 140-440 [facility] Comment on above: Order Comment: Naomi s: MAIN Performed By: #### L CBC ####[facility] [place] [address] RBC Auto #/vol (Bld) 4.59 10*6/uL Normal 3.5-5.5 [facility] Comment on above: Order Comment: Naomi s: MAIN Performed By: #### L CBC ####[facility] [address] [place] [address] WBC Auto #/vol (Bld) 6.7 10*3/uL Normal 3.9-11.0 [facility] Comment on above: Order Comment: Naomi s: MAIN Performed By: #### L CBC ####[facility] [place] [address] History and Physical Nitesh 0 04-08-2018 History and Physical PAT [facility] Pt Name: BELEM LAWLER [id number] [facility] MR # [id number] [place]LE [address] : [birth year]* * * * * * * * History and Physical PAT * * * * * * * *History of Present IllnessDate of Pryzidh31/06/18ource of InformationPatientChief Complaint/Present IllnesHysterectomyHPIPatien t complains of irregular menses over the past year. They've been heavy and lasting 7-10 days. In the past, they only lasted 3-5 days. She has constant pelvic pain. Theseverity varies from 4-10/10. Ultrasound revealed a thickened uterine lining. She has apersonal history of endometriosis, and her mother has a history of endometrial cancer.PROBLEM LISTProblem ListMedical ProblemsAnxiety and depressionEndometriosisHx of iron deficiency anemiaSurgical ProblemsHx of colonoscopyHx of laparoscopyStatus post ORIF of fracture of ankleSocial History ProblemsEx-smokerNo illicit drug useRarely consumes alcoholFamily HistoryMOTHER, , Age 62.Malignant neoplasm of endometriumFATHERFH: heart diseaseFH: HTN (hypertension)Allergies/Matt e MedicationsAllergiesCoded Allergies:NO KNOWN DRUG ALLERGIES (NKDA) (09/16/11)Home Meds ReviewedI have reviewed the patient's Home Medication List.Home Medication List may have been reported by sources other than providers caring for thepatient at the time this document was created. Information may not be all inclusive.Reconcile MedicationsBiotin1,000 MCG TAB.CHEW 1,000 MCG PO DAILY, Ref 0(Reported)Entered as Reported by ROSANA FAM on 03/15/18 1114Last Action: No Recorded ActionEscitalopram Oxalate *(Lexapro *) 20 MG TABLET 20 MG PO DAILY, Ref 0(Reported)Entered as Reported by ROSANA FAM on 03/15/18 1112Last Action: No Recorded Action[IRON]65 MG PO DAILY, Ref 0(Reported)Entered as Reported by ROSANA FAM on 03/15/18 1114Last Action: No Recorded ActionMagnesium Oxide*(Mag-Oxide*) 400 MG TABLET 400 MG PO DAILY, Ref 0(Reported)Entered as Reported by BRENTON ADLER on 04/08/18 1008Last Action: No Recorded ActionMultivitamin(Daily Inna) 1 EACH TABLET 1 EACH PO, Ref 0(Reported)Entered as Reported by ROSANA FAM on 03/15/18 1114Last Action: No Recorded ActionDiscontinued MedicationsMelatonin *3 MG TABLET 3 MG PO DAILYPRN PRN SLEEP, Ref 0(Reported)Discontinued reason: Completed RegimenLast Action: No Recorded ActionReview of SystemsReview of SystemsConstitutionalNEGATI VE: Fever, Chills, Sweaty, Weakness, Weight Loss, Recent Illness.EENTPOSITIVE: Vision Problems (glasses). NEGATIVE: Vision Changes, Sore Throat, DentalProblems, Nasal Congestion, Nasal Drainage, Hearing Loss, Ear Pain, Tinnitus.CVSNEGATIVE: Chest Pain, Palpitations, Shortness of Breath, Dizziness.PulmonaryNEGATIVE : Orthopnea, Dyspnea on Exertion, Hemoptysis, Shortness of Breath, Cough,Pleuritic Pain, Wheezing, Asthma, COPD.GINEGATIVE: Abdominal Pain, Nausea, Vomiting, Diarrhea, Black Stools, Bloody Stools,Hematemesis, Constipation, Tenesmus.GUNEGATIVE: Problems Urinating, Painful Urination, Hematuria.Muscle/LymphNEGAT MAAME: Extremity Pain, Calf Pain, Leg Pain, Neck Pain, Back Pain, Joint Pain, AnkleSwelling, Leg Swelling, Swollen Glands.SkinNEGATIVE: Rash, Lesions.NeuroNEGATIVE: Headache, Fainting, Dizziness, Loss of Sensation, Weakness, Difficulty Walking,Difficulty with Speech.PsychPOSITIVE: Anxiety, Depression. NEGATIVE: Confusion, Hallucinations.EndocrineNEG ATIVE: Weight Loss, Weight Gain, Poor Wound Healing, Neuropathy.Postop Anesthesia ProblemsNoneROS CommentsPt is able to climb a flight of stairs without CP or SOBPhysical ExamVital SignsTemp (C)36.8Ybbuo42Qzotrhtxhsfs7 6Blood Xldhdxgi995/76Pulse-Ox%100H eight - Vkge5Pwohpm6.00Weight - Dq903ZvmabcymsuVvziwyv AppearanceWell Developed/Nourished, Alert, Oriented X 3, Cooperative.HEENTHead Atraumatic, Normocephalic, PERRL, Hearing grossly normal, Mucosa Moist, PatentAirway.NeckSupple, Non tender, Without JVD, Without Thyromegaly.CardiovascularR ate WNL, Rhythm regular.RespiratoryBilatera lly Clear, No Respiratory Distress.NeuroSpeech Clear, Moves all extremities.AbdomenBowel Sounds Present, Abdomen soft, Non-Tender, No distention.ExtremityNo Pedal Edema.Assessment and Plan (PAT)Assessment and PlanAssessment and PlanPatient is a 36-year-old female for total laparoscopic hysterectomy and bilateralsalpingectomy on 04/18/2018. CBC and type and screen per Dr. Vargas's orders. HCG the day ofsurgery.Report Date 04/08/18Electronically Signed Esig Date Esig Ann Hoang 04/08/18 1039 Normal [facility] TYPE AND SCREENon 04-08-2018 BLOOD TYPE Positive Normal [facility] Comment on above: Order Comment: Naomi s: MAINIs patient taking NEGRITO?Has patient had a transplant? Performed By: #### B TS ####[facility] [address] [place] [id number] Post Anesthesia Evaluationon 03-28-2018 Post Anesthesia Evaluation [facility] BELEM LAWLER [id number] [facility] [id number] [place] [address] : 04/30/81POST ANESTHESIA EVALUATION NOTEService Date: 03/28/18 1236Post Anesthesia Eval NoteProcedure Date03/28/18Post Anesthesia EvalYES: VS in Normal Range, Respiratory Stable, Airway Patent, Cardiovascular Stable,Hydration Status Stable, Mental Status Recovered, Pt Participate in Eval, Pain Controlled,NANDV Controlled.Long Acting Regional AnesthesiaNoAnesthestic ComplicationsNoReport Date 03/28/18Electronically Signed Esig Date Esig Tina Chun MD 03/28/18 1237 Normal [facility] CBC AUTOon 03-15-2018 Erythrocyte distribution width Auto Ratio (RBC) 14.3 % Normal 11.5-14.5 [facility] Comment on above: Order Comment: Naomi s: MAIN Performed By: #### L CBC ####[facility] X[address]cmtiynn45402 [place] [address] Hematocrit Auto Volume Fraction (Bld) 37.6 % Normal 36.0-48.0 [facility] Comment on above: Order Comment: Campu s: MAIN Performed By: #### L CBC ####[facility] [address] [place], [place] [address] Hemoglobin mass conc (Bld) 11.7 g/dL Low 12.0-15.0 [facility] Comment on above: Order Comment: Campu s: MAIN Performed By: #### L CBC ####[facility] [address] [place], [place] [address] MCH Auto Entitic mass (RBC) 26.2 pg Normal 25.4-34.6 [facility] Comment on above: Order Comment: Campu s: MAIN Performed By: #### L CBC ####[place] [id number] MCHC Auto mass conc (RBC) 31.1 g/dL Normal 30.0-36.0 [facility] Comment on above: Order Comment: Campu s: MAIN Performed By: #### L CBC ####[place] [id number] MCV Auto Entitic volume (RBC) 84.1 fL Normal 79.0-98.0 [facility] Comment on above: Order Comment: Campu s: MAIN Performed By: #### L CBC ####[place] [id number] Platelet mean volume Auto Entitic volume (Bld) 11.0 fL Normal 8.4-11.9 [facility] Comment on above: Order Comment: Campu s: MAIN Performed By: #### L CBC ####[facility] [address] [place], [place] [address] Platelets Auto #/vol (Bld) 250 10*3/uL Normal 140-440 [facility] Comment on above: Order Comment: Campu s: MAIN Performed By: #### L CBC ####[place] [id number] RBC Auto #/vol (Bld) 4.47 10*6/uL Normal 3.5-5.5 [facility] Comment on above: Order Comment: Campu s: MAIN Performed By: #### L CBC ####[place] [id number] WBC Auto #/vol (Bld) 6.0 10*3/uL Normal 3.9-11.0 [facility] Comment on above: Order Comment: Naomi booker: MAIN Performed By: #### L CBC ####[facility] [address] [place] [address] History and Physical Nitesh 0 03-15-2018 History and Physical PAT [facility] Pt Name: BELEM LAWLER [id number] [facility] MR # [id number] VILLE [address] : [birth year]* * * * * * * * History and Physical PAT * * * * * * * *History of Present IllnessDate of Tbuhrsv18/12/18ource of InformationPatientChief Complaint/Present IllneshysterectomyHPIPt has a history of endometriosis. She has had heavy menses that last 7-10 days (used jeffery 3-5) over the past year. She has constant pelvic pain. The severity varies, 4-10/10.She has thickened uterine lining on ultrasound. Her mother had endometrial cancer.PROBLEM LISTProblem ListMedical ProblemsAnxiety and depressionEndometriosisHx of iron deficiency anemiaSurgical ProblemsHx of colonoscopyHx of laparoscopyStatus post ORIF of fracture of ankleSocial History ProblemsEx-smokerNo illicit drug useRarely consumes alcoholFamily HistoryMOTHER, , Age 62.Malignant neoplasm of endometriumFATHERFH: heart diseaseFH: HTN (hypertension)Allergies/Matt e MedicationsAllergiesCoded Allergies:NO KNOWN DRUG ALLERGIES (NKDA) (09/16/11)Home Meds ReviewedI have reviewed the patient's Home Medication List.Home Medication List may have been reported by sources other than providers caring for thepatient at the time this document was created. Information may not be all inclusive.Reconcile MedicationsAmoxicillin AND Clavulanate 875mg/125mg *(Augmentin 875mg/125mg *) 875 MG TABLET 875 MG PO BID #20 TABLET, Ref 0Prescribed by BARBARA COLEMAN on 09/09/14Last Action: No Recorded ActionHYDROcodone Bit 5mg AND Acetaminophen 325mg *(NORCO 5mg/325mg *) 1 EACH TABLET 1 EACH PO Q6PRN PRN PAIN 4 Days #12 TABLET, Ref 0Prescribed by DEMETRA BOJORQUEZ on 02/15/18Last Action: No Recorded ActionOndansetron *(Zofran ODT *) 4 MG TAB.OR.DIS 4 MG BUCCAL Q6PRN PRN NAUSEA AND VOMITING #12 TABLET, [id number] by DEMETRA BOJORQUEZ. on 02/15/18Last Action: No Recorded ActionOndansetron *(Zofran ODT *) 4 MG TAB.OR.DIS 4 MG BUCCAL Q6PRN PRN NAUSEA AND VOMITING #12 TABLET, [id number] by DEMETRA BOJORQUEZ. on 02/15/18Last Action: No Recorded ActionReview of SystemsReview of SystemsConstitutionalNEGATI VE: Fever, Chills, Sweaty, Weakness, Weight Loss, Recent Illness.EENTPOSITIVE: Vision Problems (glasses). NEGATIVE: Vision Changes, Sore Throat, DentalProblems, Nasal Congestion, Nasal Drainage, Hearing Loss, Ear Pain, Tinnitus.CVSNEGATIVE: Chest Pain, Palpitations, Shortness of Breath, Dizziness.PulmonaryPOSITIVE : Asthma. NEGATIVE: Orthopnea, Dyspnea on Exertion, Hemoptysis, Shortness ofBreath, Cough, Pleuritic Pain, Wheezing, COPD.GINEGATIVE: Abdominal Pain, Nausea, Vomiting, Diarrhea, Black Stools, Bloody Stools,Hematemesis, Constipation, Tenesmus.GUNEGATIVE: Problems Urinating, Painful Urination, Hematuria.Muscle/LymphPOSIT MAAME: Joint Pain (arthritis). NEGATIVE: Extremity Pain, Calf Pain, Leg Pain, NeckPain, Back Pain, Ankle Swelling, Leg Swelling, Swollen Glands.SkinNEGATIVE: Rash, Lesions.NeuroNEGATIVE: Headache, Fainting, Dizziness, Loss of Sensation, Weakness, Difficulty Walking,Difficulty with Speech.PsychPOSITIVE: Anxiety, Depression (No suicidal/homicidal ideation). NEGATIVE: Confusion,Hallucinations.En docrineNEGATIVE: Weight Loss, Weight Gain, Poor Wound Healing, Neuropathy.Postop Anesthesia ProblemsNoneROS CommentsPt is able to climb a flight of stairs without CP or SOBPhysical ExamVital SignsTemp (C)36.3Ntgmn17Gijjanrqcpkh5 6Blood Iihqiuna305/74Pulse-Ox%99He ight - Xzmr3Utqstu5.00Weight - Nd329KovqykkcntReliqtm AppearanceWell Developed/Nourished, Alert, Oriented X 3, Cooperative.HEENTHead Atraumatic, Normocephalic, PERRL, Hearing grossly normal, Mucosa Moist, PatentAirway.NeckSupple, Non tender, Without JVD, Without Thyromegaly.CardiovascularR ate WNL, Rhythm regular.RespiratoryBilatera lly Clear, No Respiratory Distress.NeuroSpeech Clear, Moves all extremities.AbdomenBowel Sounds Present, Abdomen soft, Non-Tender, No distention.ExtremityNo Pedal Edema.Assessment and Plan (PAT)Assessment and PlanAssessment and PlanPatient is a 36-year-old female for total laparoscopic hysterectomy and bilateralsalpingectomy on 03/28/2018. CBC with type and screen today per Dr. Vargas's orders. HCG theday of surgeryReport Date 03/15/18Electronically Signed Esig Date Esig Ann Hoang 03/15/18 1041 Normal [facility] TYPE AND SCREENon 03-15-2018 BLOOD TYPE Positive Normal [facility] Comment on above: Order Comment: Naomi booker: NERI Comments: SURGERY 03/28/18Is patient taking NEGRITO?Has patient had a transplant? Performed By: #### B TS ####[facility] [address] [place] [address] CBC PLATELET AUTO DIFFon BASO ABS 0.04 K/uL Normal 0-0.20 [facility] Comment on above: Performed By: #### L CBCD ####[facility] [address]ql[address]ecn[address] [place] [address] Basophils/100 WBC Auto (Bld) 0.6 % Normal [facility] Comment on above: Performed By: #### L CBCD ####[facility] [address]mqwwk27934 [place] [address] EOS ABS 0.18 K/uL Normal 0.10-0.30 [facility] Comment on above: Performed By: #### L CBCD ####[facility] [address]vis[address]okcnm[address] [place] [address] Eosinophils/100 WBC Auto (Bld) 2.7 % Normal [facility] Comment on above: Performed By: #### L CBCD ####[place] [address] Erythrocyte distribution width Auto Ratio (RBC) 15.0 % High 11.5-14.5 [facility] Comment on above: Performed By: #### L CBCD ####[place] [id number] Hematocrit Auto Volume Fraction (Bld) 39.6 % Normal 36.0-48.0 [facility] Comment on above: Performed By: #### L CBCD ####[place] [address] Hemoglobin mass conc (Bld) 12.8 g/dL Normal 12.0-15.0 [facility] Comment on above: Performed By: #### L CBCD ####[place] [address] IG % 0.3 % Normal [facility] Comment on above: Performed By: #### L CBCD ####[place] [address] IG ABS 0.02 K/uL Normal [facility] Comment on above: Performed By: #### L CBCD ####[place] [id number] Lymphocytes Auto #/vol (Bld) 2.30 10*3/uL Normal 1.2-4.0 [facility] Comment on above: Performed By: #### L CBCD ####[place] [id number] Lymphocytes/100 WBC Auto (Bld) 34.8 % Normal [facility] Comment on above: Performed By: #### L CBCD ####[place] [id number] MCH Auto Entitic mass (RBC) 27.2 pg Normal 25.4-34.6 [facility] Comment on above: Performed By: #### L CBCD ####[address] [address] MCHC Auto mass conc (RBC) 32.3 g/dL Normal 30.0-36.0 [facility] Comment on above: Performed By: #### L CBCD ####[facility] [address] [place] [address] MCV Auto Entitic volume (RBC) 84.1 fL Normal 79.0-98.0 [facility] Comment on above: Performed By: #### L CBCD ####[address] [address] MONO ABS 0.33 K/uL Normal 0-1.00 [facility] Comment on above: Performed By: #### L CBCD ####[facility] [address] [place] [address] Monocytes/100 WBC Auto (Bld) 5.0 % Normal [facility] Comment on above: Performed By: #### L CBCD ####[address] [address] NEUT ABS 3.74 K/uL Normal 1.9-8.0 [facility] Comment on above: Performed By: #### L CBCD ####[address] [address] Neutrophils/100 WBC Auto (Bld) 56.6 % Normal [facility] Comment on above: Performed By: #### L CBCD ####[address] [address] Nucleated RBC #/vol (Bld) 0.00 10*3/uL Normal [facility] Comment on above: Performed By: #### L CBCD ####[address] [address] Nucleated RBC/100 WBC Ratio (Bld) 0.0 /100 WBC Normal 0 [facility] Comment on above: Performed By: #### L CBCD ####[facility] [id number] [place] [address] Platelet mean volume Auto Entitic volume (Bld) 11.9 fL Normal 8.4-11.9 [facility] Comment on above: Performed By: #### L CBCD ####[address] [address] Platelets Auto #/vol (Bld) 258 10*3/uL Normal 140-440 [facility] Comment on above: Performed By: #### L CBCD ####[facility] Od[address]xmiflc94755 [place] [address] RBC Auto #/vol (Bld) 4.71 10*6/uL Normal 3.5-5.5 [facility] Comment on above: Performed By: #### L CBCD ####[facility] Hzxwbbikgt80760 [place] 1389445 WBC Auto #/vol (Bld) 6.6 10*3/uL Normal 3.9-11.0 [facility] Comment on above: Performed By: #### L CBCD ####[facility] [id number] [place], [place] [address] CHEST PAIN PANELon 8 CK enzyme act/vol 71 U/L Normal 0-215 [facility] Comment on above: Performed By: #### L CMP, LGFRP, LCPP, LLIPA ####[facility] [address] [place], [place] [id number] Troponin I.cardiac mass conc ng/mL Normal <0.04 [facility] Comment on above: Result Comment: Risk Stratification: <0.04 ng/mL NORMAL 0.04- 0.50 ng/mL Increased risk of adverse clinical events >0.50 ng/mL Suggestive of AMINote: Results should always be evaluated in the context of the patient's symptoms, signs and clinical evaluation. Performed By: #### L CMP, LGFRP, LCPP, LLIPA ####[facility] [address] [place] [address] COMP METABOLIC PANELon 02-15 Albumin mass conc 3.9 g/dL Normal 3.4-5.0 [facility] Comment on above: Result Comment: UNRULY ED HEMOLYSIS DETECTED. The result may be falselyincreased due to hemolysis or other interferents. Clinicalcorrelation is recommended. Repeat testing may beconsidered. Performed By: #### L CMP, LGFRP, LCPP, LLIPA ####[facility] [address] [place], [place] [address] ALK PHOS TOTAL 49 U/L Normal 45-117 [facility] Comment on above: Result Comment: UNRULY ED HEMOLYSIS DETECTED. The result may be falselydecreased due to hemolysis or other interferents. Clinicalcorrelation is recommended. Repeat testing may beconsidered. Performed By: #### L CMP, LGFRP, LCPP, LLIPA ####[facility] [address] [place] [address] ALT enzyme act/vol 16 U/L Normal 7-45 [facility] Comment on above: Performed By: #### L CMP, LGFRP, LCPP, LLIPA ####[facility] [address]asw40976 [place] [address] AST enzyme act/vol 30 U/L Normal 13-39 [facility] Comment on above: Result Comment: UNRULY PADRON HEMOLYSIS DETECTED. The result may be falselyelevated due to hemolysis or other interferents. Clinicalcorrelation is recommended. Repeat testing may beconsidered. Performed By: #### L CMP, LGFRP, LCPP, LLIPA ####[facility] [address] [place] [address] BILI TOTAL 0.3 mg/dL Normal 0-1.2 [facility] Comment on above: Performed By: #### L CMP, LGFRP, LCPP, LLIPA ####[facility] [address] [place] [address] Calcium mass conc 9.0 mg/dL Normal 8.6-10.3 [facility] Comment on above: Performed By: #### L CMP, LGFRP, LCPP, LLIPA ####[facility] [address] [place] [address] Chloride molar conc 106 mmol/L Normal 98-107 [facility] Comment on above: Performed By: #### L CMP, LGFRP, LCPP, LLIPA ####[facility] [address] [place] [address] CO2 molar conc 24 mmol/L Normal 21-32 [facility] Comment on above: Performed By: #### L CMP, LGFRP, LCPP, LLIPA ####[facility] [address]joq93702 [place] [address] Creatinine mass conc 0.72 mg/dL Normal 0.5-1.05 [facility] Comment on above: Performed By: #### L CMP, LGFRP, LCPP, LLIPA ####[facility] [address] [place] [address] Glucose mass conc 107 mg/dL High 74-99 [facility] Comment on above: Performed By: #### L CMP, LGFRP, LCPP, LLIPA ####[facility] [address] [place] [address] Potassium molar conc 5.5 mmol/L High 3.5-5.3 [facility] Comment on above: Result Comment: UNRULY ED HEMOLYSIS DETECTED. The result may be falselyelevated due to hemolysis or other interferents. Clinicalcorrelation is recommended. Repeat testing may beconsidered. Performed By: #### L CMP, LGFRP, LCPP, LLIPA ####[facility] [address] [place] [address] Protein mass conc 7.1 g/dL Normal 6.4-8.2 [facility] Comment on above: Performed By: #### L CMP, LGFRP, LCPP, LLIPA ####[facility] [address] [place], [place] [address] Sodium molar conc 137 mmol/L Normal 136-145 [facility] Comment on above: Performed By: #### L CMP, LGFRP, LCPP, LLIPA ####[facility] [address] [place] [address] Urea nitrogen mass conc 15 mg/dL Normal 6-23 [facility] Comment on above: Performed By: #### L CMP, LGFRP, LCPP, LLIPA ####[facility] [id number] [place], [place] [address] ED Provider Reporton 018 Protein mass conc [place] [id number] Name: BELEM LAWLER : [birth year]Acct #: [id number] Unit #: [id number] ER Arrival Date: 02/15/18 ER Physician: Blaise Pratt DOHPI-Abdominal/PelvisTime Seen by [id number] of InformationPATIENTTriage ComplaintRUQ PAINChief ComplaintRUQ pain, diarrheaPain Smzwg6Wwlb QualitySharpLocationRUQHist ory of Present IllnessPatient is a 36-year-old female with a past medical history of gastric ulcers presentingto the emergency department for evaluation of right upper quadrant pain. Patient statesthe pain has been present for the last 2-3 weeks however today the pain intensified andshe has been unable to eat or drink anything due to the increasing pain with intake.Patient describes a constant dull pain, 5 out of 10 however she will occasionally getsharp stabbing pain with radiation to her right shoulder patient states she's had multipleepisodes of diarrhea in addition to nausea. She denies fevers, chills, vomiting, dizziness, chest pain, shortness of breath. Patient has had a HIDA scan in the past and was toldthat she did have gallbladder issues however she has not seen a surgeon regarding removalof her gallbladder.Past Medical HistoryPast Medical HistoryDenies HTN, Denies Diabetic, Denies CVAPast Med Hx CommentEndomitriosisSurgica l HistoryDenies Appendectomy, Denies Sara, Denies HysterectomySurgical Hx CommentEGD, colonoscopyPast Social HistorySmoking Status:FORMER SMOKERAlcoholNODrug UseNOLiving arrangementsWith familyReview of SystemsReview of SystemsAllergiesCoded Allergies:NO KNOWN DRUG ALLERGIES (NKDA) (09/16/11)Allergies ReviewedYesConstitutionalDe nies Fever, Denies Chills, Denies Diaphoresis, Denies WeaknessEENTDenies: Vision Change, Vision Problems, Nasal Congestion, Nasal Drainage.CVS/PulmonaryDenie s Chest pain, Denies Hurts to breath, Denies Shortness of breathGI/GUAbdominal Pain, Nausea, Diarrhea. Denies: Vomiting, Problems Urinating, PainfulUrination.MS/SKIN/LY MPHDenies Extremity Pain, Denies Neck Pain, Denies Back PainNeuro/PsychDenies Headache, Denies Fainting, Denies Dizzy, Denies Loss of Sensation, Denies WeaknessAdditional CommentsUnless otherwise stated in this report the patient's positive and negative responses forreview of systems for constitutional, eyes, ENT, cardiovascular, respiratory,gastrointestina l, neurological, genitourinary, musculoskeletal, and integument systems andrelated systems to the presenting problem are either as stated in the HPI or were notpertinent or were negative for the symptoms and/or complaints related to the presentingmedical problem.Physical Exam -AbdomenVital SignsVital Signs ReviewedYesVital SignsVital SignsDate Time Temp Pulse Resp B/P B/P Pulse O2 O2 Flow ZuL4Yfgd Ox Delivery Rate02/15 1919 75 18 131/69 97 ROOM AIR 1632 36.9 76 18 122/76 99AppearanceGENERAL APPEARANCEAppears well, Alert, No Distress.NeuroNeuroOriented x 3, Speech Clear, Moves all extremitiesHEENTHEENTHead Atraumatic, Eyes Nml Inspection, Hearing grossly normal, No Signs of Dehydration,Mucosa MoistNeckNECKNml InspectionRespiratoryRespir atoryLungs sounds clear, Respirations nonlabored, Symmetrical expansionCVSCardiovascularR ate WNL, Rhythm regular, Normal heart sounds, Pulses full,equalAbdomen/PelvisABD OMEN / GIBowel Sounds Present, Abdomen soft, No distention, Denies Non-TenderAdd Abdomen/Pelvis CommentTenderness palpation in the right upper quadrant, involuntary guarding, no peritonealsigns, positive Saldana's signExtremityExtremityNorma l Appearance, Full ROM, Sensation Intact, No tenderness, No Pedal EdemaSkinSkinColor Nml, Warm, DryED Sepsis Evaluation SJScreening Criteria*At least 2 required to document SIRSTissue Assmt AFTER Fluid Start*Sepsis Reevaluation Performed after Fluid Bolus StartMedical Decision MakingCourseCourse:Patient is a 36-year-old female presenting to the emergency room for evaluation of rightupper quadrant pain. She does have tenderness palpation of the right upper quadrant, norebound or guarding, no peritoneal signs. There is a positive Saldana's sign. Laboratoryevaluation is ordered in addition to ultrasound of the right upper quadrant. She was given4 mg of morphine, 4 mg Zofran for pain and nausea. She was also given 1 L of normal salinedue to the fact that she's been having multiple episodes of diarrhea today. Agentslaboratory evaluation was unremarkable, no evidence of leukocytosis, HANDH stable, noelectrolyte abnormalities him AST, LT, alkaline phosphatase are within normal limits, Tbili is normal, lipase is negative. Ultrasound showed no evidence of gallbladder stones,gallbladder wall thickening, bile ducts were within normal limits. Does discussed the casewith Dr. Reddy and she did not feel that urgent intervention was indicated at this time.Patient was informed of this plan. Patient was informed of these findings, she'll be givenreferral to Dr. Reddy. Patient was discharged home with Oh Angel for pain. She isinstructed to follow a clear liquid diet and advance as tolerated. Patient instructed callDr. Reddy's office tomorrow to schedule a follow-up appointment. They're instructed toreturn to the ER for any new or worsening symptoms, fevers, chills, vomiting despiteMedications Ordered:Current MedicationsSig/Vandana Start time LastMedication Dose Route Stop Time Status AdminMorphine Sulfate 4 MG ER ONE 02/15 1700 DC 02/15IV 02/15 170 1737Ondansetron HCl 4 MG ER ONE 02/15 1700 DC 02/15IV 02/15 170 1737Sodium Chloride 1,000 ML ER ONE 02/15 1700 DC 02/15IV 02/15 1729 1737Discussed with ,AmaniDisposition DecisionDischargeDispositio n Date:02/15/18Decision Time:1905DiagnosticsLabsLab oratory Tests05/071046FdkmshscxNcon um (136 - 145 mmol/L) 137Potassium (3.5 - 5.3 mmol/l) 5.5 HChloride (98 - 107 mmol/L) 106Carbon Dioxide (21 - 32 mmol/L) 24BUN (6 - 23 mg/dL) 15Creatinine (0.5 - 1.05 mg/dL) 0.72Est GFR ( Amer) (> 60 mL/MIN) > 90Est GFR (Non-Af Amer) (> 60 mL/MIN) > 90Glucose (74 - 99 mg/dL) 107 HTotal Calcium (8.6 - 10.3 mg/dL) 9.0Total Bilirubin (0 - 1.2 mg/dL) 0.3AST (13 - 39 U/L) 30ALT (7 - 45 U/L) 16Alkaline Phosphatase (45 - 117 U/L) 49Creatine Kinase (0 - 215 U/L) 71Troponin I, Quant (<0.04 ng/mL) < 0.02Total Protein (6.4 - 8.2 g/dL) 7.1Albumin (3.4 - 5.0 g/dL) 3.9Lipase (9 - 82 U/L) 28HematologyWBC (3.9 - 11.0 K/uL) 6.6RBC (3.5 - 5.5 M/uL) 4.71Hgb (12.0 - 15.0 g/dL) 12.8Hct (36.0 - 48.0 %) 39.6MCV (79.0 - 98.0 fL) 84.1MCH (25.4 - 34.6 pg) 27.2MCHC (30.0 - 36.0 g/dL) 32.3RDW (11.5 - 14.5 %) 15.0 HPlt Count (140 - 440 K/uL) 258MPV (8.4 - 11.9 fL) 11.9Neut % (Auto) (%) 56.6Lymph % (Auto) (%) 34.8Mono % (Auto) (%) 5.0Eos % (Auto) (%) 2.7Baso % (Auto) (%) 0.6Neut # (Auto) (1.9 - 8.0 K/uL) 3.74Lymph # (Auto) (1.2 - 4.0 K/uL) 2.30Mono # (Auto) (0 - 1.00 K/uL) 0.33Eos # (Auto) (0.10 - 0.30 K/uL) 0.18Baso # (Auto) (0 - 0.20 K/uL) 0.04Immature Gran % (%) 0.3Nucleated RBC % (0 /100 WBC) 0.0Immature Gran # (K/uL) 0.02Nucleated RBCs # (K/uL) 0.00Radiology ImpressionsRecent ImpressionsULTRASOUND - GALL BLADDER/BILIARY 02/15 1610 Report Impression - Status: SIGNED Entered: 02/15/2018 7782IMPRESSION:No evidence of cholelithiasis or acute cholecystitis.Impression By: JAYE Olivera M.D.EKG InterpretationSinus rhythm at 73 bpm. MO 148. QRS 84. QTc 458. Normal axis. No is elevations. No acuteinjury patterns.Resident AttestationDid you see this patient with a resident?( ) No( x ) Yes. I personally saw and examined the patient. I have reviewed and agree with theresidents findings, including all diagnostic interpretations and treatment plans aswritten unless documented otherwise in my personal note. I was present for the keyportions of any procedures performed and the inclusive time noted for any critical carestatement.DepartureClin ical ImpressionClinical ImpressionPrimary Impression:RUQ painReport Date 02/15/18Electronically Signed Esig Date Esig KenrickDemetra AzevedoBlaise hallNathalie DO 02/16/18 0724 Normal [facility] GALL BLADDER/BILIARYon 02-15 GALL BLADDER/BILIARY STUDY:GALL BLADDER/BILIARY; 02/15/2018 4:40 pmINDICATION:Right upper quadrant pain and positive Saldana signCOMPARISON:None.ACCESSI ON NUMBER(S):[id number] ERING CLINICIAN:Demetra Edge:Multiple sonographic images of the right upper quadrant wereperformed.FINDINGS:The liver demonstrates normal echogenicity. No evidence ofgallstones. The gallbladder is incompletely distended. Thegallbladder wall measures 3 mm in thickness. Per the utilization management manager,sonographic Saldana sign is absent. The common bile duct measures 2 mmin diameter.There is limited evaluation the pancreas secondary to shadowing fromoverlying bowel gas.The right kidney measures 10.6 cm in length.No right hydronephrosis.IMPRESSION:N o evidence of cholelithiasis or acute cholecystitis. Normal [facility] GLOMERULAR FILTRATION RATE E STon 02-15-2018 GFR/1.73 sq M predicted among non-blacks MDRD vol rate/area (S/P/Bld) mL/min/{1.73_m2} Normal > 60 [facility] Comment on above: Performed By: #### L CMP, LGFRP, LCPP, LLIPA ####[facility] [address]bxv18[address] [place] [address] IF AMER > 90 Normal > 60 [facility] [place]: Result Comment: Effe ctive 02/27/15:CKD-EPI equation / based on IDMS traceable creatinine.Continue to use the CREAT CLR-DOSE (Cockgroft-Gault)value for determining medication dose. Performed By: #### L CMP, LGFRP, LCPP, LLIPA ####[facility] Z[address]ejnvh51218 [place] [address] LIPASEon 02-15-2018 Lipase enzyme act/vol 28 U/L Normal 9-82 [facility] Comment on above: Performed By: #### L CMP, LGFRP, LCPP, LLIPA ####[facility] [address] [place] [address] SURG. PATHOLOGY REPORTon SURGICAL PATHOLOGY REPORT Normal [facility] Comment on above: Result Comment: DIAG NOSISENDOMETRIUM, BIOPSY:EARLY SECRETORY PATTERNBLOOD [id number]/02/07/2018 Electronically Signed Out by Marilynn Gardner M.D.NATURE OF SPECIMENEndometriumICD- CODE(S)R93.8 Abnormal Findings On Diagnostic Imaging Of Body StructuresGROSS DESCRIPTIONThe container is labeled Belem Lawler . There is no clinicalinformation provided on the container. The requisition states endobx . Received in formalin are multiple paulino fragments of soft tissueembedded in cloudy mucoid debris and blood clot aggregating to 2.1 x8.2 x 0.2 cm. Filtered. Four cassettes. nsmg/02/04/2018MICROSCOPIC DESCRIPTIONThis is endometrium with early secretory pattern features noted bysubnuclear vacuolization of the glands. In addition, there is benignendocervical epithelium. I do not appreciate any neoplasia orhyperplasia. Areas of ciliated cell metaplasia are present. I donot appreciate any hyperplasia or neoplasia.[facility] [address] [place], [place] [address]Laboratory Director: Jareth Robins M.D.CLIA No. [id number] CAP Accreditation No. [id number] SURG. PATHOLOGY REPORTon SURGICAL PATHOLOGY REPORT Normal [facility] Comment on above: Result Comment: DIAG NOSISLABIA, BIOPSY:FIBROEPITHELIAL [id number]/12/22/2017 Electronically Signed Out by Ta Marsh M.D.NATURE OF SPECIMENLabiaCLINICAL FINDINGSRemoval of skin tags labiaICD-CM CODE(S)N90.89 Other Noninflammatory Disorders Of Vulva And PerineumGROSS DESCRIPTIONThe container is labeled Belem Lawler . There is no otherclinical information provided on the container. The requisitionstates skin tag of labia . Received in formalin is a singletan-pink pedunculated skin fragment measuring 0.7 x 0.4 x 1.0 cm.The surface is wrinkled and puckered. The surgical margin is inkedblue and the fragment is serially sectioned. One cassette. nsmgkar/12/21/2017MICROSCOPIC DESCRIPTIONSections demonstrate a polypoid fragment of tissue with benignsquamous epithelium and underlying fibrovascular core. There is noevidence of dysplasia or viral cytopathic effect. The findings aremost consistent with a fibroepithelial polyp. There is no evidenceof malignancy. EFFECTIVE 11/15/2017 CLINICAL CHEMISTRY PLATFORM CHANGES IN MAIN LABORATORY ARE ASSOCIATED WITH REFERENCE RANGE CHANGES FOR A NUMBER OF ANALYTES. PLEASE REVIEW REFERENCE INTERVALS CAREFULLY [facility] [place]. [address] [place], [place] [address]Laboratory Director: Jareth Robins M.D.CLIA No. [id number] CAP Accreditation No. [id number] PAP, THIN PREP WITH IMAGINGo n 12-20-2017 PAP, THIN PREP WITH IMAGING Normal [facility] Comment on above: Result Comment: INTE RPRETATIONThin Prep Image-Guided Pap Test (Cervical) NEGATIVE FOR INTRAEPITHELIAL LESION /MALIGNANCY Satisfactory for evaluation (Endocervical/transformation zonecomponent present)Screening services provided by [facility] [address] [place] [address] [place] [address].CAP Accreditation : [id number] CLIA : [id number]/12/20/2017The Pap test is a screening test, hence, subject to both falsenegative and false positive results as evidenced by published data.For most women who lack an endocervical component on their Pap, andare undergoing routine screening, literature supports follow-up byobtaining a repeat Pap test in 12 months. Your patient's resultsshould be interpreted in this context together with the history andclinical findings.HPV REQUESTSPerform Aptima high risk HPV testing REGARDLESS of Pap test result.CLINICAL HISTORYDate of Last Menstrual Period: 11/22/17D-CM DIAGNOSIS CODE(S)Z01.419 Encntr For Assembler Billiard Table Exam (general) (routine) W/o Abn RswkihjoZ98.51 Encounter For Screening For Human Papillomavirus (hpv) * EFFECTIVE 11/15/2017 CLINICAL CHEMISTRY PLATFORM CHANGES IN MAIN LABORATORY ARE ASSOCIATED WITH REFERENCE RANGE CHANGES FOR A NUMBER OF ANALYTES. PLEASE REVIEW REFERENCE INTERVALS CAREFULLY [facility] [place]. [address] [place], [place] [address]Laboratory Director: Jareth Robins M.D.CLIA No. [id number] CAP Accreditation No. [id number] HPV-HR BY TMA, REFLEX 16 AND 18/45on 12-17-2017 HPV HIGH RISK Negative Normal NEGATIVE [facility] Comment on above: Result Comment: This test detects E6/E7 viral messenger RNA of the high-risk HPVtypes 16, 18, 31, 33, 35, 39, 45, 51, 52, 56, 58, 59, 66 and 68associated with cervical cancer and its precursor lesions.Cross-reactivity with low-risk HPV genotypes 26, 67, 70 and 82may occur. VITAMIN D3 25-OHon 8 VIT D 25-OH 58.0 ng/mL Normal 30-80 [facility] Comment on above: Result Comment: Note: New Reference Range ADULTS:Vitamin D Status Range -----Deficiency <20 ng/mLInsufficiency 20-29 ng/mLSufficiency 30-80 ng/mLPossible Toxicity >80 ng/mL~\R\~\R\~\R\~\R\~\R\~\R\~\R\~\R\~\R\~\R\~\R\~\R\~\R\~\R\~\R\~\ R\~PEDIATRICS:Vitamin D Status Range -----Deficiency <15 ng/mLInsufficiency 15-<20 ng/mLSufficiency 20-80 ng/mLPossible Toxicity >80 ng/mL Performed By: #### L VITD25 ####[facility] [address] [place] [address] Vital Signs Date Time Vital Sign Value Performing Clinician Facility 10-27-2023 13:52-0500 Body height 152.4 cm Mima Rodriguez MD Work Phone: [facility] 10-27-2023 13:52-0500 Body mass index (BMI) [Ratio] 26.76 kg/m2 Mima Rodriguez MD Work Phone: [facility] 10-27-2023 13:52-0500 Body temperature 97 [degF] Mima Rodriguez MD Work Phone: [facility] 10-27-2023 13:52-0500 Body weight 62.14 kg Mima Rodriguez MD Work Phone: [facility] 10-27-2023 13:52-0500 Diastolic blood pressure 64 mm[Hg] Mima Rodriguez MD Work Phone: [facility] 10-27-2023 13:52-0500 Heart rate 62 /min Mima Rodriguez MD Work Phone: [facility] 10-27-2023 13:52-0500 Respiratory rate 18 /min Mima Rodriguez MD Work Phone: [facility] 10-27-2023 13:52-0500 Systolic blood pressure 110 mm[Hg] Mima Rodriguez MD Work Phone: [facility] 09-16-2023 09:54-0500 Body height 157.5 cm Linda Gaviria MD Work Phone: [facility] 09-16-2023 09:54-0500 Body mass index (BMI) [Ratio] 25.94 kg/m2 Linda Gaviria MD Work Phone: [facility] 09-16-2023 09:54-0500 Body weight 64.32 kg Linda Gaviria MD Work Phone: [facility] 09-16-2023 09:54-0500 Diastolic blood pressure 69 mm[Hg] Linda Gaviria MD Work Phone: [facility] 09-16-2023 09:54-0500 Heart rate 97 /min Linda Gaviria MD Work Phone: [facility] 09-16-2023 09:54-0500 Systolic blood pressure 104 mm[Hg] Linda Gaviria MD Work Phone: [facility] 06-24-2023 07:58-0400 Body height 152.4 cm Mima Rodriguez MD Work Phone: [facility] [facility] 06-24-2023 07:58-0400 Body mass index (BMI) [Ratio] 28.32 kg/m2 Mima Rodriguez MD Work Phone: [facility] 06-24-2023 07:58-0400 Body temperature 98.1 [degF] Mima Rodriguez MD Work Phone: [facility] 06-24-2023 07:58-0400 Body weight 65.77 kg Mima Rodriguez MD Work Phone: [facility] 06-24-2023 07:58-0400 Diastolic blood pressure 68 mm[Hg] Mima Rodriguez MD Work Phone: [facility] 06-24-2023 07:58-0400 Heart rate 72 /min Mima Rodriguez MD Work Phone: [facility] 06-24-2023 07:58-0400 Respiratory rate 16 /min Mima Rodriguez MD Work Phone: [facility] 06-24-2023 07:58-0400 Systolic blood pressure 114 mm[Hg] Mima Rodriguez MD Work Phone: [facility] 05-17-2023 13:00-0400 Body mass index (BMI) [Ratio] 29.49 kg/m2 Mima Rodriguez Work Phone: RC-Ehvfvlk-Inhbk [address] Work Phone: 05-17-2023 13:00-0400 Body surface area Derived from formula 1.66 m2 Mima Rodriguez Work Phone: OU-Vanwqce-Qwsou [address] Work Phone: 05-17-2023 13:00-0400 Body weight 68.49 kg Mima Rodriguez Work Phone: TU-Xkciwiy-Lbgtq [address] Work Phone: 01-27-2023 13:10-0400 Body mass index (BMI) [Ratio] 33.88 kg/m2 Mima Rodriguez Work Phone: OL-Sltrarv-Xkmftry e [address] [facility] Work Phone: 01-27-2023 13:10-0400 Body surface area Derived from formula 1.76 m2 Mima Rodriguez Work Phone: LX-Zjdudzv-Hnfwgqx e [address] [facility] Work Phone: 01-27-2023 13:10-0400 Body weight 78.7 kg Mima Rodriguez Work Phone: GV-Xnofqbh-Msmmjmn e [address] [facility] Work Phone: 11-27-2022 14:01-0500 Body height 152.4 cm Mima Rodriguez Work Phone: IL-KSJC-Vdok [place] Work Phone: 11-27-2022 14:01-0500 Body mass index (BMI) [Ratio] 38.08 kg/m2 Mima Rodriguez Work Phone: VR-TGFV-Lqqu [place] Work Phone: 11-27-2022 14:01-0500 Body surface area Derived from formula 1.85 m2 Mima Rodriguez Work Phone: DF-UNKO-Tvwv [place] Work Phone: 11-27-2022 14:01-0500 Body temperature 98.4 [degF] Mima Rodriguez Work Phone: YJ-BGME-Xtvg [place] Work Phone: 11-27-2022 14:01-0500 Body weight 88.45 kg Mima Rodriguez Work Phone: NX-HCAO-Utmh [place] Work Phone: 11-27-2022 14:01-0500 Diastolic blood pressure 72 mm[Hg] Mima Rodriguez Work Phone: YS-RHNV-Mjew [place] Work Phone: 11-27-2022 14:01-0500 Heart rate 78 /min Mima Rodriguez Work Phone: HR-AEZZ-Fwmm [place] Work Phone: 11-27-2022 14:01-0500 Respiratory rate 16 /min Mima Oscar Work Phone: ZU-HZQS-Ltzr [place] Work Phone: 11-27-2022 14:01-0500 Systolic blood pressure 124 mm[Hg] Mima Rodriguez Work Phone: GX-IHWP-Imwk [place] Work Phone: 11-04-2022 23:56-0500 Body height 157.4 cm Mima Rodriguez Other Phone: [facility] 11-04-2022 23:56-0500 Body temperature 97.34 [degF] Mima Rodriguez Other Phone: [facility] 11-04-2022 23:56-0500 Body weight 91 kg Mima Rodriguez Other Phone: [facility] 11-04-2022 23:56-0500 Diastolic blood pressure 74 mm[Hg] Mima Rodriguez Other Phone: [facility] 11-04-2022 23:56-0500 Heart rate 73 /min Mima Rodriguez Other Phone: [facility] 11-04-2022 23:56-0500 Respiratory rate 18 /min Mima Rodriguez Other Phone: [facility] 11-04-2022 23:56-0500 SaO2% (BldA) [Mass fraction] 98 % Mima Rodriguez Other Phone: [facility] 11-04-2022 23:56-0500 Systolic blood pressure 122 mm[Hg] Mima Rodriguez Other Phone: [facility] 11-04-2022 13:05-0500 Body mass index (BMI) [Ratio] 39.26 kg/m2 Mima Rodriguez Work Phone: [facility] Work Phone: 11-04-2022 13:05-0500 Body surface area Derived from formula 1.87 m2 Mima Rodriguez Work Phone: [facility]um[facility] Work Phone: 11-04-2022 13:05-0500 Body weight 91.17 kg Mima Rodriguez Work Phone: [facility] Work Phone: 10-26-2022 15:13-0500 Body height 152.4 cm Mima Rodriguez Work Phone: JC-PZEO-Azhr [place] Work Phone: 10-26-2022 15:13-0500 Body mass index (BMI) [Ratio] 39.84 kg/m2 Mima Oscar Work Phone: DY-MUID-Mhdx [place] Work Phone: 10-26-2022 15:13-0500 Body surface area Derived from formula 1.88 m2 Mima Oscar Work Phone: BG-ZLAM-Tzel [place] Work Phone: 10-26-2022 15:13-0500 Body temperature 98 [degF] Mima Oscar Work Phone: HJ-ALLK-Ayqc [place] Work Phone: 10-26-2022 15:13-0500 Body weight 92.53 kg Mima Rodriguez Work Phone: BP-OCPI-Wsfs [place] Work Phone: 10-26-2022 15:13-0500 Diastolic blood pressure 64 mm[Hg] Mima Oscar Work Phone: WD-TMPH-Dyxq [place] Work Phone: 10-26-2022 15:13-0500 Heart rate 82 /min Mima Oscar Work Phone: LS-NZCK-Bdph [place] Work Phone: 10-26-2022 15:13-0500 Respiratory rate 18 /min Mima Oscar Work Phone: GX-AVNA-Ywtv [place] Work Phone: 10-26-2022 15:13-0500 Systolic blood pressure 106 mm[Hg] Mima Rodriguez Work Phone: LY-UYHO-Jddg [place] Work Phone: 08-05-2022 14:21-0400 Body mass index (BMI) [Ratio] 45.27 kg/m2 Mima Rodriguez Work Phone: FI-Krkxtdu-Mmahq [facility] Work Phone: 08-05-2022 14:21-0400 Body surface area Derived from formula 1.99 m2 Miam Rodriguez Work Phone: BJ-Buubrlr-Hzyue [address] Work Phone: 08-05-2022 14:21-0400 Body weight 105.14 kg Mima Rodriguez Work Phone: TL-Fjviydp-Inptu [address] Work Phone: 06-17-2022 15:06-0400 Body height 152.4 cm Mima Rodriguez Work Phone: AF-Brhqibx-Gajkj [address] Work Phone: 06-17-2022 15:06-0400 Body mass index (BMI) [Ratio] 48.83 kg/m2 Mima Rodriguez Work Phone: LZ-Fpoghgr-Hvduu [address] Work Phone: 06-17-2022 15:06-0400 Body surface area Derived from formula 2.05 m2 Mima Rodriguez Work Phone: UL-Jkjzrpy-Kegxa [address] Work Phone: 06-17-2022 15:06-0400 Body weight 113.4 kg Mima Rodriguez Work Phone: UF-Rzukgdp-Vqacj [address] Work Phone: 02-27-2022 13:40-0400 Body height 152.4 cm Mima Rodriguez Work Phone: BY-RLWO-Szpv [place] Work Phone: 02-27-2022 13:40-0400 Body mass index (BMI) [Ratio] 56.83 kg/m2 Mima Rodriguez Work Phone: OO-IECT-Amsu [place] Work Phone: 02-27-2022 13:40-0400 Body surface area Derived from formula 2.19 m2 Mima Rodriguez Work Phone: CW-OWUN-Oafg [place] Work Phone: 02-27-2022 13:40-0400 Body temperature 98.4 [degF] Mima Rodriguez Work Phone: AV-MNAU-Neiq [place] Work Phone: 02-27-2022 13:40-0400 Body weight 132 kg Mima Rodriguez Work Phone: GW-TZKV-Vllv [place] Work Phone: 02-27-2022 13:40-0400 Diastolic blood pressure 78 mm[Hg] Mima Rodriguez Work Phone: OV-GKDN-Ulom [place] Work Phone: 02-27-2022 13:40-0400 Heart rate 80 /min Mima Rodriguez Work Phone: RL-OJQQ-Nhvp [place] Work Phone: 02-27-2022 13:40-0400 Respiratory rate 20 /min Mima Oscar Work Phone: XZ-LMAC-Lsyy [place] Work Phone: 02-27-2022 13:40-0400 Systolic blood pressure 124 mm[Hg] Mima Oscar Work Phone: VN-FBJF-Qtrs [place] Work Phone: 02-06-2022 13:29-0400 Body height 152.4 cm Mima Oscar Work Phone: MC-AXQP-Ujrz [place] Work Phone: 02-06-2022 13:29-0400 Body mass index (BMI) [Ratio] 56.44 kg/m2 Mima Rodriguez Work Phone: CD-EZSV-Oskm [place] Work Phone: 02-06-2022 13:29-0400 Body surface area Derived from formula 2.18 m2 Mima Rodriguez Work Phone: LP-VTAF-Ynpb [place] Work Phone: 02-06-2022 13:29-0400 Body weight 131.09 kg Mima Rodriguez Work Phone: SJ-FTTE-Tumq [place] Work Phone: 02-06-2022 13:29-0400 Diastolic blood pressure 81 mm[Hg] Mima Rodriguez Work Phone: HN-OHJM-Wlsf [place] Work Phone: 02-06-2022 13:29-0400 Heart rate 73 /min Mima Rodriguez Work Phone: PV-OYRI-Wsxp [place] Work Phone: 02-06-2022 13:29-0400 SaO2% (BldA) [Mass fraction] 96 % Mima Rodriguez Work Phone: WR-GXMJ-Vgxg [place] Work Phone: 02-06-2022 13:29-0400 Systolic blood pressure 125 mm[Hg] Mima Rodriguez Work Phone: JS-PHUG-Bgol [place] Work Phone: 12-09-2021 12:31-0500 Body height 157.48 cm Mima Oscarchristopher Work Phone: HN-Zfarsmd-Dwrzk [address] Work Phone: 12-09-2021 12:31-0500 Body mass index (BMI) [Ratio] 53.96 kg/m2 Mima Rodriguez Work Phone: HT-Xscueaw-Bnrox [address] Work Phone: 12-09-2021 12:31-0500 Body surface area Derived from formula 2.25 m2 Mima Oscar Work Phone: SN-Osisgur-Mrcxw [address] Work Phone: 12-09-2021 12:31-0500 Body weight 133.81 kg Mima Oscar Work Phone: UH-Xslxfyl-Nquyk [address] Work Phone: 08-27-2021 15:11-0500 Body height 157.48 cm Mima Rodriguez Work Phone: CH-FZTV-Xakl [place] Work Phone: 08-27-2021 15:11-0500 Body mass index (BMI) [Ratio] 55.97 kg/m2 Mima Oscar Work Phone: ZI-VYSW-Qdhg [place] Work Phone: 08-27-2021 15:11-0500 Body surface area Derived from formula 2.29 m2 Mima Rodriguez Work Phone: TU-LXWX-Dsbd [place] Work Phone: 08-27-2021 15:11-0500 Body temperature 97.4 [degF] Mima Oscar Work Phone: JY-EDHS-Oxwr [place] Work Phone: 08-27-2021 15:11-0500 Body weight 138.8 kg Mima Oscar Work Phone: YX-MNZW-Zuxy [place] Work Phone: 08-27-2021 15:11-0500 Diastolic blood pressure 76 mm[Hg] Mima Oscar Work Phone: WX-EWRY-Kojp [place] Work Phone: 08-27-2021 15:11-0500 Heart rate 80 /min Mima Rodriguez Work Phone: IK-YRAV-Zgoj [place] Work Phone: 08-27-2021 15:11-0500 Respiratory rate 20 /min Mima Rodriguez Work Phone: JS-PNWS-Eqlq [place] Work Phone: 08-27-2021 15:11-0500 Systolic blood pressure 126 mm[Hg] Mima Rodriguez Work Phone: GJ-BGBS-Mnye [place] Work Phone: 06-27-2021 13:29-0400 Body height 157.48 cm Mima Rodriguez Work Phone: TJ-CQOO-Xees [place] Work Phone: 06-27-2021 13:29-0400 Body mass index (BMI) [Ratio] 54.69 kg/m2 Mima Rordiguez Work Phone: ZC-CQSI-Ldxl [place] Work Phone: 06-27-2021 13:29-0400 Body surface area Derived from formula 2.27 m2 Mima Rodriguez Work Phone: PV-NZJV-Xxuv [place] Work Phone: 06-27-2021 13:29-0400 Body temperature 98.2 [degF] Mima Rodriguez Work Phone: EY-KWIF-Aqoa [place] Work Phone: 06-27-2021 13:29-0400 Body weight 135.63 kg Mima Rodriguez Work Phone: XV-ZPBX-Wedp [place] Work Phone: 06-27-2021 13:29-0400 Diastolic blood pressure 82 mm[Hg] Mima Rodriguez Work Phone: TS-UHLT-Yrmu [place] Work Phone: 06-27-2021 13:29-0400 Heart rate 84 /min Mima Rodriguez Work Phone: XB-GYCO-Xepq [place] Work Phone: 06-27-2021 13:29-0400 Respiratory rate 20 /min Mima Rodriguez Work Phone: CY-IEWZ-Kyss [place] Work Phone: 06-27-2021 13:29-0400 Systolic blood pressure 122 mm[Hg] Mima Rodriguez Work Phone: mp-WSPC-[facility] Work Phone: 05-14-2021 14:00-0400 Diastolic blood pressure 53 mm[Hg] Mima Rodriguez Other Phone: [facility] 05-14-2021 14:00-0400 Heart rate 73 /min Mima Rodriguez Other Phone: [facility] 05-14-2021 14:00-0400 Respiratory rate 17 /min Mima Rodriguez Other Phone: [facility] 05-14-2021 14:00-0400 SaO2% (BldA) [Mass fraction] 99 % Mima Rodriguez Other Phone: [facility] 05-14-2021 14:00-0400 Systolic blood pressure 103 mm[Hg] Mima Rodriguez Other Phone: [facility] 05-14-2021 11:19-0400 Body height 157.4 cm Mima Rodriguez Other Phone: [facility] 05-14-2021 11:19-0400 Body temperature 98.06 [degF] Mima Rodriguez Other Phone: [facility] 05-14-2021 11:19-0400 Body weight 131.3 kg Mima Rodriguez Other Phone: [facility] 11-27-2019 12:17-0500 BMI (Body Mass Index) 50.48 kg/m2 Mima Rish HU-Zfmzcydsyvgq-[facility] Work Phone: 11-27-2019 12:17-0500 Body Temperature 98.1 [degF] Mima Rish MG-Rheumatology -[facility] Work Phone: 11-27-2019 12:17-0500 Body weight 125.19 kg Mima Rish [facility]ology- [facility] Work Phone: 11-27-2019 12:17-0500 BP Diastolic 69 mm[Hg] Mima Rish [facility]he[facility]ology- [facility] Work Phone: Comment on above: Location: [facility]; Position: Sitting 11-27-2019 12:17-0500 BP Systolic 114 mm[Hg] Mima Oscarh [facility]-Rheumatology- [facility] Work Phone: Comment on above: Location: [facility]; Position: Sitting 11-27-2019 12:17-0500 BSA (Body Surface Area) 2.19 m2 Mima Rish QJ-Cmqqpnsxbzpa-Qc [facility] Work Phone: 11-27-2019 12:17-0500 Pulse (Heart Rate) 72 /min Mima Rish MG-Rheumatolo gy-[facility] Work Phone: 11-27-2019 12:17-0500 6.5 1 Mima Rish [facility]ology- [facility] Work Phone: Comment on above: Pain Scale 11-27-2019 11:58-0500 Body weight 5.28 1 Mima Rish [facility]-Rheumatology- [facility] Work Phone: Encounters Encounter Date Encounter Type Care Provider Facility Start: 11-15-2023 End: 11-15-2023 ambulatory [facility] Start: 11-12-2023 End: 11-13-2023 ambulatory [facility] Start: 10-27-2023 End: 10-27-2023 ambulatory [facility] Start: 10-27-2023 End: 10-27-2023 Encounter for general adult medical examination without abnormal findings [facility] Start: 10-27-2023 End: 10-27-2023 Patient encounter status Mima Rodriguez MD Work Phone: [facility] Work Phone: Start: 10-27-2023 End: 10-27-2023 Periodic preventive med est patient 40-64yrs Mima Rodriguez MD Work Phone: [facility] Comment on above: Encounter for preven tive health examination (Primary Dx); Breast cancer screening by mammogram; Status post ANA PAULA-BSO Start: 09-16-2023 End: 09-16-2023 ambulatory [facility] Start: 09-16-2023 End: 09-16-2023 Office outpatient new 60 minutes Linda Gaviria MD Work Phone: [facility] Comment on above: Encephalopathy (Prim sunny Dx); Attention disturbance; Anxiety; Insomnia due to medical condition Start: 07-09-2023 End: 07-10-2023 ambulatory [facility] Start: 06-24-2023 End: 06-24-2023 ambulatory [facility] Start: 06-24-2023 End: 06-24-2023 Office outpatient visit 15 minutes Mima Rodriguez MD Work Phone: [facility] Comment on above: Attention disturbanc e (Primary Dx); Bariatric surgery status Start: 05-17-2023 Office outpatient vi sit 25 minutes Mima Rodriguez Work Phone: ZC-Qrxzskz-Nakwa [address] Work Phone: Start: 05-17-2023 ambulatory Lori [place] Facility: [id number] Start: 01-29-2023 Chart Update Mima Rodriguez Work Phone: KF-Aygaqdu-Zahmq [address] Work Phone: Start: 01-27-2023 Office outpatient vi sit 25 minutes Mmia Rodriguez Work Phone: UK-Stsvvgh-Wlqyystg [address] [facility] Work Phone: Start: 01-27-2023 OMAIRA, Provider : Lori Mchugh, Status: Pen, Time: 1:00 PM Mima Rodriguez Work Phone: IX-Qfqsdku-Xiohb [address] Work Phone: Start: 01-27-2023 ambulatory [employer] LORI VEGA LOLITA Facility:[id number] Start: 01-25-2023 Chart Update Mima Rodriguez Work Phone: FY-Blxlvfz-Yedsw [address] Work Phone: Start: 01-22-2023 Chart Update Mima Rodriguez Work Phone: YN-Naymubv-Ggors [address] Work Phone: Start: 01-18-2023 Chart Update Mima Oscar Work Phone: ZI-Nyhgknd-Avjxk [address] Work Phone: Start: 12-25-2022 End: 12-25-2022 ambulatory FARRUKH SCHULZ Facility:[facility] Start: 12-25-2022 End: 12-25-2022 Patient encounter procedure Farrukh Schulz OD Work Phone: Ophthalmology Comment on above: 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 Mima beyer [facility] Facility:[id number] Start: 11-04-2022 End: 11-05-2022 Emergency department patient visit Luz Beasley [facility] Emergency 02 Start: 11-04-[address] Mima beyer [facility] Facility:[id number] Start: 11-04-2022 Nutrition therapy Mima nielsen Work Phone: QI[facility]Wkkxwuc[facility]qfiq [facility] Work Phone: Start: 10-30-2022 Chart Update Mima Rodriguez Work Phone: BF-DEZQ-Xtyc [place] Work Phone: Start: 10-30-[address] Mima beyer [facility] Facility:[id number] Start: 10-26-2022 Office outpatient vi sit 15 minutes Mima Rodriguez Work Phone: VH-WWFA-Mrpg [place] Work Phone: Start: 10-26-[address] Mima beyer [facility] Facility:[id number] Start: 09-14-2022 AUDIT Mima Rodriguez Work Phone: JO-WIRQ-Pjru [place] Work Phone: Start: 08-05-2022 Postop follow up vis it related to original px Mima Rodriguez Work Phone: XS-Arcodni-Tphrl [address] Work Phone: Start: 08-05-[address] Mima beyer [facility] Facility:[id number] Start: 07-08-2022 End: 07-09-2022 ambulatory Gianluca Beebe Facility:[id number] Start: 06-19-2022 Postop follow up vis it related to original px Mima Rodriguez Work Phone: KI-Zwztwns-Jfbcj [address] Work Phone: Start: 06-19-2022 ambulatory [id number] Start: 06-03-2022 Chart Update Mima Rodriguez Work Phone: SC-Oifzzde-Xmxfj MAC[address] Work Phone: Start: 05-21-2022 Postop follow up vis it related to original px Mima Rodriguez Work Phone: LL-Dsocayo-Nuoqu [address] Work Phone: Start: 05-21-2022 [facility][id number] Start: 05-15-2022 Chart Update Mima Rodriguez Work Phone: YY-Wznlynw-Zhjja [address] Work Phone: Start: 03-31-2022 Chart Update Mima Oscar Work Phone: KF-Bziyaiz-Qxmpa [address] Work Phone: Start: 03-27-2022 Chart Update Mima Rodriguez Work Phone: DB-Naejdkg-Rlpem [address] Work Phone: Start: 03-24-2022 Chart Update Mima Rodriguez Work Phone: XT-Gaplxbg-Thkdu [address] Work Phone: Start: 02-27-[address] Mima Oscar Facility:[id number] Start: 02-27-2022 Office outpatient vi sit 25 minutes Mima Rodriguez Work Phone: NT-TUXC-Tasu [place] Work Phone: Start: 02-20-2022 Chart Update Mima Rodriguez Work Phone: EK-Xriqvbl-Zdztn [address] Work Phone: Start: 02-18-2022 Chart Update Mima Rodriguez Work Phone: TP-SMTR-Zrwb [place] Work Phone: Start: 02-06-2022 ambulatory MD BRANDON BENITEZ Facil ity:[id number] Start: 02-06-2022 Encounter for other preprocedural examination Ms. Marlin Copeland [facility] Start: 12-09-2021 Office outpatient ne w 20 minutes Mima Rodriguez Work Phone: XR-Paqlpit-Czylg [address] Work Phone: Start: 12-09-2021 Phys/qhp telephone evaluation 11-20 min Mima Rodriguez Work Phone: CP-Ygmguus-Oobso [address] Work Phone: Start: 12-04-2021 Chart Update Mima Oscar Work Phone: EV-Pbitouzlan-Yddqpq [address] [place] Work Phone: Start: 12-02-2021 AUDIT Mima Pinedo Celestina Work Phone: [facility] Work Phone: Start: 11-04-2021 Patient encounter procedure Mima Oscar Work Phone: MP[facility]War[facility] Work Phone: Start: 10-15-2021 Chart Update Mima Pinedo Celestina Work Phone: ZN-SLZN-Ygad [place] Work Phone: Start: 10-07-2021 Office outpatient ne w 45 minutes Mima Oscar Work Phone: VV-Ovnhiawxfl-Qfgemn [address] [place] Work Phone: Start: 09-01-2021 AUDIT Mima Pinedo Celest[place] Work Phone: LP-UDKB-Rupe [place] Work Phone: Start: 09-01-2021 AUDIT Mima Pinedo Cel[place] Work Phone: HE-Vwttjjqlb-Fibbwr [address] [place] Work Phone: Start: 08-27-2021 Office outpatient vi sit 15 minutes Mima Oscar Work Phone: BV-BEHF-Cnbb [place] Work Phone: Start: 08-27-2021 Patient encounter procedure Mima Pinedo Celestina Work Phone: RL-SINP-Redu [place] Work Phone: Start: 08-18-2021 Chart Update Mima Oscar Work Phone: RT-Oeevodnibe-Ogiyvk [address] [place] Work Phone: Start: 07-25-2021 Office outpatient vi sit 15 minutes Mima Rodriguez Work Phone: OQ-CSQM-Hjaz [place] Work Phone: Start: 07-25-2021 Patient encounter procedure Mima Rodriguez Work Phone: XP-CHUK-Xkms [place] Work Phone: Start: 06-27-2021 Office outpatient vi sit 25 minutes Mima Rodriguez Work Phone: BA-ECZA-Tntn [place] Work Phone: Start: 06-27-2021 Patient encounter procedure Mima Rodriguez Work Phone: ME-LOHD-Rvli [place] Work Phone: Start: 05-14-2021 End: 05-14-2021 Emergency department patient visit Chuck Chopra [facility] Emergency 03 Start: 02-25-2021 AUDIT Mima Rodriguez Work Phone: YV-QWJO-Wzao [place] Work Phone: Start: 11-27-2019 Patient encounter procedure Mima BARAJASST-Mtqcgzlafrkj-Pfckgb [facility] Work Phone: Start: 07-08-2018 Patient encounter Alonzo Aldair Facil ity:[facility] [place] [place] Start: 04-22-2018 Patient encounter Alonzo Aldair Facil ity:[facility] [place] [place] Start: 04-18-2018 Patient encounter Tamanna Hill Facil ity:[facility] [place] [place] Start: 04-08-2018 Patient encounter Tamanna Hill Facil ity:[facility] [place] [place] Start: 03-28-2018 Patient encounter Tamanna Hill Facil ity:[facility] [place] [place] Start: 03-15-2018 Patient encounter Tamanna Hill Facil ity:[facility] [place] [place] Start: 03-03-2018 Patient encounter procedure Mima BARAJASRS-Apnkypntkcqo-Qzpxxh [facility] [address] Work Phone: Start: 02-18-2018 Patient encounter procedure Mima Rodriguez KL-Immkfkzhgzkm-Noojmx [facility] [address] Work Phone: Start: 02-15-2018 Emergency department patient visit Mima Rodriguez Facility:[facility] [place] [place] Start: 11-24-2017 Patient encounter Mima Rodriguez Fac ility:[facility] [place] [place] Preoperative state Mima garduno Work Phone: MP-[facility]Caitlin [facility] Work Phone: Procedures Date Procedure Procedure Detail Performing Clinician Start: 11-12-2023 BI MAMMO BILATERAL SCREENING TOMOSYNTHESIS IMMA RODRIGUEZ Start: 10-27-2023 FLU VACCINE (IIV4) GREATER THAN OR EQUAL TO 3YO PRESERVATIVE FREE MIMA RODRIGUEZ Start: 09-16-2023 DRUG SCREEN, URINE WITH REFLEX TO CONFIRMATION MIMA RODRIGUEZ Start: 09-16-2023 AMB REFERRAL TO NEUROLOGY MIMA RODRIGUEZ Start: 07-09-2023 CBC W Auto Differential panel - Blood MIMA RODRIGUEZ Start: 07-09-2023 Comprehensive metabolic 2000 panel - Serum or Plasma MIMA RODRIGUEZ Start: 07-09-2023 Cyanocobalamin vitamin b-12 MIMA RODRIGUEZ Start: 07-09-2023 Ferritin [Mass/volume] in Serum or Plasma MIMA RODRIGUEZ Start: 07-09-2023 FOLATE MIMA RODRIGUEZ Start: 07-09-2023 Hemoglobin A1c/Hemoglobin.total in Blood MIMA RODRIGUEZ Start: 07-09-2023 IRON AND TIBC MIMA RODRIGUEZ Start: 07-09-2023 PTH, INTACT MIMA RODRIGUEZ Start: 07-09-2023 TSH WITH REFLEX TO FREE T4 IF ABNORMAL MIMA RODRIGUEZ Start: 07-09-2023 VITAMIN B1, WHOLE BLOOD MIMA RODRIGUEZ Start: 07-09-2023 VITAMIN B6 MIMA RODRIGUEZ Start: 07-09-2023 VITAMIN D 25-HYDROXY,TOTAL MIMA RODRIGUEZ Start: 01-22-2023 Lipid 1996 panel - Serum or Plasma Yaw Rodriguez MD Work Phone: Start: 10-30-2022 Mammography Mima Rodriguez MD Work Phone: Start: 05-14-2021 End: 05-14-2021 EKG impression Unruly Harper Start: 11-27-2019 Antinuclear antibodies zoë Mima Rodriguez Start: 11-27-2019 Blood count complete auto&auto difrntl wbc Mima Rodriguez Start: 11-27-2019 C-reactive protein Mima Rodriguez Start: 11-27-2019 Comprehensive metabolic 2000 panel Yaw Oscarh Start: 11-27-2019 Protein total xcpt refractometry urine Mima Rodriguez Start: 11-27-2019 Sedimentation rate rbc automated Mima Rodriguez Start: 11-27-2019 Urnls dip stick/tablet rgnt auto w/o microscopy Mima Rodriguez Start: 04-08-2018 Antibody screen Cheri Quinteros Comment on above: Order Comment: [place]Has patient had a transplant? Result Comment: Surg any date 04/18/18. Specimen expires 04/20/18. Performed By: #### B TS ####[facility] [id number] [place] [address] Start: 03-15-2018 Antibody screen Cheri Quinteros Comment on above: Order Comment: [place]: [facility] Comments: SURGERY 03/28/18Is patient taking NEGRITO?Has patient had a transplant? Performed By: #### B TS ####[facility] [id number] [place] [address] Start: 02-15-2018 Electrocardiogram Cheri Quinteros Start: 10-30-2016 Microscopic observation [Identifier] in Cervix by Cyto stain Mima Rodriguez MD Work Phone: Colonoscopy Mima Rodriguez Esophagogastroduodenoscopy M enrique Rodriguez History of Ankle Surgery Hardeep lary Rodriguez History of Laparosco pic Excision Endometriotic Tissue [place] Mima Rodriguez Plan of Treatment Date Care Activity Detail Author Start: 04-30-2031 Zoster Vaccines (1 o f 2) Zoster Vaccines (1 of 2) [facility] Start: 01-23-2028 Lipid panel Lipid Panel [facility] Start: 10-30-2026 DTaP/Tdap/Td Vaccine s (2 - Td or Tdap) DTaP/Tdap/Td Vaccines (2 - Td or Tdap) [facility] Start: 07-09-2026 Diabetes mellitus screening Diabetes Screening [facility] Start: 03-23-2025 Diabetes mellitus screening Diabetes Screening [facility] Start: 10-30-2024 End: 10-30-2024 Patient encounter procedure 10/30/2024 2:10 PM EST Office Visit [facility] [id number] [place] [address] [place] [id number] [address] [place] [address] [facility] Start: 11-30-2023 End: 11-30-2023 Patient encounter procedure 11/30/2023 9:15 AM EST Office Visit [facility] [address] [place] [address] [place] [phone] Linda Gaviria MD [address] [facility], [facility] [address] [place], [place] [phone] [facility] Start: 11-15-2023 End: 11-15-2023 Telemedicine consultation with patient [facility] Start: 11-08-2023 End: 11-08-2023 Patient encounter procedure 11/08/2023 2:00 PM EST Appointment [address] [phone] [facility] Start: 11-04-2023 End: 11-04-2023 Patient encounter procedure 11/04/2023 9:30 AM EST Office Visit [facility] [address] [place] [address] [place] [phone] Linda Gaviria MD [address] [facility], [address] [phone] [facility] Start: 10-30-2023 Screening for malign ant neoplasm of breast Mammogram [facility] Start: 10-27-2023 End: 10-27-2023 Patient encounter procedure 10/27/2023 2:10 PM EST Office Visit [facility] [address] [place] [phone] [place] [address] [address] jose daniel [place], [place] [phone] [facility] Start: 10-27-2023 End: 12-25-2024 DBT Breast - bilateral BI mammo bilateral screening tomosynthesis Imaging Routine Breast cancer screening by mammogram Expected: 10/27/2023 (Approximate), Expires: 12/25/2024 [facility] Work Phone: Comment on above: Expected: 10/27/2023 (Approximate), Expires: 12/25/2024 Start: 09-16-2023 End: 09-16-2024 Drugs of abuse screen W Reflex confirm panel - Urine [facility] Work Phone: Comment on above: Expected: 09/16/2023 (Approximate), Expires: 09/16/2024 Start: 06-24-2023 End: 06-24-2024 Hemoglobin A1c/Hemoglobin.total in Blood Hemoglobin A1C Lab Routine Bariatric surgery status Expected: 06/24/2023 (Approximate), Expires: 06/24/2024 [facility] Work Phone: Comment on above: Expected: 06/24/2023 (Approximate), Expires: 06/24/2024 Start: 06-04-2023 COVID-19 Vaccine ( season) COVID-19 Vaccine ( season) [facility] Start: 06-04-2023 Influenza vaccination Influenza Vacc ine (#1) [facility] Start: 01-27-2023 OMAIRA, Provider : Lori Mchugh, Status: Pen, Time: 1:00 PM VIRFUVJERO, Provider: Lori Mchugh, Status: Pen, Time: 1:00 PM ZF-Foygqnk-Kxkgu [id number] Work Phone: Start: 11-04-2022 OMAIRA, Provider : Lori Mchugh, Status: Pen, Time: 1:00 PM OMAIRA, Provider: Lori Mchugh, Status: Pen, Time: 1:00 PM AO-GNXV[facility] Work Phone: Start: 11-04-2022 OMAIRA, Provider : Verónica Nguyen, Status: Pen, Time: 12:30 PM VIRFUVHOME, Provider: Verónica Nguyen, Status: Pen, Time: 12:30 PM BA-RLSX-Djrr [place] Work Phone: Start: 10-16-2022 FUV, Provider: Mima Rodriguez, Status: Pen, Time: 3:00 PM FUV, Provider: Mima Rodriguez, Status: Pen, Time: 3:00 PM JQ-Xxiqdfp-Muajj [id number] [address] Work Phone: Start: 10-04-2022 DEPRESSION ASSESSMENT DEPRESSION [facility] Start: 08-14-2022 FUV, Provider: Mima Rodriguez, Status: Pen, Time: 1:50 PM FUV, Provider: Mima Rodriguez, Status: Pen, Time: 1:50 PM LZ-YPKE-Ezgx [place] Work Phone: Start: 08-07-2022 VIRFUVHOME, Provider : Brandon Benitez, Status: Pen, Time: 9:15 AM VIRFUVHOME, Provider: Brandon Benitez, Status: Pen, Time: 9:15 AM GS-Ltvlydh-Bundv [id number] [address] Work Phone: Start: 08-05-2022 VIRFUVHOME, Provider : Verónica Nguyen, Status: Pen, Time: 10:00 AM VIRFUVHOME, Provider: Verónica Nguyen, Status: Pen, Time: 10:00 AM XA-Bpkbxly-Mllox [facility] [address] Work Phone: Start: 06-19-2022 VIRFUVHOME, Provider : Brandon Benitez, Status: Pen, Time: 8:45 AM VIRFUVHOME, Provider: Branodn Benitez, Status: Pen, Time: 8:45 AM DL-Zikbpdk-Valkl [facility] Work Phone: Start: 06-17-2022 VIRFUVMATTE, Provider : Verónica Nguyen, Status: Pen, Time: 10:30 AM VIRFUVHOME, Provider: Verónica Nguyen, Status: Pen, Time: 10:30 AM YO-Vsazubp-Fbrrv [id number] Work Phone: Start: 06-04-2022 Influenza vaccination INFLUENZA (#1) [facility] Start: 05-21-2022 VIRFUVMATTE, Provider : Verónica Nguyen, Status: Pen, Time: 9:00 AM VIRFUVHOME, Provider: Verónica Nguyen, Status: Pen, Time: 9:00 AM PM-Xunohbf-Wxlxn [facility] Work Phone: Start: 05-21-2022 VIRFUVHOME, Provider : Brandon Benitez, Status: Pen, Time: 8:30 AM VIRFUVHOME, Provider: Brandon Benitez, Status: Pen, Time: 8:30 AM HI-Larmmmk-Vnrov [facility] Work Phone: Start: 02-27-2022 FUV, Provider: Mima Rodriguez, Status: Pen, Time: 1:30 PM FUV, Provider: Mima Rodriguez, Status: Pen, Time: 1:30 PM KP-BNLT-Kmxv [place] Work Phone: Start: 02-06-2022 NPV, Provider: Marlin Lora, Status: Pen, Time: 1:30 PM NPV, Provider: Marlin Lora, Status: Pen, Time: 1:30 PM [facility] Work Phone: Start: 02-06-2022 VIRNPVCLSH, Provider : Verónica Nguyen, Status: Pen, Time: 8:00 AM VIRNPVCLSH, Provider: Verónica Nguyen, Status: Pen, Time: 8:00 AM [id number] Work Phone: Start: 12-19-2021 NPV, Provider: Marlin Lora, Status: Pen, Time: 1:30 PM NPV, Provider: Marlin Lora, Status: Pen, Time: 1:30 PM PE-Vlmgjxrcvz-Mqadet [address] [place] [address] Work Phone: Start: 03-09-2022 VIRFUVHOME, Provider : Gerry Steward, Status: Pen, Time: 3:30 PM VIRFUVHOME, Provider: Gerry Steward, Status: Pen, Time: 3:30 PM IA-Uonnxmjloa-Pylsob [address] [place] Work Phone: Start: 12-09-2021 VIRNPVHOME, Provider : Brandon Benitez, Status: Pen, Time: 12:30 PM VIRNPVHOME, Provider: Brandon Benitez, Status: Pen, Time: 12:30 PM [id number] Work Phone: Start: 12-02-2021 VIRNPVHOME, Provider : Verónica Nguyen, Status: Pen, Time: 8:30 AM VIRNPVHOME, Provider: Verónica Nguyen, Status: Pen, Time: 8:30 AM [id number] Work Phone: Start: 10-15-2021 HSATADLT, Provider: [facility],[id number], Status: Pen, Time: 7:15 PM HSATADLT, Provider: [facility],[id number], Status: Pen, Time: 7:15 PM MO-Bnlffajcxx-Odbryg [place] Work Phone: Start: 10-07-2021 NPV, Provider: Gerry Steward, Status: Pen, Time: 2:30 PM NPV, Provider: Gerry Steward, Status: Pen, Time: 2:30 PM AQ-JYAL-G[place]zy [place] Work Phone: Start: 07-25-2021 VIRFUVHOME, Provider : Mima Rodriguez, Status: Pen, Time: 1:50 PM VIRFUVHOME, Provider: Mima Rodriguez, Status: Pen, Time: 1:50 PM IJ-BHSP-Cwwp [place] Work Phone: Start: 04-30-2021 Mammography MAMMOGRAM [facility] Start: 2021 COVID-19 VACCINE (3 - Booster for Moderna series) COVID-19 VACCINE (3 - Booster for Moderna series) [facility] Start: 2021 COVID-19 Vaccine (3 - Moderna series) COVID-19 Vaccine (3 - Moderna series) [facility] Start: 03-07-2021 FUV, Provider: Mima Rodriguez, Status: Pen, Time: 8:00 AM FUV, Provider: Mima Rodriguez, Status: Pen, Time: 8:00 AM [facility] Work Phone: Start: 10-30-2019 Screening for malign ant neoplasm of cervix [facility] Start: 04-30-2011 HPV TESTING HPV TESTING [facility] Start: 04-30-2002 PAP TESTING PAP TESTING [facility] Start: 04-30-2002 Screening for malign ant neoplasm of cervix HPV/Cotest [facility] Start: 2000 Urine microalbumin profile DTAP,TDAP,TD (1 - Tdap) [facility] Start: 04-30-1999 HEPATITIS C SCREENING HEPATITIS C [facility] Start: 04-30-1999 Hepatitis C screening Hepatitis C [facility] Start: 04-30-1999 HIV SCREENING HIV SCREENING [facility] Start: 04-30-1982 MMR Vaccines (1 of 1 - Standard series) MMR Vaccines (1 of 1 - Standard series) [facility] Start: 04-30-1982 Varicella vaccination Varicell a Vaccines (1 of 2 - 2-dose childhood series) [facility] Start: 04-30-1981 HEPATITIS B (1 of 3 - 3-dose series) HEPATITIS B (1 of 3 - 3-dose series) [facility] Start: 04-30-1981 Hepatitis B Vaccines (1 of 3 - 3-dose series) Hepatitis B Vaccines (1 of 3 - 3-dose series) [facility] Start: 04-30-1981 HIV screening HIV Screening [facility] Start: 04-30-1981 Yearly Adult Physical Yearly Adult P hysical [facility] Immunizations Immunization Date Immunization Notes Care Provider Fa cilizhang 10-27-2023 influenza, injectabl e, quadrivalent, preservative free Mima Rodriguez MD Work Phone: [facility] Work Phone: 08-27-2021 influenza, injectabl e, quadrivalent, preservative free; Translations: [Flulaval Quadrivalent 0.5 ML Intramuscular Suspension Prefilled Syringe] Mima Rodriguez Work Phone: [facility] [place] Work Phone: Comment on above: Series: 08-27-2021 influenza virus vaccine, unspecified formulation Mima Rodriguez MD Work Phone: [facility] Work Phone: 01-17-2021 Moderna COVID-19 Vaccine 100 MCG/0.5ML Intramuscular Suspension Mima Rodriguez Work Phone: JY[facility]IBTF[facility]Hx[facility] [place] Work Phone: 12-20-2020 Moderna COVID-19 Vaccine 100 MCG/0.5ML Intramuscular Suspension Mima Rodriguez Work Phone: [email or web address] Work Phone: 10-30-2016 tetanus toxoid, redu avinash diphtheria toxoid, and acellular pertussis vaccine, adsorbed Mima Rodriguez Work Phone: [email or web address] Work Phone: Payers Date Payer Category Payer Private Health Insurance [facility] [id number] 2023-Present [address] [place] [address] [id number] 2021 Unknown [id number] 2018 Medicaid [id number] 2018 Unknown 1981 Unknown [id number] 2.16.840.1.714575.3.579.2. 356 1981 Unknown [id number] 2.16.840.1.184090.3.579.2. 356 1981 Unknown [id number] 2.16.840.1.822004.3.579.2. 356 1981 Unknown [id number] 2.16.840.1.439390.3.579.2. 1981 Unknown [id number] 2.16.840.1.819412.3.579.2. 1981 Unknown [id number] 2.16840.1.049171.3.579.2. 1981 Unknown [id number] 2.16840.1.225122.3.579.2. 1981 Unknown [id number] 2.16840.1.900448.3.579.2. 1068 1981 Unknown [id number] 2.16840.1.770563.3.579.2. 1068 1981 Unknown [id number] 2.840.1.327253.3.579.2. 1068 1981 Unknown [id number] 2.840.1.005949.3.579.2. 1045 1981 Unknown [id number] 2.840.1.798187.3.579.2. 1045 1981 Unknown [id number] 2.840.1.826679.3.579.2. 1045 1981 Unknown [id number] 2.840.1.590631.3.579.2. 1244 1981 Unknown [id number] 2.840.1.712966.3.579.2. 1243 1981 Unknown [id number] 2.840.1.180677.3.579.2. 1243 1981 Unknown [id number] 2.16840.1.423287.3.579.2. 1243 1981 Unknown [id number] 2.16840.1.289882.3.579.2. 1246 1981 Unknown [id number] 2.16840.1.653562.3.579.2. 1247 1981 Unknown [id number] 2.16.840.1.563208.3.579.2. 1243 Medicaid [id number] Unknown [id number] 2.16.840.1.167439.3.579.2. 243 Unknown [id number] 2.16.840.1.206948.3.579.2. 243 Unknown [id number] 2.16.840.1.233629.3.579.2. 243 Unknown [id number] 2.16.840.1.906612.3.579.2. 243 Unknown [id number] 2.16.840.1.739211.3.579.2. 243 Unknown [id number] 2.16.840.1.728184.3.579.2. 243 Unknown [id number] 2.16.840.1.710937.3.579.2. 243 Unknown [id number] 2.16.840.1.336513.3.579.2. 243 Social History Date Type Detail Facility Assertion Tobacco smoking consumption unknown (finding) WW-Lcqkdsxoqhii-[facility] [address] Work Phone: Start: 06-24-2023 End: 09-16-2023 YF-VDFD-Lrbl [place] Work Phone: Tobacco smoking consumption unknown [facility] Start: 12-25-2022 End: 06-24-2023 Tobacco smoking status NHIS Ex-smoker [facility] History of tobacco use Current smoker [facility] Start: 12-25-2022 End: 06-24-2023 Tobacco use and exposure Smokeless tobacco non-user [facility] Start: 12-25-2022 Alcohol intake Current drinke r of alcohol (finding) [facility] Start: 04-30-1981 Sex Assigned At Female [facility] History of tobacco use Cigarette Smoker [facility] Work Phone: Start: 06-24-2023 End: 10-27-2023 Alcohol intake Lifetime non-drinker (finding) [facility] Work Phone: Start: 06-24-2023 End: 09-16-2023 Tobacco use panel [facility] Work Phone: Start: 01-21-2023 Gender identity Identifies as female gender (finding) [facility] Work Phone: Start: 01-21-2023 Sexual orientation Bisexual (finding ) [facility] Work Phone: Start: 10-17-2023 End: 10-27-2023 Exposure to SARS-CoV-2 (event) Not sure [facility] NEGATED: Highlighted rowStart: NINF History of tobacco use Passive smoker [facility] Work Phone: Functional Status Date Assessment Result Facility NEGATED: Highlighted row Functional performance Functional status health issues are not documented Disease [facility] Work Phone: Mental Status Date Assessment Result Facility NEGATED: Highlighted row Cognitive function [Interpretation] Cognitive status health issues are not documented Disease JT-Gvvjmujlmjwf[facility] Work Phone: Clinical Notes 07-25-2021 to 10-27-2023 Mima Rodriguez MD - 10/27/2023 2:10 PM Melba Gaviria MD - 09/16/2023 9:30 AM Panda Rodriguez MD - 06/24/2023 8:00 AM Terri Schulz OD - 12/25/2022 3:16 PM EDT Note Date & Type Note Facility 10-27-2023 History of Present illness Narrative Belem Lawler is a 42 y.o. female here today for Chief Complaint Patient presents with Annual Exam HPI Patient is here for a periodic health exam. I reviewed previous preventative health measures including screening tests, immunizations and labs. Now on Adderall from Dr. Gaviria for adult ADHD. She had a full hysterectomy b/c of endometriosis. ANA PAULA/BSO 2018. She continues to do well after gastric sleeve surgery and is approaching her ultimate target weight. Her BMI is currently 26.7. She is happy with this weight but would not mind losing another 5 to 10 pounds. She does get labs in follow-up through the bariatric program. I reviewed her most recent labs. Current Outpatient Medications: ALPRAZolam (Xanax) 0.25 mg tablet, Take 1 tablet (0.25 mg) by mouth every 6 hours if needed., Disp: , Rfl: amphetamine-dextroamphetamine (Adderall) 10 mg tablet, Take 1 tablet (10 mg) by mouth 2 times a day. Do not start before October 16, 2023., Disp: 60 tablet, Rfl: 0 [START ON 11/15/2023] amphetamine-dextroamphetamine (Adderall) 10 mg tablet, Take 1 tablet (10 mg) by mouth once daily. Do not start before November 15, 2023., Disp: 30 tablet, Rfl: 0 multivitamin with iron (Daily Vites/Iron) tablet, , Disp: , Rfl: QUEtiapine (SEROquel) 25 mg tablet, Take by mouth., Disp: , Rfl: amphetamine-dextroamphetamine (Adderall) 10 mg tablet, Take 1 tablet (10 mg) by mouth 2 times a day., Disp: 60 tablet, Rfl: 0 Patient Active Problem List Diagnosis Anxiety Bariatric surgery status Calculus of gallbladder without cholecystitis without obstruction Depression Fibroadenoma of right breast Heartburn Pilar cyst of scalp Post-op pain Post-operative nausea and vomiting Postoperative malabsorption Raynaud phenomenon S/P laparoscopic sleeve gastrectomy Attention disturbance Endometriosis Mass of breast 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 Chest wall pain Status post ANA PAULA-BSO Recent Results (from the past 672 hour(s)) Iron and TIBC Collection Time: 10/08/23 8:19 AM Result Value Ref Range Iron 73 35 - 150 ug/dL UIBC 234 110 - 370 ug/dL TIBC 307 240 - 445 ug/dL % Saturation 24 (L) 25 - 45 % CBC Collection Time: 10/08/23 8:19 AM Result Value Ref Range WBC 4.0 (L) 4.4 - 11.3 x10*3/uL nRBC 0.0 0.0 - 0.0 /100 WBCs RBC 4.27 4.00 - 5.20 x10*6/uL Hemoglobin 12.6 12.0 - 16.0 g/dL Hematocrit 39.1 36.0 - 46.0 % MCV 92 80 - 100 fL MCH 29.5 26.0 - 34.0 pg MCHC 32.2 32.0 - 36.0 g/dL RDW 12.7 11.5 - 14.5 % Platelets 226 150 - 450 x10*3/uL Objective Visit Vitals Visit Vitals BP 110/64 Pulse 62 Temp 36.1 C (97 F) Resp 18 Ht 1.524 m (5') Wt 62.1 kg (137 lb) BMI 26.76 kg/m Smoking Status Former BSA 1.62 m Body mass index is 26.76 kg/m . Physical Exam Vitals and nursing note reviewed. Constitutional: General: She is not in acute distress. Appearance: Normal appearance. HENT: Head: Normocephalic and atraumatic. Right Ear: Tympanic membrane, ear canal and external ear normal. Left Ear: Tympanic membrane, ear canal and external ear normal. Nose: Nose normal. Mouth/Throat: Mouth: Mucous membranes are moist. Pharynx: Oropharynx is clear. Eyes: Extraocular Movements: Extraocular movements intact. Conjunctiva/sclera: Conjunctivae normal. Pupils: Pupils are equal, round, and reactive to light. Cardiovascular: Rate and Rhythm: Normal rate and regular rhythm. Pulses: Normal pulses. Heart sounds: Normal heart sounds. No murmur heard. No friction rub. No gallop. Pulmonary: Effort: Pulmonary effort is normal. No respiratory distress. Breath sounds: Normal breath sounds. Chest: Breasts: Right: Normal. No mass, nipple discharge or skin change. Left: Normal. No mass, nipple discharge or skin change. Abdominal: General: Abdomen is flat. Bowel sounds are normal. There is no distension. Palpations: Abdomen is soft. Tenderness: There is no abdominal tenderness. Musculoskeletal: General: Normal range of motion. Cervical back: Normal range of motion and neck supple. Lymphadenopathy: Cervical: No cervical adenopathy. Upper Body: Right upper body: No axillary adenopathy. Left upper body: No axillary adenopathy. Skin: General: Skin is warm and dry. Findings: No lesion or rash. Neurological: General: No focal deficit present. Mental Status: She is alert. Mental status is at baseline. Psychiatric: Mood and Affect: Mood normal. Behavior: Behavior normal. Thought Content: Thought content normal. Judgment: Judgment normal. Assessment 1. Encounter for preventive health examination Recommend regular exercise, balanced diet, regular dental exams, and healthy habits. Appropriate labs ordered or reviewed. She has done very well after gastric sleeve surgery and she will continue to follow-up with the bariatric team. She will receive a flu shot today. She no longer needs Pap tests. I recommend a yearly flu shot in the fall and I recommend a yearly wellness exam. 2. Breast cancer screening by mammogram BI mammo bilateral screening tomosynthesis 3. Status post ANA PAULA-BSO 2018 --done for endometriosis. documented in this encounter [facility] Work Phone: 09-16-2023 History of Present illness Narrative Belem Lawler 42 y.o. SUBJECTIVE HPI Belem P 2-year-old young lady who was seen today for evaluation of a possible attention deficit disorder difficulty at work at home. 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 She was started on multiple medications without much help but currently she is on Seroquel at nighttime which does seem to be helping her. Based on the diagnostic checklist suggestive of combined type of ADHD and symptoms affecting her socially as well as functionally I would like to try her on Adderall short acting 10 mg twice a day since she had a history of gastric bypass surgery have discussed the controlled substance policy, abusive potential, risk benefit and the precautions to be taken and see her back in 2 to 3 months As you recall, Belem is a 42-year-old young lady who had issues since she was in school and the school she was diagnosed with having quite talkative not paying attention getting her work done. She did some college and then dropped out. On the diagnostic checklist she had 6 out of 9 for both inattentive and hyperactive type of ADHD Her and developmental history's were unremarkable She lives with her family is a 3-year-old son who was diagnosed with ADHD and some learning difficulty and graduate only from 12 grade and currently not on any medication she is 18-year-old son who also has a history of ADHD and ODD and currently not on any medication She denies any smoking alcohol but occasionally smokes marijuana. Due to technical limitations of voice recognition and human error, this note may not accurately reflect the care of the patient. Review of Systems Constitutional: Negative for fatigue, fever and unexpected weight change. HENT: Negative for dental problem, ear pain, hearing loss, sinus pressure, tinnitus and trouble swallowing. Eyes: Negative for photophobia, pain and visual disturbance. Respiratory: Negative for cough, shortness of breath and wheezing. Cardiovascular: Negative for chest pain, palpitations and leg swelling. Gastrointestinal: Negative for abdominal pain, nausea and vomiting. Genitourinary: Negative for difficulty urinating, enuresis and frequency. Musculoskeletal: Negative for arthralgias, back pain, joint swelling, neck pain and neck stiffness. Skin: Negative for pallor and rash. Allergic/Immunologic: Negative for food allergies. Neurological: Negative for dizziness, tremors, seizures, syncope, facial asymmetry, speech difficulty, weakness, light-headedness, numbness and headaches. Hematological: Negative for adenopathy. Does not bruise/bleed easily. Psychiatric/Behavioral: Positive for behavioral problems and decreased concentration. Negative for agitation, confusion, hallucinations and sleep disturbance. The patient is not hyperactive. Patient Active Problem List Diagnosis Abdominal pain Anxiety Bariatric surgery status Calculus of gallbladder without cholecystitis without obstruction Depression Fibroadenoma of right breast Heartburn HLD (hyperlipidemia) Obesity (BMI 30-39.9) Pilar cyst of scalp Post-op pain Post-operative nausea and vomiting Postoperative malabsorption Raynaud phenomenon S/P laparoscopic sleeve gastrectomy Attention disturbance Endometriosis Past Medical History: Diagnosis Date Personal history of peptic ulcer disease 03/03/2018 History of gastric ulcer Sleep disturbances 06/23/2023 Snoring 06/23/2023 Past Surgical History: Procedure Laterality Date ANKLE SURGERY 02/18/2018 Ankle Surgery COLONOSCOPY 03/03/2018 Colonoscopy ESOPHAGOGASTRODUODENOSCOPY 03/03/2018 Diagnostic Esophagogastroduodenoscopy OTHER SURGICAL HISTORY 02/18/2018 Laparoscopic Excision Endometriotic Tissue [place] reports that she has quit smoking. Her smoking use included cigarettes. She has never been exposed to tobacco smoke. She has never used smokeless tobacco. She reports current drug use. Drug: Marijuana. She reports that she does not drink alcohol. BP 104/69 Pulse 97 Ht 1.575 m (5' 2 ) Wt 64.3 kg (141 lb 12.8 oz) BMI 25.94 kg/m OBJECTIVE Physical Exam/Neurological Exam Constitutional: General appearance: no acute distress Auscultation of Heart: Regular rate and rhythm, no murmurs, normal S1 and S2. Carotid Arteries: Intact without any bruits. Neck is supple. No lymph adenopathy. Peripheral Vascular Exam: Pulses +2 and equal in all extremities. No swelling, varicosities, edema or tenderness to palpations. Abdomen is soft, nondistended. No organomegaly. Mental status: The patient was in no distress, alert, interactive and cooperative. Affect is appropriate. Orientation: oriented to person, oriented to place and oriented to time. Memory: recent memory intact and remote memory intact. Attention: normal attention span and normal concentrating ability. Language: normal comprehension and no difficulty naming common objects. Fund of knowledge: Patient displays adequate knowledge of current events, adequate fund of knowledge regarding past history and adequate fund of knowledge regarding vocabulary. Eyes: The ophthalmoscopic examination was normal. The fundi are visualized with normal disc margins and without. Cranial nerve II: Visual issa full to confrontation. Cranial nerves III, IV, and : Pupils round, equally reactive to light; no ptosis. EOMs intact. No nystagmus. Cranial Nerve V: Facial sensation intact bilaterally. Cranial nerve VII: Normal and symmetric facial strength. Cranial nerve VIII: Hearing is intact bilaterally to finger rub / whisper. Cranial nerves IX and X: Palate elevates symmetrically. Cranial nerve XI: Shoulder shrug and neck rotation strength are intact. Cranial nerve XII: Tongue midline with normal strength. Motor: Motor exam was normal. Muscle bulk was normal in both upper and lower extremities. Muscle tone was normal in both upper and lower extremities. Muscle strength was 5/5 throughout. no abnormal or adventitious movements were present. Deep Tendon Reflexes: left biceps 2+ , right biceps 2+, left triceps 2+, right triceps 2+, left brachioradialis 2+, right brachioradialis 2+, left patella 2+, right patella 2+, left ankle jerk 2+, right ankle jerk 2+ Plantar Reflex: Toes downgoing to plantar stimulation on the left. Toes downgoing to plantar stimulation on the right. Sensory Exam: Normal to light touch. Coordination: There is no limb dystaxia and rapid alternating movements are intact. Gait: Gait is normal without spasticity, ataxia or bradykinesia. Stance is stable with a negative Romberg. ASSESSMENT/PLAN Diagnoses and all orders for this visit: Encephalopathy Attention disturbance - Referral to Neurology - Drug Screen, Urine With Reflex to Confirmation; Future - amphetamine-dextroamphetamine (Adderall) 10 mg tablet; Take 1 tablet (10 mg) by mouth 2 times a day. - amphetamine-dextroamphetamine (Adderall) 10 mg tablet; Take 1 tablet (10 mg) by mouth 2 times a day. Do not start before October 16, 2023. - amphetamine-dextroamphetamine (Adderall) 10 mg tablet; Take 1 tablet (10 mg) by mouth once daily. Do not start before November 15, 2023. Anxiety Insomnia due to medical condition Linda Gaviria MD 09/16/2023 12:25 PM documented in this encounter [facility] Work Phone: 06-24-2023 History of Present illness Narrative Belem Lawler is a 42 y.o. female here today for Chief Complaint Patient presents with Referral Pt is requesting referral to Neuro for ADHD. Never evaluated or dxed with ADHD. She has a long h/o poor focus and easy distractibility. She often hyper-focuses too. Two children with dx of ADHD. Trouble with task completion and time management. She is seeing a therapist and psychiatrist but they do not do this type evaluation. HPI Has lost 180 lbs since bariatric surgery. She says things are going well. She has not had a periodic health exam for many years. She had a total hysterectomy so she no longer needs Pap test. She would like to set up for a periodic health exam in the near future. Current Outpatient Medications: ALPRAZolam (Xanax) 0.25 mg tablet, Take 1 tablet (0.25 mg) by mouth every 6 hours if needed., Disp: , Rfl: multivitamin with iron (Daily Vites/Iron) tablet, , Disp: , Rfl: omeprazole (PriLOSEC) [address] capsule, TAKE 1 CAPSULE BY MOUTH ONCE DAILY OPEN CAPSULE, SPRINKLE IN SUGAR FREE APPLESAUCE OR PUDDING AND SWALLOW DO NOT CHEW, Disp: , Rfl: QUEtiapine (SEROquel) 25 mg tablet, Take by mouth., Disp: , Rfl: Patient Active Problem List Diagnosis Abdominal pain Anxiety with flying Anxiety Bariatric surgery status Calculus of gallbladder without cholecystitis without obstruction Depression Fibroadenoma of right breast Heartburn HLD (hyperlipidemia) Obesity (BMI 30-39.9) Pilar cyst of scalp Post-op pain Post-operative nausea and vomiting Postoperative malabsorption Raynaud phenomenon S/P laparoscopic sleeve gastrectomy Attention disturbance No results found for this or any previous visit (from the past 672 hour(s)). Objective Visit Vitals BP 114/68 Pulse 72 Temp 36.7 C (98.1 F) Resp 16 Ht 1.524 m (5') Wt 65.8 kg (145 lb) BMI 28.32 kg/m Body mass index is 28.32 kg/m . Physical Exam General - Not in acute distress and cooperative. Build & Nutrition - Well developed Posture - Normal Gait - Normal Mental Status - alert and oriented x 3 Head - Normocephalic Eyes - Bilateral - Sclera clear and lids pink without edema or mass. Skin - Warm and dry with no rashes on visible skin Neuropsychiatric - normal mood and affect, well groomed and good eye contact. Able to articulate well with normal speech/language, rate and coherence. Associations are intact. No evidence of hallucinations, delusions, obsessions or homicidal/suicidal ideation. Attention span and ability to concentrate are normal. Assessment 1. Attention disturbance Referral to Neurology Patient does have many symptoms that may represent adult ADHD. She also has 2 children diagnosed with ADHD. I am going to refer her to Dr. Gaviria for evaluation and possible treatment. 2. Bariatric surgery status Hemoglobin A1C She did follow-up with her bariatric team specialist and has labs ordered. They did not order an A1c so I am going to add this lab. We will set up for a periodic health exam in the next few months. documented in this encounter [facility] Work Phone: 05-17-2023 Note Chief Complaint An interactive audio and video telecommunication system which permits real time communications between the patient (at the originating site) and provider (at the distant site) was utilized to provide this telehealth service. Verbal consent was requested and obtained from BELEM LAWLER on this date, 05/17/2023 01:30 PM , for a telehealth visit. obesity 1 year postop follow up *Active Problems Abdominal pain (789.00) (R10.9) Anxiety (300.00) (F41.9) Manifesting with easy anger and irritability. Medications restarted 12/12/20 duloxetine. 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) Heartburn (787.1) (R12) HLD (hyperlipidemia) (272.4) (E78.5) Nausea and vomiting (787.01) (R11.2) Obesity (BMI 30-39.9) (278.00) (E66.9) Pilar cyst of scalp (704.41) (L72.11) Post-op pain (338.18) (G89.18) Post-operative nausea and vomiting (787.01) (R11.2,Z98.890) Pre-bariatric surgery nutrition evaluation (V65.3) (Z71.3) Preoperative clearance (V72.84) (Z01.818) Raynaud phenomenon (443.0) (I73.00) Sleep disturbances (780.50) (G47.9) Snoring (786.09) (R06.83) Suspected sleep apnea (781.99) (R29.818) 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) - 05/13/2022 at Past Medical History History of gastric ulcer (V12.79) (Z87.11) Surgical History History of Ankle Surgery History of Colonoscopy History of Diagnostic Esophagogastroduodenoscopy History of Laparoscopic Excision Endometriotic Tissue [place] Family History Family history of Family history of Endometrial carcinoma Family history of coronary artery disease (V17.3) (Z82.49) Social History Never used tobacco (V49.89) (Z78.9) Allergies No Known Drug Allergies Recorded By: Marcia Ahumada; 02/18/2018 3:05:11 PM Current Meds ALPRAZolam 0.25 MG Oral Tablet; TAKE 1 TABLET EVERY 6 HOURS NEEDED FOR ANXIETY; Therapy: [id number] to (Evaluate:[id number]) Requested for: 10Sso4541; Last Rx:[id number] Ordered Rx By: Mima Rodriguez; Dispense: 2 Days ; #:6 Tablet; Refill: 0;For: Anxiety with flying; NEGIN = N; Verified Transmission to [facility]; Last Updated By: Ruddy Lamas; 11/27/2022 2:23:31 PM B-12 1000 MCG Sublingual Tablet Sublingual; Therapy: [id number] to Recorded Dispense: 0 Days ; #: Sufficient Tablet; Refill: 0;For: Bariatric surgery status; NEGIN = N; Record; Last Updated By: Aide Francis; 06/17/2022 3:00:25 PM Bariatric Multivitamins/Iron Oral Capsule; TAKE DIRECTED; Therapy: [id number] to Recorded Dispense: 0 Days ; #: Sufficient Capsule; Refill: 0;For: Bariatric surgery status; NEGIN = N; Record; Last Updated By: Aide Francis; 06/17/2022 3:00:25 PM Calcium Citrate + Oral Tablet; TAKE 1 TABLET 3 times daily; Therapy: [id number] to Recorded Dispense: 0 Days ; #: Sufficient Tablet; Refill: 0;For: Bariatric surgery status; NEGIN = N; Record; Last Updated By: Aide Francis; 06/17/2022 3:00:25 PM Melatonin 1 MG Oral Tablet; TAKE DIRECTED; Therapy: [id number] to Recorded Dispense: 0 Days ; #: Sufficient Tablet; Refill: 0;For: Health Maintenance; NEGIN = N; Record; Last Updated By: Sonia Crockett; 11/27/2019 10:26:08 AM Omeprazole 20 MG Oral Capsule Delayed Release; Therapy: 43Rhz6127 to Recorded Rx By: Lori Mchugh; Dispense: 0 Days ; #: Sufficient Capsule; Refill: 0;For: S/P laparoscopic sleeve gastrectomy; NEGIN = N; Record Ursodiol 250 MG Oral Tablet; TAKE 1 TABLET DAILY; Therapy: 32Luj2623 to (Complete:26Jul2023) Requested for: 27Jan2023; Last Rx:[id number] Ordered Rx By: Lori Mchugh; Dispense: 30 Days ; #:30 Tablet; Refill: 5;For: S/P laparoscopic sleeve gastrectomy; NEGIN = N; Verified Transmission to [facility] 530; Last Updated By: CydneyMeizu; 05/17/2023 1:07:14 PM QUEtiapine Fumarate 25 MG Oral Tablet; Therapy: 64Oks4852 to Recorded Dispense: 30 Days ; #:30; Refill: 0; NEGIN = N; Record; Last Updated By: Rosa Winston; 02/27/2022 1:45:32 PM Provider Impressions Surgery Date: 05/13/22 Surgeon: Ami Procedure: sleeve gastrectomy ASSESSMENT: Current weight pounds: 151.0 Ht: 61.8 in BMI: 27.8 Previous weight pounds: 201.0 11/04/22 Initial start weight pounds: 309.0 09/25/21 EBW pounds: 177.0 Total weight change pounds: 158.0 %EBW Lost: 89.2% PROGRESS: Nutrition Interventions for last encounter (date): 1.Continue to eat 60-70 g of protein per day or 3-4oz per meals. 2.Continue to drink 64 oz. of zero calorie beverages per day 3.Continue no drinking 30 min before, during the meal and for 30 minutes after the meal 4.Increase intensity and duration of exercise 5.Remember to take vit/min regimen. Remember to switch to Calcium c (more content not included)... [employer] 12-25-2022 Note HNO ID: [id number] Author: Farrukh Schulz OD Service: ? Author Type: BILLING AND QUALITY TECHNICIAN Type: Progress Notes Filed: 12/25/2022 3:17 PM Note Text: Encounter Diagnosis ICD-10-CM 1. Hyperopia of both eyes with astigmatism and presbyopia H52.03 H52.203 H52.4 Plan: New spectacle prescription released Monitor one year, or sooner with concerns I have confirmed and edited as necessary the relevant ophthalmic history, ROS, and the exam findings as obtained by others. I have seen and examined this patient. I have discussed the case and the management of this patient's care with the resident/fellow, if applicable. I also have reviewed and agree with the assessment and plan as stated above and agree with all of its relevant components. Farrukh Schulz OD December 25, 2022 3:16 PM [facility] 12-25-2022 History of Present illness Narrative Encounter Diagnosis ICD-10-CM 1. Hyperopia of both eyes with astigmatism and presbyopia H52.03 H52.203 H52.4 Plan: New spectacle prescription released Monitor one year, or sooner with concerns I have confirmed and edited as necessary the relevant ophthalmic history, ROS, and the exam findings as obtained by others. I have seen and examined this patient. I have discussed the case and the management of this patient's care with the resident/fellow, if applicable. I also have reviewed and agree with the assessment and plan as stated above and agree with all of its relevant components. Farrukh Schulz OD December 25, 2022 3:16 PM documented in this encounter [facility] 11-04-2022 Chief complaint Narrative - Reported An interactive audio and video telecommunication system which permits real time communications between the patient (at the originating site) and provider (at the distant site) was utilized to provide this telehealth service.Verbal consent was requested and obtained from BELEM LAWLER on this date, 11/04/2022 10:23 AM , for a telehealth visit.obesity6 month postop follow up [facility] Work Phone: 11-04-2022 Note Chief Complaint An interactive audio and video telecommunication system which permits real time communications between the patient (at the originating site) and provider (at the distant site) was utilized to provide this telehealth service. Verbal consent was requested and obtained from BELEM LAWLER on this date, 11/04/2022 10:23 AM , for a telehealth visit. obesity 6 month postop follow up *Active Problems Abdominal pain (789.00) (R10.9) Anxiety (300.00) (F41.9) Manifesting with easy anger and irritability. Medications restarted 12/12/20 duloxetine. Calculus of gallbladder without cholecystitis without obstruction (574.20) (K80.20) DVT prophylaxis (V07.9) (Z29.9) Encounter for immunization (V03.89) (Z23) Encounter for vitamin deficiency screening (V77.99) (Z13.21) Nausea and vomiting (787.01) (R11.2) Post-op pain (338.18) (G89.18) Post-operative nausea and vomiting (787.01) (R11.2,Z98.890) Pre-bariatric surgery nutrition evaluation (V65.3) (Z71.3) Preoperative clearance (V72.84) (Z01.818) Raynaud phenomenon (443.0) (I73.00) 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) 05/13/2022 at Sleep disturbances (780.50) (G47.9) Snoring (786.09) (R06.83) Suspected sleep apnea (781.99) (R29.818) Obesity (BMI 30-39.9) (278.00) (E66.9) HLD (hyperlipidemia) (272.4) (E78.5) Depression (311) (F32.A) Bariatric surgery status (V45.86) (Z98.84) 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) Past Medical History History of gastric ulcer (V12.79) (Z87.11) Surgical History History of Ankle Surgery History of Colonoscopy History of Diagnostic Esophagogastroduodenoscopy History of Laparoscopic Excision Endometriotic Tissue [place] Family History Family history of Family history of Endometrial carcinoma Family history of coronary artery disease (V17.3) (Z82.49) Social History Never used tobacco (V49.89) (Z78.9) Allergies No Known Drug Allergies Recorded By: Marcia Ahumada; 02/18/2018 3:05:11 PM Current Meds B-12 1000 MCG Sublingual Tablet Sublingual; Therapy: 52Mnb7066 to Recorded Dispense: 0 Days ; #: Sufficient Tablet; Refill: 0;For: Bariatric surgery status; NEGIN = N; Record; Last Updated By: Aide Francis; 06/17/2022 3:00:25 PM Bariatric Multivitamins/Iron Oral Capsule; TAKE DIRECTED; Therapy: 76Oyl5776 to Recorded Dispense: 0 Days ; #: Sufficient Capsule; Refill: 0;For: Bariatric surgery status; NEGIN = N; Record; Last Updated By: Aide Francis; 06/17/2022 3:00:25 PM Calcium Citrate + Oral Tablet; TAKE 1 TABLET 3 times daily; Therapy: [id number] to Recorded Dispense: 0 Days ; #: Sufficient Tablet; Refill: 0;For: Bariatric surgery status; NEGIN = N; Record; Last Updated By: Aide Francis; 06/17/2022 3:00:25 PM Omeprazole 40 MG Oral Capsule Delayed Release; TAKE 1 CAPSULE Daily Open capsule, sprinkle in SF applesauce or pudding, swallow. DO NOT CHEW; Therapy: 28Iwg9443 to (Last Rx:[id number]) Requested for: 21Ayd5515 Ordered Rx By: Brandon Benitez; Dispense: 0 Days ; #:30 Capsule; Refill: 5;For: Bariatric surgery status; NEGIN = N; Verified Transmission to [facility] 1448 Ursodiol 250 MG Oral Tablet; TAKE 1 TABLET TWICE DAILY; Therapy: 05Aug2022 to (Evaluate:03Dec2022) Requested for: 05Aug2022; Last Rx:05Aug2022 Ordered Rx By: Lori Mchugh; Dispense: 30 Days ; #:60 Tablet; Refill: 3;For: Calculus of gallbladder without cholecystitis without obstruction, S/P laparoscopic sleeve gastrectomy; NEGIN = N; Verified Transmission to [facility] 8426; Last Updated By: Ruddy Lamas; 08/05/2022 2:30:21 PM Melatonin 1 MG Oral Tablet; TAKE DIRECTED; Therapy: 22Ilo4592 to Recorded Dispense: 0 Days ; #: Sufficient Tablet; Refill: 0;For: Health Maintenance; NEGIN = N; Record; Last Updated By: Sonia Crockett; 11/27/2019 10:26:08 AM QUEtiapine Fumarate 25 MG Oral Tablet; Therapy: 14Ykq6470 to Recorded Dispense: 30 Days ; #:30; Refill: 0; NEGIN = N; Record; Last Updated By: Rosa Winston; 02/27/2022 1:45:32 PM Provider Impressions Surgery Date: 05/13/22 Surgeon: Ami Procedure: sleeve gastrectomy ASSESSMENT: Current weight pounds: 201lbs Ht:61.8 in BMI: 37 Previous weight pounds: 231.3 .11.25 Initial start weight pounds: 309.0 09/25/21 EBW pounds: 177.0 Total weight change pounds: 108lbs %EBW Lost: 61% PROGRESS: Nutrition Interventions for last encounter (date): 1.Eat 60-70 g of protein per day. work on increasing protein through food and wean off of shakes. 2.Continue to drink 64 oz. of zero calorie beverages per day 3.Continue no drinking 30 min before, during the meal and for 30 minutes after the meal 4.Change up exercise routine periodically 5.Continue current vit/min regimen CHANGES IN TREATMENT: Patient met goals: Partially Actions to meet previous goals: 24 hour food recall: Breakfast: oatmeal w/protein powder, egg w/turkey navarro, cottage cheese, veg Snack: Lunch: turkey sausage, veg, cottage cheese Snack: Dinner: (more content not included)... [employer] 07-09-2022 Note Send Summary: Discharge Summary Providers: Provider RoleProvider Name AttendingChavo June Mary Nurse PractitionerGardner, Mima Roberson Note Recipients: none Discharge: Summary: Admission Date: .08-Jul-2022 09:08:00 Discharge Date: 09-Jul-2022 Attending Physician at Discharge: dr pink Admission Reason: abdominal pain Final Discharge Diagnoses: belly pain Procedures: none Condition at Discharge: satisfactory Disposition at Discharge: home Vital Signs: T PRBPMAPSpO2 [id number]/7297% Date/Time07/09 9: 9: 9: 9: 9:22 Range(35.8C - 36.6C ) (65 - 95 ) (16 - 18 ) (97 - 137 )/ (57 - 80 ) (95% - 100% ) Date: Weight/Scale Type:Height: 08-Jul-2022 14:19586 kg / zol366.4 cm Physical Exam: General Appearance: AAO x 3, not in acute distress Skin: skin color, texture, turgor normal; no suspicious rashes or lesions Eyes : PERRL, EOM's intact, conjunctiva pink ENT: no oral thrush, no pharyngeal erythema or exudates Neck: no JVD, no lymphadenopathy Respiratory: lungs clear to auscultation; no wheezing, rhonchi, or crackles Heart: RRR without murmur, gallop, or rubs, no ectopy Abdomen: Nondistended, positive bowel sounds, soft, tender Extremities: no edema Peripheral pulses: normal and present x 4 extremities Neuro: alert, coherent and conversant, no focal motor deficits Hospital Course: BELEM LAWLER is a 41 year old Female With Pmhx of morbid obesity, anxiety, depression, and GERD presenting to [facility] ED on 07/08 for RUQ abdominal pain x3days, dull in characterstic and worsened when bendin over, also reporst associated nausea. In ed, labs significant for UA ketones 80 and spc gravity >1.060, covid testing was negative, Gallbladder US showed multiple small gall stones and suggestive of cholelithiasis CT abd/pelvis was negative. In ed, patient vital signs were 97.2, 95 HR, 18 RR, 97% on RA, BP 137/77. Patient was given 1500ml NS bolus, morphine 4mg IV< and Zofran 4mg IV. Patient will be admitted to hospital for further evaluation. PLAN: admitted to med surg floor consult placed to surgical service was notified by ED physician that HIDA scan cannot be performed until the morning, so will place patient on clear liquid diet for now and NPO at midnight. reviewd case with dr june. ordered AM labs NS at 125ml/hr pain -tylenol for mild -toradol for mod -morphine for severe constipation -continue colace -continue MOM depression -continue cymbalta, seroquel dvt prophylaxis -heparin dyspepsia -continue maalox insomnia -continue melatonin GERD -protonix Discharge Information: and Continuing Care: Lab Results - Pending: None Radiology Results - Pending: None Discharge Instructions: Activity: activity as tolerated. May shower.. May not return to school/work. May drive.. Nutrition/Diet: resume normal diet Diet Consistency/Texture: regular / thin Additional Orders: Additional Instructions: discharge plan FU with primary care physician within two weeks post hospitalization resume home medications start norco every six hours as needed for pain x 3 days start zofran every six hours as needed for nausea x 3 days call 911 or go to nearest ED if symptoms worsen/persist Follow Up Appointments: Follow-Up Appointment 01: Physician/Dept/Service: Paulette Reason for Referral: cholelithiasis Call to Schedule in: 4 weeks Discharge Medications: Home Medication ondansetron 4 mg oral tablet - 1 tab(s) orally every 8 hours multivitamin with iron Multiple Vitamins with Iron oral tablet - 1 tab(s) oral once a day SEROquel 25 mg oral tablet - 1 tab(s) oral once a day omeprazole 40 mg oral delayed release capsule - 1 cap(s) orally once a day biotin - orally once a day DULoxetine 60 mg oral delayed release capsule - 1 cap(s) orally once a day hydrocodone-acetaminophen 5 mg-325 mg oral tablet - 1 tab(s) orally every 6 hours ondansetron 4 mg oral tablet - 1 tab(s) orally every 6 hours PRN Medication melatonin 1 mg oral tablet - 1 tab(s) oral prn as needed acetaminophen 325 mg oral tablet - 2 tab(s) orally every 4 hours, As needed, Pain - Mild (1-3) DNR Status: Code StatusCode Status order at time of discharge: Full Code Electronic Signatures: Dee Avitia (ORACLE APPLICATIONS ANALYST-STITCHER TAPE CONTROLLED MACHINE) (Signed 09-Jul-2022 12:31) Authored: Send Summary, Summary Content, Ongoing Care, DNR Status, Note Completion Last Updated: 09-Jul-2022 12:31 by Dee Avitia (ORACLE APPLICATIONS ANALYST-STITCHER TAPE CONTROLLED MACHINE) [facility] 07-08-2022 Note History of Present I llness: /Lactating: Are You no (1) Are You Currently Breastfeedingno (1) HPI: VIVEKMAYANKBELEM RIVERA is a 41 year old Female With Pmhx of morbid obesity, anxiety, depression, and GERD presenting to [facility] ED on 07/08 for RUQ abdominal pain x3days, dull in characterstic and worsened when bendin over, also reporst associated nausea. In ed, labs significant for UA ketones 80 and spc gravity >1.060, covid testing was negative, Gallbladder US showed multiple small gall stones and suggestive of cholelithiasis CT abd/pelvis was negative. In ed, patient vital signs were 97.2, 95 HR, 18 RR, 97% on RA, BP 137/77. Patient was given 1500ml NS bolus, morphine 4mg IV< and Zofran 4mg IV. Patient will be admitted to hospital for further evaluation. 300pm: patient examined at bedside, she is sitting up in bed playing on phone, she reports some nausea and RUQ pain 02/10. karin any fever, chills, or vomting, last BM was yesterday. Pmhx: morbid obesity, anxiety, depression, and GERD Psoc: former smoker, no etoh, no illicit drugs Psurg: gastric sleeve 2 months ago at [facility], hyseterctomy 10point ROS reviewed and negative other than listed above Social History: Social History: Smoking Statusnever smoker (1) Alcohol Usedenies(1) Drug Usedenies (1) Intolerances: Aspartame: Headaches Medications Prior to Admission: biotin: orally once a day DULoxetine 60 mg oral delayed release capsule: 1 cap(s) orally once a day multivitamin with iron Multiple Vitamins with Iron oral tablet: 1 tab(s) oral once a day SEROquel 25 mg oral tablet: 1 tab(s) oral once a day melatonin 1 mg oral tablet: 1 tab(s) oral prn as needed ondansetron 4 mg oral tablet: 1 tab(s) orally every 8 hours omeprazole 40 mg oral delayed release capsule: 1 cap(s) orally once a day. Objective: Objective Information: T PRBPMAPSpO2 Value36.54710019/7199% Date/Time07/08 14: 14: 14: 14: 14:50 Range(36.2C - 36.5C ) (65 - 95 ) (16 - 18 ) (103 - 137 )/ (67 - 80 ) (97% - 100% ) Pain reported at 07/08 13:30: 0 = None Physical Exam Narrative: Physical Exam: General Appearance: AAO x 3, not in acute distress Skin: skin color, texture, turgor normal; no suspicious rashes or lesions Eyes : PERRL, EOM's intact, conjunctiva pink ENT: no oral thrush, no pharyngeal erythema or exudates Neck: no JVD, no lymphadenopathy Respiratory: lungs clear to auscultation; no wheezing, rhonchi, or crackles Heart: RRR without murmur, gallop, or rubs, no ectopy Abdomen: Nondistended, positive bowel sounds, soft, tender Extremities: no edema Peripheral pulses: normal and present x 4 extremities Neuro: alert, coherent and conversant, no focal motor deficits Medications: Medications: Continuous Medications 1. Sodium Chloride 0.9% Infusion: 1000 mL IntraVenous Scheduled Medications 1. DULoxetine: 60 mg Oral Daily 2. Heparin SubCutaneous: 7500 unit(s) SubCutaneous Every 8 Hours 3. Pantoprazole Injectable: 40 mg IntraVenous Push Every 24 Hours 4. QUEtiapine: 25 mg Oral Daily 5. Technetium Tc 99m Mebrofenin (HIDA - Radiology Contrast): 5 milliCurie IntraVenous Push Once PRN Medications 1. Acetaminophen: 650 mg Oral Every 4 Hours 2. Acetaminophen: 650 mg Oral Every 4 Hours 3. Docusate: 100 mg Oral 2 Times a Day 4. Magnesium Hydroxide -Al Hydrox -Simethicone Oral Liquid: 30 mL Oral Every 6 Hours 5. Magnesium Hydroxide Oral Liquid CONCENTRATE: 10 mL Oral Every 24 Hours 6. Melatonin: 1 mg Oral Daily 7. Ondansetron Injectable: 4 mg IntraVenous Push Every 4 Hours 8. Sodium Chloride 0.9% Injectable Flush: 10 mL IntraVenous Flush Every 8 Hours and as Needed 9. Sodium Chloride 0.9% Injectable Flush: 10 mL IntraVenous Flush Every 8 Hours and as Needed Recent Lab Results: Results: CBC: 07/08/2022 09:48 \ Hgb / \ 13.2 / WBC Plt 4.7 210 / Hct \ / 40.9 \ RBC: 4.84 MCV: 85 Neutrophil %: 61.5 CMP: 07/08/2022 09:48 NA+ Cl- BUN / 142 107 10 / Glucose 83 K+ HCO3- Creat \ 3.5 24 0.51 \ \ T Bili / \ 0.5 / AST x ---- x ALT 11 x ---- x 14 / Alk P \ / 76 \ Calcium : 9.2 Anion Gap : 15 Albumin : 3.9 T Protein : 6.5 Radiology Results: Results: Impression: No acute intra-abdominal process. CT Abdomen and Pelvis with IV Contrast [Jul 08 2022 11:41AM] Impression: Multiple small stones in the gallbladder Gallbladder wall is mildly thickened diffusely but there is no pericholecystic fluid and the patient did not indicate tenderness when scanning was performed over the gallbladder. Findings are less likely to represent acute cholecystitis but could be related to chronic cholecystitis o (more content not included)... [facility] 05-13-2022 History of Present illness Narrative Type of Surgery: lap sleeve gastrectomy, surgery Date: 05/13/2022.Weight:.Initial weight: 295 lbs.Last visit weight: 286 lbs.Trinity weight 124 lbs.Target body weight 167 lbs.Severity of obesity is Class 3 which is a BMI of greater than or equal to 40.Food: does not drink carbonated beverageFluid intake: 48-52 oz.Diet Stage: liquid.Symptoms: The patient reports loss of appetite, nausea and abdominal pain, but no hunger, no vomiting and no food intolerance.Supplements: taking Omeprazole.Comorbidities: anxiety, depressed mood and high cholesterol.40 year old female presenting today for routine 1 week post operative visit. Patient is s/p sleeve gastrectomy 05/13/2022. Patient has approximate BMI of 53 with related comorbidities of Obesity, Anxiety/Depression (managed by Dr. Gerry Steward), Hyperlipidemia.Patient unable to tolerate self injection of Lovenox. Was prescribed 1 week OAC upon discharge. NP-Wktusdk-Itqcu [id number] Work Phone: 05-13-2022 History of Present illness Narrative Type of Surgery: lap sleeve gastrectomy, surgery Date: 05/13/2022.Weight:.Initial weight: 295 lbs.Last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 She has done a lot of reading and has familymembers who have had bariatric surgery and she would like to have a referral to discuss this with ector. * Pt is being evaluated for bariatric surgery, will be needing a sleep study order. * Is working with Bariatric Surgery program. Will see Dr. Benitez. No PMH of MOSHE. Some snoring. No daytime somnolence. * Face - To - Face Visit. * Verbal consent was requested and obtained from BELEM LAWLER on this date, 10/07/2021 02:30 PM , for a telehealth visit. * Evaluation for anxiety and trauma. * A telephone visit (audio only) between the patient (at the originating site) and the provider (at the distant site) was utilized to provide this telehealth service. * obesity * MSWL * A telephone visit (audio only) between the patient (at the originating site) and the provider (at the distant site) was utilized to provide this telehealth service. * obesity * initial nutrition Assessment * The patient is being seen initial visit. * A telephone visit (audio only) between the patient (at the originating site) and the provider (at the distant site) was utilized to provide this telehealth service. * Verbal consent was requested and obtained from BELEM LAWLER on this date, 12/09/2021 12:30 PM , for a telehealth visit. * Initial WLS consult * The patient is being seen initial visit. * A telephone visit (audio only) between the patient (at the originating site) and the provider (at the distant site) was utilized to provide this telehealth service. * Verbal consent was requested and obtained from BELEM LAWLER on this date, 12/09/2021 12:30 PM , for a telehealth visit. * Initial WLS consult * The patient is being seen initial visit. * A telephone visit (audio only) between the patient (at the originating site) and the provider (at the distant site) was utilized to provide this telehealth service. * Verbal consent was requested and obtained from BELEM LAWLER on this date, 12/09/2021 12:30 PM , for a telehealth visit. * Initial WLS consult * Pt is being evaluated for bariatric surgery, will be needing a sleep study order. * Is working with Bariatric Surgery program. Will see Dr. Benitez. No PMH of MOSHE. Some snoring. No daytime somnolence. * F/U 6 months for Anxiety and recent abnormal mammogram. * Pt sees Psych for Anxiety and depression. Is on Seroquel and Duloxetine now since about a week ago. * We reviewed her recent mammogram and ultrasound. Right breast US showed probable fibroadenoma and they rec to repeat in 6 months. No previous breast masses. Patient has not noticed any lumps or masses in her breasts. There is no tenderness or new nipple discharge. There is no family history of breast cancer. She is here today for breast exam. * Going through the process for bariatric surgery. I reviewed the consult notes in the chart. * The patient is being seen for post operative visit. * The patient is being seen today for a 1 week post-op visit. Type of surgery: Sleeve Gastrectomy . Surgery date: 05/13/2022. * An interactive audio and video telecommunication system which permits real time communications between the patient (at the originating site) and provider (at the distant site) was utilized to providethis telehealth service. * Verbal consent was requested and obtained from BELEM LAWLER on this date, 05/21/2022 08:30 AM , for a telehealth visit. * 1 week post op visit. Sleeve Gastrectomy 05/13/22 * The patient is being seen for post operative visit. * The patient is being seen today for a 6 week post-op visit. Type of surgery: Sleeve Gastrectomy . Surgery date: 05/13/2022. * An interactive audio and video telecommunication system which permits real time communications between the patient (at the originating site) and provider (at the distant site) was utilized to providethis telehealth service. * Verbal consent was requested and obtained from BELEM LAWLER on this date, 06/17/2022 04:22 PM , for a telehealth visit. * 6 week post op visit. Sleeve Gastrectomy 05/13/22 * The patient is being seen for post operative visit. * The patient is being seen today for a 3 month post-op visit. Type of surgery: Sleeve Gastrectomy . Surgery date: 05/13/2022. * An interactive audio and video telecommunication system which permits real time communications between the patient (at the originating site) and provider (at the distant site) was utilized to providethis telehealth service. * Verbal consent was requested and obtained from BELEM LAWLER on this date, 08/05/2022 02:15 PM , for a telehealth visit. * F/U 6 months for Anxiety - pt sees Psych that prescribes her medication. Is on Seroquel and well controlled now. Managed by [facility] [place]. * Had bariatric gastric sleeve surgery 05/2022 and has lost 100 lbs since then. She is doing very welland has recovered well. She is very happy with her progress. She is being monitored closely by the bariatric surgery team and has labs coming up. She has a history of hyperlipidemia in the past we will recheck this lab. * Had abnormal mammogram in October 2021 and US in February 2022 showed probable benign cysts - needs repeat B diagnostic mammogram now. She has not noticed any lumps or masses on self-exam. * Pt is flying for the first time and wants to discuss anxiety medication for the flight. Flying to [place] because will be moving there. Very bad anxiety and panic attacks in these situations. She asked for medication to help her with anxiety during the flight. * Pt c/o bump on scalp x 4 months - denies pain. It is a small subcutaneous lump at the vertex of thescalp. * The patient is being seen for follow up. The patient is having the following problems: 9 mo routineFUV. Type of surgery: Sleeve Gastrectomy . Surgery date: 05/13/2022. * An interactive audio and video telecommunication system which permits real time communications between the patient (at the originating site) and provider (at the distant site) was utilized to providethis telehealth service. * Verbal consent was requested and obtained from BELEM LAWLER on this date, 01/27/2023 01:00 PM , for a telehealth visit. * The patient is being seen for follow up. * The patient is being seen today for a 1 year follow up visit. Type of surgery: Sleeve Gastrectomy .Surgery date: 05/13/2022. * An interactive audio and video telecommunication system which permits real time communications between the patient (at the originating site) and provider (at the distant site) was utilized to providethis telehealth service. * Verbal consent was requested and obtained from BELEM LAWLER on this date, 05/17/2023 01:00 PM , for a telehealth visit. * s/p LSG 05/13/2022 Reason for Referral Specialty Diagnoses / Procedures Referred By Hiram rodriguez Referred To Contact Radiology Diagnoses Breast cancer screening by mammogram Procedures BI mammo bilateral [place] [address] [place] [address] Referral ID Status Reason Start Date Expiration Date Visits Requested Visits Authorized [id number] Authorized Perform Procedure 10/27/2023 10/26/2024 1 1 Medications Administered Section Active Administered Medications - up to 3 most recent administrations Medication Order MAR Action Action Date Dose Rate Site proparacaine 0.5 % 1 Drop (ALCAINE) 1 Drop, BOTH EYES, DIRECTED, Starting on Wed12/25/22 at 1500, Until 12/26/22 at 0259, Administer for pneumo tonometry, tonopen tonometry, or pachymetry. In the event of a proparacaine shortage, administer tetracaine 0.5% ophthalmic drops 1 drop in both eyes as directed for pneumo tonometry, tonopen tonometry, or pachymetry Given 12/25/2022 3:00 PM EDT 1 Drop tropicamide 1 % 1 Drop (MYDRIACYL) 1 Drop, BOTH EYES, DIRECTED, Starting on Wed12/25/22 at 1430, Until 12/26/22 at 0229, Administer for dilation Given 12/25/2022 2:30 PM EDT 1 Drop Additional Source Comments INFORMATION SOURCE (unrecogn ized section and content) DATE CREATED AUTHOR 03/24/2018 [facility] DATE CREATED AUTHOR AUTHOR'S ORGANIZ ATION [place]04/2018 [facility] [place] DATE CREATED AUTHOR AUTHOR'S ORGANIZ ATION 12/01/2019 [facility] [place] DATE CREATED AUTHOR AUTHOR'S ORGANIZ ATION 12/27/2022 [facility] DATE CREATED AUTHOR AUTHOR'S ORGANIZ ATION 01/29/2023 [facility] DATE CREATED AUTHOR AUTHOR'S ORGANIZ ATION 03/22/2023 [facility] DATE CREATED AUTHOR AUTHOR'S ORGANIZ ATION 05/17/2023 [facility] DATE CREATED AUTHOR AUTHOR'S ORGANIZ ATION 05/18/2023 [employer] DATE CREATED AUTHOR AUTHOR'S ORGANIZ ATION 08/03/2023 [facility] DATE CREATED AUTHOR AUTHOR'S ORGANIZ ATION 10/30/2023 [facility] DATE CREATED AUTHOR AUTHOR'S ORGANIZ ATION 11/16/2023 [facility] DATE CREATED AUTHOR AUTHOR'S ORGANIZ ATION 11/18/2023 [facility] <item><item> Privacy Markings (unrecogniz ed section and content) Section Author: Tiffany Rodriguez PROHIBITION ON REDISCLOSURE OF CONFIDENTIAL INFORMATION This notice accompanies a disclosure of information concerning a client made to you with the consent of such client. Section Author: Tiffany Rodriguez PROHIBITION ON REDISCLOSURE OF CONFIDENTIAL INFORMATION This notice accompanies a disclosure of information concerning a client made to you with the consent of such client. Source Comments (unrecognize d section and content) In the event this informatio n is protected by the Federal Confidentiality of Alcohol and Drug Abuse Patient Records regulations: The Federal rules restrict any use of the information to criminally investigate or prosecute any alcohol or drug abuse patient.[facility] Reason for Visit (unrecogniz ed section and content) Reason Comments Hyperopia Follow up Reason Comments Referral Reason Comments New Patient Visit NPV- ADHD Specialty Diagnoses / Procedures Referred By Hiram t Referred To Contact Neurology Diagnoses Attention disturbance Procedures MO OFFICE/OUTPATIENT NEW HIGH MDM 60-[place] [address] [place] [address] Linda Gaviria MD [address] [facility], [address] [place] [address] Referral ID Status Reason Start Date Expiration Date Visits Requested Visits Authorized [id number] Pending Review Specialty Services Required 06/24/2023 12/21/2023 1 1 Reason Comments Annual Exam Care Teams (unrecognized sec tion and content) [employer] Knock Out Worker Relationship Specialty [place] [address] [place] [address] PCP - General Family Medicine 12/24/15 [employer] Knock Out Worker Relationship Specialty [place] [address] [place] [address] PCP - General 02/16/18 [place] [address] [place] [address] PCP - [facility] PCP 10/04/21 [place] [address] [place] [address] PCP - [facility] PCP 10/04/21 Wax Ball Knock Out Worker Relationship Specialty [place] [address] [place] [address] PCP - General 02/16/18 [place] [address] [place] [address] PCP - [facility] PCP 10/04/21 [place] [address] [place] [address] [facility] 10/04/21 [employer]ax [employer] Knock Out Worker Relationship Specialty [place] [address] [place] [address] PCP - General 02/16/18 [place] [address] [place] [address] PCP - [facility] PCP 10/04/21 [place] [address] [place] [address] PCP - [facility] PCP 10/04/21 Linda Gaviria MD [address] [facility], [address] [id number] Consulting Physician Neurology 09/16/23 FOR RECORDS PERTAINING TO PATIENTS WHO ARE OR HAVE BEEN ENROLLED IN A CHEMICAL DEPENDENCY/SUBSTANCEABUSE PROGRAM, SOME INFORMATION MAY BE OMITTED. This clinical summary was aggregated from multiple sources. Caution should be exercised in using it in the provision of clinical care. This summary normalizes information from multiple sources, and as a consequence, information in this document may materially change the coding, format and clinical context of patient data. In addition, data may be omitted in some cases. CLINICAL DECISIONS SHOULD BE BASED ON THE PRIMARY CLINICAL RECORDS. [facility] Reading [facility]. provides no warranty or guarantee of the accuracy or completeness of information in this document.
[2024-02-05] MEDS: ONDANSETRON PF 4 MG/2 ML VIAL IV (18:56)
[2024-02-05] MEDS: 0.9 % SODIUM CHLORIDE 1,000 ML 100 ML IV (18:56)
[2024-02-05 18:58] LABS: Basophils Percent Auto 0.3 % (0.2-2.0); Eosinophils Percent Auto 0.1 % (0.9-7.0); Hemoglobin 14.2 g/dL (14.0-18.0); Immature Granulocytes Abs Auto 0.03 10^3/uL (0.00-0.03); Immature Granulocytes Pct Auto 0.3 % (0.0-0.5); Lymphocytes Absolute Auto 0.6 10^3/uL (1.2-3.8); Mean Corpuscular HGB Conc 34.6 g/dL (29.9-35.2); Mean Corpuscular Hemoglobin 27.8 pg (25.9-34.0); Mean Corpuscular Volume 80.2 fL (80.0-94.0); Mean Platelet Volume 10.5 fL (9.5-13.5); Monocytes Absolute Auto 0.5 10^3/uL (0.3-0.8); Monocytes Percent Auto 4.4 % (1.7-12.0); Neutrophils Absolute Auto 10.6 10^3/uL (1.4-6.5); Neutrophils Percent Auto 89.9 % (43.0-75.0); Platelet Count 212 10^3/uL (150-450); Red Blood Count 5.11 10^6/uL (4.70-6.10); Red Cell Distribution Width 12.5 % (11.0-15.0); White Blood Count 11.8 10^3/uL (4.0-11.0)
[2024-02-05 19:15] LABS: Lactate/Lactic Acid 1.8 mmol/L (0.4-2.0)
[2024-02-05 19:22] LABS: Alanine Aminotransferase 38 U/L (16-63); Albumin Globulin Ratio 1.3; Albumin Level 4.4 g/dL (3.4-5.0); Alkaline Phosphatase 58 U/L (46-116); Anion Gap 19.2; Aspartate Amino Transferase 25 U/L (15-37); BUN Creatinine Ratio 9.7; Calcium 9.9 mg/dL (8.5-10.1); Carbon Dioxide 21.9 mmol/L (21.0-32.0); Chloride 104 mmol/L (98-107); Estimated GFR (African America >60 (>=60); Estimated GFR (Non-African Ame >60 (>=60); Globulin 3.5 g/dL; Glucose 122 mg/dL (74-106); Potassium 3.1 mmol/L (3.5-5.1); Sodium 142 mmol/L (136-145); Total Protein 7.9 g/dL (6.4-8.2)
[2024-02-05] MEDS: PROMETHAZINE HCL 25 MG/ML VIAL IV (19:35)
[2024-02-05 20:00] LABS: Bilirubin Urine SMALL (NEGATIVE); Blood Urine NEGATIVE (NEGATIVE); Clarity Urine CLEAR (CLEAR); Color Urine YELLOW (YELLOW); Glucose Urine UA NEGATIVE (NEGATIVE); Ketones Urine >=80 mg/dL (NEGATIVE); Leukocyte Esterase Urine SMALL (NEGATIVE); Nitrite Urine NEGATIVE (NEGATIVE); Protein Urine 30 mg/dL (NEG/TRACE); Specific Gravity Urine 1.025 (1.005-1.025); Urine Microscopic Indicated YES
[2024-02-05 20:12] LABS: Bacteria Urine SMALL #/HPF (NONE SEEN); Cast Seen? NONE SEEN #/LPF (NONE SEEN); Crystals Seen? None Seen #/HPF (None Seen); Mucus Urine LARGE (NONE SEEN); Squamous Epithelial Cell Urine RARE #/LPF (NONE/RARE); Urine Culture Indicated YES
--- NOTE | 2024-02-05 21:25 | ED_ITS ---
HPI HPI - General Adult General Chief complaint: Nausea/Vomiting/Diarrhea Stated complaint: nausea/vomitting Time Seen by Provider: 02/05/24 18:34 Source: patient Mode of arrival: Wheelchair History of Present Illness HPI narrative: 23-year-old male presents for chief complaint nausea vomiting abdominal pain. He states the pain began earlier today. He denies any other symptoms denies any fevers or chills or known sick contacts. States he states diffuse pain abdominal cramping. He denies diarrhea. He states he is generally healthy denies any past medical history. elton Signs are stable he is not febrile.Vomited twice while here in the emergency room. Related Data Previous Rx's ?Medication ?Instructions ?Recorded ondansetron 4 mg disintegrating 4 mg PO Q8H PRN nausea and 02/05/24 tablet vomiting 48 hours #10 tabs Allergies Allergy/AdvReac Type Severity Reaction Status Date / Time No Known Drug Allergies Allergy Verified 01/29/24 03:33 Opioid HPI Opioid Management Most Recent Opioid Data: Last Pain Scale 9 01/29/24 03:42 Review of Systems ROS Narrative All Systems are negative except as noted/marked.All systems reviewed and otherwise negative Exam Narrative Exam Narrative: Nurses note and vital signs reviewed and patient is not hypoxic. General: The patient appears well and in no apparent distress. Patient is resting comfortably on cart. Skin: Warm, dry, no pallor noted. There is no rash noted. Head: Normocephalic, atraumatic Eye: Normal conjunctiva, no drainage, EOMI. PERRL Ears, Nose, Mouth, and Throat: oral mucosa is moist. Nares patent. Mouth without vesicles. Ear canals patent. Tm's without Erythema Cardiovascular: Regular Rate and Rhythm Respiratory: Patient is in no distress, no accessory muscle use, lungs are clear to auscultation, no wheezing, rales or rhonchi Back: non-tender, no CVA tenderness bilaterally to percussion. GI: Normal bowel sounds, no tenderness to palpation, no masses appreciated. No rebound, guarding, or rigidity noted. Musculoskeletal: The patient has no evidence of calf tenderness, no pitting edema, symmetrical pulses noted bilaterally Neurological: A&O x4, normal speech Psychiatric: Cooperative Constitutional Vital Signs, click to edit/add: Last Vital Signs Temp 98.0 F 05/04/24 17:59 Pulse 70 02/05/24 17:59 Resp 22 H 02/05/24 17:59 BP 171/87 H 02/05/24 17:59 Pulse Ox 100 02/05/24 17:59 O2 Del Method Room Air 02/05/24 17:59 Course Vital Signs Vital signs: Vital Signs Temperature 98.0 F 02/05/24 17:59 Pulse Rate 70 02/05/24 17:59 Respiratory Rate 22 H 02/05/24 17:59 Blood Pressure 171/87 H 02/05/24 17:59 Pulse Oximetry 100 02/05/24 17:59 Oxygen Delivery Method Room Air 02/05/24 17:59 Temperature 98.0 F 02/05/24 17:59 Pulse Rate 70 02/05/24 17:59 Respiratory Rate 22 H 02/05/24 17:59 Blood Pressure 171/87 H 02/05/24 17:59 Pulse Oximetry 100 02/05/24 17:59 Oxygen Delivery Method Room Air 02/05/24 17:59 Medical Decision Making MDM Narrative Medical decision making narrative: 23-year-old male presents for chief complaint nausea vomiting abdominal pain. He states the pain began earlier today. He denies any other symptoms denies any fevers or chills or known sick contacts. States he states diffuse pain abdominal cramping. He denies diarrhea. He states he is generally healthy denies any past medical history. elton Signs are stable he is not febrile.Vomited twice while here in the emergency room. Upon arrival here to the emergency room IV was established patient was given IV fluids and Zofran. CBC CMP and CT scan were obtained.Count mildly elevated 11.[address] scan showed no acute abnormalities on the questionable thickened urinary bladder. Urine is positive for white blood cells bacteria and mucus. Patient will be given a gram of Rocephin IV. Urine culture has been sent. Patient is stable to be discharged home and follow-up with primary care physician. Differential Diagnosis Differential Diagnosis: Colitis, diverticulitisAppendicitis, gastroenteritis Medical Records Medical records reviewed: Yes I reviewed the patient's medical records Lab Data Lab results reviewed: Yes I reviewed the patient's lab results Labs: Lab Results 02/05/24 02/05/24 Range/Units 18:49 19:35 WBC 11.8 H (4.0-11.0) 10^3/uL RBC 5.11 (4.70-6.10) 10^6/uL Hgb 14.2 (14.0-18.0) g/dL Hct 41.0 L (42.0-54.0) % MCV 80.2 (80.0-94.0) fL MCH 27.8 (25.9-34.0) pg MCHC 34.6 (29.9-35.2) g/dL RDW 12.5 (11.0-15.0) % Plt Count 212 (150-450) 10^3/uL MPV 10.5 (9.5-13.5) fL Neut % (Auto) 89.9 H (43.0-75.0) % Lymph % (Auto) 5.0 L (20.5-60.0) % [place] % (Auto) 4.4 (1.7-12.0) % Eos % (Auto) 0.1 L (0.9-7.0) % Baso % (Auto) 0.3 (0.2-2.0) % Neut # (Auto) 10.6 H (1.4-6.5) 10^3/uL Lymph # (Auto) 0.6 L (1.2-3.8) 10^3/uL [place] # (Auto) 0.5 (0.3-0.8) 10^3/uL Eos # (Auto) 0.0 (0.0-0.7) 10^3/uL Baso # (Auto) 0.0 (0.0-0.1) 10^3/uL Abs Immat Gran (auto) 0.03 (0.00-0.03) 10^3/uL Imm/Tot Granulo (auto) 0.3 (0.0-0.5) % Sodium 142 (136-145) mmol/L Potassium 3.1 L (3.5-5.1) mmol/L Chloride 104 (98-107) mmol/L Carbon Dioxide 21.9 (21.0-32.0) mmol/L Anion Gap 19.2 BUN 11.0 (7.0-18.0) mg/dL Creatinine 1.13 (0.70-1.30) mg/dL Est GFR ( Amer) >60 (>=60) Est GFR (Non-Af Amer) >60 (>=60) BUN/Creatinine Ratio 9.7 Glucose 122 H (74-106) mg/dL Lactate 1.8 (0.4-2.0) mmol/L Calcium 9.9 (8.5-10.1) mg/dL Total Bilirubin 1.0 (0.2-1.0) mg/dL AST 25 (15-37) U/L ALT 38 (16-63) U/L Alkaline Phosphatase 58 (46-116) U/L Total Protein 7.9 (6.4-8.2) g/dL Albumin 4.4 (3.4-5.0) g/dL Globulin 3.5 g/dL Albumin/Globulin Ratio 1.3 Urine Color Yellow (YELLOW) Urine Clarity Clear (CLEAR) Urine pH 7.0 (5.0-9.0) Ur Specific [place] 1.025 (1.005-1.025) Urine Protein 30 A (NEG/TRACE) mg/dL Urine Glucose (UA) Negative (NEGATIVE) mg/dL Urine Ketones >=80 A (NEGATIVE) mg/dL Urine Occult Blood Negative (NEGATIVE) Urine Nitrite Negative (NEGATIVE) Urine Bilirubin Small A (NEGATIVE) Urine Urobilinogen 2.0 A (0.2-1.0) EU/dL Ur Leukocyte Esterase Small A (NEGATIVE) Urine RBC 5-10 A (0-2) #/HPF Urine WBC 10-20 A (NONE SEEN) #/HPF Ur Squamous Epith Cells Rare (NONE/RARE) #/LPF Urine Crystals None seen (None Seen) #/HPF Urine Bacteria Small A (NONE SEEN) #/HPF Urine Casts None seen (NONE SEEN) #/LPF Urine Mucus Large A (NONE SEEN) Ur Culture Indicated? Yes Imaging Data CT scan - abdomen: Radiologist's impression: ITS Impressions Abdomen/Pelvis CT 02/05/24 18:35 IMPRESSION: Apparent thickened wall of the urinary bladder which may suggest cystitis. Evaluation is limited as the urinary bladder is not well distended. No additional acute abdominal pathology. No obstructing urinary tract stone. No evidence for bowel obstruction. Electronically authenticated by: TERESITA HUNTLEY Date: 02/05/2024 21:07 Discharge Plan Discharge Stand Alone Forms: Portal Instructions Chief Complaint: Nausea/Vomiting/Diarrhea Clinical Impression: Nausea & vomiting Patient Disposition: Home, Self-Care Time of Disposition Decision: 21:50 Condition: Good Prescriptions / Home Meds: New ondansetron 4 mg tablet,disintegrating 4 mg PO Q8H PRN (Reason: nausea and vomiting) 2 Days Qty: 10 0RF Print Language: Slovenian Instructions: Acute Nausea and Vomiting (ED) Referrals: Physician,Non-Staff, MD [Primary Care Provider] - 1 week Discharge Date/Time: 02/05/24 22:18
[2024-02-05] MEDS: CEFTRIAXONE 1,000 MG in 0.9 % SODIUM CHLORIDE 50 ML 100 MG IV (21:39)
== END 2024-02-05 22:18 | disposition home or self-care (01) ==
PROVIDERS: Physician Assistant; Emergency Provider Student in an Organized Health Care Education/Training Program
DX: R11.2 Nausea with vomiting, unspecified (principal)
CPT/HCPCS: 36415; 74177; 80053; 81001; 83605; 84703; 85025; 87086; 96361; 96365; 96375; 99285; Q9967

== ENCOUNTER 2024-05-14 08:23 | Emergency (ER) | payer OTHER, SELFPAY ==
[2024-05-14 08:26] VITALS: BP 149/98; PULSE 88; TEMP 36.9; O2SAT 95; BMI 27.5
--- OUTSIDE RECORDS SUMMARY | 2024-05-14 08:31 | XMS_ITS | CCD ---
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 Materials: Urinary Tract Infection, Adult; Nausea and Vomiting, Adult A MESSAGE TO ALL PATIENTS REGARDING OPIOIDS PRESCRIPTION OPIOIDS: WHAT YOU NEED TO KNOW Prescription opioids can be used to help relieve fjsenqrg-ih-srecfa pain and are often prescribed following a surgery or injury, or for certain health conditions. These medications can be an important part of the treatment but also come with serious risks. It is important to work with your healthcare provider to make sure you are getting the safest, most effective care. WHAT ARE THE RISKS AND SIDE EFFECTS OF OPIOID USE? Prescription opioids carry serious risks of addiction and overdose, especially with prolonged use. An opioid overdose, often marked by slowed breathing, can cause sudden . The use of prescription opioids can have a number of side effects as well, even when taken as directed: ? Tolerance?meaning you might need to take more of the medication for the same pain relief ? Physical dependence?meaning you have symptoms of withdrawal when a medication is stopped ? Increased sensitivity to pain ? Constipation ? Nausea, vomiting, and dry mouth ? Sleepiness and dizziness ? Confusion ? Depression ? Low levels of testosterone that can result in lower sex drive, energy, and strength ? Itching and sweating RISKS ARE GREATER WITH: ? History of drug misuse, substance use disorder, or overdose ? Mental health conditions (such as depression or anxiety) ? Sleep apnea ? Older age (65 years and older) ? Avoid alcohol while taking prescription opioids. Also, unless specifically advised by your health care provider, medications to avoid include: ? Benzodiazepines (such as Xanax or Valium) ? Muscle relaxants (such as Soma or Flexeril) ? Hypnotics (such as Ambien or Lunesta) ? Other prescription opioids KNOW YOUR OPTIONS Talk to your health care provider about ways to manage your pain that don?t involve prescription opioids. Some of these options may actually work better and have fewer risks and side effects. Options may include: ? Pain relievers such as acetaminophen, ibuprofen, and naproxen ? Some medication that are also used for depression or seizures ? Physical therapy and exercise ? Cognitive behavioral therapy, a psychological, goal-directed approach, in which patients learn how to modify physical, behavioral, and emotional triggers of pain and stress. IF YOU ARE PRESCRIBED OPIOIDS FOR PAIN: ? Never take opioids in greater amounts or more often than prescribed. ? Follow up with your primary health care provider. o Work together to create a plan on how to manage your pain. o Talk about ways to help manage your pain that don?t involve prescription opioids. o Talk about any and all concerns and side effects. ? Help prevent misuse and abuse o Never sell or share prescription opioids. o Never use another person?s prescription opioids. ? Store prescription opioids in a secure place and out of reach of others (this may include visitors, children, friends, and family). ? Safely dispose of unused prescription opioids: Find your community drug take-back program or your pharmacy mail-back program, or flush them down the toilet, following guidance from the Food and Drug Administration (www.fda.gov/Drugs/Res ourcesForYou). ? Visit www.cdc.gov/drugoverdo se to learn about the risks of opioids abuse and overdose. ? If you believe you may be struggling with (more content not included)... Normal [facility] HEMATOLOGYOrdered By: SYSTEM SYSTEM on 05-10-2024 Basophils/100 WBC (Bld) 0.5 % Normal 0.0 - 2.0 % Remisol Heme Basophils/Leukocytes Auto (Bld) [Pure # fraction] 0.0 E9/L Normal 0.0 - 0.2 E9/L Rem[facility] Heme Eosinophils (Bld) [#/Vol] 0.1 E9/L Normal 0.0 - 0.5 E9/L Remisol Heme Eosinophils/100 WBC (Bld) 1.5 % Normal 0.0 - 8.0 % Rem[facility] Heme Erythrocyte distribution width (RBC) [Ratio] 13.1 % Normal 10.9 - 14.2 % [facility] Heme Hematocrit (Bld) [Volume fraction] 43.1 % Normal 37.7 - 49.0 % Rem[facility] Heme Hemoglobin (Bld) [Mass/Vol] 15.1 g/dL Normal 13.5 - 17.5 gm/dL [facility] Heme Lymphocytes (Bld) [#/Vol] 1.7 E9/L Normal 1.0 - 4.0 E9/L [facility] Heme Lymphocytes/100 WBC (Bld) 29.0 % Normal 14.0 - 50.0 % Rem[facility] Heme MCH (RBC) [Entitic mass] 27.7 pg Normal 27.0 - 34.0 pg Remisol Heme MCHC (RBC) [Mass/Vol] 34.9 g/dL Normal 31.4 - 36.0 gm/dL Rem[facility] Heme MCV (RBC) [Entitic vol] 79.4 fL Low 80.0 - 100.0 fL Rem[facility] Heme Monocytes (Bld) [#/Vol] 0.5 E9/L Normal 0.2 - 1.0 E9/L Rem[facility] Heme Monocytes/100 WBC (Bld) 8.2 % Normal 4.0 - 14.0 % Rem[facility] Heme Neutrophils (Bld) [#/Vol] 3.6 E9/L Normal 2.0 - 7.5 E9/L Rem[facility] Heme Neutrophils/100 WBC (Bld) 60.8 % Normal 36.0 - 75.0 % Rem[facility] Heme Platelet mean volume (Bld) [Entitic vol] 8.2 fL Normal 6.4 - 10.8 fL [facility] Heme Platelets (Bld) [#/Vol] 211.0 E9/L Normal 150.0 - 500.0 E9/L [facility] Heme RBC (Bld) [#/Vol] 5.4 E12/L Normal 4.3 - 5.9 E12/L [facility] Heme WBC corrected for nucl RBC Auto (Bld) [#/Vol] 6.0 E9/L Normal 4.0 - 11.0 E9/L [facility] Heme Hep Func Panelon 05-10-2024 Albumin [Mass/Vol] 4.8 g/dL Normal 3.3-5.0 [facility] Comment on above: Performed By: #### 2 [id number] #### [facility] [address] [place] [address] Albumin/Globulin (S) [Mass conc ratio] 1.5 Normal 1.1-2.2 [facility] Comment on above: Performed By: #### 2 [id number] #### [facility] [address] [place] [address] ALP [Catalytic activity/Vol] 52 Int._Unit/L Normal 21-98 [facility] Comment on above: Performed By: #### 2 [id number] #### [facility] [address] [place] [address] ALT No additional P-5'-P [Catalytic activity/Vol] 29 Int._Unit/L Normal 6-46 [facility] Comment on above: Performed By: #### 2 [id number] #### [facility] [address] [place] [address] AST [Catalytic activity/Vol] 32 Int._Unit/L Normal 5-43 [facility] Comment on above: Performed By: #### 2 [id number] #### [facility] [address] [place] [address] Bilirubin [Mass/Vol] 1.3 mg/dL High 0.0-1.1 [facility] Comment on above: Performed By: #### 2 [id number] #### [facility] [address] [place] [address] Bilirubin.direct [Mass/Vol] 0.2 mg/dL Normal 0.0-0.4 [facility] Comment on above: Performed By: #### 2 [id number] #### [facility] [address] [place] [address] Bilirubin.indirect [Mass or moles/Vol] 1.1 mg/dL High 0.1-0.9 [facility] Comment on above: Performed By: #### 2 [id number] #### [facility] [address] [place] [address] Globulin (S) [Mass/Vol] 3.3 g/dL Normal 1.4-4.0 [facility] Comment on above: Performed By: #### 2 [id number] #### [facility] [address] [place] [address] Protein [Mass/Vol] 8.1 g/dL High 6.0-7.8 [facility] Comment on above: Performed By: #### 2 [id number] #### [facility] [address] [place] [address] Lipase Levelon 05-10-2024 Lipase [Catalytic activity/Vol] 12 U/L Low 13-58 [facility] Comment on above: Performed By: #### 2 [id number] #### [facility] [address] [place] [address] UA with Cult Rflxon 05-10-20 24 Bacteria Auto Ql (U) 1+ /HPF Abnormal Trace Fish [facility] Comment on above: Performed By: #### 4 [id number] #### [facility] [address] [place] [address] Bilirubin Ql (U) Negative Normal Negative [facility] Comment on above: Performed By: #### 4 [id number] #### [facility] [address] [place] [address] Clarity (U) Turbid Abnormal Clear [facility] Comment on above: Performed By: #### 4 [id number] #### [facility] [address] [place] [address] Color (U) Yellow Normal Yellow [facility] Comment on above: Result Comment: Micr oscopic readings are only performed on those samples that meet specific criteria set forth by [facility]. Performed By: #### 4 [id number] #### [facility] [address] [place] [address] Epithelial cells.squamous Auto (Urine sed) [#/Area] 0-2 Invalid Interpretation Code [facility] Comment on above: Performed By: #### 4 [id number] #### [facility] [address] [place] [address] Glucose Ql (U) Negative Normal Negative [facility] Comment on above: Performed By: #### 4 [id number] #### [facility] [address] [place] [address] Hemoglobin Auto test strip (U) [Mass/Vol] 1+ mg/dL Abnormal Negative [facility] Comment on above: Performed By: #### 4 [id number] #### [facility] [address] [place] [address] Ketones Auto test strip Ql (U) 2+ mg/dL Abnormal Negative [facility] Comment on above: Performed By: #### 4 [id number] #### [facility] [address] [place] [address] Leukocyte esterase Auto test strip Ql (U) 500 Zainab/uL Abnormal Negative [facility] Comment on above: Performed By: #### 4 [id number] #### [facility] [address] [place] [address] Mucus Auto Ql (U) 4+ CD:[id number] Abnormal Negative [facility] Comment on above: Performed By: #### 4 [id number] #### [facility] [address] [place] [address] Nitrite Auto test strip Ql (U) Negative Normal Negative [facility] Comment on above: Performed By: #### 4 [id number] #### [facility] [address] [place] [address] pH (U) 6.0 [pH] Invalid Interpretation Code 5.0-9.0 [facility] Comment on above: Performed By: #### 4 [id number] #### [facility] [address] [place] [address] Protein Ql (U) 1+ mg/dL Abnormal Negative [facility] Comment on above: Performed By: #### 4 [id number] #### [facility] [address] [place] [address] RBC Ql (U) 4-20 Abnormal 0-3 [facility] Comment on above: Performed By: #### 4 [id number] #### [facility] [address] [place] [address] Specific gravity (U) [Rel density] 1.037 Invalid Interpretation Code 1.005-1.030 [facility] Comment on above: Performed By: #### 4 [id number] #### [facility] [address] [place] [address] Urobilinogen (U) [Mass/Vol] 2 mg/dL Abnormal Negative [facility] Comment on above: Performed By: #### 4 [id number] #### [facility] [address] [place] [address] WBC Auto (Urine sed) [#/Area] >75 Abnormal 0-5 [facility] Comment on above: Performed By: #### 4 [id number] #### [facility] [address] [place] [address] Type of Urine collection method Clean Catch Normal [facility] Comment on above: Performed By: #### 4 [id number] #### [facility] [address] [place] [address] URINALYSISOrdered By: SYSTEM SYSTEM on 05-10-2024 Bacteria Auto Ql (U) 1+ /HPF Invalid Interpretation Code Trace/HPF [facility] Auto SS Bilirubin Ql (U) Negative Normal Negativemg/ d L [facility] UA Auto SS Clarity (U) Turbid *ABN* (05/10/24 10:34 AM) Invalid Interpretation Code Clear [facility] UA Auto SS Color (U) Yellow 1 (05/10/24 10:34 AM) Normal Yellow [facility] Auto SS Comment on above: Interpretive Data: M icroscopic readings are only performed on those samples that meet specific criteria set forth by [facility]. Epithelial cells.squamous Auto (Urine sed) [#/Area] 0-2 graded/HPF Invalid Interpretation Code [facility] UA Auto SS Glucose Ql (U) Negative Normal Negativemg/d L [facility] UA Auto SS Hemoglobin Auto test strip (U) [Mass/Vol] 1+ mg/dL Invalid Interpretation Code Negativemg/d L [facility] UA Auto SS Ketones Auto test strip Ql (U) 2+ mg/dL Invalid Interpretation Code Negativemg/d L [facility] UA Auto SS Leukocyte esterase Auto test strip Ql (U) 500 Zainab/uL Zainab/uL Invalid Interpretation Code NegativeLeu/ uL [facility] UA Auto SS Mucus Auto Ql (U) 4+ graded/LPF Invalid Interpretation Code Negativegrad ed/LPF [facility] UA Auto SS Nitrite Auto test strip Ql (U) Negative Normal Negativemg/d L [facility] UA Auto SS pH (U) 6.0 *NA* (05/10/24 10:34 AM) Invalid Interpretation Code 5.0 - 9.0 [facility] UA Auto SS Protein Ql (U) 1+ mg/dL Invalid Interpretation Code Negativemg/d L [facility] UA Auto SS RBC Ql (U) 4-20 graded/HPF Invalid Interpretation Code 0-3graded/HP F [facility] UA Auto SS Specific gravity (U) [Rel density] 1.037 *NA* (05/10/24 10:34 AM) Invalid Interpretation Code 1.005 - 1.030 [facility] UA Auto SS Urobilinogen (U) [Mass/Vol] 2 mg/dL Invalid Interpretation Code Negativemg/d L [facility] UA Auto SS WBC Auto (Urine sed) [#/Area] >75 graded/HPF Invalid Interpretation Code 0-5graded/HP F [facility] UA Auto SS URINALYSISOrdered By: Giuliano flores on 05-10-2024 UA Spec Desc Clean Catch (05/10/24 10:34 AM) Normal [facility]A Auto SS eGFRon 05-10-2024 eGFR 87 mL/min/1.73 m2 Normal >=59 [facility] Comment on above: Order Comment: Order added by Discern Expert. Performed By: #### 1 [id number] #### [facility] [address] [place] [address] CT Abdomen/Pelvis w/ Contras ton 05-08-2024 CT Abdomen/Pelvis w/ Contrast Exam Date/Time: 05/07/2024 16:12 EDT Reason for Exam: Nausea with vomiting Report IMPRESSION: Possible nonspecific colitis versus colonic underdistention. EXAMINATION: CT Abdomen/Pelvis w/ Contrast HISTORY: Nausea, vomiting. TECHNIQUE: CT of the abdomen and pelvis was performed using standard technique with intravenous contrast, scanning from just above the dome of the diaphragm to the symphysis pubis. Including delayed images through the kidneys. Including sagittal and coronal reconstructions on both phases. Unless otherwise stated, incidental findings identified in this report do not require routine follow-up imaging. All CT scans at this facility use dose modulation, iterative reconstruction, and/or weight based dosing when appropriate to reduce radiation dose to as low as reasonably achievable. COMPARISON: None. RESULT: Liver: No suspicious mass or lesion. Possible steatosis. Biliary: Gallbladder unremarkable. No biliary ductal dilation. Pancreas: No mass or duct dilation. Spleen: No mass or splenomegaly. Adrenals: No mass. Kidneys: No calculus or hydronephrosis. No suspicious renal lesions. Delayed phase images unremarkable. GI tract: Areas of possible wall thickening versus underdistention involving portions of the colon. No associated pneumatosis. No small bowel dilation. Normal appendix. Lymph nodes: No abdominal or pelvic lymphadenopathy. Mesentery/Peritoneum/R etroperitoneum: No loculated collection. No significant ascites. No pneumoperitoneum. Report Vasculature: The celiac axis and SMA are patent. The portal vein and branches, splenic vein, SMV, and hepatic veins are patent. No abdominal aortic or iliac artery aneurysm. Pelvis: No significant free fluid. Bladder decompressed and not well evaluated. Bones: No acute osseous findings. Soft tissues: Unremarkable. Lower thorax: Unremarkable. Ordering Provider: Deyanira Fofana FINAL REPORT Dictated: 05/08/2024 8:40 am Deven Nazario MD Signed (Electronic Signature): 05/08/2024 8:40 am Signed by: Deven Nazario MD Transcribed by: QUINTEN Technologist: SOLEDAD Technical Comments GFR (mL/min/1/73m2) 87 Contrast: Isovue 300 Contrast amount in ml's: 100 Normal [facility] BMPon 05-07-2024 Anion gap [Moles/Vol] 14 mmol/L Normal 6-16 [facility] Comment on above: Performed By: #### 2 [id number] #### [facility] [address] [place] [address] Calcium [Mass/Vol] 9.8 mg/dL Normal 8.9-11.1 [facility] Comment on above: Performed By: #### 2 [id number] #### [facility] [address] [place] [address] Chloride [Moles/Vol] 105 mmol/L Normal 101-111 [facility] Comment on above: Performed By: #### 2 [id number] #### [facility] [address] [place] [address] CO2 [Moles/Vol] 25 mmol/L Normal 21-31 [facility] Comment on above: Performed By: #### 2 [id number] #### [facility] [address] [place] [address] Creatinine [Mass/Vol] 1.2 mg/dL Normal 0.5-1.3 [facility] Comment on above: Performed By: #### 2 [id number] #### [facility] [address] [place] [address] Glucose [Mass/Vol] 108 mg/dL Normal 55-199 [facility] Comment on above: Performed By: #### 2 [id number] #### [facility] [address] [place] [address] Potassium [Moles/Vol] 3.3 mmol/L Low 3.5-5.3 [facility] Comment on above: Performed By: #### 2 [id number] #### [facility] [address] [place] [address] Sodium [Moles/Vol] 141 mmol/L Normal 135-145 [facility] Comment on above: Performed By: #### 2 [id number] #### [facility] [address] [place] [address] Urea nitrogen [Mass/Vol] 13 mg/dL Normal 5-21 [facility] Comment on above: Performed By: #### 2 [id number] #### [facility] [address] [place] [address] Urea nitrogen/Creatinine [Mass ratio] 11 No Units Normal 10-20 [facility] Comment on above: Performed By: #### 2 [id number] #### [facility] [address] [place] [address] CBC w/ Auto Diffon 4 Basophils/100 WBC (Bld) 0.2 % Normal 0.0-2.0 [facility] Comment on above: Performed By: #### 2 [id number] #### [facility] [address] [place] [address] Basophils/Leukocytes Auto (Bld) [Pure # fraction] 0.0 E9/L Normal 0.0-0.2 [facility] Comment on above: Performed By: #### 2 [id number] #### [facility] [address] [place] [address] Eosinophils (Bld) [#/Vol] 0.0 E9/L Normal 0.0-0.5 [facility] Comment on above: Performed By: #### 2 [id number] #### [facility] [address] [place] [address] Eosinophils/100 WBC (Bld) 0.1 % Normal 0.0-8.0 [facility] Comment on above: Performed By: #### 2 [id number] #### [facility] [address] [place] [address] Erythrocyte distribution width (RBC) [Ratio] 13.3 % Normal 10.9-14.2 [facility] Comment on above: Performed By: #### 2 [id number] #### [facility] [address] [place] [address] Hematocrit (Bld) [Volume fraction] 41.8 % Normal 37.7-49.0 [facility] Comment on above: Performed By: #### 2 [id number] #### [facility] [address] [place] [address] Hemoglobin (Bld) [Mass/Vol] 14.4 g/dL Normal 13.5-17.5 [facility] Comment on above: Performed By: #### 2 [id number] #### [facility] [address] [place] [address] Lymphocytes (Bld) [#/Vol] 0.8 E9/L Low 1.0-4.0 [facility] Comment on above: Performed By: #### 2 [id number] #### [facility] [address] [place] [address] Lymphocytes/100 WBC (Bld) 8.1 % Low 14.0-50.0 [facility] Comment on above: Performed By: #### 2 [id number] #### [facility] [address] [place] [address] MCH (RBC) [Entitic mass] 27.7 pg Normal 27.0-34.0 [facility] Comment on above: Performed By: #### 2 [id number] #### [facility] [address] [place] [address] MCHC (RBC) [Mass/Vol] 34.4 g/dL Normal 31.4-36.0 [facility] Comment on above: Performed By: #### 2 [id number] #### [facility] [address] [place] [address] MCV (RBC) [Entitic vol] 80.6 fL Normal 80.0-100.0 [facility] Comment on above: Performed By: #### 2 [id number] #### [facility] [address] [place] [address] Monocytes (Bld) [#/Vol] 0.3 E9/L Normal 0.2-1.0 [facility] Comment on above: Performed By: #### 2 [id number] #### [facility] [address] [place] [address] Neutrophils (Bld) [#/Vol] 8.8 E9/L High 2.0-7.5 [facility] Comment on above: Performed By: #### 2 647104 #### [facility] [address] [place] [address] [place] [address] Neutrophils/100 WBC (Bld) 88.1 % High 36.0-75.0 [facility] Comment on above: Performed By: #### 2 [id number] #### [facility] [address] [place] [address] Platelet mean volume (Bld) [Entitic vol] 8.1 fL Normal 6.4-10.8 [facility] Comment on above: Performed By: #### 2 [id number] #### [facility] [address] [place] [address] Platelets (Bld) [#/Vol] 191.0 E9/L Normal 150.0-500.0 [facility] Comment on above: Performed By: #### 2 [id number] #### [facility] [address] [place] [address] RBC (Bld) [#/Vol] 5.2 E12/L Normal 4.3-5.9 [facility] Comment on above: Performed By: #### 2 [id number] #### [facility] [address] [place] [address] WBC corrected for nucl RBC Auto (Bld) [#/Vol] 10.0 E9/L Normal 4.0-11.0 [facility] Comment on above: Performed By: #### 2 [id number] #### [facility] [address] [place] [address] CHEMISTRYOrdered By: SYSTEM SYSTEM on 05-07-2024 Albumin [Mass/Vol] 4.8 g/dL Normal 3.3 - 5.0 gm/dL [facility] Albumin/Globulin [Mass ratio] 1.5 {ratio} Normal 1.1 - 2.2 [facility] ALP [Catalytic activity/Vol] 48 [iU]/d Normal 21 - 98 Int._Unit/L [facility] Chem ALT No additional P-5'-P [Catalytic activity/Vol] 25 [iU]/d Normal 6 - 46 Int._Unit/L [facility] Chem Anion gap [Moles/Vol] 14 mmol/L Normal 6 - 16 mEq/L R emisol Chem AST [Catalytic activity/Vol] 27 [iU]/d Normal 5 - 43 Int._Unit/L [facility] Chem Bilirubin [Mass/Vol] 1.1 mg/dL Normal 0.0 - 1 .1 mg/dL [facility] Chem Bilirubin.direct [Mass/Vol] 0.2 mg/dL Normal 0.0 - 0.4 mg/dL [facility] Chem Bilirubin.indirect [Mass or moles/Vol] 0.9 mg/dL Normal 0.1 - 0.9 mg/dL [facility] Calcium [Mass/Vol] 9.8 mg/dL Normal 8.9 - 11. 1 mg/dL [facility] Chloride [Moles/Vol] 105 mmol/L Normal 101 - 1 11 mmol/L [facility] CO2 [Moles/Vol] 25 mmol/L Normal 21 - 31 mmol/L [facility] Creatinine [Mass/Vol] 1.2 mg/dL Normal 0.5 - 1.3 mg/dL [facility] eGFR 87 mL/min/1.73 m2 Normal >=59mL/min /1 .73 m2 [facility] Globulin (S) [Mass/Vol] 3.1 g/dL Normal 1.4 - 4.0 gm/dL [facility] Glucose [Mass/Vol] 108 mg/dL Normal 55 - 199 mg/dL [facility] Lipase [Catalytic activity/Vol] 9 U/L Low 13 - 58 unit/L [facility] Potassium [Moles/Vol] 3.3 mmol/L Low 3.5 - 5.3 mmol/L [facility] Protein [Mass/Vol] 7.9 g/dL High 6.0 - 7.8 gm/dL [facility] Sodium [Moles/Vol] 141 mmol/L Normal 135 - 145 mmol/L [facility] Urea nitrogen [Mass/Vol] 13 mg/dL Normal 5 - 21 mg/dL [facility] Urea nitrogen/Creatinine [Mass ratio] 11 mg/mg Normal 10 - 20 [facility] ED Clinical Summaryon 2023 ED Clinical Summary ED Clinical Summary [address] [address] ED Clinical Summary Person Information Name: HENRYTANA/[facility] Age: 24 Years : 2000 Sex: Male Language: Israeli PCP: NONE, XXXX Marital Status: Single Phone: [id number] Visit Id: Visit Reason: Chills; Vomiting; Nausea; VOMITING Speciality: Acuity: 3 Enc Type: Emergency Med Service: Emergency Arrival: 05/07/2024 14:52:01 Discharge: 05/07/2024 20:36:30 LOS: 000 05:44 Checkin: 05/07/2024 14:52:01 Checkout: 05/07/2024 20:36:30 Dispo Type: Home (Routine DC) EVENTS: Event Name Event Status Request Date/Time Start Date/Time Complete Date/Time Arrive Complete 05/07/2024 14:52:01 05/07/2024 14:52:01 05/07/2024 14:52:01 Document Home Meds Request 05/07/2024 14:52:01 Triage Complete 05/07/2024 14:52:01 05/07/2024 14:56:52 05/07/2024 14:56:52 Bed Assign Complete 05/07/2024 14:54:17 05/07/2024 14:54:17 05/07/2024 14:54:17 Dr Exam Complete 05/07/2024 14:54:17 05/07/2024 15:07:27 05/07/2024 15:07:27 RN Exam Complete 05/07/2024 14:54:17 05/07/2024 14:58:24 05/07/2024 14:58:24 Pending Labs Request 05/07/2024 15:03:30 Lab Complete 05/07/2024 15:03:30 05/07/2024 15:51:09 Registration Complete 05/07/2024 15:07:27 05/07/2024 15:38:45 05/07/2024 15:38:45 Dr Exam Complete 05/07/2024 15:12:33 05/07/2024 15:12:33 05/07/2024 15:12:33 Pending Labs Complete 05/07/2024 15:26:49 05/07/2024 15:26:49 05/07/2024 15:51:09 Lab Complete 05/07/2024 15:26:49 05/07/2024 15:26:49 05/07/2024 15:51:09 Reg Complete Request 05/07/2024 15:38:45 Reg Bed Request Complete 05/07/2024 15:38:45 05/07/2024 15:38:45 05/07/2024 15:38:45 Meds Admin Request 05/07/2024 15:38:46 CT Complete 05/07/2024 15:38:46 05/07/2024 15:58:41 05/07/2024 16:12:31 Meds Admin Complete 05/07/2024 20:17:55 05/07/2024 20:30:10 Discharge Complete 05/07/2024 20:18:51 05/07/2024 20:36:38 05/07/2024 20:36:38 Transfer Complete 05/07/2024 20:36:38 05/07/2024 20:36:38 05/07/2024 20:36:38 ADDRESS: [address] [place] [phone] PHYS DOC NOTES: MEDICAL INFORMATION: Prescriptions Given: New Medications [facility], [address] [facility] [place], [place] [id number], [phone] ondansetron (ondansetron 4 mg Dis Tab) 1 Tablets By Mouth every 6 hours as needed Nausea/Vomiting. Refills: 0. Medications to Continue with No Changes Other Medications cyclobenzaprine (cyclobenzaprine 10 mg Tab) 1 Tablets By Mouth 3 times a day as needed for spasm. Refills: 0. naproxen (naproxen 500 mg Tab) 1 Tablets By Mouth 2 times a day. Refills: 0. tizanidine (tiZANidine 4 mg Tab) 1 Tablets By Mouth every 8 hours. Refills: 0. PATIENT EDUCATION INFORMATION: Instructions: Colitis; Cannabinoid Hyperemesis Syndrome Follow up: With: Address: When: Lilliana Pack [address], [address], [address] [phone] Business (1) In 3 days 05/10/2024 DIAGNOSIS: 1:Colitis Normal [facility] ED Note-Physicianon 05-07-20 ED Note-Physician ED Note-Physician Basic Information Time Seen: Brigido GALDAMEZDeyanira. 05/07/2024 15:07 Chief Complaint pt reports n/v amnd chill that have been going on the past few days. States it has happened before. Smoke weed daily. VSS, NAD.4mg zofran History of Present Illness Patient presents emergency department chief complaint of abdominal pain, chills, nausea, vomiting since this morning when he woke up. He states last night when he went to bed he felt fine. This morning he woke up with the symptoms. He has had multiple episodes of vomiting. He is also had some watery stool. He denies any melena or hematochezia. The patient denies any fevers. The patient does not smoke cigarettes. He does smoke marijuana. He does not use any street drugs. He has never had any surgeries. He occasionally drinks alcohol. He tried to drink some Sprite this morning but ended up vomiting it. He states the pain is all over his abdomen. Nothing he does make it better.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 feels cold and clammy. You feel confused. You have signs of dehydration, such as: ?Dark urine, very little urine, or no urine. ?Cracked lips. ?Dry mouth. ?Sunken eyes. ?Sleepiness. ?Weakness. These symptoms may be an emergency. Get help right away. Call 911. Do not wait to see if the symptoms will go away. Do not drive yourself to the hospital. Summary Nausea is the feeling that you have an upset stomach or that you are about to vomit. As nausea gets worse, it can lead to vomiting. Vomiting can make you feel weak and cause you to become dehydrated. Follow instructions from your health care provider about eating and drinking to prevent dehydration. Take xsdm-emm-aghqder and prescription medicines only as told by your health care provider. Contact your health care provider if your symptoms get worse, or you have new symptoms. Keep all follow-up visits. This is important. This information is not intended to replace advice given to you by your health care provider. Make sure you discuss any questions you have with your health care provider. Document Revised: 03/27/2022 Document Reviewed: 03/27/2022 [employer] Patient Education 2022 [employer]. Follow Up Care 05/10/2024 09:50:02 With:Husam Mauricio Address: [address] [place] [id number] Business (1) When:05/13/2024 11:52:36 Comments:Call Dr for diagnosis based follow up [facility] 05-10-2024 Evaluation + Plan note Extrac nick from: Title:ED Note Author:Giuliano Art PA-C te:05/10/24 Nausea and vomiting (R11.2: Nausea with vomiting, unspecified) UTI (urinary tract infection) (N39.0: Urinary tract infection, site not specified) Orders: dicyclomine, 10 mg = 1 cap(s), Cap, Oral, Once, Stop date 05/10/24 11:12:00 EDT, STAT, Start date 05/10/24 11:12:00 EDT, 05/10/24 11:12:00 EDT ondansetron, 4 mg = 2 mL, Injection, IV Push, Once, Stop date 05/10/24 10:08:00 EDT, STAT, Start date 05/10/24 10:08:00 EDT, 05/10/24 10:08:00 EDT potassium chloride, 40 mEq = 2 tab(s), Tab-ER, Oral, Once, Stop date 05/10/24 11:12:00 EDT, STAT, Start date 05/10/24 11:12:00 EDT, 05/10/24 11:12:00 EDT promethazine 25 mg + Sodium Chloride 0.9% intravenous solution 50 mL, Injection, IV Piggyback, Once, Stop date 05/10/24 10:48:00 EDT, STAT, Start date 05/10/24 10:48:00 EDT, 153 mL/hr, Infuse over 20 minute(s) Sodium Chloride 0.9% intravenous solution, 1,000 mL, Soln-IV, IV, Once, Stop date 05/10/24 10:08:00 EDT, STAT, Start date 05/10/24 10:08:00 EDT, Infuse over 61, minute(s) Basic Metabolic Panel CBC w/ Auto Diff eGFR Extra Blue Tube Extra SST Tube Hepatic Function Panel Lipase Level UA with Cult Rflx Urine Culture Future Appointments Appointment Date:05/17/2024 10:00:00 AM Scheduled Provider:Lilliana Clarke MD [place] Type:[facility] Follow Up Diagnostic Tests Pending * Urine Culture 05/10/24 [facility] 08-07-2024 NoteED Patient Education Note Gastroenterology Nausea and Vomiting, Adult Nausea is the feeling that you have an upset stomach or that you are about to vomit. As nausea getsworse, it can lead to vomiting. Vomiting is when stomach contents forcefully come out of your mouthas a result of nausea. Vomiting can make you feel weak and cause you to become dehydrated. Dehydration can make you feel tired and thirsty, cause you to have a dry mouth, and decrease how often you urinate. Older adults and people with other diseases or a weak disease-fighting system (immune system) are at higher risk for dehydration. It is important to treat your nausea and vomiting as told by your health care provider. Follow these instructions at home: Watch your symptoms for any changes. Tell your health care provider about them. Eating and drinking ? Take an oral rehydration solution (ORS). This is a drink that is sold at pharmacies and retail stores. ? Drink clear fluids slowly and in small amounts as you are able. Clear fluids include water, ice chips, low-calorie sports drinks, and fruit juice that has water added (diluted fruit juice). ? Eat bland, jkmv-cb-zjhdqm foods in small amounts as you are able. These foods include bananas, applesauce, rice, lean meats, toast, and crackers. ? Avoid fluids that contain a lot of sugar or caffeine, such as energy drinks, sports drinks, and soda. ? Avoid alcohol. ? Avoid spicy or fatty foods. General instructions ? Take uzyt-fzf-axkpetf and prescription medicines only as told by your health care provider. ? Drink enough fluid to keep your urine pale yellow. ? Wash your hands often using soap and water for at least 20 seconds. If soap and water are not available, use hand ergonomics consultant. ? Make sure that everyone in your household washes their hands well and often. ? Rest at home while you recover. ? Watch your condition for any changes. ? Take slow and deep breaths when you feel nauseous. ? Keep all follow-up visits. This is important. Contact a health care provider if: ? Your symptoms get worse. ? You have new symptoms. ? You have a fever. ? You cannot drink fluids without vomiting. ? Your nausea does not go away after 2 days. ? You feel light-headed or dizzy. ? You have a headache. ? You have muscle cramps. ? You have a rash. ? You have pain while urinating. Get help right away if: ? You have pain in your chest, neck, arm, or jaw. ? You feel extremely weak or you faint. ? You have persistent vomiting. ? You have vomit that is bright red or looks like black coffee grounds. ? You have bloody or black stools (feces) or stools that look like tar. ? You have a severe headache, a stiff neck, or both. ? You have severe pain, cramping, or bloating in your abdomen. ? You have difficulty breathing, or you are breathing very quickly. ? Your heart is beating very quickly. ? Your skin feels cold and clammy. ? You feel confused. ? You have signs of dehydration, such as: ? Dark urine, very little urine, or no urine. ? Cracked lips. ? Dry mouth. ? Sunken eyes. ? Sleepiness. ? Weakness. These symptoms may be an emergency. Get help right away. Call 911. ? Do not wait to see if the symptoms will go away. ? Do not drive yourself to the hospital. Summary ? Nausea is the feeling that you have an upset stomach or that you are about to vomit. As nausea gets worse, it can lead to vomiting. Vomiting can make you feel weak and cause you to become dehydrated. ? Follow instructions from your health care provider about eating and drinking to prevent dehydration. ? Take vqfv-ltz-zbutzhz and prescription medicines only as told by your health care provider. ? Contact your health care provider if your symptoms get worse, or you have new symptoms. ? Keep all follow-up visits. This is important. This information is not intended to replace advice given to you by your health care provider. Make sure you discuss any questions you have with your health care provider. Document Revised: 03/27/2022 Document Reviewed: 03/27/2022 [employer] Patient Education ? 2022 [employer]. Obstetrics and Gynecology Urinary Tract Infection, Adult A urinary tract infection (UTI) is an infection of any part of the urinary tract. The urinary tractincludes the kidneys, ureters, bladder, and urethra. These organs make, store, and get rid of urinein the body. An upper UTI affects the ureters and kidneys. A lower UTI affects the bladder and urethra. What are the causes? Most urinary tract infections are caused by bacteria in your genital area around your urethra, where urine leaves your body. These bacteria grow and cause inflammation of your urinary tract. What increases the risk? You are more likely to develop this condition if: ? You have a urinary catheter that stays in place. ? You are not able to contr (more content not included)...[facility]08-04-2024 Hospital Discharge instructions Patient Education 05/07/2024 20:36:38 Colitis Colitis Colitis is a condition in which the colon is inflamed. It can cause diarrhea, blood in the stool, and abdominal pain. Colitis can last a short time (be acute), or it may last a long time (become chronic). What are the causes? This condition may be caused by: Infections from viruses or bacteria. A reaction to medicine. Certain autoimmune diseases, such as Crohn's disease or ulcerative colitis. Radiation treatment. Decreased blood flow to the bowel (ischemia). What are the signs or symptoms? Symptoms of this condition include: Diarrhea, blood in the stool, or black, tarry stool. Pain in the joints or abdominal pain. Fever or fatigue. Vomiting. Weight loss. Bloating. Having fewer bowel movements than usual. A strong and sudden urge to have a bowel movement. Feeling like the bowel is not empty after a bowel movement. How is this diagnosed? This condition may be diagnosed based on a stool test and a blood test. You may also have other tests, such as: X-rays. CT scan. Colonoscopy. Endoscopy. Biopsy. How is this treated? Treatment for this condition depends on the cause. This condition may be treated with: Steps to rest the bowel, such as not eating or drinking for a period of time. Fluids that are given through an IV. Medicine for pain and diarrhea. Antibiotic medicines. Cortisone medicines. Surgery. Follow these instructions at home: Eating and drinking Follow instructions from your health care provider about eating or drinking restrictions. Drink enough fluid to keep your urine pale yellow. Work with a dietitian to determine whether certain foods cause your condition to flare up. Avoid foods or drinks that cause flare-ups. Eat a well-balanced diet. General instructions If you were prescribed an antibiotic medicine, take it as told by your health care provider. Do notstop taking the antibiotic even if you start to feel better. Take ujkc-brf-uhvuzkn and prescription medicines only as told by your health care provider. Keep all follow-up visits. This is important. Contact a health care provider if: Your symptoms do not go away. You develop new symptoms. Get help right away if: You have a fever that does not go away with treatment. You develop chills. You have extreme weakness, fainting, or dehydration. You vomit repeatedly. You develop severe pain in your abdomen. You pass bloody or tarry stool. Summary Colitis is a condition in which the colon is inflamed. Colitis can last a short time (be acute), chaz may last a long time (become chronic). Treatment for this condition depends on the cause and may include resting the bowel, taking medicines, or having surgery. If you were prescribed an antibiotic medicine, take it as told by your health care provider. Do notstop taking the antibiotic even if you start to feel better. Get help right away if you develop severe pain in your abdomen. Keep all follow-up visits. This is important. This information is not intended to replace advice given to you by your health care provider. Make sure you discuss any questions you have with your health care provider. Document Revised: 05/27/2021 Document Reviewed: 05/27/2021 [employer] Patient Education 2022 [employer]. 05/07/2024 20:36:38 Cannabinoid Hyperemesis Syndrome Cannabinoid Hyperemesis Syndrome Cannabinoid hyperemesis syndrome (CHS) is a condition that causes repeated nausea, vomiting, and abdominal pain after long-term use of marijuana (cannabis). People with CHS typically use marijuana 3 5 times a day for many years before they have symptoms, although it is possible to develop CHS with far less daily use. Symptoms of CHS may be mild at first but can get worse and more frequent. In some cases, CHS may cause severe daily vomiting, which can lead to weight loss and dehydration. What are the causes? The exact cause of CHS is not known. Long-term use of marijuana may overstimulate certain proteins in the brain and digestive tract that react with chemicals in marijuana (cannabinoid receptors). This overstimulation may cause CHS. What are the signs or symptoms? Symptoms of CHS are often mild during the first few episodes, but they can get worse over time. Symptoms may include: Frequent nausea, especially early in the morning. Vomiting. This can become severe. Abdominal pain. Feeling very tired (lethargic). Headaches. CHS may go away and come back many times (recur). People may not have symptoms or may otherwise be healthy in between CHS episodes. Taking hot showers can relieve the symptoms of CHS, so feeling the need to take several hot showers throughout the day can be a sign of this condition. How is this diagnosed? CHS may be diagnosed based on: Your symptoms and medical history, including any drug use. A physical exam. You may have tests done to rule out other problems that could cause your symptoms. These tests may include: Blood tests. Urine tests. Imaging tests, such as an X-ray or a CT scan. How is this treated? Treatment for this condition involves stopping marijuana use. Treatment may include: A drug rehab program, if you have trouble stopping marijuana use. Medicines for nausea. These may be given at the hospital through an IV inserted into one of your veins, or they may be medicines that you take by mouth (orally). Certain creams that contain a substance called capsaicin. These may improve symptoms when applied to the abdomen. Hot showers to help relieve symptoms. In severe cases, you may need treatment at a hospital. You may be given IV fluids to prevent or treat dehydration as well as medicines to treat nausea, vomiting, and pain. Follow these instructions at home: During an episode of CHS Stay in bed and rest in a dark, quiet room. Take anti-nausea medicine as told by your health care provider. Try taking hot showers to relieve your symptoms. After an episode of CHS Drink small amounts of clear fluids. Slowly add more if you can keep the fluids down without vomiting. Once you are able to eat without vomiting, eat soft foods in small amounts every 3 4 hours. General instructions Do not use any products that contain marijuana.If you need help quitting, ask your health care provider for resources and treatment options. Drink enough fluid to keep your urine pale yellow. Avoid drinking fluids that have a lot of sugar or caffeine, such as coffee and soda. Take and apply ccug-ady-wqigzxz and prescription medicines only as told by your health care provider. Ask your health care provider before starting any new medicines or treatments. Keep all follow-up visits. This includes any recommended programs for substance use disorders. Contact a health care provider if: Your symptoms get worse. You cannot drink fluids without vomiting or severe pain. You have pain and trouble swallowing after an episode. Get help right away if: You cannot stop vomiting. You have blood in your vomit or your vomit looks like coffee grounds. You have severe abdominal pain. You have stools that are bloody or black, or stools that look like tar. You have symptoms of dehydration, such as: ?Sunken eyes. ?Inability to make tears. ?Cracked lips or dry mouth. ?Decreased urine production. ?Weakness. ?Sleepiness. ?Dizziness, light-headedness, or fainting. These symptoms may be an emergency. Get help right away. Call 911. Do not wait to see if the symptoms will go away. Do not drive yourself to the hospital. Summary Cannabinoid hyperemesis syndrome (CHS) is a condition that causes repeated nausea, vomiting, and abdominal pain after long-term use of marijuana. Treatment for this condition involves stopping marijuana use. Hot showers and capsaicin creams may also help relieve symptoms. Your health care provider may prescribe medicines to help with nausea. Ask your health care provider before starting any medicines or other treatments. This information is not intended to replace advice given to you by your health care provider. Make sure you discuss any questions you have with your health care provider. Document Revised: 01/18/2023 Document Reviewed: 01/18/2023 [employer] Patient Education 2022 Jump or Fall. Follow Up Care 05/07/2024 14:53:35 With:Lilliana Clarke Address: [address] [place], [place] [address]dict Birdie, [address] [phone]- [phone] Business (1) When:05/10/2024 20:18:46 [facility] 08-04-2024 NoteED Patient Education Note Gastroenterology Colitis Colitis is a condition in which the colon is inflamed. It can cause diarrhea, blood in the stool, and abdominal pain. Colitis can last a short time (be acute), or it may last a long time (become chronic). What are the causes? This condition may be caused by: ? Infections from viruses or bacteria. ? A reaction to medicine. ? Certain autoimmune diseases, such as Crohn's disease or ulcerative colitis. ? Radiation treatment. ? Decreased blood flow to the bowel (ischemia). What are the signs or symptoms? Symptoms of this condition include: ? Diarrhea, blood in the stool, or black, tarry stool. ? Pain in the joints or abdominal pain. ? Fever or fatigue. ? Vomiting. ? Weight loss. ? Bloating. ? Having fewer bowel movements than usual. ? A strong and sudden urge to have a bowel movement. ? Feeling like the bowel is not empty after a bowel movement. How is this diagnosed? This condition may be diagnosed based on a stool test and a blood test. You may also have other tests, such as: ? X-rays. ? CT scan. ? Colonoscopy. ? Endoscopy. ? Biopsy. How is this treated? Treatment for this condition depends on the cause. This condition may be treated with: ? Steps to rest the bowel, such as not eating or drinking for a period of time. ? Fluids that are given through an IV. ? Medicine for pain and diarrhea. ? Antibiotic medicines. ? Cortisone medicines. ? Surgery. Follow these instructions at home: Eating and drinking ? Follow instructions from your health care provider about eating or drinking restrictions. ? Drink enough fluid to keep your urine pale yellow. ? Work with a dietitian to determine whether certain foods cause your condition to flare up. ? Avoid foods or drinks that cause flare-ups. ? Eat a well-balanced diet. General instructions ? If you were prescribed an antibiotic medicine, take it as told by your health care provider. Do not stop taking the antibiotic even if you start to feel better. ? Take rtgj-iji-bcmiomk and prescription medicines only as told by your health care provider. ? Keep all follow-up visits. This is important. Contact a health care provider if: ? Your symptoms do not go away. ? You develop new symptoms. Get help right away if: ? You have a fever that does not go away with treatment. ? You develop chills. ? You have extreme weakness, fainting, or dehydration. ? You vomit repeatedly. ? You develop severe pain in your abdomen. ? You pass bloody or tarry stool. Summary ? Colitis is a condition in which the colon is inflamed. Colitis can last a short time (be acute), or it may last a long time (become chronic). ? Treatment for this condition depends on the cause and may include resting the bowel, taking medicines, or having surgery. ? If you were prescribed an antibiotic medicine, take it as told by your health care provider. Do not stop taking the antibiotic even if you start to feel better. ? Get help right away if you develop severe pain in your abdomen. ? Keep all follow-up visits. This is important. This information is not intended to replace advice given to you by your health care provider. Make sure you discuss any questions you have with your health care provider. Document Revised: 05/27/2021 Document Reviewed: 05/27/2021 [employer] Patient Education ? 2022 [employer] Cannabinoid Hyperemesis Syndrome Cannabinoid hyperemesis syndrome (CHS) is a condition that causes repeated nausea, vomiting, and abdominal pain after long-term use of marijuana (cannabis). People with CHS typically use marijuana 3?5 times a day for many years before they have symptoms, although it is possible to develop CHS with far less daily use. Symptoms of CHS may be mild at first but can get worse and more frequent. In some cases, CHS may cause severe daily vomiting, which can lead to weight loss and dehydration. What are the causes? The exact cause of CHS is not known. Long-term use of marijuana may overstimulate certain proteins in the brain and digestive tract that react with chemicals in marijuana (cannabinoid receptors). This overstimulation may cause CHS. What are the signs or symptoms? Symptoms of CHS are often mild during the first few episodes, but they can get worse over time. Symptoms may include: ? Frequent nausea, especially early in the morning. ? Vomiting. This can become severe. ? Abdominal pain. ? Feeling very tired (lethargic). ? Headaches. CHS may go away and come back many times (recur). People may not have symptoms or may otherwise be healthy in between CHS episodes. Taking hot showers can relieve the symptoms of CHS, so feeling the need to take several hot showers throughout the day can be a sign of this condition. How is this diagnosed? CHS may be diagnosed based on: ? Your symptoms and medical history, including a (more content not included)... [facility]08-04-2024 Evaluation + Plan noteExtracted from: Title:ED Note Author:Deyanira Fofana PA-C Date:05/07/24 1. Colitis (K52.9: Noninfect terri gastroenteritis and colitis, unspecified) Orders: morphine, 2 mg = 1 mL, Injection, IV Push, Once, Stop date 05/07/24 15:37:00 EDT, STAT, Start date 05/07/24 15:37:00 EDT, 05/07/24 15:37:00 EDT ondansetron, 4 mg = 1 tab(s), Oral, q6hr, PRN Nausea/Vomiting, # 12 tab(s), Refills(s) 0, Pharmacy: [facility], 187, cm, 05/07/24 14:56:00 EDT, Height/Length Dosing, 95, kg, 05/07/24 14:56:00 EDT, Weight Dosing ondansetron, 4 mg = 1 tab(s), Tab-Dis, Oral, Once, Stop date 05/07/24 20:17:00 EDT, STAT, Start date 05/07/24 20:17:00 EDT, 05/07/24 20:17:00 EDT ondansetron, 4 mg = 2 mL, Injection, IV Push, Once, Stop date 05/07/24 15:37:00 EDT, STAT, Start date 05/07/24 15:37:00 EDT, 05/07/24 15:37:00 EDT Sodium Chloride 0.9% intravenous solution 1,000 mL, 1,000 mL, IV, 1,000 mL/hr, STAT, Start date 05/07/24 15:37:00 EDT, 1 hour(s), Total volume (mL): 1,000, 95 kg, 2.22, m2 CT Abdomen/Pelvis w/ Contrast [facility] 04-02-2023 Hospital Discharge instructions Patient Education 01/03/2023 12:01:21 Muscle Cramps and Spasms, Vryv-vp-Rvko Muscle Cramps and Spasms Muscle cramps and spasms are when muscles tighten by themselves. They usually get better within minutes. Muscle cramps are painful. They are usually stronger and last longer than muscle spasms. Muscle spasms may or may not be painful. They can last a few seconds or much longer. Cramps and spasms can affect any muscle, but they occur most often in the calf muscles of the leg. They are usually not caused by a serious problem. In many cases, the cause is not known. Some commoncauses include: Doing more physical work or exercise than your body is ready for. Using the muscles too much (overuse) by repeating certain movements too many times. Staying in a certain position for a long time. Playing a sport or doing an activity without preparing properly. Using bad form or technique while playing a sport or doing an activity. Not having enough water in your body (dehydration). Injury. Side effects of some medicines. Low levels of the salts and minerals in your blood (electrolytes), such as low potassium or calcium. Follow these instructions at home: Managing pain and stiffness Massage, stretch, and relax the muscle. Do this for many minutes at a time. If told, put heat on tight or tense muscles as often as told by your doctor. Use the heat source that your doctor recommends, such as a moist heat pack or a heating pad. ?Place a towel between your skin and the heat source. ?Leave the heat on for 20 30 minutes. ?Remove the heat if your skin turns bright red. This is very important if you are not able to feel pain, heat, or cold. You may have a greater risk of getting burned. If told, put ice on the affected area. This may help if you are sore or have pain after a cramp or spasm. ?Put ice in a plastic bag. ?Place a towel between your skin and the bag. ?Leave the ice on for 20 minutes, 2 3 times a day. Try taking hot showers or baths to help relax tight muscles. Eating and drinking Drink enough fluid to keep your pee (urine) pale yellow. Eat a healthy diet to help ensure that your muscles work well. This should include: ?Fruits and vegetables. ?Lean protein. ?Whole grains. ?Low-fat or nonfat dairy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
--- NOTE | 2024-05-14 08:40 | ED.EAR1 ---
HPI - Ear Problem General Chief complaint: Ear Stated complaint: LEFT EAR PAIN Time Seen by Provider: 05/14/24 08:32 Source: patient Mode of arrival: walk-in Limitations: no limitations History of Present Illness HPI Narrative: 24-year-old male presents to the emergency department for painful left ear. He has had it for 3 days. He used peroxide and a cottonball but it did not seem to help. He has had a small amount of drainage. Right ear does not hurt and no sore throat. The pain is moderate. Related Data Home Medications ?Medication ?Instructions ?Recorded ?Confirmed cephalexin 500 mg capsule 500 mg PO Q6H 05/14/24 05/14/24 promethazine 12.5 mg rectal 12.5 mg NE Q12H PRN nausea and 05/14/24 05/14/24 suppository vomiting Previous Rx's ?Medication ?Instructions ?Recorded ondansetron 4 mg disintegrating 4 mg PO Q8H PRN nausea and 02/05/24 tablet vomiting 48 hours #10 tabs amoxicillin 500 mg capsule 500 mg PO TID 10 days #30 caps 05/14/24 uxzlszhc-[id number] 3.3 4 drp otic (ear) TID #10 mL 05/14/24 mg-3 mg-10 mg-0.5 mg/mL ear drops,susp (Cortisporin-TC) Allergies Allergy/AdvReac Type Severity Reaction Status Date / Time No Known Drug Allergies Allergy Verified 05/14/24 08:28 Review of Systems ROS Narrative A ten point review of systems is negative except as noted above. PFSH PFS Medical History (Updated 05/14/24 @ 08:39 by Devon Hampton MD) No pertinent past medical history ?Z78.9 - Other specified health status (ICD-10) Surgical History (Updated 05/14/24 @ 08:34 by Ata Reynoso) No pertinent past surgical history ?Z78.9 - Other specified health status (ICD-10) Exam Narrative Exam Narrative: Nurses note and vital signs reviewed and patient is not hypoxic. General: The patient appears well and in no apparent distress. Patient is resting comfortably on cart. Skin: Warm, dry, no pallor noted. There is no rash noted. Head: Normocephalic, atraumatic Eye: Normal conjunctiva, no drainage Ears, Nose, Mouth, and Throat: oral mucosa is moist. Nares patent. Right TM and external canal normal. Left TM is erythematous on the left external canal swollen with some drainage. Cardiovascular: Regular Rate and Rhythm Respiratory: Patient is in no distress, no accessory muscle use, lungs are clear to auscultation, no wheezing, rales or rhonchi Back: non-tender GI: Soft and nontender Musculoskeletal: No joint swelling Neurological: Awake and alert Psychiatric: Cooperative Constitutional Vital Signs, click to edit/add: Last Vital Signs Temp 98.5 F 05/14/24 08:26 Pulse 88 05/14/24 08:26 Resp 20 05/14/24 08:26 BP 149/98 H 05/14/24 08:26 Pulse Ox 95 05/14/24 08:26 Course Vital Signs Vital signs: Vital Signs Temperature 98.5 F 05/14/24 08:26 Pulse Rate 88 05/14/24 08:26 Respiratory Rate 20 05/14/24 08:26 Blood Pressure 149/98 H 05/14/24 08:26 Pulse Oximetry 95 05/14/24 08:26 Temperature 98.5 F 05/14/24 08:26 Pulse Rate 88 05/14/24 08:26 Respiratory Rate 20 05/14/24 08:26 Blood Pressure 149/98 H 05/14/24 08:26 Pulse Oximetry 95 05/14/24 08:26 Medical Decision Making MDM Narrative Medical decision making narrative: My clinical impression is that he has both otitis media and otitis externa. Treatment diagnosis and follow-up were discussed with the patient. Differential Diagnosis Differential Diagnosis: Otitis media, otitis externa, foreign body Discharge Plan Discharge Stand Alone Forms: Portal Instructions Chief Complaint: Ear Clinical Impression: Otitis externa, Otitis media Patient Disposition: Home, Self-Care Time of Disposition Decision: 08:39 Condition: Good Mode of Transportation: Private Vehicle Prescriptions / Home Meds: New amoxicillin 500 mg capsule 500 mg PO TID 10 Days Qty: 30 0RF Cortisporin-TC 3.3-3-10-0.5 mg/mL drops,suspension 4 drp otic (ear) TID Qty: 10 0RF No Action ondansetron 4 mg tablet,disintegrating 4 mg PO Q8H PRN (Reason: nausea and vomiting) 2 Days Qty: 10 0RF cephalexin 500 mg capsule 500 mg PO Q6H promethazine 12.5 mg suppository 12.5 mg NE Q12H PRN (Reason: nausea and vomiting) Print Language: Georgian Instructions: Swimmer's Ear (ED), Ear Infection (ED) Referrals: Physician,Non-Staff, MD [Primary Care Provider] - 1 week
== END 2024-05-14 08:50 | disposition home or self-care (01) ==
PROVIDERS: Emergency Provider Emergency Medicine
DX: H66.92 Otitis media, unspecified, left ear (principal); H60.92 Unspecified otitis externa, left ear
CPT/HCPCS: 99283